=== PATIENT | male | born 1945 | race Caucasian/White ===

== ENCOUNTER → 2020-04-12 16:37 | Outpatient (CLI) | payer MEDICARE, SELFPAY ==
[2020-04-12 17:29] LABS: Basophils % 0.2 % (0.1-2.0); Eosinophils # 0.2 K/mm3 (0.0-0.4); Eosinophils % 1.6 % (0.1-12.0); Hematocrit 38.9 % (42.0-52.0); Hemoglobin 12.1 g/dL (14.1-18.0); Lymphocytes # 1.7 K/mm3 (0.7-4.5); Lymphocytes % 14.3 % (10-50); Mean Corpuscular Hemoglobin 27.6 pg (27.0-31.2); Mean Platelet Volume 9.4 fl (7.4-10.4); Monocytes # 0.9 K/mm3 (0.1-1.0); Monocytes % 7.5 % (1.7-9.3); Neutrophils % 76.4 % (37.0-80.0); Platelet Count 203 K/mm3 (142-424); Red Blood Count 4.37 M/mm3 (4.60-6.20); White Blood Count 11.8 K/mm3 (4.8-10.8)
[2020-04-12 17:40] LABS: Microalbumin/Creatinine Ratio 8.2
[2020-04-12 17:48] LABS: Creatinine,Urine Random 129 mg/dL (Not Estab.)
[2020-04-12 18:05] LABS: Alanine Aminotransferase 12 U/L (12-78); Albumin Level 4.6 g/dl (3.5-5.0); Albumin/Globulin Ratio 1.5 (1.1-1.8); Alkaline Phosphatase 61 U/L (38-126); Anion Gap 16.3 mEq/L (5-15); Aspartate Amino Transferase 31 U/L (17-59); Bilirubin,Total 0.4 mg/dl (0.2-1.3); Blood Urea Nitrogen 18 mg/dl (9-20); Calcium 10.3 mg/dl (8.4-10.2); Carbon Dioxide 33 mmol/L (22.0-30.0); Chloride 96 mmol/L (98-107); Chol/HDL Ratio 2.2 (1-3.5); Cholesterol 111 mg/dl (140-200); Estimated Glomerular Filt Rate 82 ml/min (>60); GFR (African American) 99 ML/MIN (>60); Glucose 88 mg/dl (74-100); HDL Cholesterol 51 mg/dl (40-60); Potassium 5.3 mmoL/L (3.5-5.1); Sodium 140 mmol/L (136-145); Total Protein,Serum 7.6 g/dl (6.3-8.2); Triglycerides 105 mg/dl (30-150); VLDL Cholesterol 21 mg/dL (0-40)
[2020-04-12 18:08] LABS: Hemoglobin A1C 6.7 % (4.0-6.0)
[2020-04-12 18:16] LABS: Direct LDL Cholesterol 47.44 mg/dL (100-129)
[2020-04-12 18:35] LABS: Prostate Specific Ag Screen 0.2 ng/ml (0.0-4.0)
== END ==
PROVIDERS: Visit Provider Family Medicine
DX: E11.9 Type 2 diabetes mellitus without complications (principal); Z12.5 Encounter for screening for malignant neoplasm of prostate; R52 Pain, unspecified; Z95.2 Presence of prosthetic heart valve; Z79.84 Long term (current) use of oral hypoglycemic drugs
CPT/HCPCS: 80053; 80061; 82043; 82570; 83036; 85025; 87086; 87088; 87186; G0103

== ENCOUNTER 2020-05-03 12:51 | Inpatient (IN) | payer MEDICARE, SELFPAY ==
[2020-05-03] VITALS (10 sets, daily range): BP systolic 97–148; BP diastolic 64–77; PULSE 69–106; RESP 15–20; TEMP 36.7–37.1; O2SAT 89–99; BMI 25.8; BMI 26.0
--- NOTE | 2020-05-03 13:16 | HMH.EDSOB ---
ED Disposition Clinical Impression: Community acquired pneumonia Qualifiers: Laterality: unspecified laterality Qualified Code(s): J18.9 - Pneumonia, unspecified organism Disposition: Admitted As Inpatient Condition on Discharge: Fair Referrals: Devin Thibodeaux MD [Primary Care Provider] - - Critical Care Critical Care Time: No Attestation: On , the high probability of a clinically significant, sudden or life threatening deterioration of the following system(s) required my full and direct attention, intervention and personal management. The time I documented below is in addition to time spent performing reported procedures but includes the following listed in this critical care notation. Medical Decision Making - Medical Records Medical records reviewed: Yes: I reviewed the patient's medical records. - Igor Inquiry Pt receiving controlled substance: No Vital Signs: 05/03/20 13:10 05/03/20 13:25 05/03/20 14:35 Temperature 98.7 F Temperature Source Oral Pulse Rate 82 Pulse Rate [Right Radial] 106 H 92 H Respiratory Rate 17 20 Blood Pressure [Right Arm] 131/77 111/76 Blood Pressure Mean [Right Arm] 95 87 Blood Pressure Source [Right Arm] Automatic Cuff Blood Pressure Position [Right Arm] Supine 02 Sat by Pulse Oximetry 89 L 92 L Oxygen Delivery Method Room Air Room Air Oxygen Flow Rate (LPM) 05/03/20 15:03 Temperature Temperature Source Pulse Rate Pulse Rate [Right Radial] 89 Respiratory Rate 19 Blood Pressure [Right Arm] 148/74 H Blood Pressure Mean [Right Arm] 98 Blood Pressure Source [Right Arm] Blood Pressure Position [Right Arm] 02 Sat by Pulse Oximetry 94 L Oxygen Delivery Method Nasal Cannula Oxygen Flow Rate (LPM) 2 - Lab Data Lab results reviewed: Yes: I reviewed the patient's lab results. Lab Results 05/03/20 13:25: WBC 9.5, RBC 4.27 L, Hgb 11.5 L, Hct 37.1 L, MCV 87.0, MCH 27.0, MCHC 31.1 L, RDW 16.2, Plt Count 205, MPV 9.6, Neut % (Auto) 69.8, Lymph % (Auto) 17.0, Gilliam % (Auto) 10.4 H, Eos % (Auto) 2.4, Baso % (Auto) 0.4, Neut # (Auto) 6.6, Lymph # (Auto) 1.6, Gilliam # (Auto) 1.0, Eos # (Auto) 0.2, Baso # (Auto) 0.0 05/03/20 13:25: Lactate 0.9 05/03/20 13:25: Sodium 140, Potassium 4.3, Chloride 96 L, Carbon Dioxide 35 H, Anion Gap 13.3, BUN 26 H, Creatinine 1.00, Estimated Creat Clear 65, Estimated GFR 73, Est GFR ( Amer) 88, Glucose 126 H, Calcium 9.9, Total Bilirubin 0.4, AST 30, ALT 13, Alkaline Phosphatase 62, Total Protein 7.7, Albumin 4.0, Globulin 3.7 H, Albumin/Globulin Ratio 1.1 05/03/20 13:25: SARS-CoV-2 IgG Ab (Rapid) Negative, SARS-CoV-2 IgM Ab (Rapid) Negative Result diagrams: 05/03/20 13:25 05/03/20 13:25 Orders (Tests/Meds): ED MEDICATIONS Generic Name Dose Route Start Last Admin Trade Name Freq PRN Reason Stop Dose Admin Acetaminophen 650 mg 05/03/20 15:05 Acetaminophen 325mg Tab PO 06/02/20 15:04 Q4HP PRN As Needed for Fever or Pain Sodium Chloride 2,180 mls @ 1,090 mls/hr 05/03/20 13:23 05/03/20 13:32 Sod Chlor 0.9% 1000ml Bag 30 ml/kg infuse over 2 hr (2180 ml) 05/03/20 15:22 1,090 mls/hr IV Administration .Q2H ONE Protocol Cefepime HCl 2 gm/ Sodium 100 mls @ 200 mls/hr 05/03/20 13:30 05/03/20 13:34 Chloride IV 05/17/20 13:29 200 mls/hr Q8H ARDEN Administration Protocol Ondansetron HCl 4 mg 05/03/20 15:05 Zofran 4mg/2ml Vial IV 06/02/20 15:04 Q8HP PRN Nausea Sodium Chloride 3 ml 05/03/20 13:23 Sodium Chloride 3% 15ml Neb IH 06/02/20 13:22 ONCE PRN INDUCE SPUTUM COLLECTION Discontinued Medications Generic Name Dose Route Start Last Admin Trade Name Freq PRN Reason Stop Dose Admin Albuterol/Ipratropium 3 ml 05/03/20 14:14 05/03/20 14:35 Duoneb 3ml Neb 05/03/20 14:15 3 ml ONCE ONE Administration Albuterol/Ipratropium 3 ml 05/03/20 14:15 05/03/20 14:16 Duoneb 3ml Neb 05/03/20 14:16 Not Given ONCE ONE ORDE
--- NOTE | 2020-05-03 13:23 | XR_ITS ---
PROCEDURE: XR CHEST 2V CLINICAL HISTORY: cough, soa Cough and shortness of air COMPARISON: No exams were available for comparison FINDINGS: Prior median sternotomy with aortic valve replacement. Normal heart size. There is coarsening of the bronchovascular markings which may be seen with COPD. There is slight increased density in the left lower lobe laterally nonspecific and may be due to an area scarring. There is minimal blunting of the left CP angle. No acute bony abnormalities. IMPRESSION: COPD with chronic changes suspected and may be confirmed with follow-up. Trace left effusion. Dictated by: Narayan Egan MD 05/03/2020 14:36 Narayan Egan MD in OV 05/03/2020 14:36
[2020-05-03 13:37] LABS: Basophils % 0.4 % (0.1-2.0); Eosinophils # 0.2 K/mm3 (0.0-0.4); Eosinophils % 2.4 % (0.1-12.0); Hematocrit 37.1 % (42.0-52.0); Hemoglobin 11.5 g/dL (14.1-18.0); Lymphocytes # 1.6 K/mm3 (0.7-4.5); Mean Corpuscular HGB Conc 31.1 g/dL (31.8-35.4); Mean Platelet Volume 9.6 fl (7.4-10.4); Monocytes % 10.4 % (1.7-9.3); Neutrophils # 6.6 K/mm3 (1.8-7.8); Neutrophils % 69.8 % (37.0-80.0); Platelet Count 205 K/mm3 (142-424); Red Blood Count 4.27 M/mm3 (4.60-6.20); Red Cell Distribution Width 16.2 % (11.5-17.5); White Blood Count 9.5 K/mm3 (4.8-10.8)
[2020-05-03 13:43] LABS: Alanine Aminotransferase 13 U/L (12-78); Albumin/Globulin Ratio 1.1 (1.1-1.8); Alkaline Phosphatase 62 U/L (38-126); Anion Gap 13.3 mEq/L (5-15); Aspartate Amino Transferase 30 U/L (17-59); Bilirubin,Total 0.4 mg/dl (0.2-1.3); Blood Urea Nitrogen 26 mg/dl (9-20); Calcium 9.9 mg/dl (8.4-10.2); Carbon Dioxide 35 mmol/L (22.0-30.0); Chloride 96 mmol/L (98-107); Creatinine Clearance Estimated 65 mL/min (50-200); Estimated Glomerular Filt Rate 73 ml/min (>60); GFR (African American) 88 ML/MIN (>60); Globulin 3.7 g/dL (1.3-3.2); Glucose 126 mg/dl (74-100); Potassium 4.3 mmoL/L (3.5-5.1); Sodium 140 mmol/L (136-145); Total Protein,Serum 7.7 g/dl (6.3-8.2)
[2020-05-03 13:44] LABS: Lactic Acid 0.9 mmol/L (0.7-2.1)
[2020-05-03 13:58] LABS: Coronavirus 19 IgG Antibody Negative (Negative); Coronavirus 19 IgM Antibody Negative (Negative)
--- NOTE | 2020-05-03 14:52 | PC.NURSE ---
pt ambulated in room on room air for approx 3 minutes. sao2 check =74%. pt back to stretcher placed on o2 at 2lbnc. sao2 increased to 94%. dr hendricks notified.
--- NOTE | 2020-05-03 14:56 | PC.NURSE ---
DR BELTRAN SPEAKING TO DR MARRERO
--- NOTE | 2020-05-03 19:10 | HMH.HP ---
*Admission Date: 05/03/20 *Chief complaint: fever and dyspnea *History of present illness: This is a 74-year-old male with a past medical history significant for hypertension, hyperlipidemia, COPD, bioprosthetic mitral valve replacement currently on baby aspirin daily who presents to the emergency department for approximately 3 days of shortness of breath, cough, fever up to 104 degrees at home. Last antipyretic was at 10 AM this morning and was ibuprofen 400 mg. He states that he feels like his left lung is heavy . He denies any vomiting, diarrhea. No abdominal pain or urinary symptoms. He has been using Tylenol and ibuprofen to control his fevers at home but they have persisted and so he presents here for evaluation. He has been out and about in the community, no known exposure to COVID. Patient with initial oxygen saturations of 89 to 91% on room air. However, when ambulating even after a breathing treatment he is 76% on room air. No distinct wheezing and he does have good air movement, but is clearly not maintaining oxygen saturations well. Though his chest x-ray does not show any large pneumonia, I am concerned for possibly radiographically delayed pneumonia given his history of fever and shortness of breath over the last several days. No chest pain that would suggest pulmonary embolus. He has negative COVID IgG and IgM here. Covered empirically with cefepime. I discussed this case with Dr. Thibodeaux, patient will be admitted for further manageme Patient has been running temperatures over the weekend, getting up into the 102 range. He attributes this to a left pneumonia, has a subjective heaviness along the left side. He is not had much in the way of purulent secretions. Patient was recently seen in the office, UTI, culture grew an ESBL E. coli. He received 2 shots of Rocephin, 1 g each and was placed on appropriate p.o. coverage following the culture. In my experience with this patient fevers have previously risen from gu source. Of further concern is a bioprosthetic aortic valve. [facility] History Medical History: Reports:: Asthma, Chronic Obstructive Pulmonary Disease (COPD), Coronary Artery Disease, Diabetes Mellitus Type 2, Hyperlipidemia, Hypertension Denies:: Cancer, Diabetes Mellitus Type 1, MRSA *Have you ever received a pneumonia vaccine?: Yes *Have you received a flu vaccine this season?: Yes Other Medical History: Reports: Cataracts Laterality Cases: Bilateral: Tonsillectomy Other Surgeries: Yes: Cancer Surgery, Mitral Valve Replacement Amputation: No - *Social History Smoking Status: Former smoker Alcohol Intake: never Substance Use Type: denies use *Occupational Status:: retired, disabled Housing: house Household Members: none *Travel in the last 8 weeks: None Family Hx:: Cancer, Coronary Artery Disease, Diabetes, Heart Attack, Hypertension Review of Systems - Constitutional Reports fatigue, Reports fever(s), Reports lack of energy, Reports malaise, Reports weakness - Eyes Denies change in vision - ENT Denies abnormal hearing, Denies neck pain - *Cardiovascular Reports shortness of breath with activity, Denies chest pain, Denies chest pain at rest - *Respiratory Reports chest congestion, Reports cough, Reports shortness of breath, Denies excessive phlegm production, Denies coughing up blood, Denies pain on inspiration, Denies pain with cough - *Gastrointestinal Denies abdominal pain - *Genitourinary Denies difficulty urinating, Denies decreased urination - *Musculoskeletal Reports muscle weakness - Integumentary/Breasts Denies yellowing of the skin - *Neurologic Reports unsteadiness - Psychiatric Denies hopelessness, Denies irritability, Denies mood swings - Endocrine Reports cold intolerance - Hematologic/Lymphatic Denies easy bleeding Meds Home Medications Medication Instructions Recorded Confirmed Type aspirin 81 mg tablet,delayed 81 mg PO DAILY 04/12/20 05/03/20 History release
--- NOTE | 2020-05-03 19:17 | PC.NURSE ---
report given to parul
[2020-05-03 20:30] LABS: Microscopic, Urine URINE MICROSCOPIC (MICROSCOPIC)
[2020-05-03 20:34] LABS: Appearance,Urine CLEAR (Clear); Bilirubin,Urine Negative (Negative); Blood, Urine Negative (Negative); Color,Urine YELLOW (Yellow); Glucose,Urine (UA) Negative (Negative); Ketones,Urine Negative (Negative); Leukocyte Esterase,Urine Negative (Negative); Nitrate,Urine Negative (Negative); Protein,Urine Negative (Negative); Urobilinogen,Urine 0.2 EU/dl (0.2)
[2020-05-03 20:52] LABS: Bacteria,Urine Trace /lpf; Squamous Epithelial Cell,Urine Occasional #/hpf (0-5)
--- NOTE | 2020-05-03 21:03 | PC.NURSE ---
RT gave pt neb tx with sodium chloride to induce SPT. SPT collected and sent to lab at 2100
[2020-05-04 04:00] VITALS: BP 97/61; PULSE 85; RESP 20; TEMP 37.3; O2SAT 92
[2020-05-04 05:00] VITALS: BMI 26.1
--- NOTE | 2020-05-04 05:31 | PC.NURSE ---
A&OX4. PT HAS TOLERATED 2L NC WELL THROUGHOUT SHIFT. RESPIRATIONS REGULAR AND UNLABORED. FINE CRACKLES NOTED THROUGHOUT LUNGS. OCCASIONAL NONPRODUCTIVE COUGH NOTED. +2 PULSES NOTED THROUGHOUT. HAND QUALITY ANALYST EQUAL. ACTIVE BOWEL SOUNDS HEARD IN ALL 4 QUADRANTS. SOFT AND NONTENDER. NO BM THUS FAR. PT AMBULATES TO THE RESTROOM INDEPENDENTLY. PT MOVES INDEPENDENTLY IN THE BED. NO REPORTS OF PAIN THUS FAR. PT RECEIVED INVANZ, CEFEPIME, AND AZITHROMYCIN THIS SHIFT AND TOLERATED ALL WELL. PT HAS SLEPT ON AND OFF THIS SHIFT. HE RECEIVED A SHOWER AND WAS CLIPPED IN PREPARATION FOR CARDIOLOGY CONSULT. PT IS CURRENTLY LYING IN BED W CALL LIGHT WITHIN REACH. BED IN LOWEST POSITION. VSS. WILL CONTINUE TO MONITOR.
[2020-05-04 08:00] VITALS: BP 122/72; PULSE 97; RESP 18; TEMP 36.8; O2SAT 97
[2020-05-04 08:49] LABS: Basophils % 0.2 % (0.1-2.0); Eosinophils # 0.4 K/mm3 (0.0-0.4); Eosinophils % 4.4 % (0.1-12.0); Hematocrit 37.6 % (42.0-52.0); Hemoglobin 11.5 g/dL (14.1-18.0); Lymphocytes # 1.4 K/mm3 (0.7-4.5); Lymphocytes % 16.6 % (10-50); Mean Corpuscular HGB Conc 30.7 g/dL (31.8-35.4); Mean Platelet Volume 10.2 fl (7.4-10.4); Monocytes # 0.7 K/mm3 (0.1-1.0); Monocytes % 8.8 % (1.7-9.3); Neutrophils # 5.9 K/mm3 (1.8-7.8); Platelet Count 220 K/mm3 (142-424); Red Blood Count 4.27 M/mm3 (4.60-6.20); Red Cell Distribution Width 16.1 % (11.5-17.5); White Blood Count 8.4 K/mm3 (4.8-10.8)
[2020-05-04 08:52] LABS: Chloride 103 mmol/L (98-107)
[2020-05-04 08:53] LABS: Potassium 4.6 mmoL/L (3.5-5.1); Sodium 142 mmol/L (136-145)
[2020-05-04 08:55] LABS: Blood Urea Nitrogen 19 mg/dl (9-20); Creatinine Clearance Estimated 65 mL/min (50-200); Estimated Glomerular Filt Rate 94 ml/min (>60); GFR (African American) 114 ML/MIN (>60)
[2020-05-04 08:56] LABS: Anion Gap 10.6 mEq/L (5-15); Calcium 9.4 mg/dl (8.4-10.2); Carbon Dioxide 33 mmol/L (22.0-30.0); Glucose 122 mg/dl (74-100)
--- NOTE | 2020-05-04 09:04 | HMH.CNCARD ---
History of Present Illness Consult date: 05/04/20 Requesting physician: Devin Thibodeaux Chief complaint: Fever Additional Medical History:: 1. Coronary artery disease, status post single-vessel bypass, 2010 2. Aortic valve disease, status post bioprosthetic aortic valve replacement, 2010 3. Tobacco use, smoked for 40 years approximately 2 to 3 packs/day, discontinued 2001. COPD 4. Hypertension 5. Hyperlipidemia 6. Diabetes mellitus type 2 History of present illness: This is a 74-year-old male with a past medical history significant for hypertension, hyperlipidemia, COPD, bioprosthetic mitral valve replacement currently on baby aspirin daily who presents to the emergency department for approximately 3 days of shortness of breath, cough, fever up to 104 degrees at home. Last antipyretic was at 10 AM this morning and was ibuprofen 400 mg. He states that he feels like his left lung is heavy . He denies any vomiting, diarrhea. No abdominal pain or urinary symptoms. He has been using Tylenol and ibuprofen to control his fevers at home but they have persisted and so he presents here for evaluation. He has been out and about in the community, no known exposure to COVID. Patient with initial oxygen saturations of 89 to 91% on room air. However, when ambulating even after a breathing treatment he is 76% on room air. No distinct wheezing and he does have good air movement, but is clearly not maintaining oxygen saturations well. Though his chest x-ray does not show any large pneumonia, I am concerned for possibly radiographically delayed pneumonia given his history of fever and shortness of breath over the last several days. No chest pain that would suggest pulmonary embolus. He has negative COVID IgG and IgM here. Covered empirically with cefepime. I discussed this case with Dr. Thibodeaux, patient will be admitted for further manageme Patient has been running temperatures over the weekend, getting up into the 102 range. He attributes this to a left pneumonia, has a subjective heaviness along the left side. He is not had much in the way of purulent secretions. Patient was recently seen in the office, UTI, culture grew an ESBL E. coli. He received 2 shots of Rocephin, 1 g each and was placed on appropriate p.o. coverage following the culture. In my experience with this patient fevers have previously risen from gu source. Of further concern is a bioprosthetic aortic valve. The above per Dr. Bernard and Dr. Thibodeaux Patient denies any chest pain, pressure or tightness. Echocardiogram has been performed with results pending at this time. [facility] History Medical History: Reports:: Asthma, Chronic Obstructive Pulmonary Disease (COPD), Coronary Artery Disease, Diabetes Mellitus Type 2, Hyperlipidemia, Hypertension Denies:: Cancer, Diabetes Mellitus Type 1, MRSA *Have you ever received a pneumonia vaccine?: Yes *Have you received a flu vaccine this season?: Yes Other Medical History: Reports: Cataracts Laterality Cases: Bilateral: Tonsillectomy Other Surgeries: Yes: Cancer Surgery, Mitral Valve Replacement Amputation: No - *Social History Smoking Status: Former smoker Alcohol Intake: never Substance Use Type: denies use *Occupational Status:: retired, disabled Housing: house Household Members: none *Travel in the last 8 weeks: None Family Hx:: Cancer, Coronary Artery Disease, Diabetes, Heart Attack, Hypertension Meds Home Medications Medication Instructions Recorded Confirmed Type aspirin 81 mg tablet,delayed 81 mg PO DAILY 04/12/20 05/03/20 History release carvedilol 6.25 mg tablet 6.25 mg PO BID 04/12/20 05/03/20 History cholecalciferol (vitamin D3) 10 10 mcg PO DAILY 04/12/20 05/03/20 History mcg (400 unit) capsule losartan 100 mg tablet 50 mg PO DAILY 04/12/20 05/04/20 History metformin 1,000 mg tablet 1,000 mg PO BID 04/12/20 05/03/20 History sojxoqjc-jsj-uaezu acid 0.4 1 tab PO DAILY 04/12/20 05/03/20 History mg-lycopene 300 mcg-lute
--- NOTE | 2020-05-04 10:33 | HMH.PHAINT ---
MED REC-COMPARED MED LIST WITH MD OFFICE LIST AND PHARMACY FILL HX.
--- NOTE | 2020-05-04 10:35 | HMH.PHAVTE ---
[facility] Pharmacy VTE Monitoring - Patient Demographics Admission date: 05/04/20 Report Date: 05/04/20 Time: 10:35 Allergies/Adverse Reactions: Patient Allergies Penicillins Allergy (Severe, Verified 05/03/20 13:15) Rash Height: 1.68 m Weight: 73.652 kg Patient Problems: Current Active Problems Community acquired pneumonia (Acute) Hypoxia (Acute) - VTE Risk Labs: VTE Related Lab Results Hgb 11.5 g/dL (14.1-18.0) L 05/04/20 08:38 Hct 37.6 % (42.0-52.0) L 05/04/20 08:38 Plt Count 220 K/mm3 (142-424) 05/04/20 08:38 BUN 19 mg/dl (9-20) D 05/04/20 08:38 Creatinine 0.80 mg/dl (0.66-1.25) 05/04/20 08:38 Estimated Creat Clear 65 mL/min (50-200) 05/04/20 08:38 VTE Score: 5 VTE Risk Level: Low Risk - Prophylaxis Types of VTE Prophylaxis: TEDS Knee High (RAMON HOSE ORDERED)
--- NOTE | 2020-05-04 11:28 | PC.NURSE ---
Notified Rasheeda about consult on pt at this time.
--- NOTE | 2020-05-04 14:52 | HMH.CONS ---
*Admission Date: 05/04/20 *Reason for consult:: Fever, history of UTIs/prostatitis *History of present illness: Patient is a 74-year-old white male admitted to the hospital last evening through the emergency room. He presented to the emergency room with complaints shortness of breath, cough and fever 204 degrees at home. COVID test were negative. His white count was 9.5 and his creatinine was normal at 1.0. Chest x-ray did not show a pneumonia pattern and afternoons is concerned that his temperatures may be coming from his urine and not his lungs. His urinalysis is within normal limits however. Last month he had a urine culture that grew out an ESBL E. coli. Patient denies any significant lower urinary tract symptoms at home. He is not on any medications for his prostate. Patient states he is uncircumcised and will give urine samples while voiding through the foreskin. He states that last month when he had positive urine culture that he had no urinary symptoms. [facility] History Medical History: Reports:: Asthma, Chronic Obstructive Pulmonary Disease (COPD), Coronary Artery Disease, Diabetes Mellitus Type 2, Hyperlipidemia, Hypertension Denies:: Cancer, Diabetes Mellitus Type 1, MRSA *Have you ever received a pneumonia vaccine?: Yes *Have you received a flu vaccine this season?: Yes Other Medical History: Reports: Cataracts Laterality Cases: Bilateral: Tonsillectomy Other Surgeries: Yes: Cancer Surgery, Mitral Valve Replacement Amputation: No - *Social History Smoking Status: Former smoker Alcohol Intake: never Substance Use Type: denies use *Occupational Status:: retired, disabled Housing: house Household Members: none *Travel in the last 8 weeks: None Family Hx:: Cancer, Coronary Artery Disease, Diabetes, Heart Attack, Hypertension Review of Systems - Review of Systems Review of systems:: pertinent systems reviewed and negative unless documented below - *Neurologic Reports unsteadiness, Reports weakness, Denies abnormal hearing Meds Home Medications Medication Instructions Recorded Confirmed Type aspirin 81 mg tablet,delayed 81 mg PO DAILY 04/12/20 05/03/20 History release carvedilol 6.25 mg tablet 6.25 mg PO BID 04/12/20 05/03/20 History cholecalciferol (vitamin D3) 10 10 mcg PO DAILY 04/12/20 05/03/20 History mcg (400 unit) capsule losartan 100 mg tablet 50 mg PO DAILY 04/12/20 05/04/20 History metformin 1,000 mg tablet 1,000 mg PO BID 04/12/20 05/03/20 History hdjrnpfv-rhd-rzgbn acid 0.4 1 tab PO DAILY 04/12/20 05/03/20 History mg-lycopene 300 mcg-lutein 250 mcg tablet nitroglycerin 0.4 mg sublingual 0.4 mg SUBLINGUAL Q5-15M PRN 04/12/20 05/03/20 History tablet omega-3 fatty acids 1,000 mg 1,000 mg PO DAILY 04/12/20 05/03/20 History capsule omeprazole 20 mg capsule,delayed 20 mg PO DAILY 04/12/20 05/03/20 History release rosuvastatin 10 mg tablet 10 mg PO HS 04/12/20 05/04/20 History Garlic 1 each PO HS 05/04/20 05/04/20 History Allergies Allergy/AdvReac Type Severity Reaction Status Date / Time Penicillins Allergy Severe Rash Verified 05/03/20 13:15 Exam Vital signs and Labs for Last 24 Hours: Temp Pulse Resp BP Pulse Ox 98.2 F 97 H 18 122/72 97 05/04/20 08:00 05/04/20 08:00 05/04/20 08:00 05/04/20 08:00 05/04/20 08:00 Laboratory Results - last 24 hr 05/03/20 20:24: Urine Color Yellow, Urine Appearance Clear, Urine pH 6.0, Ur Specific [place] 1.020, Urine Protein Negative, Urine Glucose (UA) Negative, Urine Ketones Negative, Urine Blood Negative, Urine Nitrate Negative, Urine Bilirubin Negative, Urine Urobilinogen 0.2, Ur Leukocyte Esterase Negative, Urine WBC 3-5, Ur Squamous Epith Cells Occasional, Urine Bacteria Trace 05/04/20 08:38: WBC 8.4, RBC 4.27 L, Hgb 11.5 L, Hct 37.6 L, MCV 88.0, MCH 27.0, MCHC 30.7 L, RDW 16.1, Plt Count 220, MPV 10.2, Neut % (Auto) 70.0, Lymph % (Auto) 16.6, [place] % (Auto) 8.8, Eos % (Auto) 4.4, Baso % (Auto) 0.2, Neut # (Auto) 5.9, L
[2020-05-04 15:54] VITALS: BP 110/65; PULSE 86; RESP 18; TEMP 36.8; O2SAT 95
[2020-05-04 18:10] VITALS: O2SAT 92
--- NOTE | 2020-05-04 18:41 | PC.NURSE ---
PATIENT A&O X4, LUNGS: RHONCHI HEARD, PULSES EQUAL. PATIENT HAS BEEN FATIGUED DURING THIS RN SHIFT. NO COMPLAINTS OF PAIN OR SOB. PATIENT ATE 3 MEALS AND TOLERATED WELL. NO NEW ISSUES OR CONCERNS AT THIS TIME.
--- NOTE | 2020-05-04 19:30 | CA_ITS ---
APPROVED REPORT EXAM: Comprehensive 2D, Doppler, and color-flow Echocardiogram Animal Behaviourist: Kamla Ndiaye RDCS Ht: 5 ft 6 in Wt: 161lbs BSA: 1.82 BP: 110/68 mmHg Indications: AVR PORCINE,FEVER,HTN,DM,HLP 2D Dimensions LVOT 1.56 cm (M/F) 1.5-2.5 M-Mode Dimensions RVDd 3.13 cm (0.9-2.6) LVDd 4.52 cm (3.5-5.7) LVDs 3.27 cm (3.5-5.7) IVSd 0.72 cm (0.6-1.1) PWd 1.16 cm (0.6-1.1) EF (Teich) 53.70% FS 27.70% EDV (Teich) 93.40 mL ESV (Teich) 43.20 mL LV Diastology E/A Ratio 0.56 Aortic Valve LVOT Max 121.00 (70-110 cm/s) LVOT VTI 19.95 cm Mitral Valve MV A Velocity 92.00 (40-130 cm/s) Left Ventricle Left atrium is mildly enlarged, left ventricle is normal size, mild concentric left ventricular hypertrophy, visually estimated ejection fraction 55% with no regional wall motion abnormality, grade 1 diastolic dysfunction seen without tissue Doppler evidence of raise left atrial pressure. Right Ventricle Right atrium and right ventricle mildly enlarged with normal contractility. Aortic Valve There is bioprosthetic valve noted in the aortic position, the valve is well-seated, leaflets are not well visualized, the mean gradient across valve is 21 mmHg, there is no aortic insufficiency. Mitral Valve Mitral valve is grossly normal, there is mild mitral regurgitation. Tricuspid Valve Tricuspid valve is grossly normal, there is mild tricuspid regurgitation, tricuspid regurgitation jet velocity is inadequate for calculation of the right ventricular systolic pressure. Pulmonic Valve Pulmonic valve is poorly visualized. Great Vessels Aortic root is normal size. Pericardium No significant pericardial effusion noted. Conclusion 1. Mildly enlarged left atrium, normal left ventricular size, mild concentric left ventricular hypertrophy, visually estimated ejection fraction 55% with no regional wall motion abnormality, grade 1 diastolic dysfunction seen without tissue Doppler evidence of raise left atrial pressure. 2. Mildly enlarged right ventricle with normal contractility. 3. Bioprosthetic valve in the aortic position, the mean gradient across valve is 21 mmHg. There is no aortic insufficiency. 4. If clinically indicated transesophageal echocardiogram is recommended for further evaluation. Electronically signed by : Petar Alas, 05/04/2020 21:00:38
[2020-05-04 20:00] VITALS: BP 110/57; PULSE 108; RESP 19; TEMP 36.8; O2SAT 95
--- NOTE | 2020-05-04 20:41 | HMH.ACPN2 ---
Internal Medicine - PN: Subj *Date: 05/04/20 *Time: 20:41 Interval history: 74-year-old male patient resting quietly sitting on the side of the bed, reports he is feeling better. Denies any shortness of breath or chest pain at present. Currently on 2 L per nasal cannula satting 94 to 96%. Exam Vital signs and Labs for Last 24 Hours: Temp Pulse Resp BP Pulse Ox 98.2 F 86 18 110/65 95 05/04/20 15:54 05/04/20 15:54 05/04/20 15:54 05/04/20 15:54 05/04/20 15:54 Laboratory Results - last 24 hr 05/03/20 20:24: Urine Color Yellow, Urine Appearance Clear, Urine pH 6.0, Ur Specific [place] 1.020, Urine Protein Negative, Urine Glucose (UA) Negative, Urine Ketones Negative, Urine Blood Negative, Urine Nitrate Negative, Urine Bilirubin Negative, Urine Urobilinogen 0.2, Ur Leukocyte Esterase Negative, Urine WBC 3-5, Ur Squamous Epith Cells Occasional, Urine Bacteria Trace 05/04/20 08:38: WBC 8.4, RBC 4.27 L, Hgb 11.5 L, Hct 37.6 L, MCV 88.0, MCH 27.0, MCHC 30.7 L, RDW 16.1, Plt Count 220, MPV 10.2, Neut % (Auto) 70.0, Lymph % (Auto) 16.6, [place] % (Auto) 8.8, Eos % (Auto) 4.4, Baso % (Auto) 0.2, Neut # (Auto) 5.9, Lymph # (Auto) 1.4, [place] # (Auto) 0.7, Eos # (Auto) 0.4, Baso # (Auto) 0.0 05/04/20 08:38: Sodium 142, Potassium 4.6, Chloride 103, Carbon Dioxide 33 H, Anion Gap 10.6, BUN 19 D, Creatinine 0.80, Estimated Creat Clear 65, Estimated GFR 94, Est GFR ( Amer) 114 D, Glucose 122 H, Calcium 9.4 I & O for Last 24 hours: Intake & Output 05/01/20 05/02/20 05/03/20 05/04/20 23:59 23:59 23:59 23:59 Intake Total 120 / 120 820 / 820 Balance 120 / 120 820 / 820 Weight 161 lb 6 oz 162 lb 6 oz Microbiology Reports for the Last 24 Hours: Microbiology 05/03/20 20:24 Urine,Clean Catch Urine Culture - Preliminary NO GROWTH AFTER 24 HOURS 05/03/20 20:59 Sputum - Expectorated Sputum Gram Stain - Final - Constitutional no acute distress - *Routine HEENT Exam Head: Present: normocephalic. Absent: tenderness of temporal artery ENT: Present: mucous membranes moist. Absent: sinus tenderness - *Routine Neck Exam Present: full ROM, trachea midline. Absent: JVD, tracheal deviation - *Routine Respiratory Exam Present: rales - *Routine Cardiovascular Exam Present: RRR, murmur - *Routine Abdominal Exam Present: soft, normoactive bowel sounds. Absent: tenderness, firm - *Routine Extremities Exam Present: pulses intact. Absent: cyanosis, calf tenderness - *Routine Skin Exam Present: intact, warm. Absent: cyanosis, jaundice - *Routine Neurological Exam Present: alert, oriented X3. Absent: altered mental status - Routine Psychiatric Exam Present: normal affect, normal thought process Assessment and Plan (1) Hypoxia Current visit: Yes Status: Acute Category: Medical Code(s): R09.02 - Hypoxemia (2) Community acquired pneumonia Current visit: Yes Status: Acute Qualifiers: Laterality: unspecified laterality Qualified Code(s): J18.9 - Pneumonia, unspecified organism Category: Medical Code(s): J18.9 - Pneumonia, unspecified organism (3) Abnormal lung examination Current visit: No Status: Acute Category: Medical (4) COPD (chronic obstructive pulmonary disease) Current visit: No Status: Acute Qualifiers: COPD type: unspecified COPD Qualified Code(s): J44.9 - Chronic obstructive pulmonary disease, unspecified Category: Medical Code(s): J44.9 - Chronic obstructive pulmonary disease, unspecified (5) Diabetes Current visit: No Status: Acute Qualifiers: Diabetes mellitus type: type 2 Diabetes mellitus lobsterman insulin use: without lobsterman use Diabetes mellitus complication status: without complication Qualified Code(s): E11.9 - Type 2 diabetes mellitus without complications Category: Medical Code(s): E11.9 - Type 2 diabetes mellitus without complications (6) History of heart valve re
[2020-05-05] VITALS (8 sets, daily range): BP systolic 110–148; BP diastolic 54–78; PULSE 62–93; RESP 18–20; TEMP 36.5–37.3; O2SAT 66–96; BMI 25.8
--- NOTE | 2020-05-05 03:40 | PC.NURSE ---
A&OX4. PT TOLERATING 2LNC THIS SHIFT. PT UP INDEPENDENTLY IN ROOM. PT HAS HAD NO C/O SOA, PAIN, NA/VO THIS SHIFT. PT HAS REMAINED AFEBRILE THIS SHIFT. PT RESTING IN BED WITH EYES CLOSED MAJORITY OF SHIFT. NO C/O THUS FAR, VSS WILL CONTINUE TO MONITOR.
[2020-05-05 06:37] LABS: Basophils % 0.2 % (0.1-2.0); Eosinophils # 0.5 K/mm3 (0.0-0.4); Eosinophils % 5.7 % (0.1-12.0); Hematocrit 34.8 % (42.0-52.0); Hemoglobin 10.7 g/dL (14.1-18.0); Lymphocytes # 1.4 K/mm3 (0.7-4.5); Mean Corpuscular HGB Conc 30.8 g/dL (31.8-35.4); Mean Corpuscular Hemoglobin 26.8 pg (27.0-31.2); Mean Corpuscular Volume 86.9 fl (80-94); Monocytes # 0.8 K/mm3 (0.1-1.0); Monocytes % 9.9 % (1.7-9.3); Neutrophils # 5.6 K/mm3 (1.8-7.8); Neutrophils % 67.2 % (37.0-80.0); Platelet Count 187 K/mm3 (142-424); Red Cell Distribution Width 16.3 % (11.5-17.5); White Blood Count 8.4 K/mm3 (4.8-10.8)
[2020-05-05 06:40] LABS: Chloride 102 mmol/L (98-107); Potassium 4.6 mmoL/L (3.5-5.1); Sodium 138 mmol/L (136-145)
[2020-05-05 06:43] LABS: Anion Gap 9.6 mEq/L (5-15); Blood Urea Nitrogen 15 mg/dl (9-20); Carbon Dioxide 31 mmol/L (22.0-30.0); Creatinine Clearance Estimated 65 mL/min (50-200); Estimated Glomerular Filt Rate 110 ml/min (>60); GFR (African American) 133 ML/MIN (>60)
[2020-05-05 06:44] LABS: Calcium 8.9 mg/dl (8.4-10.2); Glucose 116 mg/dl (74-100)
--- NOTE | 2020-05-05 08:53 | CT_ITS ---
PROCEDURE: CT ANGIO CHEST CLINCIAL INDICATION: hypoxia and shortness of breath SOA, HYPOXIA, COPD, PNEUMONIA. COMPARISON: CR XR CHEST PORTABLE from 05/05/2020 TECHNIQUE: IV Contrast: 70ML OPTIRAY 350 Axial images obtained with sagittal and coronal reformats. All CT scans at the facility use one or more dose reduction, viz: automated exposure control, ma/kV adjustment per patient size (including targeted exams where dose is matched to indication, i.e. head), or iterative reconstruction technique. FINDINGS: HEART AND MEDIASTINAL STRUCTURES: Prior CABG. No evidence of aortic aneurysm or dissection. No evidence of pulmonary embolus. There are enlarged mediastinal lymph nodes. The largest node is in the precarinal region and measures 2.6 by 1.6 cm. Mildly prominent subcarinal nodes in mildly prominent hilar nodes are also present. Calcified nodes are present in the right hilum LUNGS AND PLEURAL SPACES: [place] as well. Centrilobular emphysema with scattered areas of scarring. There is a 6 mm noncalcified nodule in the right upper lobe centrally image 32 series 3 there is a 7 mm noncalcified nodule along the right minor fissure image 64 series 3. There are trace bilateral effusions with atelectatic changes in the lower lobes. A 5 mm noncalcified nodule is present in the right lower lobe laterally series 3, image 69. Atelectatic or fibrotic changes are present in the lingula and left lower lobe with a 7 mm nodule in the lingula. A 6 mm noncalcified nodule is present within the left lower lobe. BONY STRUCTURES: Degenerative changes thoracic spine UPPER ABDOMEN: Cholelithiasis ADDITIONAL FINDINGS: No other significant abnormalities. IMPRESSION: 1. No evidence of pulmonary embolus. 2. Multiple bilateral noncalcified pulmonary nodules measuring up to 7 mm. These may be inflammatory/infectious or neoplastic. Suggest [address] follow-up. 3. Mediastinal adenopathy. This is nonspecific and could be neoplastic or reactive. Follow-up recommended. 4. Trace bilateral effusions with bibasilar atelectatic changes with centrilobular emphysema and scattered areas of scarring Dictated by: Narayan Egan MD 05/06/2020 10:40 Narayan Egan MD in [place] 05/06/2020 10:40
--- NOTE | 2020-05-05 09:14 | HMH.ACPN2 ---
Internal Medicine - PN: Subj *Date: 05/05/20 *Time: 13:21 Interval history: 74-year-old male patient resting in bed quietly, he reports pain is better controlled today. Elastoplast Dressing clean dry and intact to left hip he reports he was up out of bed yesterday and is for today's visit participating in physical therapy. Reminded him on the importance of participating in and completing full physical therapy schedule. Lengthy discussion regarding smoking cessation. Patient reports he is using incentive spirometer 2-3 times per hour instructed it needs to be 10 times per hour patient verbalizes understanding and agrees Exam Vital signs and Labs for Last 24 Hours: Temp Pulse Resp BP Pulse Ox 99.2 F 93 H 18 118/72 91 L 05/05/20 07:58 05/05/20 07:58 05/05/20 07:58 05/05/20 07:58 05/05/20 07:58 Laboratory Results - last 24 hr 05/05/20 05:34: WBC 8.4, RBC 4.00 L, Hgb 10.7 L, Hct 34.8 L, MCV 86.9, MCH 26.8 L, MCHC 30.8 L, RDW 16.3, Plt Count 187, MPV 9.0, Neut % (Auto) 67.2, Lymph % (Auto) 17.0, [place] % (Auto) 9.9 H, Eos % (Auto) 5.7, Baso % (Auto) 0.2, Neut # (Auto) 5.6, Lymph # (Auto) 1.4, [place] # (Auto) 0.8, Eos # (Auto) 0.5 H, Baso # (Auto) 0.0 05/05/20 05:34: Sodium 138, Potassium 4.6, Chloride 102, Carbon Dioxide 31 H, Anion Gap 9.6, BUN 15, Creatinine 0.70, Estimated Creat Clear 65, Estimated GFR 110, Est GFR ( Amer) 133, Glucose 116 H, Calcium 8.9 I & O for Last 24 hours: Intake & Output 05/02/20 05/03/20 05/04/20 05/05/20 23:59 23:59 23:59 23:59 Intake Total 120 / 120 820 / 820 1010 / 1010 Output Total Balance 120 / 120 820 / 820 1009 / 1009 Weight 161 lb 6 oz 162 lb 6 oz 160 lb 12.8 oz Microbiology Reports for the Last 24 Hours: Microbiology 05/03/20 20:24 Urine,Clean Catch Urine Culture - Preliminary NO GROWTH AFTER 24 HOURS - Constitutional no acute distress - *Routine HEENT Exam Head: Present: normocephalic. Absent: tenderness of temporal artery ENT: Present: mucous membranes moist - *Routine Neck Exam Present: full ROM, trachea midline. Absent: tracheal deviation - *Routine Respiratory Exam Present: decreased breath sounds, rales. Absent: accessory muscle use Comments: Rales LLL - *Routine Cardiovascular Exam Present: RRR, murmur - *Routine Abdominal Exam Present: soft, normoactive bowel sounds. Absent: tenderness, firm - *Routine Extremities Exam Present: full ROM, pulses intact. Absent: calf tenderness - *Routine Skin Exam Present: intact, warm. Absent: jaundice - *Routine Neurological Exam Present: alert, oriented X3. Absent: altered mental status - Routine Psychiatric Exam Present: normal affect, normal thought process Assessment and Plan (1) Hypoxia Current visit: Yes Status: Acute Category: Medical Code(s): R09.02 - Hypoxemia (2) Community acquired pneumonia Current visit: Yes Status: Acute Qualifiers: Laterality: unspecified laterality Qualified Code(s): J18.9 - Pneumonia, unspecified organism Category: Medical Code(s): J18.9 - Pneumonia, unspecified organism (3) Abnormal lung examination Current visit: No Status: Acute Category: Medical (4) COPD (chronic obstructive pulmonary disease) Current visit: No Status: Acute Qualifiers: COPD type: unspecified COPD Qualified Code(s): J44.9 - Chronic obstructive pulmonary disease, unspecified Category: Medical Code(s): J44.9 - Chronic obstructive pulmonary disease, unspecified (5) Diabetes Current visit: No Status: Acute Qualifiers: Diabetes mellitus type: type 2 Diabetes mellitus intermediate insulin use: without intermediate use Diabetes mellitus complication status: without complication Qualified Code(s): E11.9 - Type 2 diabetes mellitus without complications Category: Medical Code(s): E11.9 - Type 2 diabetes mellitus without complications (6) History of heart valve replacement
--- NOTE | 2020-05-05 09:55 | HMH.PNCARD ---
Subjective Date: 05/05/20 Time: 09:30 Principal diagnosis: fever, hypoxia, hx of bioprostethic aoatic valve Interval history: 74-year-old white gentleman who was admitted to the hospital with fever and hypoxia. He was found to have E. coli in his urine. He is being treated with this with antibiotics. Patient does have a history of bioprosthetic aortic valve so an echocardiogram was obtained to rule out endocarditis. His echocardiogram showed no evidence of endocarditis however a BILL was recommended for further evaluation. The patient denies any chest pain or pressure. He denies any shortness of breath or edema this morning. He denies fever, chills, nausea, vomiting, diarrhea, PND or orthopnea. Dates pulmonology did come in and see him this morning and he is scheduled to have a CAT scan of his chest as well as ABGs today. Exam Vital signs and Labs for Last 24 Hours: Temp Pulse Resp BP Pulse Ox 99.2 F 93 H 18 118/72 91 L 05/05/20 07:58 05/05/20 07:58 05/05/20 07:58 05/05/20 07:58 05/05/20 07:58 Laboratory Results - last 24 hr 05/05/20 05:34: WBC 8.4, RBC 4.00 L, Hgb 10.7 L, Hct 34.8 L, MCV 86.9, MCH 26.8 L, MCHC 30.8 L, RDW 16.3, Plt Count 187, MPV 9.0, Neut % (Auto) 67.2, Lymph % (Auto) 17.0, [place] % (Auto) 9.9 H, Eos % (Auto) 5.7, Baso % (Auto) 0.2, Neut # (Auto) 5.6, Lymph # (Auto) 1.4, [place] # (Auto) 0.8, Eos # (Auto) 0.5 H, Baso # (Auto) 0.0 05/05/20 05:34: Sodium 138, Potassium 4.6, Chloride 102, Carbon Dioxide 31 H, Anion Gap 9.6, BUN 15, Creatinine 0.70, Estimated Creat Clear 65, Estimated GFR 110, Est GFR ( Amer) 133, Glucose 116 H, Calcium 8.9 I & O for Last 24 hours: Intake & Output 08/30/20 05/03/20 05/04/20 05/05/20 23:59 23:59 23:59 23:59 Intake Total 120 / 120 820 / 820 1010 / 1010 Output Total Balance 120 / 120 820 / 820 1009 / 1009 Weight 161 lb 6 oz 162 lb 6 oz 160 lb 12.8 oz Microbiology Reports for the Last 24 Hours: Microbiology 05/03/20 20:24 Urine,Clean Catch Urine Culture - Preliminary NO GROWTH AFTER 24 HOURS Narrative: Echocardiogram from yesterday shows: His ejection fraction is 55% with grade 1 diastolic dysfunction. There is a bioprosthetic valve in the aortic position which is well-seated. The mean gradient across the valve is 21 mmHg. No aortic insufficiency noted. BILL is recommended for further evaluation. - Constitutional no acute distress, average body habitus - *Routine HEENT Exam Head: Present: normocephalic, atraumatic Eye: Present: EOMI, PERRL ENT: Present: mucous membranes moist - *Routine Neck Exam Present: supple, full ROM, carotid bruit (Bilateral carotid bruits), normal carotid upstroke. Absent: JVD, lymphadenopathy - *Routine Respiratory Exam Present: CTA bilaterally - *Routine Cardiovascular Exam Present: RRR, Normal S1, Normal S2, murmur (2/6). Absent: gallop - *Routine Abdominal Exam Present: soft, normoactive bowel sounds. Absent: tenderness, distended, rebound - *Routine Extremities Exam Present: full ROM, pulses intact, normal capillary refill. Absent: cyanosis, clubbing, edema - *Routine Skin Exam Present: intact, warm. Absent: erythema, rash - *Routine Neurological Exam Present: alert, oriented X3, CN II-XII intact. Absent: sensory deficit, motor deficit Progress Note: A&P (1) Hypoxia Status: Acute Current Visit: Yes (2) Community acquired pneumonia Status: Acute Current Visit: Yes (3) Abnormal lung examination Status: Acute Current Visit: No (4) COPD (chronic obstructive pulmonary disease) Status: Acute Current Visit: No (5) Diabetes Status: Acute Current Visit: No (6) History of heart valve replacement Status: Acute Current Visit: No (7) History of UTI Status: Acute Current Visit: Yes (8) History of aortic valve replacement with bioprosthetic valve Status: Acute Current Visit: Yes (9) Diastolic dysfunction Sta
--- NOTE | 2020-05-05 10:10 | CA_ITS ---
APPROVED REPORT Registered Travel Nurse: CT Laterality: Bilateral Study Quality: Good Indications: bilateral carotid bruits Risk Factors Hypertension: Hyperlipidemia Diabetes Doppler Spectral Velocity Analysis ECA (R) 71.90/13.50 cm/s ECA (L) 96.50/25.00 cm/s dICA (R) 81.40/32.80 cm/s dICA (L) 109.70/43.70 cm/s Ly (R) 64.50/25.50 cm/s Ly (L) 99.50/36.70 cm/s pICA (R) 82.80/33.40 cm/s pICA (L) 94.30/32.20 cm/s dCCA (R) 87.40/23.10 cm/s dCCA (L) 123.40/36.00 cm/s pCCA (R) 95.10/18.00 cm/s pCCA (L) 114.80/24.80 cm/s Vert (R) 61.70/18.00 cm/s Vert (L) 57.80/20.50 cm/s ICA/CCA 1.00 ICA/CCA 0.90 Findings Duplex evaluation demonstrates stenosis of the right proximal internal carotid artery <20% with PSV <140 cm/sec, EDV <100 cm/sec, and IC/CC Ratio <4.0. Duplex evaluation demonstrates stenosis of the left proximal internal carotid artery <20% with PSV <140 cm/sec, EDV <100 cm/sec, and IC/CC Ratio <4.0. Duplex evaluation demonstrates antegrade flow of the bilateral Vertebral Arteries. Electronically signed by : Narayan Egan MD 05/06/2020 17:30:33
[2020-05-05 10:33] LABS: ABG Base Excess 2.5 mmol/L (-2.4-2.3); ABG HCO3 27.6 mmhg (22.0-26.0); ABG Oxygen Saturation 85 % (90-100); ABG PCO2 47.8 mmhg (35.0-45.0); ABG PH 7.38 mmol/L (7.35-7.45); ABG PO2 51.5 mmhg (80-100); ABG TCO2 29.1 mmhg (23-27)
[2020-05-05 10:39] LABS: Oxygen ROOM AIR %; Source R BRACHIAL
--- NOTE | 2020-05-05 11:03 | HMH.PULMCON ---
*Admission Date: 05/04/20 *Reason for consult:: Hypoxic respiratory failure *History of present illness: Patient is a 74-year-old white male prior smoking history more than 30 packs a day, last smoked in 2001, aortic valve replacement, current UTI/prostatitis and pulmonary was consulted to manage his patient's hypoxic respiratory failure on further questioning patient denies any subjective fevers or productive phlegm. Patient states that his breathing has been stable for the last couple of days without any significant noticeable worsening of his symptoms. Patient denies any baseline shortness of breath or exertional dyspnea. However patient oxygen level desaturated to 64% overnight and that prompted the pulmonary consult. At bedside patient is saturating 89 to 91% on room air. Patient afebrile in the last 48 hours. Chest x-ray on admission did not show any obvious airspace disease except for some little right lower lobe infiltrate. Patient denies any frequent respiratory infections. 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 He did not have any significant asbestosis exposure. [facility] History Medical History: Reports:: Asthma, Chronic Obstructive Pulmonary Disease (COPD), Coronary Artery Disease, Diabetes Mellitus Type 2, Hyperlipidemia, Hypertension Denies:: Cancer, Diabetes Mellitus Type 1, MRSA *Have you ever received a pneumonia vaccine?: Yes *Have you received a flu vaccine this season?: Yes Other Medical History: Reports: Cataracts Laterality Cases: Bilateral: Tonsillectomy Other Surgeries: Yes: Cancer Surgery, Mitral Valve Replacement Amputation: No - *Social History Smoking Status: Former smoker Alcohol Intake: never Substance Use Type: denies use *Occupational Status:: retired, disabled Housing: house Household Members: none *Travel in the last 8 weeks: None Family Hx:: Cancer, Coronary Artery Disease, Diabetes, Heart Attack, Hypertension [facility] Pulmonology ROS - Review of Systems Review of systems:: pertinent systems reviewed and negative unless documented below - Constitutional Denies anorexia, Denies body ache(s) - *Cardiovascular Denies generalized swelling, Denies leg swelling - *Respiratory Respiratory: Yes system reviewed and no additional complaints, except as docu, No shortness of breath, No cough, No dyspnea on exertion, No excessive phlegm production - *Gastrointestinal Gastrointestingal: Reports: system reviewed and no additional complaints, except as docu - *Musculoskeletal Musculoskeletal: Reports system reviewed and no additional complaints, except as docu - *Neurologic Reports unsteadiness, Reports weakness, Denies abnormal hearing Meds Home Medications Medication Instructions Recorded Confirmed Type aspirin 81 mg tablet,delayed 81 mg PO DAILY 04/12/20 05/03/20 History release carvedilol 6.25 mg tablet 6.25 mg PO BID 04/12/20 05/03/20 History cholecalciferol (vitamin D3) 10 10 mcg PO DAILY 04/12/20 05/03/20 History mcg (400 unit) capsule losartan 100 mg tablet 50 mg PO DAILY 04/12/20 05/04/20 History metformin 1,000 mg tablet 1,000 mg PO BID 04/12/20 05/03/20 History lquftcij-sov-sbqtg acid 0.4 1 tab PO DAILY 04/12/20 05/03/20 History mg-lycopene 300 mcg-lutein 250 mcg tablet nitroglycerin 0.4 mg sublingual 0.4 mg SUBLINGUAL Q5-15M PRN 04/12/20 05/03/20 History tablet omega-3 fatty acids 1,000 mg 1,000 mg PO DAILY 04/12/20 05/03/20 History capsule omeprazole 20 mg capsule,delayed 20 mg PO DAILY 04/12/20 05/03/20 History release rosuvastatin 10 mg tablet 10 mg PO HS 04/12/20 05/04/20 History Garlic 1 each PO HS 05/04/20 05/04/20 History Allergies Allergy/AdvReac Type Severity Reaction Status Date / Time Penicillins Allergy Severe Rash Verified 05/03/20 13:15 Exam Vital signs and Labs for Last 24 Hours: Temp Pulse Resp BP Pulse Ox 99.2 F 93 H 18 118/72 9
--- NOTE | 2020-05-05 15:45 | XR_ITS ---
PROCEDURE: XR CHEST PORTABLE PICC PLAC CLINICAL HISTORY: Confirm PICC line placement COMPARISON: CR XR CHEST 2V from 05/03/2020 FINDINGS: 05/05/2020 at 1704 hours. The left upper extremity PICC line tip is projected toward the neck and is 5 cm deep into the neck. Dena on the floor was notified of these findings by telephone 05/05/2020 at 5:11 p.m. There has been a prior median sternotomy with aortic valve replacement. No lobar consolidation or collapse. There are atelectatic changes in the left lower lobe. No acute bony abnormalities. IMPRESSION: The PICC line tip is not in satisfactory position as described above Dictated by: Narayan Egan MD 05/05/2020 17:11 Narayan Egan MD in [place] 05/05/2020 17:11
--- NOTE | 2020-05-05 16:25 | SW/DCPLANNER ---
Addendum entered by Livia Cordoba 05/06/20 14:24: I have spoke with this patient regarding discharge plans: placement vs home health services. Patient stated that he lives at home alone, mows his own yard, does his grocery shopping, and takes care of his garden. After a lengthy conversation patient has refused placement and home health services at this time. I have spoke with patient regarding the possible need for home O2 at time of discharge: he has already been made aware of this and is agreeable. Patient stated that he would like to use [facility] for O2. Patient currently has a cane and wheel-chair at home. Patient has no other needs at home at this time. I will inform patients son. Original Note: I spoke with patients son (Tyler) today regarding discharge plans. Son expressed that he had concerns for patient at home alone: but son did not want to express this to patient in fear of hurting his feelings. I informed son that I will speak with patient regarding discharge plans: home health vs placement. Son stated that patient has had home health services in the past: through [place]. Son stated that he just wanted to express his concerns for his father and have someone speak with patient at [facility]. I explain that I will speak with patient this evening/tomorrow regarding discharge plans. Patient is have PICC line placed today, scans and BILL tomorrow. Discharge date is unknown at this time.
--- NOTE | 2020-05-05 17:23 | XR_ITS ---
PROCEDURE: XR CHEST PORTABLE PICC PLAC CLINICAL HISTORY: PICC line placement COMPARISON: CR XR CHEST 2V from 05/03/2020 CR XR CHEST PORTABLE PICC PLAC from 05/05/2020 FINDINGS: 1736 hours. Left upper extremity PICC line tip is now in good position in the region of the SVC. However, there is kinking of the tip with the catheter folded upon itself by approximately 13 mm.. Suggest either pulling catheter back 1-1/2 cm or a vigorous flush with repeating the exam to assure that the kink is resolved. Prior aortic valve replacement with chronic pulmonary changes with atelectasis or infiltrate in the left lower lobe. IMPRESSION: Left upper extremity PICC line tip is now in good position in the region of the SVC. However, there is kinking of the tip with the catheter folded upon itself by approximately 13 mm.. Suggest either pulling catheter back 1-1/2 cm or a vigorous flush with repeating the exam to assure that the kink is resolved Dictated by: Narayan Egan MD 05/05/2020 17:40 Narayan Egan MD in [place] 05/05/2020 17:40
--- NOTE | 2020-05-05 17:48 | XR_ITS ---
PROCEDURE: XR CHEST PORTABLE CLINICAL HISTORY: PICC COMPARISON: CR XR CHEST 2V from 05/03/2020 CR XR CHEST PORTABLE PICC PLAC from 05/05/2020 CR XR CHEST PORTABLE PICC PLAC from 05/05/2020 FINDINGS: 1835 hours Left subclavian PICC line is present. The tip is in good position in the region of the SVC. Prior aortic valve replacement. Persistent patchy infiltrate or atelectasis in the left lung base. IMPRESSION: PICC line in good position. Dictated by: Narayan Egan MD 05/05/2020 18:34 Narayan Egan MD in [place] 05/05/2020 18:34
--- NOTE | 2020-05-05 19:24 | PC.NURSE ---
report given to ana maria
--- NOTE | 2020-05-05 20:29 | PC.NURSE ---
Pt's room air sat at rest = 88%.
--- NOTE | 2020-05-05 20:30 | PC.NURSE ---
PATIENT A&OX4, LUNGS: EXPIRATORY RHONCHI HEARD IN BILATERAL MIDDLE AND LOWER LOBES. PATIENT AMBULATES IN ROOM, GAIT STEADY. PATIENT CONTINUES TO TAKE OFF OXYGEN AND FORGETS TO PUT IT BACK ON. WITH EACH ROOM AIR STATS CHECK, PATIENT WAS IN THE HIGH 60S. THIS RN APPLIED NC BACK ON AND PATIENT WOULD RISE TO LOW 90S. NO OTHER CONCERNS AT THIS TIME.
--- NOTE | 2020-05-05 20:35 | PC.NURSE ---
THIS RN SPOKE WITH ROSALBA AT DR. FREITAS'S OFFICE TO INFORM VERONIAC ECHAVARRIA NP THAT PATIENT'S IV CONTINUED TO INFILTRATE. THIS RN SPOKE WITH ROSALBA IN REGARDS TO CT NOT ABLE TO COMPLETE DUE TO IV SITUATION. ROSALBA PHONED THIS RN BACK AND STATED, OKAY TO ORDER PICC LINE. NO OTHER CONCERNS AT THIS TIME.
[2020-05-06] VITALS (16 sets, daily range): BP systolic 86–157; BP diastolic 51–98; PULSE 67–102; RESP 16–20; TEMP 36.5–36.9; O2SAT 86–100; BMI 25.7
--- NOTE | 2020-05-06 04:21 | PC.NURSE ---
A&OX3. 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 LUNGS NOTED CLEAR T/O AUSCULTATION. TOLERATED 2LNC WELL THIS SHIFT, ATTEMPTING TO GET A RA O2SAT AT THIS TIME. WILL DOCUMENT RA SAT ONCE OBTAINED IN VITAL SIGN INTERVENTION. ABDOMEN NONDISTENDED, ACTIVE BOWEL SOUNDS, SOFT AND NONTENDER PER PALPATION. PULSES +2. INDEPENDENT WITH ADL'S. NO COMPLAINTS STATED. VSS. WILL CONTINUE TO MONITOR.
[2020-05-06 06:37] LABS: Basophils % 0.2 % (0.1-2.0); Eosinophils # 0.6 K/mm3 (0.0-0.4); Hematocrit 33.4 % (42.0-52.0); Hemoglobin 10.7 g/dL (14.1-18.0); Lymphocytes # 1.8 K/mm3 (0.7-4.5); Mean Corpuscular Hemoglobin 27.2 pg (27.0-31.2); Mean Corpuscular Volume 85.2 fl (80-94); Mean Platelet Volume 9.1 fl (7.4-10.4); Monocytes # 0.7 K/mm3 (0.1-1.0); Monocytes % 8.1 % (1.7-9.3); Neutrophils # 5.4 K/mm3 (1.8-7.8); Neutrophils % 63.7 % (37.0-80.0); Platelet Count 210 K/mm3 (142-424); Red Blood Count 3.92 M/mm3 (4.60-6.20); Red Cell Distribution Width 16.1 % (11.5-17.5); White Blood Count 8.4 K/mm3 (4.8-10.8)
[2020-05-06 06:43] LABS: Chloride 101 mmol/L (98-107); Sodium 139 mmol/L (136-145)
[2020-05-06 06:46] LABS: Blood Urea Nitrogen 12 mg/dl (9-20); Calcium 9.2 mg/dl (8.4-10.2); Carbon Dioxide 32 mmol/L (22.0-30.0); Creatinine Clearance Estimated 65 mL/min (50-200); Estimated Glomerular Filt Rate 131 ml/min (>60); GFR (African American) 159 ML/MIN (>60); Glucose 111 mg/dl (74-100)
--- NOTE | 2020-05-06 07:14 | PC.NURSE ---
PICC LINE PATENT WITH BLOOD RETURN TO LUE. PICC DRESSING CDI THIS SHIFT. LEFT LIMB ALERT IN PLACE T/O SHIFT.
--- NOTE | 2020-05-06 08:22 | HMH.PNCARD ---
Subjective Date: 05/06/20 Time: 08:22 Principal diagnosis: fever, hypoxia, hx of bioprostethic aoatic valve Interval history: 74 yo WM at bedside in NAD. No complaints of chest pain or SOA. Exam Vital signs and Labs for Last 24 Hours: Temp Pulse Resp BP Pulse Ox 97.7 F 89 18 114/71 95 05/06/20 08:00 05/06/20 08:00 05/06/20 08:00 05/06/20 08:00 05/06/20 08:00 Laboratory Results - last 24 hr 05/05/20 10:00: Specimen Source R brachial, O2 % Room air, ABG pH 7.38, ABG pCO2 47.8 H, ABG pO2 51.5 L, ABG HCO3 27.6 H, ABG Total CO2 29.1 H, ABG O2 Saturation 85 L*, ABG Base Excess 2.5 H 05/06/20 06:10: WBC 8.4, RBC 3.92 L, Hgb 10.7 L, Hct 33.4 L, MCV 85.2, MCH 27.2, MCHC 32.0, RDW 16.1, Plt Count 210, MPV 9.1, Neut % (Auto) 63.7, Lymph % (Auto) 21.0, [place] % (Auto) 8.1, Eos % (Auto) 7.0, Baso % (Auto) 0.2, Neut # (Auto) 5.4, Lymph # (Auto) 1.8, [place] # (Auto) 0.7, Eos # (Auto) 0.6 H, Baso # (Auto) 0.0 05/06/20 06:10: Sodium 139, Potassium 4.0, Chloride 101, Carbon Dioxide 32 H, Anion Gap 10.0, BUN 12, Creatinine 0.60 L, Estimated Creat Clear 65, Estimated GFR 131, Est GFR ( Amer) 159, Glucose 111 H, Calcium 9.2 I & O for Last 24 hours: Intake & Output 05/03/20 05/04/20 05/05/20 05/06/20 11:59 11:59 11:59 11:59 Intake Total 580 / 580 1370 / 1370 1180 / 1180 Output Total Balance 580 / 580 1369 / 1369 1180 / 1180 Weight 162 lb 6 oz 160 lb 12.8 oz 160 lb Microbiology Reports for the Last 24 Hours: Microbiology 05/03/20 20:59 Sputum - Expectorated Sputum Gram Stain - Final 05/03/20 20:59 Sputum - Expectorated Sputum Sputum Culture - Final Normal Respiratory Ami 05/03/20 20:24 Urine,Clean Catch Urine Culture - Final NO GROWTH AFTER 48 HOURS 05/03/20 13:25 Blood Blood Culture - Preliminary NO GROWTH AFTER 48 HOURS 05/03/20 13:25 Blood Blood Culture - Preliminary NO GROWTH AFTER 48 HOURS - *Routine HEENT Exam Head: Present: normocephalic Eye: Present: EOMI, PERRL ENT: Present: mucous membranes moist - *Routine Respiratory Exam Present: decreased breath sounds, CTA bilaterally - *Routine Cardiovascular Exam Present: RRR, murmur - *Routine Extremities Exam Absent: cyanosis, clubbing, edema - *Routine Neurological Exam Present: alert, oriented X3 Progress Note: A&P (1) Hypoxia Status: Acute Current Visit: Yes (2) Community acquired pneumonia Status: Acute Current Visit: Yes (3) Abnormal lung examination Status: Acute Current Visit: No (4) COPD (chronic obstructive pulmonary disease) Status: Acute Current Visit: No (5) Diabetes Status: Acute Current Visit: No (6) History of heart valve replacement Status: Acute Current Visit: No (7) History of UTI Status: Acute Current Visit: Yes Assessment and Plan for All Diagnoses:: 1. BILL today to assess bioprosthetic AVR in light of murmur and fever. 2. Fever and pneumonia, on ABX. 3. Hypoxia and COPD, per Pulmonary. History of tobacco use and cement use exposure. CTA of chest results pending.
[2020-05-06 11:54] LABS: Basophils % 0.3 % (0.1-2.0); Eosinophils # 0.7 K/mm3 (0.0-0.4); Eosinophils % 6.9 % (0.1-12.0); Hematocrit 34.5 % (42.0-52.0); Hemoglobin 10.6 g/dL (14.1-18.0); Lymphocytes # 1.6 K/mm3 (0.7-4.5); Lymphocytes % 16.3 % (10-50); Mean Corpuscular HGB Conc 30.6 g/dL (31.8-35.4); Mean Corpuscular Hemoglobin 26.3 pg (27.0-31.2); Mean Corpuscular Volume 85.8 fl (80-94); Mean Platelet Volume 8.7 fl (7.4-10.4); Monocytes # 0.7 K/mm3 (0.1-1.0); Monocytes % 7.1 % (1.7-9.3); Neutrophils % 69.4 % (37.0-80.0); Platelet Count 205 K/mm3 (142-424); Red Blood Count 4.02 M/mm3 (4.60-6.20); Red Cell Distribution Width 16.2 % (11.5-17.5)
--- NOTE | 2020-05-06 12:00 | CA_ITS ---
APPROVED REPORT EXAM: Comprehensive 2D, Doppler, and color-flow Echocardiogram Recreational Therapy Aide: Kamla Ndiaye RDCS Ht: 5 ft 6 in Wt: 160lbs BSA: 1.82 BP: 110/68 mmHg Indications: BILL EVAL OF AVR Procedure After obtaining informed consent, patient underwent transesophageal echo in the ICU. Type of Sedation : Conscious Sedation Sedation was administered by Silverio RamirezR.N.AMartine Transesophageal probe was inserted and advanced into esophagus without difficulty by Dr. Raciel Miranda. The BILL was performed without complications. Throughout the procedure, the blood pressure, pulse oximetry, cardiac rhythm, and rate were monitored. The patient tolerated the procedure without adverse effects. Recovery from conscious sedation was uneventful and vital signs were stable. Left Ventricle Left ventricle is normal size, mild concentric left ventricular hypertrophy, visually estimated ejection fraction 55% in the obtained views. With no regional wall motion abnormality. Right Ventricle Right ventricle is mildly enlarged with normal contractility. Atria Left atrium is mildly enlarged, left atrial appendage is free of thrombus, there is good appendage flow by spectral Doppler. Right atrium is mildly enlarged. Interatrial septum is intact, there is no flow across the interatrial septum, agitated saline contrast study fails to identify intracardiac shunt. Aortic Valve There is bioprosthetic valve noted in the aortic position, valve is well-seated, leaflet continue to display good mobility, morphologically there is no prosthetic valve stenosis, there is no aortic insufficiency. There is no vegetation seen on the prosthetic valve. Mitral Valve Mitral valve leaflets are minimally thickened, there is mild mitral regurgitation. Tricuspid Valve Tricuspid valve grossly normal, there is mild tricuspid regurgitation. Pulmonic Valve Pulmonic valve is grossly normal. Great Vessels Aortic root is normal size. Non-mobile atheromatous plaque seen in descending thoracic aorta Pericardium No significant pericardial effusion noted. Conclusion 1. Biatrial enlargement, normal left ventricular size, visually estimated ejection fraction 55% with no regional wall motion abnormality. 2. Bioprosthetic valve in the aortic position, morphologically there is no prosthetic valve stenosis. There is no vegetation seen on the prosthetic valve, there is no aortic insufficiency. 3. Other ancillary findings as described above. Electronically signed by : Petar Alas, 05/06/2020 13:20:07
--- NOTE | 2020-05-06 12:48 | HMH.ACPN2 ---
Internal Medicine - PN: Subj *Date: 05/06/20 *Time: 19:44 Interval history: uneventful night afebrile 02 denny 86 percent slated for aditya today s/p cta to eval for p/e on iv abx for cap Exam Vital signs and Labs for Last 24 Hours: Temp Pulse Resp BP Pulse Ox 98.4 F 86 18 112/63 98 05/06/20 11:23 05/06/20 12:34 05/06/20 12:34 05/06/20 12:34 05/06/20 12:34 Laboratory Results - last 24 hr 05/06/20 06:10: WBC 8.4, RBC 3.92 L, Hgb 10.7 L, Hct 33.4 L, MCV 85.2, MCH 27.2, MCHC 32.0, RDW 16.1, Plt Count 210, MPV 9.1, Neut % (Auto) 63.7, Lymph % (Auto) 21.0, [place] % (Auto) 8.1, Eos % (Auto) 7.0, Baso % (Auto) 0.2, Neut # (Auto) 5.4, Lymph # (Auto) 1.8, [place] # (Auto) 0.7, Eos # (Auto) 0.6 H, Baso # (Auto) 0.0 05/06/20 06:10: Sodium 139, Potassium 4.0, Chloride 101, Carbon Dioxide 32 H, Anion Gap 10.0, BUN 12, Creatinine 0.60 L, Estimated Creat Clear 65, Estimated GFR 131, Est GFR ( Amer) 159, Glucose 111 H, Calcium 9.2 05/06/20 11:45: WBC 10.0, RBC 4.02 L, Hgb 10.6 L, Hct 34.5 L, MCV 85.8, MCH 26.3 L, MCHC 30.6 L, RDW 16.2, Plt Count 205, MPV 8.7, Neut % (Auto) 69.4, Lymph % (Auto) 16.3, [place] % (Auto) 7.1, Eos % (Auto) 6.9, Baso % (Auto) 0.3, Neut # (Auto) 7.0, Lymph # (Auto) 1.6, [place] # (Auto) 0.7, Eos # (Auto) 0.7 H, Baso # (Auto) 0.0 I & O for Last 24 hours: Intake & Output 05/03/20 05/04/20 05/05/20 05/06/20 23:59 23:59 23:59 23:59 Intake Total 120 / 120 820 / 820 1730 / 1730 460 / 460 Output Total Balance 120 / 120 820 / 820 1729 / 1729 460 / 460 Weight 161 lb 6 oz 162 lb 6 oz 160 lb 14.999 oz 160 lb Microbiology Reports for the Last 24 Hours: Microbiology 05/03/20 20:59 Sputum - Expectorated Sputum Gram Stain - Final 05/03/20 20:59 Sputum - Expectorated Sputum Sputum Culture - Final Normal Respiratory Ami 05/03/20 20:24 Urine,Clean Catch Urine Culture - Final NO GROWTH AFTER 48 HOURS 05/03/20 13:25 Blood Blood Culture - Preliminary NO GROWTH AFTER 48 HOURS 05/03/20 13:25 Blood Blood Culture - Preliminary NO GROWTH AFTER 48 HOURS - Constitutional no acute distress - *Routine HEENT Exam Head: Present: normocephalic Eye: Present: EOMI, PERRL ENT: Present: mucous membranes moist - *Routine Neck Exam Present: supple. Absent: lymphadenopathy - *Routine Respiratory Exam Present: crackles. Absent: accessory muscle use, respiratory distress, wheezes Comments: left base - *Routine Cardiovascular Exam Present: RRR, murmur - *Routine Abdominal Exam Present: soft, normoactive bowel sounds. Absent: tenderness - *Routine Extremities Exam Absent: cyanosis, clubbing, edema - *Routine Skin Exam Present: warm. Absent: rash - *Routine Neurological Exam Present: alert, oriented X3 Assessment and Plan (1) Hypoxia Current visit: Yes Status: Acute Category: Medical Code(s): R09.02 - Hypoxemia (2) Community acquired pneumonia Current visit: Yes Status: Acute Qualifiers: Laterality: unspecified laterality Qualified Code(s): J18.9 - Pneumonia, unspecified organism Category: Medical Code(s): J18.9 - Pneumonia, unspecified organism (3) Abnormal lung examination Current visit: No Status: Acute Category: Medical (4) COPD (chronic obstructive pulmonary disease) Current visit: No Status: Acute Qualifiers: COPD type: unspecified COPD Qualified Code(s): J44.9 - Chronic obstructive pulmonary disease, unspecified Category: Medical Code(s): J44.9 - Chronic obstructive pulmonary disease, unspecified (5) Diabetes Current visit: No Status: Acute Qualifiers: Diabetes mellitus type: type 2 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
--- NOTE | 2020-05-06 13:40 | HMH.ACPN ---
Internal Medicine - PN: Subj *Date: 05/06/20 *Time: 13:40 Exam Vital signs and Labs for Last 24 Hours: Temp Pulse Resp BP Pulse Ox 98.1 F 74 16 113/63 92 L 05/06/20 13:04 05/06/20 13:04 05/06/20 13:04 05/06/20 13:04 05/06/20 13:04 Laboratory Results - last 24 hr 05/06/20 06:10: WBC 8.4, RBC 3.92 L, Hgb 10.7 L, Hct 33.4 L, MCV 85.2, MCH 27.2, MCHC 32.0, RDW 16.1, Plt Count 210, MPV 9.1, Neut % (Auto) 63.7, Lymph % (Auto) 21.0, [place] % (Auto) 8.1, Eos % (Auto) 7.0, Baso % (Auto) 0.2, Neut # (Auto) 5.4, Lymph # (Auto) 1.8, [place] # (Auto) 0.7, Eos # (Auto) 0.6 H, Baso # (Auto) 0.0 05/06/20 06:10: Sodium 139, Potassium 4.0, Chloride 101, Carbon Dioxide 32 H, Anion Gap 10.0, BUN 12, Creatinine 0.60 L, Estimated Creat Clear 65, Estimated GFR 131, Est GFR ( Amer) 159, Glucose 111 H, Calcium 9.2 05/06/20 11:45: WBC 10.0, RBC 4.02 L, Hgb 10.6 L, Hct 34.5 L, MCV 85.8, MCH 26.3 L, MCHC 30.6 L, RDW 16.2, Plt Count 205, MPV 8.7, Neut % (Auto) 69.4, Lymph % (Auto) 16.3, [place] % (Auto) 7.1, Eos % (Auto) 6.9, Baso % (Auto) 0.3, Neut # (Auto) 7.0, Lymph # (Auto) 1.6, [place] # (Auto) 0.7, Eos # (Auto) 0.7 H, Baso # (Auto) 0.0 I & O for Last 24 hours: Intake & Output 05/03/20 05/04/20 05/05/20 05/06/20 23:59 23:59 23:59 23:59 Intake Total 120 / 120 820 / 820 1730 / 1730 460 / 460 Output Total Balance 120 / 120 820 / 820 1729 / 1729 460 / 460 Weight 73.198 kg 73.652 kg 73 kg 72.575 kg Microbiology Reports for the Last 24 Hours: Microbiology 05/03/20 20:59 Sputum - Expectorated Sputum Gram Stain - Final 05/03/20 20:59 Sputum - Expectorated Sputum Sputum Culture - Final Normal Respiratory Ami 05/03/20 20:24 Urine,Clean Catch Urine Culture - Final NO GROWTH AFTER 48 HOURS 05/03/20 13:25 Blood Blood Culture - Preliminary NO GROWTH AFTER 48 HOURS 05/03/20 13:25 Blood Blood Culture - Preliminary NO GROWTH AFTER 48 HOURS Assessment and Plan (1) Hypoxia Current visit: Yes Status: Acute Category: Medical Code(s): R09.02 - Hypoxemia (2) Community acquired pneumonia Current visit: Yes Status: Acute Qualifiers: Laterality: unspecified laterality Qualified Code(s): J18.9 - Pneumonia, unspecified organism Category: Medical Code(s): J18.9 - Pneumonia, unspecified organism (3) Abnormal lung examination Current visit: No Status: Acute Category: Medical (4) COPD (chronic obstructive pulmonary disease) Current visit: No Status: Acute Qualifiers: COPD type: unspecified COPD Qualified Code(s): J44.9 - Chronic obstructive pulmonary disease, unspecified Category: Medical Code(s): J44.9 - Chronic obstructive pulmonary disease, unspecified (5) Diabetes Current visit: No Status: Acute Qualifiers: Diabetes mellitus type: type 2 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: without watermelon harvesting supervisor use Diabetes mellitus complication status: without complication Qualified Code(s): E11.9 - Type 2 diabetes mellitus without complications Category: Medical Code(s): E11.9 - Type 2 diabetes mellitus without complications (6) History of heart valve replacement Current visit: No Status: Acute Category: Surgical Code(s): Z95.2 - Presence of prosthetic heart valve (7) History of UTI Current visit: Yes Status: Acute Category: Medical Code(s): Z87.440 - Personal history of urinary (tract) infections The patient's infection will respond to the chosen ABx?: Yes Is the patient receiving the right drug, dose, and route?: Yes Could a more targeted ABx be ordered?: Yes (DC ERTAPENEM TODAY..TOMORROW IS LAST DAY OF AZITH AND CEFEPIME) 5 (DAY 4 OF 5 TODAY)
--- NOTE | 2020-05-06 13:41 | HMH.ANESCL ---
[facility] Anesthesia Checklist - Patient Identification Patient Identification: Arm Band - Structural Data Admitted From: Inpatient Planned Operative Procedure/s: BILL Consent for Planned Operative Procedure(s) Verified: Yes Verified Documents: Surgical Consent, History and Physical - NPO Status Verified Time NPO: 00:00 - Additional verifications Anesthesia Reactions: No - Airway Assessment C-Spine Mobility Assessed: Yes (mp2) TMJ Mobility Assessed: Yes Dentition: Edentulous - Neurological Assessment Level of Consciousness: Awake, Alert - Anesthesia Plan Anesthesia Risk discussed: Yes Anesthesia Plan: Verified ASA Class: III Anesthesia Type: MAC [facility] History I have reviewed the patient's past medical history: Yes Medical History: Reports:: Asthma, Chronic Obstructive Pulmonary Disease (COPD), Coronary Artery Disease, Diabetes Mellitus Type 2, Hyperlipidemia, Hypertension Denies:: Cancer, Diabetes Mellitus Type 1, MRSA *Have you ever received a pneumonia vaccine?: Yes *Have you received a flu vaccine this season?: Yes Other Medical History: Reports: Cataracts Anesthesia experience/problems:: nac Laterality Cases: Bilateral: Tonsillectomy Other Surgeries: Yes: Cancer Surgery, Mitral Valve Replacement Amputation: No - *Social History Smoking Status: Former smoker Alcohol Intake: never Substance Use Type: denies use *Occupational Status:: retired, disabled Housing: house Household Members: none *Travel in the last 8 weeks: None Family Hx:: Cancer, Coronary Artery Disease, Diabetes, Heart Attack, Hypertension
--- NOTE | 2020-05-06 14:05 | HMH.PULMPN ---
Internal Medicine - PN: Subj *Date: 05/06/20 *Time: 14:58 Interval history: Cute events noted overnight. Patient states his breathing has been stable through his baseline Exam Vital signs and Labs for Last 24 Hours: Temp Pulse Resp BP Pulse Ox 98.1 F 74 18 141/60 H 92 L 05/06/20 13:34 05/06/20 13:34 05/06/20 13:34 05/06/20 13:34 05/06/20 13:34 Laboratory Results - last 24 hr 05/06/20 06:10: WBC 8.4, RBC 3.92 L, Hgb 10.7 L, Hct 33.4 L, MCV 85.2, MCH 27.2, MCHC 32.0, RDW 16.1, Plt Count 210, MPV 9.1, Neut % (Auto) 63.7, Lymph % (Auto) 21.0, [place] % (Auto) 8.1, Eos % (Auto) 7.0, Baso % (Auto) 0.2, Neut # (Auto) 5.4, Lymph # (Auto) 1.8, [place] # (Auto) 0.7, Eos # (Auto) 0.6 H, Baso # (Auto) 0.0 05/06/20 06:10: Sodium 139, Potassium 4.0, Chloride 101, Carbon Dioxide 32 H, Anion Gap 10.0, BUN 12, Creatinine 0.60 L, Estimated Creat Clear 65, Estimated GFR 131, Est GFR ( Amer) 159, Glucose 111 H, Calcium 9.2 05/06/20 11:45: WBC 10.0, RBC 4.02 L, Hgb 10.6 L, Hct 34.5 L, MCV 85.8, MCH 26.3 L, MCHC 30.6 L, RDW 16.2, Plt Count 205, MPV 8.7, Neut % (Auto) 69.4, Lymph % (Auto) 16.3, [place] % (Auto) 7.1, Eos % (Auto) 6.9, Baso % (Auto) 0.3, Neut # (Auto) 7.0, Lymph # (Auto) 1.6, [place] # (Auto) 0.7, Eos # (Auto) 0.7 H, Baso # (Auto) 0.0 I & O for Last 24 hours: Intake & Output 05/03/20 05/04/20 05/05/20 05/06/20 23:59 23:59 23:59 23:59 Intake Total 120 / 120 820 / 820 1730 / 1730 460 / 460 Output Total Balance 120 / 120 820 / 820 1729 / 1729 460 / 460 Weight 161 lb 6 oz 162 lb 6 oz 160 lb 14.999 oz 160 lb Microbiology Reports for the Last 24 Hours: Microbiology 05/03/20 20:59 Sputum - Expectorated Sputum Gram Stain - Final 05/03/20 20:59 Sputum - Expectorated Sputum Sputum Culture - Final Normal Respiratory Ami 05/03/20 20:24 Urine,Clean Catch Urine Culture - Final NO GROWTH AFTER 48 HOURS 05/03/20 13:25 Blood Blood Culture - Preliminary NO GROWTH AFTER 48 HOURS 05/03/20 13:25 Blood Blood Culture - Preliminary NO GROWTH AFTER 48 HOURS - *Routine Neck Exam Present: supple. Absent: lymphadenopathy, thyromegaly - *Routine Respiratory Exam Present: CTA bilaterally, crackles - *Routine Cardiovascular Exam Present: RRR, Normal S1, Normal S2 - *Routine Abdominal Exam Present: soft, normoactive bowel sounds. Absent: tenderness, distended - *Routine Extremities Exam Absent: cyanosis, clubbing, edema Assessment and Plan (1) Hypoxia Current visit: Yes Status: Acute Category: Medical Code(s): R09.02 - Hypoxemia (2) Community acquired pneumonia Current visit: Yes Status: Acute Qualifiers: Laterality: unspecified laterality Qualified Code(s): J18.9 - Pneumonia, unspecified organism Category: Medical Code(s): J18.9 - Pneumonia, unspecified organism (3) Abnormal lung examination Current visit: No Status: Acute Category: Medical (4) COPD (chronic obstructive pulmonary disease) Current visit: No Status: Acute Qualifiers: COPD type: unspecified COPD Qualified Code(s): J44.9 - Chronic obstructive pulmonary disease, unspecified Category: Medical Code(s): J44.9 - Chronic obstructive pulmonary disease, unspecified (5) Diabetes Current visit: No Status: Acute Qualifiers: Diabetes mellitus type: type 2 Diabetes mellitus usp insulin use: 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
--- NOTE | 2020-05-06 17:39 | PC.NURSE ---
Pt is alert and oriented x4. He ambulates with standby assist. He has to be reminded on multiple occasions to press call light for help. PICC to LUE has good blood return and flushes easily. He uses 2L PRN as O2 drops with sleep or activity. He reported several loose stools today. No complaints verbalized. Will continue to monitor.
[2020-05-07] VITALS: BP 105/65; PULSE 97; RESP 16; TEMP 37; O2SAT 90
[2020-05-07 04:00] VITALS: BP 113/63; PULSE 83; RESP 16; TEMP 37.3; O2SAT 90
[2020-05-07 05:00] VITALS: BMI 26.1
--- NOTE | 2020-05-07 05:36 | PC.NURSE ---
Pt rested well. No complaints reported to staff. Pt educated on use of IS and demonstrated understanding. Pt ambulating w/ standby assist to BR, voiding w/o reported issues. Tolerating RA majority of the night.
[2020-05-07 08:00] VITALS: BP 108/65; PULSE 94; RESP 18; TEMP 37.2; O2SAT 90
[2020-05-07 08:16] LABS: Basophils % 0.3 % (0.1-2.0); Eosinophils # 0.8 K/mm3 (0.0-0.4); Hematocrit 33.8 % (42.0-52.0); Hemoglobin 10.6 g/dL (14.1-18.0); Lymphocytes % 19.6 % (10-50); Mean Corpuscular HGB Conc 31.5 g/dL (31.8-35.4); Mean Corpuscular Hemoglobin 26.8 pg (27.0-31.2); Mean Corpuscular Volume 85.1 fl (80-94); Mean Platelet Volume 9.1 fl (7.4-10.4); Monocytes # 0.9 K/mm3 (0.1-1.0); Monocytes % 8.7 % (1.7-9.3); Neutrophils # 6.5 K/mm3 (1.8-7.8); Neutrophils % 63.4 % (37.0-80.0); Platelet Count 216 K/mm3 (142-424); Red Blood Count 3.97 M/mm3 (4.60-6.20); Red Cell Distribution Width 16.2 % (11.5-17.5); White Blood Count 10.2 K/mm3 (4.8-10.8)
[2020-05-07 08:19] LABS: Chloride 102 mmol/L (98-107); Potassium 4.4 mmoL/L (3.5-5.1); Sodium 138 mmol/L (136-145)
[2020-05-07 08:22] LABS: Anion Gap 9.4 mEq/L (5-15); Blood Urea Nitrogen 14 mg/dl (9-20); Calcium 9.3 mg/dl (8.4-10.2); Carbon Dioxide 31 mmol/L (22.0-30.0); Creatinine Clearance Estimated 65 mL/min (50-200); Estimated Glomerular Filt Rate 110 ml/min (>60); GFR (African American) 133 ML/MIN (>60); Glucose 108 mg/dl (74-100)
[2020-05-07 12:00] VITALS: BP 114/68; PULSE 89; RESP 18; TEMP 37.1; O2SAT 91
--- NOTE | 2020-05-07 13:02 | HMH.DCSUM ---
General - General Admission date:: 05/05/20 Discharge date: 05/07/20 HPI HPI: This is a 74-year-old male with a past medical history significant for hypertension, hyperlipidemia, COPD, bioprosthetic mitral valve replacement currently on baby aspirin daily who presents to the emergency department for approximately 3 days of shortness of breath, cough, fever up to 104 degrees at home. Last antipyretic was at 10 AM this morning and was ibuprofen 400 mg. He states that he feels like his left lung is heavy . He denies any vomiting, diarrhea. No abdominal pain or urinary symptoms. He has been using Tylenol and ibuprofen to control his fevers at home but they have persisted and so he presents here for evaluation. He has been out and about in the community, no known exposure to COVID. Patient with initial oxygen saturations of 89 to 91% on room air. However, when ambulating even after a breathing treatment he is 76% on room air. No distinct wheezing and he does have good air movement, but is clearly not maintaining oxygen saturations well. Though his chest x-ray does not show any large pneumonia, I am concerned for possibly radiographically delayed pneumonia given his history of fever and shortness of breath over the last several days. No chest pain that would suggest pulmonary embolus. He has negative COVID IgG and IgM here. Covered empirically with cefepime. I discussed this case with Dr. Thibodeaux, patient will be admitted for further manageme Patient has been running temperatures over the weekend, getting up into the 102 range. He attributes this to a left pneumonia, has a subjective heaviness along the left side. He is not had much in the way of purulent secretions. Patient was recently seen in the office, UTI, culture grew an ESBL E. coli. He received 2 shots of Rocephin, 1 g each and was placed on appropriate p.o. coverage following the culture. In my experience with this patient fevers have previously risen from gu source. Of further concern is a bioprosthetic aortic valve. Hospital Course Hospital Course: started on iv antibiotics for cap invanz also added because of esbl consultation by urology/pulm/cardiol underwent echo/aditya because of bioprosthetic valve/fever underwent cta because of desatn no p/e noted infiltrate left lung Objective Vital signs: Temp Pulse Resp BP Pulse Ox 98.7 F 89 18 114/68 91 L 05/07/20 12:00 05/07/20 12:00 05/07/20 12:00 05/07/20 12:00 05/07/20 12:00 no acute distress - *Routine HEENT Exam Head: Present: normocephalic Eye: Present: EOMI, PERRL ENT: Present: mucous membranes moist - *Routine Neck Exam Present: supple - *Routine Respiratory Exam Present: crackles. Absent: accessory muscle use, prolonged expiratory phase, rhonchi, stridor, wheezes, diminished air movement - *Routine Cardiovascular Exam Present: RRR, murmur - *Routine Abdominal Exam Present: soft, normoactive bowel sounds. Absent: tenderness - *Routine Extremities Exam Absent: cyanosis, clubbing, edema - *Routine Skin Exam Present: warm. Absent: rash - *Routine Neurological Exam Present: alert, oriented X3, moving all extremities, vision grossly intact, hearing grossly intact. Absent: facial asymmetry - Routine Psychiatric Exam Present: normal affect, cooperative, good insight, good judgment Results Labs on day of discharge: Labs from last 24 hours 05/07/20 05/07/20 07:56 07:56 WBC 10.2 RBC 3.97 L Hgb 10.6 L Hct 33.8 L MCV 85.1 MCH 26.8 L MCHC 31.5 L RDW 16.2 Plt Count 216 MPV 9.1 Neut % (Auto) 63.4 Lymph % (Auto) 19.6 [place] % (Auto) 8.7 Eos % (Auto) 8.0 Baso % (Auto) 0.3 Neut # (Auto) 6.5 Lymph # (Auto) 2.0 [place] # (Auto) 0.9 Eos # (Auto) 0.8 H Baso # (Auto) 0.0 Sodium 138 Potassium 4.4 Chloride 102 Carbon Dioxide 31 H Anion Gap 9.4 BUN 14 Creatinine 0.70 Estimated Creat Clear 65 Estimated GFR 110
--- NOTE | 2020-05-07 13:45 | HMH.PHAINT ---
DISCHARGE MEDICATION EDUCATION COMPLETED
--- NOTE | 2020-05-07 14:25 | PC.NURSE ---
picc removed per protocall
== END 2020-05-07 14:30 | disposition home or self-care (01) | DRG 193 ==
LOC: ER 15:12 → 2ND 05-04 01:52
PROVIDERS: Internal Medicine Cardiovascular Disease; Internal Medicine Pulmonary Disease; Nurse Practitioner Family; Admitting Provider Family Medicine; Emergency Provider Emergency Medicine; PCP Family Medicine; Visit Provider Family Medicine
DX: J18.9 Pneumonia, unspecified organism (principal); J96.01 Acute respiratory failure with hypoxia; I10 Essential (primary) hypertension; E78.5 Hyperlipidemia, unspecified; J44.9 Chronic obstructive pulmonary disease, unspecified; I25.10 Atherosclerotic heart disease of native coronary artery without angina pectoris; E11.9 Type 2 diabetes mellitus without complications; Z79.84 Long term (current) use of oral hypoglycemic drugs; Z95.2 Presence of prosthetic heart valve; Z95.1 Presence of aortocoronary bypass graft; Z87.440 Personal history of urinary (tract) infections; Z87.891 Personal history of nicotine dependence; Z79.899 Other long term (current) drug therapy
CPT/HCPCS: 36415; 36569; 71045; 71046; 71275; 80048; 80053; 81001; 82803; 83605; 85025; 86328; 87040; 87070; 87086; 87205; 93306; 93312; 93880; 94640; 94761; 96365; 96366; 96367; 99284; C1751; G0378; J0456; J1335; Q9967

== ENCOUNTER → 2020-12-21 14:43 | Outpatient (CLI) | payer MEDICARE, SELFPAY ==
[2020-12-21 14:55] LABS: Alanine Aminotransferase 13 U/L (12-78); Albumin Level 4.5 g/dl (3.5-5.0); Albumin/Globulin Ratio 1.6 (1.1-1.8); Alkaline Phosphatase 62 U/L (38-126); Anion Gap 9.9 mEq/L (5-15); Aspartate Amino Transferase 30 U/L (17-59); Bilirubin,Total 0.3 mg/dl (0.2-1.3); Blood Urea Nitrogen 15 mg/dl (9-20); Calcium 9.7 mg/dl (8.4-10.2); Carbon Dioxide 34 mmol/L (22.0-30.0); Chloride 100 mmol/L (98-107); Chol/HDL Ratio 2.6 (1-3.5); Cholesterol 110 mg/dl (140-200); Estimated Glomerular Filt Rate 82 ml/min (>60); GFR (African American) 99 ML/MIN (>60); Globulin 2.8 g/dL (1.3-3.2); Glucose 97 mg/dl (74-100); HDL Cholesterol 42 mg/dl (40-60); Potassium 4.9 mmoL/L (3.5-5.1); Sodium 139 mmol/L (136-145); Total Protein,Serum 7.3 g/dl (6.3-8.2); Triglycerides 100 mg/dl (30-150); VLDL Cholesterol 20 mg/dL (0-40)
[2020-12-21 14:57] LABS: Basophils % 0.5 % (0.1-2.0); Eosinophils # 0.3 K/mm3 (0.0-0.4); Eosinophils % 4.1 % (0.1-12.0); Hematocrit 35.6 % (42.0-52.0); Hemoglobin 10.4 g/dL (14.1-18.0); Lymphocytes # 1.8 K/mm3 (0.7-4.5); Lymphocytes % 23.9 % (10-50); Mean Corpuscular HGB Conc 29.2 g/dL (31.8-35.4); Mean Corpuscular Hemoglobin 23.4 pg (27.0-31.2); Mean Corpuscular Volume 80.1 fl (80-94); Mean Platelet Volume 10.6 fl (7.4-10.4); Monocytes # 0.6 K/mm3 (0.1-1.0); Monocytes % 7.6 % (1.7-9.3); Neutrophils # 4.9 K/mm3 (1.8-7.8); Neutrophils % 63.8 % (37.0-80.0); Platelet Count 212 K/mm3 (142-424); Red Blood Count 4.44 M/mm3 (4.60-6.20); Red Cell Distribution Width 18.4 % (11.5-17.5); White Blood Count 7.7 K/mm3 (4.8-10.8)
[2020-12-21 15:03] LABS: Creatinine,Urine Random 155 mg/dL (Not Estab.); Microalbumin/Creatinine Ratio 16.5
[2020-12-21 15:06] LABS: Direct LDL Cholesterol 45.39 mg/dL (100-129)
[2020-12-21 15:12] LABS: 25-OH Vitamin D, Total 79.1 ng/mL (30-100)
[2020-12-21 15:13] LABS: T4 (Thyroxine) 7.1 ug/dl (5.53-11.0)
[2020-12-21 15:26] LABS: Thyroid Stimulating Hormone 3.41 uIU/mL (0.465-4.68)
[2020-12-21 16:01] LABS: Hemoglobin A1C 6.8 % (4.0-6.0)
== END ==
PROVIDERS: Visit Provider Family Medicine
DX: E11.9 Type 2 diabetes mellitus without complications (principal); I25.10 Atherosclerotic heart disease of native coronary artery without angina pectoris; J44.9 Chronic obstructive pulmonary disease, unspecified; Z00.00 Encounter for general adult medical examination without abnormal findings; R50.9 Fever, unspecified; J18.9 Pneumonia, unspecified organism; E55.9 Vitamin D deficiency, unspecified; Z79.84 Long term (current) use of oral hypoglycemic drugs; Z87.891 Personal history of nicotine dependence
CPT/HCPCS: 80053; 80061; 82043; 82306; 82570; 83036; 84436; 84443; 85025

== ENCOUNTER → 2021-03-22 13:36 | Outpatient (CLI) | payer MEDICARE, SELFPAY ==
[2021-03-22 13:55] LABS: Basophils % 0.6 % (0.1-2.0); Chloride 98 mmol/L (98-107); Eosinophils # 0.2 K/mm3 (0.0-0.4); Eosinophils % 3.7 % (0.1-12.0); Hemoglobin 11.1 g/dL (14.1-18.0); Lymphocytes # 1.6 K/mm3 (0.7-4.5); Lymphocytes % 24.7 % (10-50); Mean Corpuscular HGB Conc 29.1 g/dL (31.8-35.4); Mean Corpuscular Hemoglobin 22.7 pg (27.0-31.2); Mean Platelet Volume 9.7 fl (7.4-10.4); Monocytes # 0.7 K/mm3 (0.1-1.0); Monocytes % 10.9 % (1.7-9.3); Neutrophils # 3.8 K/mm3 (1.8-7.8); Neutrophils % 60.1 % (37.0-80.0); Platelet Count 201 K/mm3 (142-424); Potassium 5.3 mmoL/L (3.5-5.1); Red Blood Count 4.87 M/mm3 (4.60-6.20); Red Cell Distribution Width 19.6 % (11.5-17.5); Sodium 141 mmol/L (136-145); White Blood Count 6.3 K/mm3 (4.8-10.8)
[2021-03-22 13:57] LABS: Alanine Aminotransferase 10 U/L (12-78); Alkaline Phosphatase 65 U/L (38-126); Anion Gap 13.3 mEq/L (5-15); Aspartate Amino Transferase 35 U/L (17-59); Bilirubin,Total 0.4 mg/dl (0.2-1.3); Blood Urea Nitrogen 14 mg/dl (9-20); Carbon Dioxide 35 mmol/L (22.0-30.0); Estimated Glomerular Filt Rate 82 ml/min (>60); GFR (African American) 99 ML/MIN (>60); Iron 39 ug/dL (49-181)
[2021-03-22 13:58] LABS: Albumin Level 4.6 g/dl (3.5-5.0); Albumin/Globulin Ratio 1.5 (1.1-1.8); Calcium 9.8 mg/dl (8.4-10.2); Globulin 3.1 g/dL (1.3-3.2); Glucose 98 mg/dl (74-100); Total Protein,Serum 7.7 g/dl (6.3-8.2)
[2021-03-22 14:21] LABS: Total Iron Binding Capacity 526 ug/dL (261-462)
[2021-03-22 14:22] LABS: Hemoglobin A1C 6.4 % (4.0-6.0)
[2021-03-22 14:34] LABS: Ferritin 8.85 ng/ml (17.9-464)
== END ==
PROVIDERS: Visit Provider Family Medicine
DX: I65.29 Occlusion and stenosis of unspecified carotid artery (principal); E11.9 Type 2 diabetes mellitus without complications; D64.9 Anemia, unspecified
CPT/HCPCS: 80053; 82728; 83036; 83540; 83550; 85025

== ENCOUNTER → 2021-05-06 17:36 | Outpatient (CLI) | payer MEDICARE, SELFPAY ==
[2021-05-06 18:33] LABS: Basophils % 0.5 % (0.1-2.0); Eosinophils # 0.3 K/mm3 (0.0-0.4); Eosinophils % 4.5 % (0.1-12.0); Hematocrit 43.5 % (42.0-52.0); Hemoglobin 12.3 g/dL (14.1-18.0); Lymphocytes # 1.5 K/mm3 (0.7-4.5); Lymphocytes % 25.9 % (10-50); Mean Corpuscular HGB Conc 28.3 g/dL (31.8-35.4); Mean Corpuscular Hemoglobin 24.4 pg (27.0-31.2); Mean Corpuscular Volume 86.3 fl (80-94); Mean Platelet Volume 10.9 fl (7.4-10.4); Monocytes # 0.5 K/mm3 (0.1-1.0); Monocytes % 8.7 % (1.7-9.3); Neutrophils # 3.4 K/mm3 (1.8-7.8); Neutrophils % 60.3 % (37.0-80.0); Platelet Count 200 K/mm3 (142-424); Red Blood Count 5.04 M/mm3 (4.60-6.20); Red Cell Distribution Width 21.7 % (11.5-17.5); White Blood Count 5.7 K/mm3 (4.8-10.8)
[2021-05-06 19:05] LABS: Iron 84 ug/dL (49-181)
[2021-05-06 19:23] LABS: Total Iron Binding Capacity 450 ug/dL (261-462)
[2021-05-06 19:41] LABS: Ferritin 12.5 ng/ml (17.9-464)
== END ==
PROVIDERS: Visit Provider Family Medicine
DX: D64.9 Anemia, unspecified (principal)
CPT/HCPCS: 82728; 83540; 83550; 85025

== ENCOUNTER → 2021-05-26 20:03 | Outpatient (CLI) | payer MEDICARE, SELFPAY ==
[2021-05-26 20:22] LABS: Chloride 98 mmol/L (98-107); Potassium 5.1 mmoL/L (3.5-5.1); Sodium 141 mmol/L (136-145)
[2021-05-26 20:24] LABS: Alanine Aminotransferase 9 U/L (12-78); Alkaline Phosphatase 60 U/L (38-126); Anion Gap 15.1 mEq/L (5-15); Aspartate Amino Transferase 28 U/L (17-59); Blood Urea Nitrogen 9 mg/dl (9-20); Carbon Dioxide 33 mmol/L (22.0-30.0); Estimated Glomerular Filt Rate 109 ml/min (>60); GFR (African American) 132 ML/MIN (>60)
[2021-05-26 20:25] LABS: Albumin Level 4.3 g/dl (3.5-5.0); Albumin/Globulin Ratio 1.6 (1.1-1.8); Globulin 2.7 g/dL (1.3-3.2); Glucose 93 mg/dl (74-100)
[2021-05-26 20:26] LABS: Bilirubin,Total 0.1 mg/dl (0.2-1.3)
== END ==
PROVIDERS: Visit Provider Family Medicine
DX: R60.9 Edema, unspecified (principal)
CPT/HCPCS: 80053

== ENCOUNTER → 2021-10-17 09:52 | Outpatient (CLI) | payer MEDICARE, SELFPAY ==
--- NOTE | 2021-10-17 10:01 | XR_ITS ---
FINAL REPORT CLINICAL HISTORY: crackles left base Hx of valve replacement 10 yrs ago, covid 1 month ago former smoker COMPARISON: May 05, 2020 FINDINGS: Two views of the chest were obtained. The heart size and pulmonary vascularity are within normal limits. There has been median sternotomy. The mediastinum is normal. There is mild left lung base atelectasis or scarring. There is no pneumothorax. The bony thorax is intact. IMPRESSION: Mild left base atelectasis or scarring. Reviewed, Interpreted and Dictated by Artem Bhardwaj III, MD Transcribed by Luis East Authenticated by Artem Bhardwaj III, MD on 10/17/2021 11:18:[address] [facility]
== END ==
PROVIDERS: PCP Family Medicine; Visit Provider Family Medicine
DX: J44.9 Chronic obstructive pulmonary disease, unspecified (principal)
CPT/HCPCS: 71046

== ENCOUNTER 2021-11-23 14:20 | Observation (INO) | payer MEDICARE, SELFPAY ==
[2021-11-23] VITALS (11 sets, daily range): BP systolic 119–166; BP diastolic 44–74; PULSE 58–94; RESP 12–18; TEMP 36.8–37.1; O2SAT 90–97; BMI 26.4
--- NOTE | 2021-11-23 15:03 | PC.NURSE ---
pt waiting in lobby until a room is available in ER
[2021-11-23 16:47] LABS: Occult Blood,Stool Positive (Negative)
[2021-11-23 16:54] LABS: Basophils % 0.5 % (0.1-2.0); Eosinophils # 0.2 K/mm3 (0.0-0.4); Eosinophils % 2.6 % (0.1-12.0); Hematocrit 41.9 % (42.0-52.0); Hemoglobin 13.1 g/dL (14.1-18.0); Lymphocytes # 1.9 K/mm3 (0.7-4.5); Lymphocytes % 24.2 % (10-50); Mean Corpuscular HGB Conc 31.3 g/dL (31.8-35.4); Mean Corpuscular Hemoglobin 31.2 pg (27.0-31.2); Mean Corpuscular Volume 99.6 fl (80-94); Mean Platelet Volume 9.7 fl (7.4-10.4); Monocytes # 0.6 K/mm3 (0.1-1.0); Monocytes % 8.4 % (1.7-9.3); Neutrophils # 4.9 K/mm3 (1.8-7.8); Neutrophils % 64.2 % (37.0-80.0); Platelet Count 188 K/mm3 (142-424); Red Blood Count 4.21 M/mm3 (4.60-6.20); Red Cell Distribution Width 15.2 % (11.5-17.5); White Blood Count 7.6 K/mm3 (4.8-10.8)
[2021-11-23 17:06] LABS: Alanine Aminotransferase 16 U/L (12-78); Albumin Level 4.4 g/dl (3.5-5.0); Albumin/Globulin Ratio 1.5 (1.1-1.8); Alkaline Phosphatase 44 U/L (38-126); Anion Gap 11.3 mEq/L (5-15); Aspartate Amino Transferase 36 U/L (17-59); Bilirubin,Total 0.4 mg/dl (0.2-1.3); Blood Urea Nitrogen 14 mg/dl (9-20); Calcium 9.2 mg/dl (8.4-10.2); Carbon Dioxide 34 mmol/L (22.0-30.0); Chloride 98 mmol/L (98-107); Creatinine Clearance Estimated 64 mL/min (50-200); Estimated Glomerular Filt Rate 109 ml/min (>60); GFR (African American) 132 ML/MIN (>60); Globulin 2.9 g/dL (1.3-3.2); Glucose 103 mg/dl (74-100); Potassium 4.3 mmoL/L (3.5-5.1); Sodium 139 mmol/L (136-145); Total Protein,Serum 7.3 g/dl (6.3-8.2)
--- NOTE | 2021-11-23 17:53 | CT_ITS ---
PROCEDURE INFORMATION: Exam: CT Abdomen And Pelvis With Contrast Exam date and time: 11/23/2021 6:03 PM Age: 76 years old Clinical indication: Other: Bloody stool TECHNIQUE: Imaging protocol: Computed tomography of the abdomen and pelvis with contrast. Radiation optimization: All CT scans at this facility use at least one of these dose optimization techniques: automated exposure control; mA and/or kV adjustment per patient size (includes targeted exams where dose is matched to clinical indication); or iterative reconstruction. Contrast material: ISOVUE; Contrast volume: 75 ml; Contrast route: IV; COMPARISON: CT ANGIO CHEST 05/05/2020 6:45 PM FINDINGS: Lungs: Right middle lobe pulmonary nodule, axial image 3 measures 7.2 mm at the stable from prior exam. Right lower lobe 6 mm pulmonary nodule axial image 2 stable from prior exam. Heart: Moderate three-vessel calcific atherosclerotic disease of the coronary arteries. Liver: There is diffuse hypoattenuation of the liver compatible with mild hepatic steatosis. Multiple calcific densities of the liver are likely related to prior granulomatous process. Gallbladder and bile ducts: Multiple dependently layering hyperattenuating structures are noted within the gallbladder fossa without wall thickening, or pericholecystic fluid. Pancreas: Normal. No ductal dilation. Spleen: Multiple calcific densities of the spleen are likely related to prior granulomatous process. Adrenal glands: Normal. No mass. Kidneys and ureters: Bilateral subcentimeter renal cysts too small to characterize, likely benign. No follow-up recommended. Stomach and bowel: Significant sigmoid diverticulosis with hyperattenuating intraluminal material within the sigmoid colon, may represent blood products and source of blood in stool. Subtle mesenteric stranding of the sigmoid colon and edema may represent early diverticulitis. Appendix: No evidence of appendicitis. Intraperitoneal space: See Stomach and bowel finding. Vasculature: Moderate calcific atherosclerotic disease of the abdominal aorta without aneurysmal dilatation is present. Lymph nodes: Unremarkable. No enlarged lymph nodes. Urinary bladder: Unremarkable as visualized. Reproductive: Unremarkable as visualized. Bones/joints: Moderate loss of intervertebral disc space with degenerative changes at L4 through S1. Soft tissues: Normal. IMPRESSION: 1. Right middle lobe pulmonary nodule, axial image 3 measures 7.2 mm at the stable from prior exam. Right lower lobe 6 mm pulmonary nodule axial image 2 stable from prior exam. Recommend six-month follow-up to complete 2 year documentation of stability. 2. Cholelithiasis without CT evidence of cholecystitis. 3. Significant sigmoid diverticulosis with hyperattenuating intraluminal material within the sigmoid colon, may represent blood products and source of blood in stool. 4. Subtle mesenteric stranding of the sigmoid colon and edema may represent early diverticulitis. COMMENTS: Consistent with the [place] [employer]'s Incidental Findings Committee white paper (J Am Luly Radiol 2018): Any incidental renal lesion less than 1 cm or classified as too small to characterize, or any incidental cystic renal lesion characterized as simple-appearing, is likely benign. No follow-up imaging is recommended for these lesions per consensus recommendations based on imaging criteria.
--- NOTE | 2021-11-23 17:55 | PC.NURSE ---
notified ER MD of pt presenting s/s, ER MD gave verbal order for CT scan abd/pelvis with iv contrast
--- NOTE | 2021-11-23 17:56 | PC.NURSE ---
notified rad of CT order, spoke with Kristi
--- NOTE | 2021-11-23 18:08 | HMH.EDGENADL ---
ED Disposition Clinical Impression: Diverticular hemorrhage, Diverticulitis Disposition: Admitted as Observation Condition on Discharge: Fair Referrals: Devin Thibodeaux MD [Primary Care Provider] - - Critical Care Critical Care Time: No Attestation: On 11/23/21, the high probability of a clinically significant, sudden or life threatening deterioration of the following system(s) required my full and direct attention, intervention and personal management. The time I documented below is in addition to time spent performing reported procedures but includes the following listed in this critical care notation. Medical Decision Making - Igor Inquiry Pt receiving controlled substance: No Vital Signs: 11/23/21 15:00 11/23/21 16:30 11/23/21 17:56 Temperature 98.2 F 98.7 F Temperature Source Oral Oral Pulse Rate 63 Pulse Rate [Left Radial] 71 94 H Respiratory Rate 18 16 16 Blood Pressure 151/44 H Blood Pressure [Left Arm] 127/72 166/70 H Blood Pressure Mean 77 Blood Pressure Mean [Left Arm] 90 102 Blood Pressure Source [Left Arm] Automatic Cuff Automatic Cuff Blood Pressure Position [Left Arm] Sitting Sitting 02 Sat by Pulse Oximetry 92 L 93 L 94 L Oxygen Delivery Method Room Air Room Air 11/23/21 18:00 11/23/21 18:30 11/23/21 19:29 Temperature Temperature Source Pulse Rate 61 62 67 Pulse Rate [Left Radial] Respiratory Rate 13 12 18 Blood Pressure 141/57 H 158/74 H 161/59 H Blood Pressure [Left Arm] Blood Pressure Mean 85 93 93 Blood Pressure Mean [Left Arm] Blood Pressure Source [Left Arm] Blood Pressure Position [Left Arm] 02 Sat by Pulse Oximetry 91 L 90 L 91 L Oxygen Delivery Method - Lab Data Lab Results 11/23/21 16:31: WBC 7.6, RBC 4.21 L, Hgb 13.1 L, Hct 41.9 L, MCV 99.6 H, MCH 31.2, MCHC 31.3 L, RDW 15.2, Plt Count 188, MPV 9.7, Neut % (Auto) 64.2, Lymph % (Auto) 24.2, Jackson % (Auto) 8.4, Eos % (Auto) 2.6, Baso % (Auto) 0.5, Neut # (Auto) 4.9, Lymph # (Auto) 1.9, Jackson # (Auto) 0.6, Eos # (Auto) 0.2, Baso # (Auto) 0.0 11/23/21 16:31: Sodium 139, Potassium 4.3, Chloride 98, Carbon Dioxide 34 H, Anion Gap 11.3, BUN 14, Creatinine 0.70, Estimated Creat Clear 64, Estimated GFR 109, Est GFR ( Amer) 132, Glucose 103 H, Calcium 9.2, Total Bilirubin 0.4, AST 36, ALT 16, Alkaline Phosphatase 44, Total Protein 7.3, Albumin 4.4, Globulin 2.9, Albumin/Globulin Ratio 1.5 11/23/21 16:35: Stool Occult Blood Positive A Result diagrams: 11/23/21 16:31 11/23/21 16:31 Orders (Tests/Meds): ED MEDICATIONS Generic Name Dose Route Start Last Admin Trade Name Freq PRN Reason Stop Dose Admin Sodium Chloride 10 ml 11/23/21 16:29 Sodium Chloride 0.9% 10ml Flush Syringe IV 12/23/21 16:28 NEEDED PRN Maintain IV Site Discontinued Medications Generic Name Dose Route Start Last Admin Trade Name Freq PRN Reason Stop Dose Admin Iopamidol 75 ml 11/23/21 18:11 11/23/21 18:12 Iopamidol-370 (76%);100ml Bottle IV 11/23/21 18:12 75 ml ONCE ONE Administration Sodium Chloride 10 ml 11/23/21 18:11 11/23/21 18:13 Sodium Chloride 0.9% 10ml Syr (Rad Only) IV 11/23/21 18:12 10 ml ONCE ONE Administration ORDERS Category Date Time Status Diarrhea 6-11 Panel, Cdiff PCR Stat Lab 11/23/21 19:02 Received - CT Data CT Scan: Abdomen, Pelvis Time Received: 19:[address] Reviewed: Yes: I have viewed the radiologist's interpretation Findings Narrative: PROCEDURE INFORMATION: Exam: CT Abdomen And Pelvis With Contrast Exam date and time: 11/23/2021 6:03 PM Age: 76 years old Clinical indication: Other: Bloody stool TECHNIQUE: Imaging protocol: Computed tomography of the abdomen and pelvis with contrast. Radiation optimization: All CT scans at this facility use at least one of these dose optimization techniques: automated exposure control; mA and/or kV adjustment per patient size (includes targeted exams where dose is ma
--- NOTE | 2021-11-23 18:08 | PC.NURSE ---
Updated pt on POC. No new needs at this time
--- NOTE | 2021-11-23 19:07 | PC.NURSE ---
190 stool sample sent to lab
[2021-11-23 19:14] LABS: Adenovirus F 40/41, stool Not Detected (NotDetected); Astrovirus Not Detected (NotDetected); Campylobacter Not Detected (NotDetected); Clostridium Difficile A/B, PCR Not Detected (NotDetected); Cryptosporidium Not Detected (NotDetected); Cyclospora Cayetanesis Not Detected (NotDetected); Entamoeba histolytica Not Detected (NotDetected); Enteroaggregative E coli Not Detected (NotDetected); Enteropathogenic E coli Not Detected (NotDetected); Enterotoxigenic E coli Not Detected (NotDetected); Giardia lamblia Not Detected (NotDetected); Norovirus Not Detected (NotDetected); Plesimonas Shigalloides, PCR Not Detected (NotDetected); Rotavirus A Not Detected (NotDetected); Salmonella, PCR Not Detected (NotDetected); Sapovirus Not Detected (NotDetected); Shiga-like toxin E coli Not Detected (NotDetected); Shigella Enterovasive E coli Not Detected (NotDetected); Vibrio Cholerae Not Detected (NotDetected); Vibrio, PCR Not Detected (NotDetected); Yersinia Entercolitica, PCR Not Detected (NotDetected)
--- NOTE | 2021-11-23 19:25 | PC.NURSE ---
report given to delfina zamora and delfina owens at shift change
--- NOTE | 2021-11-23 19:51 | PC.NURSE ---
PT DENIES PAIN OR DISCOMFORT. NO COMPLAINTS REPORTED. NO ACUTE DISTRESS NOTED. PT AWARE OF EXPECTED WAIT TIMES.
[2021-11-23 20:44] LABS: Coronavirus 19, PCR Not Detected (NotDetected); Influenza A, PCR Not Detected (NotDetected); Influenza B, PCR Not Detected (NotDetected)
--- NOTE | 2021-11-23 22:45 | P.CONPHA_ITS ---
[facility] Pharmacy VTE Monitoring - Patient Demographics Admission date: 11/23/21 Report Date: 11/23/21 Time: 22:45 Allergies/Adverse Reactions: Patient Allergies Penicillins Allergy (Severe, Verified 10/17/21 08:49) Rash Height: 1.68 m Weight: 74.389 kg Patient Problems: Current Active Problems Diverticular hemorrhage (Acute) Diverticulitis (Acute) - VTE Risk Labs: VTE Related Lab Results Hgb 13.1 g/dL (14.1-18.0) L 11/23/21 16:31 Hct 41.9 % (42.0-52.0) L 11/23/21 16:31 Plt Count 188 K/mm3 (142-424) 11/23/21 16:31 BUN 14 mg/dl (9-20) 11/23/21 16:31 Creatinine 0.70 mg/dl (0.66-1.25) 11/23/21 16:31 Estimated Creat Clear 64 mL/min (50-200) 11/23/21 16:31 Clinical Trial Participant: No - Prophylaxis VTE Prophylaxis Ordered?: Yes Types of VTE Prophylaxis: TEDS Knee High
--- NOTE | 2021-11-23 23:00 | PC.NURSE ---
Pt has been sleeping comfortably, however pt has had occasional episodes of apnea. Placed pt on 2lpm nc and sats have maintained >94% now.
[2021-11-24] VITALS (8 sets, daily range): BP systolic 98–144; BP diastolic 47–83; PULSE 58–91; RESP 18–20; TEMP 36.4–36.7; O2SAT 90–98; BMI 26.2
--- NOTE | 2021-11-24 01:49 | PC.NURSE ---
Pt resting. Saline locked. VSS.
--- NOTE | 2021-11-24 01:57 | PC.NURSE ---
PT PLACED IN HOSPITAL BED AND MOVED TO ROOM 5 TO IMPROVE COMFORT. NADN. REYNOSO.
--- NOTE | 2021-11-24 02:30 | PC.NURSE ---
pt up to BR, bright red stool noted per rectum. Output documented.
--- NOTE | 2021-11-24 04:09 | PC.NURSE ---
Pt 0400 vitals obtained. Pt resting well. Only complaint was dry mouth. Mouth swab given.
[2021-11-24 04:59] LABS: Basophils % 0.1 % (0.1-2.0); Eosinophils % 0.2 % (0.1-12.0); Hematocrit 38.7 % (42.0-52.0); Hemoglobin 12.2 g/dL (14.1-18.0); Lymphocytes # 0.6 K/mm3 (0.7-4.5); Lymphocytes % 8.7 % (10-50); Mean Corpuscular HGB Conc 31.4 g/dL (31.8-35.4); Mean Corpuscular Hemoglobin 30.9 pg (27.0-31.2); Mean Corpuscular Volume 98.3 fl (80-94); Mean Platelet Volume 9.3 fl (7.4-10.4); Monocytes # 0.1 K/mm3 (0.1-1.0); Monocytes % 1.9 % (1.7-9.3); Neutrophils # 6.5 K/mm3 (1.8-7.8); Neutrophils % 89.1 % (37.0-80.0); Platelet Count 168 K/mm3 (142-424); Red Blood Count 3.94 M/mm3 (4.60-6.20); Red Cell Distribution Width 15.4 % (11.5-17.5); White Blood Count 7.3 K/mm3 (4.8-10.8)
[2021-11-24 05:06] LABS: MANUAL DIFFERENTIAL MANUAL DIFFERENTIAL (MANUAL DIFF)
[2021-11-24 05:13] LABS: Chloride 100 mmol/L (98-107); Sodium 135 mmol/L (136-145)
[2021-11-24 05:14] LABS: Potassium 4.4 mmoL/L (3.5-5.1)
[2021-11-24 05:16] LABS: Blood Urea Nitrogen 15 mg/dl (9-20); Creatinine Clearance Estimated 64 mL/min (50-200); Estimated Glomerular Filt Rate 109 ml/min (>60); GFR (African American) 132 ML/MIN (>60)
[2021-11-24 05:17] LABS: Anion Gap 9.4 mEq/L (5-15); Calcium 8.2 mg/dl (8.4-10.2); Carbon Dioxide 30 mmol/L (22.0-30.0); Glucose 133 mg/dl (74-100)
[2021-11-24 05:57] LABS: Lymphocytes % 5 % (10-50); Monocytes % 1 % (2-9); Neutrophils % 94 % (42-76); Total Cells Counted 100
[2021-11-24 05:58] LABS: Macrocytosis 1+; Platelet Estimate Normal; Stomatocytes 1+
--- NOTE | 2021-11-24 07:27 | HMH.PHAINT ---
home medication list verified using list from outpatient pharmacy
[2021-11-24 07:28] LABS: POC Glucose,Bedside 122 (70-110)
--- NOTE | 2021-11-24 07:38 | PC.NURSE ---
pt is eating at this time. will obtain vs when he is finished.
--- NOTE | 2021-11-24 08:19 | PC.NURSE ---
report called to floor
--- NOTE | 2021-11-24 09:40 | HMH.HP ---
*Admission Date: 11/23/21 *Chief complaint: Rectal Blood *History of present illness: 76-year-old male patient reports having several bowel movements 1 day prior with blood, he reports blood is dark and tarry looking. The next day he had several more bouts of dark red blood in his stool and proceeded to the [facility] emergency department. While in the emergency department he had 2 episodes of large amounts of bright red blood per rectum without any stool or diarrhea associated with it. He denies any abdominal pain, known hemorrhoids, nausea/vomiting, and he denies any blood thinners. He also denies any recent travel, antibiotics, or exposure to any illness 11/23/21 Abd/Pelvic CT: FINDINGS: Lungs: Right middle lobe pulmonary nodule, axial image 3 measures 7.2 mm at the stable from prior exam. Right lower lobe 6 mm pulmonary nodule axial image 2 stable from prior exam. Heart: Moderate three-vessel calcific atherosclerotic disease of the coronary arteries. Liver: There is diffuse hypoattenuation of the liver compatible with mild hepatic steatosis. Multiple calcific densities of the liver are likely related to prior granulomatous process. Gallbladder and bile ducts: Multiple dependently layering hyperattenuating structures are noted within the gallbladder fossa without wall thickening, or pericholecystic fluid. Pancreas: Normal. No ductal dilation. Spleen: Multiple calcific densities of the spleen are likely related to prior granulomatous process. Adrenal glands: Normal. No mass. Kidneys and ureters: Bilateral subcentimeter renal cysts too small to characterize, likely benign. No follow-up recommended. Stomach and bowel: Significant sigmoid diverticulosis with hyperattenuating intraluminal material within the sigmoid colon, may represent blood products and source of blood in stool. Subtle mesenteric stranding of the sigmoid colon and edema may represent early diverticulitis. Appendix: No evidence of appendicitis. Intraperitoneal space: See Stomach and bowel finding. Vasculature: Moderate calcific atherosclerotic disease of the abdominal aorta without aneurysmal dilatation is present. Lymph nodes: Unremarkable. No enlarged lymph nodes. Urinary bladder: Unremarkable as visualized. Reproductive: Unremarkable as visualized. Bones/joints: Moderate loss of intervertebral disc space with degenerative changes at L4 through S1. Soft tissues: Normal. IMPRESSION: 1. Right middle lobe pulmonary nodule, axial image 3 measures 7.2 mm at the stable from prior exam. Right lower lobe 6 mm pulmonary nodule axial image 2 stable from prior exam. Recommend six-month follow-up to complete 2 year documentation of stability. 2. Cholelithiasis without CT evidence of cholecystitis. 3. Significant sigmoid diverticulosis with hyperattenuating intraluminal material within the sigmoid colon, may represent blood products and source of blood in stool. 4. Subtle mesenteric stranding of the sigmoid colon and edema may represent early diverticulitis. Electronically signed by Anthony Pulido MD [facility] History I have reviewed the patient's past medical history: Yes Medical History: Reports:: Asthma, Chronic Obstructive Pulmonary Disease (COPD), Coronary Artery Disease, Diabetes Mellitus Type 2, Heart Murmur, Hyperlipidemia, Hypertension, Kidney Stones Denies:: Cancer, Diabetes Mellitus Type 1, MRSA *Have you ever received a pneumonia vaccine?: Yes *Have you received a flu vaccine this season?: Yes Other Medical History: Reports: Cataracts, Glaucoma Laterality Cases: Bilateral: Cataract, Tonsillectomy Other Surgeries: Yes: Cancer Surgery, Mitral Valve Replacement Amputation: No Fractures: No - *Social History Smoking Status: Former smoker Alcohol Intake: never Substance Use Type: denies use *Occupational Status:: retired Housing: house Household Members: none *Travel in the last 8 weeks: None Family Hx
--- NOTE | 2021-11-24 10:30 | CA_ITS ---
APPROVED REPORT EXAM: Comprehensive 2D, Doppler, and color-flow Echocardiogram Network Systems Integrator: Kamla Ndiaye RDCS Ht: 5 ft 6 in Wt: 164lbs BSA: 1.84 BP: 131/59 mmHg Indications: MURMUR,RECTAL BLEED,CAD,AVR-BIOPROSTHETIC 2010,HX COVID 2D Dimensions LVOT 2.18 cm (M/F) 1.5-2.5 LA Volume 29.00 mL LA Volume Index 15.366125 mL/m2 (M/F) 16-34 M-Mode Dimensions RVDd 3.53 cm (0.9-2.6) LA Diam 3.90 cm (1.9-4.0) LVDd 3.80 cm (3.5-5.7) Ao Diam 3.05 cm (2.0-3.7) LVDs 1.74 cm (3.5-5.7) IVSd 0.49 cm (0.6-1.1) PWd 1.83 cm (0.6-1.1) EF (Teich) 85.60% FS 54.20% EDV (Teich) 62.00 mL TAPSE 0.89 (<1.7) ESV (Teich) 8.90 mL LV Diastology E Decel Time 150.00 (160-240 msec) E/A Ratio 0.6 MED E' 7.60 (< 7 cm/sec) E'/MED E' Ratio 9.83 (>14) LAT E' 10.20 (<10 cm/sec) E/LAT E' Ratio 7.32 (>14) Aortic Valve LVOT Max 139.00 (70-110 cm/s) LVOT VTI 29.07 cm AoV Peak Beltran. 305.00 (50-130 cm/s) AO Peak GR. 37.30 mmHg AO Mean GR. 21.70 (<5 mmHg) AO VTI 54.96 (18-25 cm) MARIAJOSE (VTI) 1.97 (2.5-4.5 cm2) Mitral Valve MV E Max Beltran. 75.00 (40-130 cm/s) MV A Velocity 128.00 (40-130 cm/s) E/A Ratio 0.58 MV Decel. Time 150.00 (160-240 ms) MV PHT 44.00 ms Pulmonary Valve PV Peak Velocity 103.00 (50-150 cm/s) Tricuspid Valve TR P. Velocity 286.00 cm/s RAP Estimate 10.00 mmHg RVSP 42.70 mmHg Left Ventricle Left atrium is mildly enlarged, left ventricle is normal size, mild concentric left ventricular hypertrophy, visually estimated ejection fraction 55% with no regional wall motion abnormality, grade 1 diastolic dysfunction seen without tissue Doppler evidence of raise left atrial pressure. Right Ventricle Right atrium and right ventricle are mildly enlarged with normal contractility. Aortic Valve There is bioprosthetic valve noted in the aortic position, the maximum aortic outflow velocity is 3 m/s, resulting in a mean gradient across aortic valve of 21 mmHg, valve area is calculated 1.8 cm??? represents normal bioprosthetic function, there is no aortic insufficiency. Mitral Valve Mitral valve is grossly normal, there is mild mitral regurgitation. Tricuspid Valve Tricuspid grossly normal, there is mild tricuspid regurgitation, tricuspid regurgitation jet velocity is inadequate for calculation of the right ventricular systolic pressure. Pulmonic Valve Pulmonic valve is poorly visualized. Great Vessels Aortic root is normal size. Inferior vena cava is normal size with normal inspiratory collapse. Pericardium No significant pericardial effusion noted. Conclusion 1. Mild biatrial enlargement, normal left ventricular size, mild concentric left ventricular hypertrophy, visually estimated ejection fraction 55% with no regional wall motion abnormality, grade 1 diastolic dysfunction seen without tissue Doppler evidence of raise left atrial pressure. 2. Normal functioning bioprosthetic aortic valve without significant aortic outflow obstruction, or aortic insufficiency. 3. Mild mitral and tricuspid regurgitation. 4. No significant pericardial effusion. 5. Inferior vena cava normal size with normal inspiratory collapse. Electronically signed by : Petar Alas MD 11/25/2021 13:10:36
--- NOTE | 2021-11-24 10:38 | PC.NURSE ---
NOTIFIED RT FOR ECHO- REPORTED IT WILL BE A WHILE
--- NOTE | 2021-11-24 11:17 | PC.NURSE ---
echo at bedside.
[2021-11-24 11:43] LABS: POC Glucose,Bedside 191 (70-110)
[2021-11-24 16:27] LABS: POC Glucose,Bedside 126 (70-110)
--- NOTE | 2021-11-24 16:29 | PC.NURSE ---
NO CHANGES NOTED ON REASSESSMENT. LUNGS CTA WITH CRACKLES NOTED TO LEFT LOWER LOBE. BOWEL SOUNDS ACTIVE X3. NO BM TODAY, BUT DID HAVE BLOOD WHEN HE WIPED ONCE. HEART MURMUR NOTED. APPETITE GOOD. AMBULATED WELL. IV INFUSING. NO PAIN REPORTED. 1+ EDEMA TO BLE. NO CURRENT NEEDS
[2021-11-24 20:17] LABS: POC Glucose,Bedside 172 (70-110)
[2021-11-25 04:00] VITALS: BP 134/82; PULSE 67; RESP 18; TEMP 37.1; O2SAT 91
[2021-11-25 04:59] LABS: POC Glucose,Bedside 105 (70-110)
--- NOTE | 2021-11-25 04:59 | PC.NURSE ---
Pt has slept in intervals this shift. Pt with crackles to Lt lower lobe and clear on the Rt side. Bowel sounds present in all 4 quadrants. Pt placed on 2L NC for o2 saturation 85-89% while sleeping. Pt iv patent and infusing well. Pt has been up to the bathroom frequently this shift with the urge to have a bowel movement but unable to. Pt has had 2 bowel movements this shift. +1 edema noted to BLE. Pt denies any SOA, headache, N/V, or pain. VSS
[2021-11-25 07:58] LABS: Basophils % 0.4 % (0.1-2.0); Eosinophils % 0.1 % (0.1-12.0); Hematocrit 38.7 % (42.0-52.0); Hemoglobin 11.9 g/dL (14.1-18.0); Lymphocytes # 1.8 K/mm3 (0.7-4.5); Lymphocytes % 17.8 % (10-50); Mean Corpuscular HGB Conc 30.9 g/dL (31.8-35.4); Mean Corpuscular Hemoglobin 31.4 pg (27.0-31.2); Mean Corpuscular Volume 101.6 fl (80-94); Mean Platelet Volume 10.3 fl (7.4-10.4); Monocytes # 0.9 K/mm3 (0.1-1.0); Monocytes % 8.5 % (1.7-9.3); Neutrophils # 7.4 K/mm3 (1.8-7.8); Neutrophils % 73.4 % (37.0-80.0); Platelet Count 197 K/mm3 (142-424); Red Blood Count 3.81 M/mm3 (4.60-6.20); Red Cell Distribution Width 15.8 % (11.5-17.5)
[2021-11-25 08:00] VITALS: BP 134/69; PULSE 63; RESP 18; TEMP 36.4; O2SAT 93
[2021-11-25 08:30] LABS: Chloride 103 mmol/L (98-107); Sodium 140 mmol/L (136-145)
[2021-11-25 08:31] LABS: Potassium 4.3 mmoL/L (3.5-5.1)
[2021-11-25 08:33] LABS: Blood Urea Nitrogen 19 mg/dl (9-20); Creatinine Clearance Estimated 64 mL/min (50-200); Estimated Glomerular Filt Rate 109 ml/min (>60); GFR (African American) 132 ML/MIN (>60)
[2021-11-25 08:34] LABS: Anion Gap 8.3 mEq/L (5-15); Calcium 8.1 mg/dl (8.4-10.2); Carbon Dioxide 33 mmol/L (22.0-30.0); Glucose 106 mg/dl (74-100)
--- NOTE | 2021-11-25 08:54 | XR_ITS ---
FINAL REPORT CLINICAL HISTORY: Abd pain GI bleed FINDINGS: A single view of the abdomen was obtained. There is a nonobstructive bowel gas pattern. There are no abnormally dilated loops of small bowel. There is a large amount of retained stool. IMPRESSION: Large amount of retained stool. Reviewed, Interpreted and Dictated by Kermit Reeves MD Transcribed by Luis East Authenticated by Kermit Reeves MD on 11/25/2021 09:59:44 AM [facility]
--- NOTE | 2021-11-25 09:45 | HMH.CNCARD ---
History of Present Illness Consult date: 11/25/21 Requesting physician: Devin Thibodeaux Chief complaint: Heart murmur, GI bleed Additional Medical History:: 1. Coronary artery disease, status post single-vessel bypass, 2010 2. Aortic valve disease, status post bioprosthetic aortic valve replacement, 2010 A. Echo, 05/2020, 1. Mildly enlarged left atrium, normal left ventricular size, mild concentric left ventricular hypertrophy, visually estimated ejection fraction 55% with no regional wall motion abnormality, grade 1 diastolic dysfunction seen without tissue Doppler evidence of raise left atrial pressure. 2. Mildly enlarged right ventricle with normal contractility. 3. Bioprosthetic valve in the aortic position, the mean gradient across valve is 21 mmHg. There is no aortic insufficiency. 4. If clinically indicated transesophageal echocardiogram is recommended for further evaluation. Electronically signed by : Petar Alas, 05/04/2020 21:00:38 B. BILL, 05/2020, 1. Biatrial enlargement, normal left ventricular size, visually estimated ejection fraction 55% with no regional wall motion abnormality. 2. Bioprosthetic valve in the aortic position, morphologically there is no prosthetic valve stenosis. There is no vegetation seen on the prosthetic valve, there is no aortic insufficiency. 3. Other ancillary findings as described above. Electronically signed by : Petar Alas, 05/06/2020 13:20:07 3. Tobacco use, smoked for 40 years approximately 2 to 3 packs/day, discontinued 2001 A. COPD B. Chest CTA, 05/2020, 1. No evidence of pulmonary embolus. 2. Multiple bilateral noncalcified pulmonary nodules measuring up to 7 mm. These may be inflammatory/infectious or neoplastic. Suggest [address] follow-up. 3. Mediastinal adenopathy. This is nonspecific and could be neoplastic or reactive. Follow-up recommended. 4. Trace bilateral effusions with bibasilar atelectatic changes with centrilobular emphysema and scattered areas of scarring 4. Hypertension 5. Hyperlipidemia 6. Diabetes mellitus type 2 A. Hemoglobin A1c around 6-6.5 7. ARIE A. Carotid ultrasound, 05/2020, <20% bilaterally 8. GI bleed with minimal drop in hemoglobin, 11/2021, felt secondary to diverticulitis History of present illness: 76-year-old white male with history of coronary artery disease and previous aortic valve bioprosthetic replacement presented to [facility] for evaluation of GI bleed that started earlier this week. Patient noted several bowel movements with blood in the bowl and on the toilet paper which prompted concern and him seeking evaluation. He denies any abdominal pain, nausea, or vomiting. No recent fever or chills. CT scan of the abdomen revealed evidence of diverticulitis with evidence of bleeding intraluminally. Patient's hemoglobin has remained stable and he is being treated with antibiotics for the diverticulitis. No plans for colonoscopy in the immediate future. Cardiology was consulted due to heart murmur on exam. Patient has a history of bypass in 2010 along with prosthetic aortic valve replacement. He remains very active without any chest pain, pressure or tightness. Echocardiogram was performed this morning but results are pending at this time. EKG is sinus rhythm with no acute ST segment changes. [facility] History Medical History: Reports:: Asthma, Chronic Obstructive Pulmonary Disease (COPD), Coronary Artery Disease, Diabetes Mellitus Type 2, Heart Murmur, Hyperlipidemia, Hypertension, Kidney Stones Denies:: Cancer, Diabetes Mellitus Type 1, MRSA *Have you ever received a pneumonia vaccine?: Yes *Have you received a flu vaccine this season?: Yes Other Medical History: Reports: Cataracts, Glaucoma Laterality Cases: Bilateral: Cataract, Tonsillectomy Other Surgeries: Yes: Cancer Surgery, Mitral Valve Replacement Amputation: No Fractures: No - *Social History Smoking Status: Former smoker Alcohol Inta
--- NOTE | 2021-11-25 10:09 | ECG_ITS ---
APPROVED REPORT Exam: Resting ECG HR:68 bpm ECG Measurements Heart Rate 68 AXES MO 168 P 56 QRSd 77 QRS 29 QT 352 T 60 QTc 370 Conclusion SINUS RHYTHM NORMAL ECG UNCONFIRMED REPORT Electronically signed by : Stewart Velez MD 11/25/2021 19:35:47
[2021-11-25 11:01] LABS: POC Glucose,Bedside 104 (70-110)
--- NOTE | 2021-11-25 11:19 | DIET.NUTRFU ---
Reviewed handout for diverticulitis diet, low fiber to start and add in fiber in week 2 recovery to reach goal of 30-35gm/day.
--- NOTE | 2021-11-25 11:41 | HMH.DCSUM ---
General - General Admission date:: 11/23/21 Discharge date: 11/25/21 HPI HPI: 76-year-old male patient reports having several bowel movements 1 day prior with blood, he reports blood is dark and tarry looking. The next day he had several more bouts of dark red blood in his stool and proceeded to the [facility] emergency department. While in the emergency department he had 2 episodes of large amounts of bright red blood per rectum without any stool or diarrhea associated with it. He denies any abdominal pain, known hemorrhoids, nausea/vomiting, and he denies any blood thinners. He also denies any recent travel, antibiotics, or exposure to any illness Hospital Course Hospital Course: 76-year-old male patient reports having several bowel movements 1 day prior with blood, he reports blood is dark and tarry looking. The next day he had several more bouts of dark red blood in his stool and proceeded to the [facility] emergency department. While in the emergency department he had 2 episodes of large amounts of bright red blood per rectum without any stool or diarrhea associated with it. He denies any abdominal pain, known hemorrhoids, nausea/vomiting, and he denies any blood thinners. He also denies any recent travel, antibiotics, or exposure to any illness 11/23/21 Abd/Pelvic CT: FINDINGS: Lungs: Right middle lobe pulmonary nodule, axial image 3 measures 7.2 mm at the stable from prior exam. Right lower lobe 6 mm pulmonary nodule axial image 2 stable from prior exam. Heart: Moderate three-vessel calcific atherosclerotic disease of the coronary arteries. Liver: There is diffuse hypoattenuation of the liver compatible with mild hepatic steatosis. Multiple calcific densities of the liver are likely related to prior granulomatous process. Gallbladder and bile ducts: Multiple dependently layering hyperattenuating structures are noted within the gallbladder fossa without wall thickening, or pericholecystic fluid. Pancreas: Normal. No ductal dilation. Spleen: Multiple calcific densities of the spleen are likely related to prior granulomatous process. Adrenal glands: Normal. No mass. Kidneys and ureters: Bilateral subcentimeter renal cysts too small to characterize, likely benign. No follow-up recommended. Stomach and bowel: Significant sigmoid diverticulosis with hyperattenuating intraluminal material within the sigmoid colon, may represent blood products and source of blood in stool. Subtle mesenteric stranding of the sigmoid colon and edema may represent early diverticulitis. Appendix: No evidence of appendicitis. Intraperitoneal space: See Stomach and bowel finding. Vasculature: Moderate calcific atherosclerotic disease of the abdominal aorta without aneurysmal dilatation is present. Lymph nodes: Unremarkable. No enlarged lymph nodes. Urinary bladder: Unremarkable as visualized. Reproductive: Unremarkable as visualized. Bones/joints: Moderate loss of intervertebral disc space with degenerative changes at L4 through S1. Soft tissues: Normal. IMPRESSION: 1. Right middle lobe pulmonary nodule, axial image 3 measures 7.2 mm at the stable from prior exam. Right lower lobe 6 mm pulmonary nodule axial image 2 stable from prior exam. Recommend six-month follow-up to complete 2 year documentation of stability. 2. Cholelithiasis without CT evidence of cholecystitis. 3. Significant sigmoid diverticulosis with hyperattenuating intraluminal material within the sigmoid colon, may represent blood products and source of blood in stool. 4. Subtle mesenteric stranding of the sigmoid colon and edema may represent early diverticulitis. Electronically signed by Anthony Pulido MD 11/25/21 KUB: FINDINGS: A single view of the abdomen was obtained. There is a nonobstructive bowel gas pattern. There are no abnormally dilated loops of small bowel. There is a larg
== END 2021-11-25 12:50 | disposition home or self-care (01) ==
LOC: ER 20:39 → 2ND 21:00 → OB 11-24 09:25
PROVIDERS: Nurse Practitioner Family; Admitting Provider Internal Medicine Adolescent Medicine; Emergency Provider Emergency Medicine; PCP Family Medicine; Visit Provider Family Medicine
DX: K57.33 Diverticulitis of large intestine without perforation or abscess with bleeding (principal); I25.10 Atherosclerotic heart disease of native coronary artery without angina pectoris; J44.9 Chronic obstructive pulmonary disease, unspecified; E11.9 Type 2 diabetes mellitus without complications; Z79.84 Long term (current) use of oral hypoglycemic drugs; I10 Essential (primary) hypertension; Z95.1 Presence of aortocoronary bypass graft; Z95.3 Presence of xenogenic heart valve; R01.1 Cardiac murmur, unspecified; Z79.899 Other long term (current) drug therapy; Z87.891 Personal history of nicotine dependence; Z20.822 Contact with and (suspected) exposure to COVID-19
CPT/HCPCS: G0378; 36415; 74018; 74177; 80048; 80053; 82272; 82962; 85007; 85025; 87506; 93005; 93306; 96365; 96375; 99285; C9803; G0328; J1956; Q9967; U0003; U0005

== ENCOUNTER → 2021-12-09 10:04 | Outpatient (CLI) | payer MEDICARE, SELFPAY ==
--- NOTE | 2021-12-09 10:33 | XR_ITS ---
FINAL REPORT CLINICAL HISTORY: hypoxia, hx smoker COMPARISON: October 17, 2021 FINDINGS: Two views of the chest were obtained. There are postoperative changes from median sternotomy. The heart size and pulmonary vascularity are within normal limits. The mediastinum is normal. No acute pulmonary abnormality is identified. There is no pneumothorax. The bony thorax is intact. IMPRESSION: No active cardiopulmonary disease. Reviewed, Interpreted and Dictated by Artem Bhardwaj III, MD Transcribed by Annel Dumont Authenticated by Artem Bhardwaj III, MD on 12/09/2021 02:34:[address] [facility]
[2021-12-09 10:38] LABS: Basophils # 0.1 K/mm3 (0-0.2); Basophils % 0.9 % (0.1-2.0); Eosinophils # 0.1 K/mm3 (0.0-0.4); Eosinophils % 1.4 % (0.1-12.0); Hematocrit 43.9 % (42.0-52.0); Hemoglobin 13.9 g/dL (14.1-18.0); Lymphocytes # 2.1 K/mm3 (0.7-4.5); Lymphocytes % 21.8 % (10-50); Mean Corpuscular HGB Conc 31.6 g/dL (31.8-35.4); Mean Corpuscular Hemoglobin 31.3 pg (27.0-31.2); Mean Platelet Volume 9.2 fl (7.4-10.4); Monocytes # 0.8 K/mm3 (0.1-1.0); Monocytes % 8.3 % (1.7-9.3); Neutrophils # 6.5 K/mm3 (1.8-7.8); Neutrophils % 67.5 % (37.0-80.0); Platelet Count 246 K/mm3 (142-424); Red Blood Count 4.43 M/mm3 (4.60-6.20); White Blood Count 9.7 K/mm3 (4.8-10.8)
[2021-12-09 11:11] LABS: Anion Gap 10.1 mEq/L (5-15); Blood Urea Nitrogen 18 mg/dl (9-20); Calcium 9.9 mg/dl (8.4-10.2); Carbon Dioxide 36 mmol/L (22.0-30.0); Chloride 96 mmol/L (98-107); Estimated Glomerular Filt Rate 82 ml/min (>60); GFR (African American) 99 ML/MIN (>60); Glucose 114 mg/dl (74-100); Potassium 5.1 mmoL/L (3.5-5.1); Sodium 137 mmol/L (136-145)
== END ==
PROVIDERS: PCP Family Medicine; Visit Provider Internal Medicine Cardiovascular Disease
DX: K57.31 Diverticulosis of large intestine without perforation or abscess with bleeding (principal); E11.9 Type 2 diabetes mellitus without complications; I25.10 Atherosclerotic heart disease of native coronary artery without angina pectoris; J44.9 Chronic obstructive pulmonary disease, unspecified; R01.1 Cardiac murmur, unspecified; R06.09 Other forms of dyspnea; R09.02 Hypoxemia; R60.9 Edema, unspecified; U09.9 Post COVID-19 condition, unspecified; Z87.440 Personal history of urinary (tract) infections; Z95.3 Presence of xenogenic heart valve; Z79.84 Long term (current) use of oral hypoglycemic drugs
CPT/HCPCS: 36415; 71046; 80048; 85025

== ENCOUNTER → 2021-12-27 09:09 | Outpatient (CLI) | payer MEDICARE, SELFPAY | PROVIDERS: PCP Family Medicine; Visit Provider Internal Medicine Gastroenterology | DX: Z01.812 Encounter for preprocedural laboratory examination (principal); Z11.52 Encounter for screening for COVID-19; K62.5 Hemorrhage of anus and rectum | CPT/HCPCS: C9803; U0003; U0005 ==

== ENCOUNTER 2021-12-29 10:55 | Day surgery (SDC) | payer MEDICARE, SELFPAY ==
[2021-12-22 11:43] VITALS: BMI 25.8
[2021-12-29 11:14] VITALS: BP 127/75; PULSE 99; RESP 18; TEMP 36.4; O2SAT 95
[2021-12-29 11:40] VITALS: O2SAT 95
--- NOTE | 2021-12-29 11:55 | HMH.ANESCL ---
[facility] Anesthesia Checklist - Patient Identification Patient Identification: Arm Band - Structural Data Admitted From: Home Planned Operative Procedure/s: Colonoscopy Consent for Planned Operative Procedure(s) Verified: Yes Verified Documents: Surgical Consent - NPO Status Verified Time NPO: 06:00 - Additional verifications Anesthesia Reactions: No - Airway Assessment C-Spine Mobility Assessed: Yes TMJ Mobility Assessed: Yes Dentition: Dentures-good fit - Neurological Assessment Level of Consciousness: Awake, Alert, Appropriate - Anesthesia Plan Anesthesia Risk discussed: Yes ASA Class: III Anesthesia Type: MAC [facility] History I have reviewed the patient's past medical history: Yes Medical History: Reports:: Asthma, Chronic Obstructive Pulmonary Disease (COPD), Coronary Artery Disease, Diabetes Mellitus Type 2, Heart Murmur, Hyperlipidemia, Hypertension, Kidney Stones Denies:: Cancer, Diabetes Mellitus Type 1, Internal Pacemaker, MRSA, Seizures *Have you ever received a pneumonia vaccine?: Yes *Have you received a flu vaccine this season?: No Other Medical History: Reports: Cataracts, Glaucoma Anesthesia experience/problems:: none Laterality Cases: Bilateral: Cataract, Tonsillectomy Other Surgeries: Yes: Cancer Surgery, Mitral Valve Replacement. No: Pacemaker Amputation: No Fractures: No - *Social History Last grade of school completed: High school graduate Smoking Status: Former smoker Smoking End Date: 2001 Alcohol Intake: never Substance Use Type: denies use *Occupational Status:: retired Housing: house Household Members: none *Travel in the last 8 weeks: None Family Hx:: Unable to obtain
--- NOTE | 2021-12-29 12:11 | HMH.SCOPE ---
- Procedure: Date: 12/23/21 Patient Date of :: 1945 Procedure Performed:: Diagnostic colonoscopy Indications:: Recent GI bleed, abnormal CT scan Performing Provider:: Yung Phelps MD Referring Provider:: Devin Thibodeaux MD Sedation:: Propofol Procedure:: After placing the patient in the left lateral decubitus position, the colonoscopy was gently inserted into the rectum and under direct visualization advanced to the cecum which was identified by transillumination in the right lower quadrant, identification of the ileocecal valve, appendiceal orifice, and cecal strap. Color, texture, mucosa, and anatomy of the colon were carefully examined with the scope. Findings:: Anal canal: normal Rectum: normal Sigmoid colon: normal without polyps or inflammatory changes, scattered diverticuli noted. Descending colon: normal without polyps or inflammatory changes Splenic flexure: normal Transverse colon: normal without polyps or inflammatory changes Hepatic flexure: normal Ascending colon: normal without polyps or inflammatory changes Cecum: normal Terminal ileum: not visualized Impression: Scattered sigmoid diverticulosis Recommendations:: Repeat exam on an as needed basis due to age. Complications:: None Estimated blood obtained (mL): 0
[2021-12-29 12:14] VITALS: BP 96/55; PULSE 84; RESP 16; TEMP 36.2; O2SAT 94
[2021-12-29 12:24] VITALS: BP 110/71; PULSE 76; RESP 16; O2SAT 96
[2021-12-29 12:34] VITALS: BP 105/72; PULSE 62; RESP 16; O2SAT 94
[2021-12-29 12:50] VITALS: BP 107/62; PULSE 62; RESP 16; TEMP 36.2; O2SAT 94
[2021-12-30 09:12] LABS: POC Glucose,Bedside 89 (70-110)
== END 2021-12-29 13:00 | disposition home or self-care (01) ==
LOC: OUTP 10:56
PROVIDERS: PCP Family Medicine; Visit Provider Internal Medicine Gastroenterology
PROC: 0DJD8ZZ Inspection of Lower Intestinal Tract, Via Natural or Artificial Opening Endoscopic (ICD-10-PCS; CPT 45378; principal; 2021-12-29 12:00)
DX: Z87.19 Personal history of other diseases of the digestive system; K57.30 Diverticulosis of large intestine without perforation or abscess without bleeding; J44.9 Chronic obstructive pulmonary disease, unspecified; Z95.2 Presence of prosthetic heart valve; D64.9 Anemia, unspecified; Z87.440 Personal history of urinary (tract) infections; I25.10 Atherosclerotic heart disease of native coronary artery without angina pectoris; E11.9 Type 2 diabetes mellitus without complications
CPT/HCPCS: 45378; 82962

== ENCOUNTER 2022-01-02 19:58 | Inpatient (IN) | payer MEDICARE, SELFPAY ==
[2022-01-02 19:59] VITALS: BP 93/66; PULSE 119; RESP 26; TEMP 38.3; O2SAT 80; BMI 22.6
--- NOTE | 2022-01-02 20:09 | XR_ITS ---
PROCEDURE INFORMATION: Exam: XR Chest Exam date and time: 01/02/2022 8:14 PM Age: 76 years old Clinical indication: Cough; Prior surgery; Surgery date: 6+ months; Surgery type: Open heart in 2011, heart valve replaced with artifical valve per patient. TECHNIQUE: Imaging protocol: XR of the chest. Views: 1 view. COMPARISON: CR XR CHEST 2V 12/09/2021 10:36 AM FINDINGS: Lungs: There are chronic interstitial changes noted within both lung sanez. Similar findings noted on prior examination of 12/09/2021. No consolidation. There is no evidence of pulmonary vascular congestion. Pleural spaces: Blunting of the left lateral costophrenic angle, compatible with focal pleural thickening. No evidence of pleural effusion or pneumothorax. Heart/Mediastinum: Median sternotomy and aortic valvular surgery has been performed. The heart is normal size. There is atheromatous calcification of the thoracic aorta. The superior mediastinum is not widened. Bones/joints: Degenerative changes of the thoracic spine and shoulders. IMPRESSION: No acute intrathoracic disease. No interval change since 12/09/2021.
--- NOTE | 2022-01-02 20:10 | HMH.EDGENADL ---
ED Disposition Clinical Impression: Acute respiratory failure with hypoxia, COPD exacerbation, Aortic valve replaced Pneumonia Qualifiers: Pneumonia type: due to unspecified organism Laterality: unspecified laterality Lung location: unspecified part of lung Qualified Code(s): J18.9 - Pneumonia, unspecified organism Disposition: Admitted As Inpatient Condition on Discharge: Fair Referrals: Devin Thibodeaux MD [Primary Care Provider] - Time of Disposition: 23:09 - Critical Care Critical Care Time: No Attestation: On , the high probability of a clinically significant, sudden or life threatening deterioration of the following system(s) required my full and direct attention, intervention and personal management. The time I documented below is in addition to time spent performing reported procedures but includes the following listed in this critical care notation. Medical Decision Making - Medical Records Medical records reviewed: Yes: I reviewed the patient's medical records. - Igor Inquiry Pt receiving controlled substance: No Vital Signs: 01/02/22 19:59 01/02/22 20:17 01/02/22 20:45 Temperature 101 F H Temperature Source Oral Pulse Rate 114 H 104 H Pulse Rate [Left Radial] 119 H Respiratory Rate 26 H Blood Pressure 96/54 L 91/61 L Blood Pressure [Right Arm] 93/66 L Blood Pressure Mean [Right Arm] 75 02 Sat by Pulse Oximetry 80 L 95 95 Oxygen Delivery Method Room Air Nasal Cannula Nasal Cannula Oxygen Flow Rate (LPM) 2 2 01/02/22 21:30 01/02/22 22:00 01/02/22 22:30 Temperature Temperature Source Pulse Rate 102 H 97 H 100 H Pulse Rate [Left Radial] Respiratory Rate Blood Pressure 102/61 L 99/59 L 114/66 Blood Pressure [Right Arm] Blood Pressure Mean [Right Arm] 02 Sat by Pulse Oximetry 95 94 L 92 L Oxygen Delivery Method Nasal Cannula Nasal Cannula Nasal Cannula Oxygen Flow Rate (LPM) 2 2 2 - Lab Data Lab Results 01/02/22 20:09: VBG pH 7.37, VBG pCO2 45.3, VBG pO2 45.6 H, VBG HCO3 25.8, VBG Total CO2 27.2 H, VBG O2 Saturation 80.6 H, VBG Base Excess 0.5 01/02/22 20:10: WBC 8.3, RBC 4.19 L, Hgb 13.0 L, Hct 41.4 L, MCV 98.9 H, MCH 31.0, MCHC 31.4 L, RDW 14.6, Plt Count 241, MPV 9.6, Neut % (Auto) 62.2, Lymph % (Auto) 20.9, [place] % (Auto) 13.9 H, Eos % (Auto) 1.0, Baso % (Auto) 2.0, Neut # (Auto) 5.1, Lymph # (Auto) 1.7, [place] # (Auto) 1.2 H, Eos # (Auto) 0.1, Baso # (Auto) 0.2 01/02/22 20:10: Sodium 139, Potassium 4.8, Chloride 99, Carbon Dioxide 32 H, Anion Gap 12.8, BUN 23 H, Creatinine 1.10, Estimated Creat Clear 50, Estimated GFR 65, Est GFR ( Amer) 78, Glucose 120 H, Calcium 9.4, Total Bilirubin 0.5, AST 29, ALT 16, Alkaline Phosphatase 56, Troponin I < 0.01, Total Protein 7.0, Albumin 4.0, Globulin 3.0, Albumin/Globulin Ratio 1.3, Procalcitonin 0.083 01/02/22 20:10: Lactate 0.8 01/02/22 20:10: NT-Pro-B Natriuret Pep 1160 H 01/02/22 20:14: SARS-CoV-2 (PCR) Not detected, Influenza A Untype (PCR) Not detected, Influenza Type B (PCR) Not detected Result diagrams: 01/02/22 20:10 01/02/22 20:10 Orders (Tests/Meds): ED MEDICATIONS Generic Name Dose Route Start Last Admin Trade Name Freq PRN Reason Stop Dose Admin Levofloxacin/Dextrose 750 mg in 150 mls @ 100 mls/hr 01/02/22 22:00 01/02/22 22:22 Levofloxacin 750mg/150ml Premix IV 01/16/22 21:59 100 mls/hr Q24H ARDEN Administration Discontinued Medications Generic Name Dose Route Start Last Admin Trade Name Freq PRN Reason Stop Dose Admin Azithromycin 500 mg/ Sodium 250 mls @ 250 mls/hr 01/02/22 22:00 01/02/22 23:05 Chloride IV 01/16/22 21:59 Not Given Q24H ARDEN Iopamidol 70 ml 01/02/22 22:11 01/02/22 22:13 Iopamidol-370 (76%);100ml Bottle IV 01/02/22 22:12 70 ml ONCE ONE Administration Methylprednisolone Sodium Succinate 125 mg 01/02/22 21:57 01/02/22 22:21 Methylprednisolone Sod Succ 125mg Vial IV 01/02/22 21:58 125 mg ONCE ONE Administration Sodium Chlor
--- NOTE | 2022-01-02 20:11 | ECG_ITS ---
APPROVED REPORT Exam: Resting ECG HR:112 bpm ECG Measurements Heart Rate 112 AXES NM 143 P 85 QRSd 88 QRS 59 QT 285 T 64 QTc 351 Conclusion SINUS TACHYCARDIA ABNORMAL RHYTHM ECG UNCONFIRMED REPORT Electronically signed by : Stewart Velez MD 01/04/2022 17:57:39
[2022-01-02 20:17] VITALS: BP 96/54; PULSE 114; O2SAT 95
[2022-01-02 20:24] LABS: Coronavirus 19, PCR Not Detected (NotDetected); Influenza A, PCR Not Detected (NotDetected); Influenza B, PCR Not Detected (NotDetected)
[2022-01-02 20:29] LABS: Basophils # 0.2 K/mm3 (0-0.2); Eosinophils # 0.1 K/mm3 (0.0-0.4); Hematocrit 41.4 % (42.0-52.0); Lymphocytes # 1.7 K/mm3 (0.7-4.5); Lymphocytes % 20.9 % (10-50); Mean Corpuscular HGB Conc 31.4 g/dL (31.8-35.4); Mean Corpuscular Volume 98.9 fl (80-94); Mean Platelet Volume 9.6 fl (7.4-10.4); Monocytes # 1.2 K/mm3 (0.1-1.0); Monocytes % 13.9 % (1.7-9.3); Neutrophils # 5.1 K/mm3 (1.8-7.8); Neutrophils % 62.2 % (37.0-80.0); Platelet Count 241 K/mm3 (142-424); Red Blood Count 4.19 M/mm3 (4.60-6.20); Red Cell Distribution Width 14.6 % (11.5-17.5); White Blood Count 8.3 K/mm3 (4.8-10.8)
[2022-01-02 20:34] LABS: Alanine Aminotransferase 16 U/L (12-78); Albumin/Globulin Ratio 1.3 (1.1-1.8); Alkaline Phosphatase 56 U/L (38-126); Anion Gap 12.8 mEq/L (5-15); Aspartate Amino Transferase 29 U/L (17-59); Bilirubin,Total 0.5 mg/dl (0.2-1.3); Blood Urea Nitrogen 23 mg/dl (9-20); Calcium 9.4 mg/dl (8.4-10.2); Carbon Dioxide 32 mmol/L (22.0-30.0); Chloride 99 mmol/L (98-107); Creatinine Clearance Estimated 50 mL/min (50-200); Estimated Glomerular Filt Rate 65 ml/min (>60); GFR (African American) 78 ML/MIN (>60); Glucose 120 mg/dl (74-100); Lactic Acid 0.8 mmol/L (0.7-2.1); Potassium 4.8 mmoL/L (3.5-5.1); Sodium 139 mmol/L (136-145)
[2022-01-02 20:43] LABS: NT Pro Brain Natriuretic Pep. 1160 pg/mL (0-450)
[2022-01-02 20:45] VITALS: BP 91/61; PULSE 104; O2SAT 95
[2022-01-02 20:49] LABS: Troponin I < 0.01 ng/ml (0.00-0.034)
[2022-01-02 20:50] LABS: Procalcitonin 0.083 ng/mL (0.0-2.0)
[2022-01-02 21:00] LABS: VBG Base Excess 0.5 mmol/L (-2.4-2.3); VBG HCO3 25.8 mmol/L (23-30); VBG Oxygen Saturation 80.6 % (50-70); VBG PCO2 45.3 mmol/L (35-51); VBG PH 7.37 mmol/L (7.31-7.41); VBG PO2 45.6 mmol/L (28-40); VBG Total CO2 27.2 mmol/L (23-27)
[2022-01-02 21:30] VITALS: BP 102/61; PULSE 102; O2SAT 95
--- NOTE | 2022-01-02 21:58 | CT_ITS ---
PROCEDURE INFORMATION: Exam: CTA Chest With Contrast Exam date and time: 01/02/2022 10:07 PM Age: 76 years old Clinical indication: Condition or disease; Lung condition and disease; Hypoxia TECHNIQUE: Imaging protocol: Computed tomographic angiography of the chest with contrast. 3D rendering (Not supervised by radiologist): MIP and/or 3D reconstructed images were created by the technologist. Radiation optimization: All CT scans at this facility use at least one of these dose optimization techniques: automated exposure control; mA and/or kV adjustment per patient size (includes targeted exams where dose is matched to clinical indication); or iterative reconstruction. Contrast material: ISOVUE; Contrast volume: 70 ml; Contrast route: INTRAVENOUS (IV); COMPARISON: CT ANGIO CHEST 05/05/2020 6:45 PM FINDINGS: Pulmonary arteries: The pulmonary trunk, main, and branch pulmonary arteries contain no filling defects. Aorta: Arterial atheromatous calcifications are noted. No aortic aneurysm. No aortic dissection. Lungs: Pulmonary emphysema. No consolidation. There is a 5 mm noncalcified subpleural nodule identified within the left lower lobe. Series 5, image 73. Series 1001, image 52. There is a calcified granuloma within the right middle lobe. Pleural spaces: Unremarkable. No pneumothorax. No pleural effusion. Heart: Median sternotomy and aortic valvular surgery has been performed. Heart RV/LV ratio: Within normal limits. Coronary arteries: There are calcifications identified within the coronary arteries. Mediastinal space: No evidence of mediastinal or hilar mass. Lymph nodes: There are prominent middle mediastinal lymph nodes identified. Largest lymph node is within the precarinal region, measuring 2.2 cm in long axis. These may reflect reactive lymph nodes. There is granulomatous calcification within lymph nodes of the hilar regions. Bones/joints: Unremarkable. No acute fracture. Soft tissues: Granulomatous calcifications within the liver. IMPRESSION: 1. No evidence of main or branch pulmonary embolism. 2. Pulmonary emphysema is noted. 3. 5 mm noncalcified subpleural nodule within the left lower lobe. 4. Median sternotomy and aortic valvular surgery has been performed. Prominent coronary artery calcifications noted. 5. Prominent middle mediastinal lymph nodes which may be reactive. There are calcified granulomas/lymph nodes within both perihilar regions. For patients at low risk (minimal or absent history of smoking and of other known risk factors), no routine follow-up is indicated. For patients at high risk (history of smoking or of other known risk factors), consider optional CT Chest at 12 months. (Reference: Tk) References: Tk Armstrong, et al. Guidelines for Management of Incidental Pulmonary Nodules Detected on CT Images: From the Fleischner Society 2017. Radiology. 2017;284(1):228-243.
[2022-01-02 22:00] VITALS: BP 99/59; PULSE 97; O2SAT 94
[2022-01-02 22:30] VITALS: BP 114/66; PULSE 100; O2SAT 92
--- NOTE | 2022-01-02 22:32 | PC.NURSE ---
PT AND FAMILY UPDATED. NO FURTHER COMPLAINTS VOICED. NO ACUTE DISTRESS NOTED.
--- NOTE | 2022-01-02 23:05 | PC.NURSE ---
Dr. Bernard s/w Dr. Thibodeaux for poss admission
--- NOTE | 2022-01-02 23:10 | PC.NURSE ---
packing room supervisor notified for bed assignment
[2022-01-03] VITALS (8 sets, daily range): BP systolic 91–119; BP diastolic 50–68; PULSE 68–81; RESP 16–19; TEMP 36.4–37.1; O2SAT 95–98; BMI 23.6; BMI 23.5
[2022-01-03 00:07] LABS: Troponin I < 0.01 ng/ml (0.00-0.034)
--- NOTE | 2022-01-03 00:28 | PC.NURSE ---
pt arrived to the floor via wheelchair at this time
--- NOTE | 2022-01-03 05:21 | PC.NURSE ---
pt has rested well since admission. He has had no c/o chest pain or SOA. He is on 3.5L NC and has been 96-97%. HR has been 72-80. SBP has been 94-108.
[2022-01-03 07:00] LABS: Basophils % 0.2 % (0.1-2.0); Eosinophils % 0.1 % (0.1-12.0); Hemoglobin 12.8 g/dL (14.1-18.0); Mean Corpuscular HGB Conc 32.7 g/dL (31.8-35.4); Mean Corpuscular Volume 97.9 fl (80-94); Mean Platelet Volume 9.3 fl (7.4-10.4); Monocytes # 0.3 K/mm3 (0.1-1.0); Neutrophils % 82.8 % (37.0-80.0); Platelet Count 202 K/mm3 (142-424); Red Blood Count 3.99 M/mm3 (4.60-6.20); Red Cell Distribution Width 14.5 % (11.5-17.5); White Blood Count 7.3 K/mm3 (4.8-10.8)
[2022-01-03 07:05] LABS: Chloride 100 mmol/L (98-107); Sodium 136 mmol/L (136-145)
[2022-01-03 07:06] LABS: Potassium 4.6 mmoL/L (3.5-5.1)
[2022-01-03 07:08] LABS: Anion Gap 10.6 mEq/L (5-15); Blood Urea Nitrogen 22 mg/dl (9-20); Carbon Dioxide 30 mmol/L (22.0-30.0); Creatinine Clearance Estimated 57 mL/min (50-200); Estimated Glomerular Filt Rate 93 ml/min (>60); GFR (African American) 113 ML/MIN (>60)
[2022-01-03 07:09] LABS: Calcium 9.3 mg/dl (8.4-10.2); Glucose 185 mg/dl (74-100)
--- NOTE | 2022-01-03 07:29 | HMH.PHAVTE ---
[facility] Pharm[facility] VTE Monitoring - Patient Demographics Admission date: 01/03/22 Report Date: 01/03/22 Time: 07:29 Allergies/Adverse Reactions: Patient Allergies Penicillins Allergy (Severe, Verified 01/03/22 00:33) Rash Height: 1.68 m Weight: 66.423 kg Patient Problems: Current Active Problems Acute respiratory failure with hypoxia (Acute) COPD exacerbation (Acute) Pneumonia (Acute) Aortic valve replaced (Acute) - VTE Risk Labs: VTE Related Lab Results Hgb 12.8 g/dL (14.1-18.0) L 01/03/22 06:28 Hct 39.0 % (42.0-52.0) L 01/03/22 06:28 Plt Count 202 K/mm3 (142-424) 01/03/22 06:28 BUN 22 mg/dl (9-20) H 01/03/22 06:28 Creatinine 0.80 mg/dl (0.66-1.25) D 01/03/22 06:28 Estimated Creat Clear 57 mL/min (50-200) 01/03/22 06:28 Was VTE Risk Assessment Performed: Yes VTE Score: 8 VTE Risk Level: Moderate Risk Clinical Trial Participant: No - Prophylaxis VTE Prophylaxis Ordered?: Yes Types of VTE Prophylaxis: TEDS Knee High
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
--- NOTE | 2022-01-03 10:32 | HMH.PHAINT ---
MEDICATION RECONCILIATION COMPLETED ON PATIENT USING EXTERNAL FILL HISTORY FROM PHARMACY. -PABLITO PRESLEY, GHANSHYAMD
[2022-01-04] VITALS (10 sets, daily range): BP systolic 80–118; BP diastolic 30–59; PULSE 58–75; RESP 18–22; TEMP 36.3–36.6; O2SAT 87–98; BMI 23.6
--- NOTE | 2022-01-04 06:00 | XR_ITS ---
PROCEDURE INFORMATION: Exam: XR Chest Exam date and time: 01/04/2022 5:13 AM Age: 76 years old Clinical indication: Condition or disease; Lung condition and disease; Pneumonia; Additional info: Pna TECHNIQUE: Imaging protocol: XR of the chest. Views: 1 view. COMPARISON: CR XR CHEST PORTABLE 01/02/2022 8:14 PM FINDINGS: Lungs: Slight increase in mild linear atelectasis or consolidation in the left lung base. No focal consolidation on the right. Pleural spaces: No pneumothorax. Heart/Mediastinum: Stable appearance of mediastinal postsurgical changes. Vasculature: Vascular calcifications. Bones/joints: No evidence of an acute fracture. IMPRESSION: Slight increase in mild linear atelectasis or consolidation in the left lung base.
[2022-01-04 07:16] LABS: Alanine Aminotransferase 18 U/L (12-78); Albumin Level 3.6 g/dl (3.5-5.0); Albumin/Globulin Ratio 1.3 (1.1-1.8); Alkaline Phosphatase 49 U/L (38-126); Anion Gap 10.5 mEq/L (5-15); Aspartate Amino Transferase 28 U/L (17-59); Bilirubin,Total 0.3 mg/dl (0.2-1.3); Blood Urea Nitrogen 36 mg/dl (9-20); Carbon Dioxide 30 mmol/L (22.0-30.0); Chloride 100 mmol/L (98-107); Creatinine Clearance Estimated 57 mL/min (50-200); Estimated Glomerular Filt Rate 93 ml/min (>60); GFR (African American) 113 ML/MIN (>60); Globulin 2.8 g/dL (1.3-3.2); Glucose 146 mg/dl (74-100); Potassium 4.5 mmoL/L (3.5-5.1); Sodium 136 mmol/L (136-145); Total Protein,Serum 6.4 g/dl (6.3-8.2)
[2022-01-04 07:18] LABS: Basophils % 0.2 % (0.1-2.0); Hematocrit 38.3 % (42.0-52.0); Hemoglobin 12.5 g/dL (14.1-18.0); Lymphocytes # 1.4 K/mm3 (0.7-4.5); Lymphocytes % 10.6 % (10-50); Mean Corpuscular HGB Conc 32.6 g/dL (31.8-35.4); Mean Corpuscular Hemoglobin 31.8 pg (27.0-31.2); Mean Corpuscular Volume 97.6 fl (80-94); Mean Platelet Volume 9.6 fl (7.4-10.4); Monocytes # 0.7 K/mm3 (0.1-1.0); Monocytes % 5.5 % (1.7-9.3); Neutrophils # 11.2 K/mm3 (1.8-7.8); Neutrophils % 83.7 % (37.0-80.0); Platelet Count 209 K/mm3 (142-424); Red Blood Count 3.93 M/mm3 (4.60-6.20); Red Cell Distribution Width 14.4 % (11.5-17.5); White Blood Count 13.4 K/mm3 (4.8-10.8)
--- NOTE | 2022-01-04 10:09 | HMH.ACPN2 ---
Internal Medicine - PN: Subj *Date: 01/04/22 *Time: 08:25 Interval history: pt states he feels better today, o2 at 2.5 liters Exam Vital signs and Labs for Last 24 Hours: Temp Pulse Resp BP Pulse Ox 97.5 F L 58 L 22 106/51 L 95 01/04/22 04:00 01/04/22 05:57 01/04/22 04:00 01/04/22 04:00 01/04/22 05:57 Laboratory Results - last 24 hr 01/04/22 06:24: WBC 13.4 H D, RBC 3.93 L, Hgb 12.5 L, Hct 38.3 L, MCV 97.6 H, MCH 31.8 H, MCHC 32.6, RDW 14.4, Plt Count 209, MPV 9.6, Neut % (Auto) 83.7 H, Lymph % (Auto) 10.6, Cache % (Auto) 5.5, Eos % (Auto) 0.0 L, Baso % (Auto) 0.2, Neut # (Auto) 11.2 H, Lymph # (Auto) 1.4, Cache # (Auto) 0.7, Eos # (Auto) 0.0, Baso # (Auto) 0.0 01/04/22 06:24: Sodium 136, Potassium 4.5, Chloride 100, Carbon Dioxide 30, Anion Gap 10.5, BUN 36 H D, Creatinine 0.80, Estimated Creat Clear 57, Estimated GFR 93, Est GFR ( Amer) 113, Glucose 146 H D, Calcium 9.0, Total Bilirubin 0.3, AST 28, ALT 18, Alkaline Phosphatase 49, Total Protein 6.4, Albumin 3.6, Globulin 2.8, Albumin/Globulin Ratio 1.3 I & O for Last 24 hours: Intake & Output 01/01/22 01/02/22 01/03/22 01/04/22 11:59 11:59 11:59 11:59 Intake Total 240 / 240 480 / 480 Output Total 0 / 0 Balance 240 / 240 480 / 480 Weight 146 lb 6.896 oz 146 lb 14.4 oz Microbiology Reports for the Last 24 Hours: Microbiology 01/04/22 07:10 Sputum - Expectorated Sputum Gram Stain - Final - Constitutional no acute distress - *Routine HEENT Exam Head: Present: normocephalic Eye: Present: PERRL ENT: Present: mucous membranes moist - *Routine Neck Exam Present: supple. Absent: lymphadenopathy - *Routine Respiratory Exam Present: wheezes - *Routine Cardiovascular Exam Present: RRR, murmur - *Routine Abdominal Exam Present: soft, normoactive bowel sounds. Absent: tenderness - *Routine Extremities Exam Absent: cyanosis, clubbing, edema - *Routine Skin Exam Present: warm. Absent: rash - *Routine Neurological Exam Present: alert, oriented X3 Assessment and Plan (1) Acute respiratory failure with hypoxia Status: Acute Category: Medical Code(s): J96.01 - Acute respiratory failure with hypoxia (2) Aortic valve replaced Status: Acute Category: Surgical Code(s): Z95.2 - Presence of prosthetic heart valve (3) Pneumonia Status: Acute Qualifiers: Pneumonia type: due to unspecified organism Laterality: unspecified laterality Lung location: unspecified part of lung Qualified Code(s): J18.9 - Pneumonia, unspecified organism Category: Medical Code(s): J18.9 - Pneumonia, unspecified organism (4) Abnormal lung examination Status: Acute Category: Medical (5) Community acquired pneumonia Status: Acute Qualifiers: Laterality: left Lung location: lower lobe of lung Qualified Code(s): J18.9 - Pneumonia, unspecified organism Category: Medical Code(s): J18.9 - Pneumonia, unspecified organism (6) Fever Status: Acute Qualifiers: Fever type: unspecified Qualified Code(s): R50.9 - Fever, unspecified Category: Medical Code(s): R50.9 - Fever, unspecified (7) Heart murmur Status: Acute Category: Medical Code(s): R01.1 - Cardiac murmur, unspecified (8) Hypoxia Status: Acute Category: Medical Code(s): R09.02 - Hypoxemia (9) Coronary artery disease Status: Chronic Qualifiers: Coronary Disease-Associated Artery/Lesion type: [place] artery [place] vs. transplanted heart: creek heart Associated angina: without angina Qualified Code(s): I25.10 - Atherosclerotic heart disease of creek coronary artery without angina pectoris Category: Medical Code(s): I25.10 - Atherosclerotic heart disease of [place] coronary artery without angina pectoris (10) Diabetes Status: Chronic Qualifiers: Diabetes mellitus type: type 2 Diabetes mellitus senior living insulin use: without senior living use Diabetes mellitus complication sta
--- NOTE | 2022-01-04 12:06 | PC.NURSE ---
left message with dr ivy office that patient was okay from annangis standpoint for discharge home o2 would be needed. case management currently working on setting up home o2
--- NOTE | 2022-01-04 12:07 | HMH.PULMCON ---
*Admission Date: 01/03/22 *Reason for consult:: Acute on chronic hypoxic respiratory failure *History of present illness: Mr. Araya is a 76-year-old pleasant male greater than [id number] smoking history, last smoked around 1999, carries a diagnosis of COPD, not using any inhalers on a daily basis admits baseline respiratory symptoms and hypoxia desaturations less than 88% intermittently on a day-to-day basis presented to the hospital worsening respiratory distress and pulmonary was called for further evaluation. Patient last seen in the hospital in May 2021 with similar complaints [facility] History Medical History: Reports:: Asthma, Congestive Heart Failure, Chronic Obstructive Pulmonary Disease (COPD), Coronary Artery Disease, Diabetes Mellitus Type 2, Heart Murmur, Hyperlipidemia, Hypertension, Kidney Stones Denies:: Cancer, Diabetes Mellitus Type 1, Internal Pacemaker, MRSA, Seizures *Have you ever received a pneumonia vaccine?: Yes *Have you received a flu vaccine this season?: Yes Other Medical History: Reports: Cataracts, Glaucoma Laterality Cases: Bilateral: Tonsillectomy Other Surgeries: Yes: Cancer Surgery, Mitral Valve Replacement. No: Pacemaker Amputation: No Fractures: No - *Social History Smoking Status: Former smoker Alcohol Intake: never Substance Use Type: denies use *Occupational Status:: retired Housing: house Household Members: none *Travel in the last 8 weeks: None Family Hx:: No significant family history ROS - Cons Denies anorexia, Denies body ache(s) - Eyes Reports blurry vision - ENT Denies nosebleed - Card Reports shortness of breath, Reports shortness of breath with activity - Resp Respiratory: Reports chest congestion, Reports cough, Reports dyspnea, Reports dyspnea on exertion, Denies excessive phlegm production, Reports cough with sputum production, Reports wheezing - GI Gastrointestingal: Denies: abdominal pain - [place] Musculoskeletal: Reports muscle aches - Psych Denies thoughts of hurting/killing others, Denies thoughts of hurting/killing yourself Meds Home Medications Medication Instructions Recorded Confirmed Type aspirin 81 mg tablet,delayed 81 mg PO DAILY 04/12/20 01/03/22 History release cholecalciferol (vitamin D3) 10 10 mcg PO DAILY 04/12/20 01/03/22 History mcg (400 unit) capsule qhgxftia-vel-csbos acid 0.4 1 tab PO DAILY 04/12/20 01/03/22 History mg-lycopene 300 mcg-lutein 250 mcg tablet Garlic 1 each PO HS 05/04/20 01/03/22 History rosuvastatin 10 mg tablet 10 mg PO HS #90 tab 03/22/21 01/03/22 Rx Omeprazole 20 mg PO DAILY 11/24/21 01/03/22 History Ferrous Sulfate [Iron 325mg Tab] 325 mg PO BID 11/25/21 01/03/22 History Losartan Potassium [Cozaar 50mg 50 mg PO BID 12/22/21 01/03/22 History Tablets] Spironolactone [Spironolactone 25 mg PO DAILY 12/22/21 01/03/22 History 25mg Tablet] carvediloL [Carvedilol 6.25mg Tab] 6.25 mg PO BID 12/22/21 01/03/22 History Metformin HCl [Metformin 1000mg 1,000 mg PO BIDWMEAL 01/03/22 01/03/22 History Tablets] Allergies Allergy/AdvReac Type Severity Reaction Status Date / Time Penicillins Allergy Severe Rash Verified 01/03/22 00:33 Exam - Constitutional Constitutional:: Present: no acute distress, comfortable - HENMT Exam HENMT: Present: normocephalic - Eye Exam Eyes:: Present: normal appearance both eyes and related structures - Neck Exam Neck:: Present: normal visual inspection - Respiratory Exam Respiratory:: Present: able to speak in complete sentences, no respiratory distress. Absent: wheezing - Cardiovascular Exam Cardiac:: Present: S1, S2 - GI Exam GI:: Present: soft, no hepatosplenomegaly - Skin Exam Skin: Present: warm, no rash - Neurological Exam Neurological: Present: alert, awake - Extremities Exam Extremities: Present: no cyanosis, no clubbing, no edema Internal Medicine - CN: Reslt - Labs CBC & Chem 7: 01/04/22 06:24 01/04/22 06:24 Lab
--- NOTE | 2022-01-04 14:37 | CARE MANAGER ---
Patient sats were 87% on room air. Patient will need home O2, patient chose [facility], information and order was faxed. [facility] will deliver portable tank to [facility].
--- NOTE | 2022-01-04 16:27 | PC.NURSE ---
Pt has been up to chair most of the shift. Pt is on 2L NC. Pt has had no new complaints. VSS. Will continue to monitor.
[2022-01-05 05:00] VITALS: BMI 24.2
[2022-01-05 05:48] VITALS: BP 104/54; PULSE 56; RESP 16; TEMP 36.5; O2SAT 95
[2022-01-05 06:35] VITALS: O2SAT 94
[2022-01-05 06:37] LABS: Basophils # 0.1 K/mm3 (0-0.2); Basophils % 0.6 % (0.1-2.0); Eosinophils # 0.1 K/mm3 (0.0-0.4); Eosinophils % 0.5 % (0.1-12.0); Hematocrit 38.2 % (42.0-52.0); Lymphocytes # 1.9 K/mm3 (0.7-4.5); Lymphocytes % 14.5 % (10-50); Mean Corpuscular HGB Conc 31.5 g/dL (31.8-35.4); Mean Corpuscular Hemoglobin 30.9 pg (27.0-31.2); Mean Corpuscular Volume 98.2 fl (80-94); Mean Platelet Volume 9.3 fl (7.4-10.4); Monocytes % 7.4 % (1.7-9.3); Neutrophils # 10.1 K/mm3 (1.8-7.8); Platelet Count 191 K/mm3 (142-424); Red Blood Count 3.89 M/mm3 (4.60-6.20); Red Cell Distribution Width 14.6 % (11.5-17.5); White Blood Count 13.1 K/mm3 (4.8-10.8)
[2022-01-05 06:55] LABS: Anion Gap 7.6 mEq/L (5-15); Blood Urea Nitrogen 32 mg/dl (9-20); Calcium 8.7 mg/dl (8.4-10.2); Carbon Dioxide 31 mmol/L (22.0-30.0); Chloride 100 mmol/L (98-107); Creatinine Clearance Estimated 59 mL/min (50-200); Estimated Glomerular Filt Rate 109 ml/min (>60); GFR (African American) 132 ML/MIN (>60); Glucose 107 mg/dl (74-100); Potassium 4.6 mmoL/L (3.5-5.1); Sodium 134 mmol/L (136-145)
[2022-01-05 08:00] VITALS: BP 100/54; PULSE 59; RESP 16; TEMP 36.4; O2SAT 99
--- NOTE | 2022-01-05 09:01 | HMH.PULMPN ---
Internal Medicine - PN: Subj *Date: 01/05/22 *Time: 09:01 Assessment and Plan (1) Acute respiratory failure with hypoxia Status: Acute Category: Medical Code(s): J96.01 - Acute respiratory failure with hypoxia (2) Aortic valve replaced Status: Acute Category: Surgical Code(s): Z95.2 - Presence of prosthetic heart valve (3) Pneumonia Status: Acute Qualifiers: Pneumonia type: due to unspecified organism Laterality: unspecified laterality Lung location: unspecified part of lung Qualified Code(s): J18.9 - Pneumonia, unspecified organism Category: Medical Code(s): J18.9 - Pneumonia, unspecified organism (4) Abnormal lung examination Status: Acute Category: Medical (5) Community acquired pneumonia Status: Acute Qualifiers: Laterality: left Lung location: lower lobe of lung Qualified Code(s): J18.9 - Pneumonia, unspecified organism Category: Medical Code(s): J18.9 - Pneumonia, unspecified organism (6) Fever Status: Acute Qualifiers: Fever type: unspecified Qualified Code(s): R50.9 - Fever, unspecified Category: Medical Code(s): R50.9 - Fever, unspecified (7) Heart murmur Status: Acute Category: Medical Code(s): R01.1 - Cardiac murmur, unspecified (8) Hypoxia Status: Acute Category: Medical Code(s): R09.02 - Hypoxemia (9) Coronary artery disease Status: Chronic Qualifiers: Coronary Disease-Associated Artery/Lesion type: [place] artery [place] vs. transplanted heart: [place] heart Associated angina: without angina Qualified Code(s): I25.10 - Atherosclerotic heart disease of [place] coronary artery without angina pectoris Category: Medical Code(s): I25.10 - Atherosclerotic heart disease of [place] coronary artery without angina pectoris (10) Diabetes Status: Chronic Qualifiers: Diabetes mellitus type: type 2 Diabetes mellitus assisted insulin use: without longwall shearer operator use Diabetes mellitus complication status: without complication Qualified Code(s): E11.9 - Type 2 diabetes mellitus without complications Category: Medical Code(s): E11.9 - Type 2 diabetes mellitus without complications (11) History of aortic valve replacement with bioprosthetic valve Status: Chronic Category: Surgical Code(s): Z95.3 - Presence of xenogenic heart valve (12) History of heart valve replacement Status: Chronic Category: Surgical Code(s): Z95.2 - Presence of prosthetic heart valve - Assessment and plan all Dx Assessment and Plan for all problems:: #COPD exacerbation: #Acute on chronic hypoxic respiratory failure: 76-year-old male greater than [id number] smoking history prior smoker. Carries a diagnosis COPD. Not using any inhalers at baseline. Admits baseline respiratory symptoms and intermittent hypoxic episodes. Presented with worsening respiratory distress. Mild leukocytosis at 13.4. On room air saturating 87%, improved with 2 L oxygen therapy clear to auscultation bilaterally clear breath sounds with no wheezing. Denies any subjective fevers or chills. Denies any worsening productive phlegm. BNP at 1160 on admission. CTA performed, negative for pulmonary embolism, did not show any evidence of dense consolidation/groundglass opacities. Evidence of emphysema noted. Patient was initially levofloxacin along with methylprednisolone on admission. Interval update: Respiratory status relatively remained stable. On 2 to 3 L nasal cannula. Stable leukocytosis. Stable renal function. Afebrile. Continue to receive antibiotics and steroids. Plan: -Continue oxygen therapy to maintain O2 saturation goal of 89% and above. Please arrange home oxygen therapy prior to discharge. -Continue levofloxacin 750 daily for total of 5 days. -Wean methylprednisolone to prednisone 40 mg daily for 5 days. -Initiate Combivent q6 hrs scheduled along with DuoNebs on as-needed basis. Will discharge patient on Anoro #Multiple pulmonary nod
[2022-01-05 10:05] VITALS: O2SAT 98
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
--- NOTE | 2022-01-05 11:49 | PC.NURSE ---
Discharge instructions discussed with pt, answered all questions. IV taken out. Pt calling his sister for picker tender, will let us know when she has arrived.
--- NOTE | 2022-01-06 14:54 | CARE MANAGER ---
Contacted patient related to discharge from hospital. He states that he needed new tubing for his nebulizer but he stopped at [facility] and got it. We reviewed his new medications. Discussed his appointments as well. Denies questions or concerns.
== END 2022-01-05 12:42 | disposition home or self-care (01) | DRG 193 ==
LOC: ER 23:12 → 2ND 01-03 11:43
PROVIDERS: Emergency Medicine; Nurse Practitioner Family; Admitting Provider Family Medicine; Emergency Provider Emergency Medicine; PCP Family Medicine; Visit Provider Family Medicine
DX: J18.9 Pneumonia, unspecified organism (principal); J96.21 Acute and chronic respiratory failure with hypoxia; Z20.822 Contact with and (suspected) exposure to COVID-19; I25.10 Atherosclerotic heart disease of native coronary artery without angina pectoris; E11.9 Type 2 diabetes mellitus without complications; Z95.2 Presence of prosthetic heart valve; J43.9 Emphysema, unspecified; E78.5 Hyperlipidemia, unspecified; I10 Essential (primary) hypertension; Z79.84 Long term (current) use of oral hypoglycemic drugs
CPT/HCPCS: 36415; 71045; 71275; 80048; 80053; 82803; 83605; 83880; 84145; 84484; 85025; 87040; 87070; 87205; 93005; 94640; 96375; 99285; C9803; J1956; Q9967; U0003; U0005

== ENCOUNTER → 2022-01-13 12:39 | Outpatient (CLI) | payer MEDICARE, SELFPAY ==
[2022-01-13 14:00] VITALS: BP 97/50; PULSE 73; RESP 16; O2SAT 95
== END ==
PROVIDERS: PCP Family Medicine; Visit Provider Internal Medicine Pulmonary Disease
DX: J44.9 Chronic obstructive pulmonary disease, unspecified (principal)
CPT/HCPCS: 94060; 94618; 94726; 94729

== ENCOUNTER → 2022-03-31 13:19 | Outpatient (CLI) | payer MEDICARE, SELFPAY | PROVIDERS: PCP Family Medicine; Visit Provider Internal Medicine Pulmonary Disease | DX: R06.02 Shortness of breath (principal) | CPT/HCPCS: 94762 ==

== ENCOUNTER → 2022-04-24 07:01 | Outpatient (CLI) | payer MEDICARE, SELFPAY ==
[2022-04-24 19:41] LABS: Basophils % 0.3 % (0.1-2.0); Eosinophils # 0.2 K/mm3 (0.0-0.4); Eosinophils % 2.4 % (0.1-12.0); Hematocrit 41.5 % (42.0-52.0); Hemoglobin 12.4 g/dL (14.1-18.0); Lymphocytes # 1.5 K/mm3 (0.7-4.5); Lymphocytes % 22.7 % (10-50); Mean Corpuscular HGB Conc 29.9 g/dL (31.8-35.4); Mean Corpuscular Hemoglobin 31.3 pg (27.0-31.2); Mean Corpuscular Volume 104.6 fl (80-94); Mean Platelet Volume 10.8 fl (7.4-10.4); Monocytes # 0.7 K/mm3 (0.1-1.0); Neutrophils # 4.3 K/mm3 (1.8-7.8); Neutrophils % 63.5 % (37.0-80.0); Platelet Count 208 K/mm3 (142-424); Red Blood Count 3.97 M/mm3 (4.60-6.20); Red Cell Distribution Width 15.5 % (11.5-17.5); White Blood Count 6.7 K/mm3 (4.8-10.8)
[2022-04-24 19:46] LABS: Alanine Aminotransferase 15 U/L (12-78); Albumin Level 4.1 g/dl (3.5-5.0); Albumin/Globulin Ratio 1.6 (1.1-1.8); Alkaline Phosphatase 57 U/L (38-126); Anion Gap 8.2 mEq/L (5-15); Aspartate Amino Transferase 31 U/L (17-59); Bilirubin,Total 0.2 mg/dl (0.2-1.3); Blood Urea Nitrogen 15 mg/dl (9-20); Calcium 9.3 mg/dl (8.4-10.2); Carbon Dioxide 33 mmol/L (22.0-30.0); Chloride 101 mmol/L (98-107); Chol/HDL Ratio 3.1 (1-3.5); Cholesterol 123 mg/dl (140-200); Estimated Glomerular Filt Rate 72 ml/min (>60); GFR (African American) 87 ML/MIN (>60); Globulin 2.6 g/dL (1.3-3.2); Glucose 82 mg/dl (74-100); HDL Cholesterol 40 mg/dl (40-60); Potassium 5.2 mmoL/L (3.5-5.1); Sodium 137 mmol/L (136-145); Total Protein,Serum 6.7 g/dl (6.3-8.2); Triglycerides 140 mg/dl (30-150); VLDL Cholesterol 28 mg/dL (0-40)
[2022-04-24 20:17] LABS: Prostate Specific Ag Screen 0.3 ng/ml (0.0-4.0)
[2022-04-24 20:27] LABS: Hemoglobin A1C 6.1 % (4.0-6.0)
[2022-04-26 13:48] LABS: Direct LDL Cholesterol 52 mg/dL (100-129)
== END ==
PROVIDERS: PCP Family Medicine; Visit Provider Family Medicine
DX: E11.9 Type 2 diabetes mellitus without complications (principal); K57.31 Diverticulosis of large intestine without perforation or abscess with bleeding; Z12.5 Encounter for screening for malignant neoplasm of prostate; I65.23 Occlusion and stenosis of bilateral carotid arteries; Z79.84 Long term (current) use of oral hypoglycemic drugs
CPT/HCPCS: 80053; 80061; 83036; 85025; G0103

== ENCOUNTER → 2022-10-17 10:53 | Outpatient (CLI) | payer MEDICARE, SELFPAY ==
[2022-10-17 11:32] LABS: Chloride 101 mmol/L (98-107)
[2022-10-17 11:33] LABS: Potassium 4.6 mmoL/L (3.5-5.1); Sodium 143 mmol/L (136-145)
[2022-10-17 11:36] LABS: Anion Gap 11.6 mEq/L (5-15); Blood Urea Nitrogen 25 mg/dl (9-20); Calcium 9.3 mg/dl (8.4-10.2); Carbon Dioxide 35 mmol/L (22.0-30.0); Estimated Glomerular Filt Rate 65 ml/min (>60); GFR (African American) 78 ML/MIN (>60); Glucose 98 mg/dl (74-100)
== END ==
PROVIDERS: PCP Family Medicine; Visit Provider Internal Medicine Cardiovascular Disease
DX: Z95.1 Presence of aortocoronary bypass graft (principal); Z95.2 Presence of prosthetic heart valve; Z95.3 Presence of xenogenic heart valve; R06.09 Other forms of dyspnea
CPT/HCPCS: 36415; 80048

== ENCOUNTER 2022-11-28 16:04 | Observation (INO) | payer MEDICARE, SELFPAY ==
[2022-11-28 16:15] VITALS: BP 118/63; PULSE 101; RESP 18; TEMP 37.7; O2SAT 95; BMI 27.1
--- NOTE | 2022-11-28 16:35 | XR_ITS ---
PROCEDURE INFORMATION: Exam: XR Chest Exam date and time: 11/28/2022 4:54 PM Age: 77 years old Clinical indication: Shortness of breath; Additional info: SOA TECHNIQUE: Imaging protocol: Radiologic exam of the chest. Views: 1 view. COMPARISON: CR XR CHEST PORTABLE 01/04/2022 5:13 AM FINDINGS: Lungs: Left lower lobe atelectasis. Pleural spaces: Unremarkable. No pleural effusion. No pneumothorax. Heart/Mediastinum: Aortic valve replacement. Median sternotomy. Diaphragm: Elevated left hemidiaphragm. Bones/joints: Unremarkable. IMPRESSION: Left lower lobe atelectasis.
--- NOTE | 2022-11-28 16:36 | ECG_ITS ---
APPROVED REPORT Exam: Resting ECG HR:101 bpm ECG Measurements Heart Rate 101 AXES MT 145 P 42 QRSd 93 QRS 11 QT 313 T 32 QTc [address] DEVIATION AND MODERATE T-WAVE ABNORMALITY, CONSIDER ANTERIOR ISCHEMIA [-0.1+ mV T-WAVE IN V3/V4] ABNORMAL ECG UNCONFIRMED REPORT Electronically signed by : Stewart Velez MD 11/29/2022 01:38:13
--- NOTE | 2022-11-28 16:38 | PC.NURSE ---
2 sets of blood cultures and lactic sent to lab.
[2022-11-28 16:56] LABS: Basophils # 0.1 K/mm3 (0-0.2); Basophils % 1.8 % (0.1-2.0); Chloride 100 mmol/L (98-107); Hematocrit 40.8 % (42.0-52.0); Hemoglobin 12.5 g/dL (14.1-18.0); Lymphocytes # 1.1 K/mm3 (0.7-4.5); Mean Corpuscular HGB Conc 30.6 g/dL (31.8-35.4); Mean Corpuscular Hemoglobin 29.4 pg (27.0-31.2); Mean Corpuscular Volume 96.1 fl (80-94); Mean Platelet Volume 9.6 fl (7.4-10.4); Monocytes # 0.8 K/mm3 (0.1-1.0); Neutrophils # 5.4 K/mm3 (1.8-7.8); Neutrophils % 72.3 % (37.0-80.0); Platelet Count 172 K/mm3 (142-424); Potassium 4.6 mmoL/L (3.5-5.1); Red Blood Count 4.25 M/mm3 (4.60-6.20); Red Cell Distribution Width 14.2 % (11.5-17.5); Sodium 141 mmol/L (136-145); White Blood Count 7.4 K/mm3 (4.8-10.8)
[2022-11-28 16:57] LABS: Coronavirus 19, PCR Not Detected (NotDetected); Influenza A, PCR Not Detected (NotDetected); Influenza B, PCR Not Detected (NotDetected)
[2022-11-28 16:58] LABS: Alanine Aminotransferase 19 U/L (12-78); Aspartate Amino Transferase 38 U/L (17-59); Blood Urea Nitrogen 27 mg/dl (9-20); Creatinine Clearance Estimated 45 mL/min (50-200); Estimated Glomerular Filt Rate 49 ml/min (>60); GFR (African American) 59 ML/MIN (>60)
[2022-11-28 16:59] LABS: Albumin Level 4.6 g/dl (3.5-5.0); Albumin/Globulin Ratio 1.4 (1.1-1.8); Alkaline Phosphatase 52 U/L (38-126); Bilirubin,Total 0.3 mg/dl (0.2-1.3); Calcium 9.3 mg/dl (8.4-10.2); Globulin 3.2 g/dL (1.3-3.2); Glucose 108 mg/dl (74-100); Total Protein,Serum 7.8 g/dl (6.3-8.2)
[2022-11-28 17:01] LABS: Anion Gap 12.6 mEq/L (5-15); Carbon Dioxide 33 mmol/L (22.0-30.0)
[2022-11-28 17:02] LABS: Lactic Acid 1.4 mmol/L (0.7-2.1)
[2022-11-28 17:10] VITALS: BP 108/54; PULSE 97; RESP 18; O2SAT 96
[2022-11-28 17:13] LABS: Troponin I 0.25 ng/ml (0.00-0.034)
--- NOTE | 2022-11-28 17:13 | PC.NURSE ---
MD notified of troponin results.
[2022-11-28 17:33] VITALS: BP 110/59; PULSE 98; RESP 18; O2SAT 95
--- NOTE | 2022-11-28 17:54 | HMH.EDGENADL ---
Discharge Plan Disposition Patient Disposition: Admitted as Observation Condition: Fair Clinical Impressions Clinical Impression: Fever, Elevated troponin Discharge ED Provider: Nando Arnold General Adult HPI General Chief complaint: Fever Stated complaint: AO 11/28 fever BP [id number]/85 Time Seen by Provider: 11/28/22 17:53 Mode of Arrival: Wheelchair Source of Information: Relative Limitations: No Limitations Description of Symptoms (Recalled from ER Triage Doc. by RN): pt presents to ED c/o fever, falling out of bed, and niece states pt has been lethargic. pt denies any SOA. pt wears 1.5L NC at night. History of Present Illness HPI narrative: History obtained from the patient and his niece. Niece states that she brought him in because he was running a fever 103 degrees at home. She says that he was not answering his phone today, so she went to check on him. She says that she could tell by the way he was acting that he had a fever. She checked his temperature with 2 different thermometers and got 103 degrees. He complained of feeling generally weak and tired. He told her that he had fallen earlier but did not injure himself. He currently has no complaints. He does admit to a mild cough. He denies chest pain or shortness of breath. He denies rhinorrhea or sore throat. He denies vomiting, diarrhea, abdominal pain, urinary symptoms. He denies headache. Related Data Home Medications Medication Instructions Recorded Confirmed aspirin 81 mg tablet,delayed 81 mg PO DAILY [facility] 04/12/20 10/06/22 release (Aspir-) cholecalciferol (vitamin D3) 10 10 mcg PO DAILY Supplement 04/12/20 10/06/22 mcg (400 unit) capsule tuuxoiej-tnf-bnarr acid 0.4 1 tab PO DAILY Supplement 04/12/20 10/06/22 mg-lycopene 300 mcg-lutein 250 mcg tablet (Centrum Silver) garlic 1 each PO HS Cholesterol 05/04/20 10/06/22 losartan 50 mg tablet 50 mg PO BID Hypertension 12/22/21 10/06/22 coenzyme Q10 200 mg capsule 200 mg PO DAILY Supplement 07/17/22 10/06/22 omega 5-uhg-kfb-fish oil 300 1 cap PO DAILY vitamin 10/06/22 10/06/22 mg-1,000 mg capsule (Fish Oil) carvedilol 6.25 mg tablet See Rx Instructions .Route 11/28/22 .COMPLEX bp furosemide 40 mg tablet (Lasix) 40 mg PO DAILY Fluid 11/28/22 metformin 1,000 mg tablet See Rx Instructions .Route 11/28/22 .COMPLEX Diabetes omeprazole 20 mg capsule,delayed See Rx Instructions .Route 11/28/22 release .COMPLEX gerd rosuvastatin 10 mg tablet See Rx Instructions .Route 11/28/22 .COMPLEX Cholesterol umeclidinium 62.5 mcg-vilanterol 1 inh inhalation DAILY Breathing 11/28/22 25 mcg/actuation powdr for problems inhalation Previous Rx's Medication Instructions Recorded albuterol sulfate 90 mcg/actuation 2 inh inhalation QID PRN shortness 01/26/22 aerosol inhaler of breath or wheezing 90 days #8.5 grams ipratropium 0.5 mg-albuterol 3 mg 3 ml inhalation Q6HP PRN Shortness 01/26/22 (2.5 mg base)/3 mL nebulization Of Breath Or Wheezin #120 ea soln Allergies Allergy/AdvReac Type Severity Reaction Status Date / Time Penicillins Allergy Severe Rash Verified 10/06/22 11:34 [facility] Disclaimer: The information contained in this section may have been updated after the patient was seen, as this information can be updated by other users. Medical History Abnormal EKG COPD (chronic obstructive pulmonary disease) Dyspnea on exertion Mediastinal lymphadenopathy Multiple pulmonary nodules Pulmonary emphysema Smoking greater than 30 pack years Surgical History History of cataract surgery History of heart surgery History of tonsillectomy Hx of CABG Family History Other No significant family history Social History Smoking Status: Former smoker alcohol intake: never substance use type: denies use
--- NOTE | 2022-11-28 18:13 | PC.NURSE ---
PT ADMITTED TO DR ALLEN
--- NOTE | 2022-11-28 18:14 | PC.NURSE ---
called house for bed assignment
--- NOTE | 2022-11-28 18:15 | PC.NURSE ---
pt aware that we need a UA sample as soon as possile; visitor at BS
[2022-11-28 18:42] VITALS: BP 107/61; PULSE 94; RESP 18; O2SAT 93
[2022-11-28 18:45] LABS: Microscopic, Urine URINE MICROSCOPIC (MICROSCOPIC)
[2022-11-28 18:51] LABS: Appearance,Urine CLEAR (Clear); Bilirubin,Urine Negative (Negative); Blood, Urine Negative (Negative); Color,Urine YELLOW (Yellow); Glucose,Urine (UA) Negative (Negative); Ketones,Urine TRACE (Negative); Leukocyte Esterase,Urine Negative (Negative); Nitrate,Urine Negative (Negative); Protein,Urine TRACE (Negative); Urobilinogen,Urine 0.2 EU/dl (0.2)
[2022-11-28 19:27] LABS: Squamous Epithelial Cell,Urine Occasional #/hpf (0-5); WBC,Urine Occasional #/hpf (0-3)
[2022-11-28 19:50] VITALS: BP 107/61; PULSE 94; RESP 18; TEMP 37.7; O2SAT 93
[2022-11-28 20:00] VITALS: BP 119/60; PULSE 89; RESP 20; TEMP 38.2; O2SAT 95; BMI 18.9
--- NOTE | 2022-11-28 20:11 | PC.NURSE ---
PT ARRIVED TO FLOOR AT THIS TIME
[2022-11-28 20:27] LABS: Adenovirus,PCR Not Detected (NotDetected); Bordetella Pertussis Not Detected (NotDetected); Chlamydophila Pneumoniae, PCR Not Detected (NotDetected); Coronavirus 19, PCR Not Detected (NotDetected); Coronavirus 229E Not Detected (NotDetected); Coronavirus NL63 Not Detected (NotDetected); Coronavirus OC43 Not Detected (NotDetected); Coronovirus HKU1,PCR Not Detected (NotDetected); Human Metapneumovirus Not Detected (NotDetected); Influenza A, PCR Not Detected (NotDetected); Influenza AH1, 2009 Not Detected (NotDetected); Influenza AH1, PCR Not Detected (NotDetected); Influenza AH3,PCR Not Detected (NotDetected); Influenza B, PCR Not Detected (NotDetected); Mycoplasma Pneumoniae, PCR Not Detected (NotDetected); Parainfluenza 2, PCR Not Detected (NotDetected); Parainfluenza 3, PCR Not Detected (NotDetected); Parainfluenza 4, PCR Not Detected (NotDetected); Respiratory Syncytial Virus Not Detected (NotDetected); Rhinovirus/Enterovirus Not Detected (NotDetected)
[2022-11-28 20:43] LABS: Lactate Dehydrogenase 256 U/L (313-618)
[2022-11-28 21:01] LABS: Troponin I 0.43 ng/ml (0.00-0.034)
[2022-11-28 21:03] LABS: Procalcitonin 0.106 ng/mL (0.0-2.0)
--- NOTE | 2022-11-28 21:48 | EXP.HP ---
History of Present Illness *Admission Date: 11/28/22 *Reason for visit:: Fevers *History of present illness: Mr. Araya is a 77-year-old male with a past medical history of CAD and COPD. He presents to [facility] due to fevers in the home associated with some confusion. The patient was seen following his admission to the floor, he reports that he has had generalized weakness and body aches for several days, he reports today that his niece called to check on him and he had fallen without injury and informed her he was not feeling well, so he was brought into the ER for evaluation. In the ER the patient underwent a CBC with differential that was unremarkable, CMP was unremarkable, Stool studies were negative, covid and flu testing was negative. Cxray showed some Left lower lobe atelectasis. Urinalysis was unremarkable. Troponin was elevated at 0.25. EKG showed a Sinus Tachycardia with rate of [address] segment elvation or depression. The patient was admitted with initial impression: Febrile Illness and Elevated Troponin. [facility] Disclaimer: The information contained in this section may have been updated after the patient was seen, as this information can be updated by other users. Medical History Abnormal EKG COPD (chronic obstructive pulmonary disease) Dyspnea on exertion Mediastinal lymphadenopathy Multiple pulmonary nodules Pulmonary emphysema Smoking greater than 30 pack years Surgical History History of cataract surgery History of heart surgery History of tonsillectomy Hx of CABG Family History Sister Family history of myocardial infarction Mother Family history of myocardial infarction Other No significant family history Social History Smoking Status: Former smoker alcohol intake: never substance use type: denies use current occupational status: retired Travel in the last 8 weeks: None household members: none housing: house current occupational exposures/hazards: No caffeine: No Review of Systems Review of Systems Review of systems:: pertinent systems reviewed and negative unless documented below Constitutional Constitutional: Reports fever(s) and Reports weakness Eyes Eyes: Reports system reviewed and no additional complaints, except as documented ENT Ears, Nose, Mouth, and Throat: Reports system reviewed and no additional complaints, except as documented *Cardiovascular Cardiovascular: Reports system reviewed and no additional complaints, except as documented *Respiratory Respiratory: Reports system reviewed and no additional complaints, except as documented *Gastrointestinal Gastrointestinal: Reports system reviewed and no additional complaints, except as documented *Genitourinary Genitourinary: Reports system reviewed and no additional complaints, except as documented *Musculoskeletal Musculoskeletal: Reports muscle cramps, Reports muscle weakness and Reports myalgias Integumentary/Breasts Skin/Breast: Reports system reviewed and no additional complaints, except as documented *Neurologic Neurologic: Reports system reviewed and no additional complaints, except as documented and Reports weakness Psychiatric Psychiatric: Reports system reviewed and no additional complaints, except as documented Endocrine Endocrine: Reports system reviewed and no additional complaints, except as documented Hematologic/Lymphatic Hematologic/Lymphatic: Reports system reviewed and no additional complaints, except as documented Allergic/Immunologic Allergic/Immunologic: Reports system reviewed and no additional complaints, except as documented Meds Home Medications and Allergies Home Medications Medication Instructions Recorded Confirmed Type aspirin 81 mg tablet,delayed 81 mg PO DAILY [facility] 04/12/20 11/29/22
[2022-11-28 22:33] LABS: Parainfluenza 1, PCR Detected (NotDetected)
[2022-11-28 23:12] LABS: NT Pro Brain Natriuretic Pep. 1390 pg/mL (0-450)
[2022-11-28 23:20] LABS: Troponin I 0.55 ng/ml (0.00-0.034)
[2022-11-29] VITALS (7 sets, daily range): BP systolic 90–114; BP diastolic 47–71; PULSE 57–80; RESP 16–22; TEMP 36.7–37.4; O2SAT 92–97; BMI 18.9
--- NOTE | 2022-11-29 05:35 | EXP.EVENT.NO ---
Patient positive for Parainfluenza virus. Antibiotics stopped. Supportive care.
[2022-11-29 07:13] LABS: POC Glucose,Bedside 104 (70-110)
[2022-11-29 07:17] LABS: POC Glucose,Bedside 79 (70-110)
--- NOTE | 2022-11-29 07:48 | HMH.PHAINT1 ---
Pharmacy Intervention Comments: Reconciled patient's home medications using pharmacy fill records and patient interview.
[2022-11-29 09:31] LABS: Basophils % 0.2 % (0.1-2.0); Eosinophils % 0.1 % (0.1-12.0); Hematocrit 38.4 % (42.0-52.0); Hemoglobin 11.3 g/dL (14.1-18.0); Lymphocytes # 1.6 K/mm3 (0.7-4.5); Lymphocytes % 21.1 % (10-50); Mean Corpuscular HGB Conc 29.3 g/dL (31.8-35.4); Mean Corpuscular Hemoglobin 29.2 pg (27.0-31.2); Mean Corpuscular Volume 99.4 fl (80-94); Mean Platelet Volume 9.4 fl (7.4-10.4); Monocytes % 12.4 % (1.7-9.3); Neutrophils # 5.1 K/mm3 (1.8-7.8); Neutrophils % 66.2 % (37.0-80.0); Platelet Count 137 K/mm3 (142-424); Red Blood Count 3.86 M/mm3 (4.60-6.20); Red Cell Distribution Width 14.1 % (11.5-17.5); White Blood Count 7.8 K/mm3 (4.8-10.8)
[2022-11-29 09:52] LABS: Alanine Aminotransferase 16 U/L (12-78); Albumin Level 3.7 g/dl (3.5-5.0); Albumin/Globulin Ratio 1.4 (1.1-1.8); Alkaline Phosphatase 43 U/L (38-126); Anion Gap 9.5 mEq/L (5-15); Aspartate Amino Transferase 38 U/L (17-59); Bilirubin,Total 0.3 mg/dl (0.2-1.3); Blood Urea Nitrogen 31 mg/dl (9-20); Calcium 8.2 mg/dl (8.4-10.2); Carbon Dioxide 32 mmol/L (22.0-30.0); Chloride 102 mmol/L (98-107); Creatinine Clearance Estimated 51 mL/min (50-200); Estimated Glomerular Filt Rate 58 ml/min (>60); GFR (African American) 71 ML/MIN (>60); Globulin 2.6 g/dL (1.3-3.2); Glucose 92 mg/dl (74-100); Magnesium 1.5 mg/dl (1.6-2.3); Potassium 4.5 mmoL/L (3.5-5.1); Sodium 139 mmol/L (136-145); Total Protein,Serum 6.3 g/dl (6.3-8.2)
--- NOTE | 2022-11-29 11:13 | ECG_ITS ---
APPROVED REPORT Exam: Resting ECG HR:65 bpm ECG Measurements Heart Rate 65 AXES NH 168 P 39 QRSd 92 QRS 26 QT 365 T 52 QTc 377 Conclusion SINUS RHYTHM MODERATE ST DEPRESSION [0.05+ mV ST DEPRESSION] ABNORMAL ECG UNCONFIRMED REPORT Electronically signed by : Stewart Velez MD 11/29/2022 23:39:20
[2022-11-29 11:22] LABS: POC Glucose,Bedside 76 (70-110)
[2022-11-29 17:01] LABS: POC Glucose,Bedside 146 (70-110)
--- NOTE | 2022-11-29 18:15 | CA_ITS ---
APPROVED REPORT EXAM: Comprehensive 2D, Doppler, and color-flow Echocardiogram Pond Worker: Rachel Agee, RCS, RVS Ht: 5 ft 4 in Wt: 159lbs BSA: 1.77 BP: 107/61 mmHg Indications: AVR porcine 2011, Fever, Elevated troponin, CABG, Hx-covid, COPD,[place] 2D Dimensions Aortic Root 3.08 cm LA Volume 39.40 mL Left Atrium 3.11 cm LA Volume Index 22.415348 mL/m2 (M/F) 16-34 LVOT 1.96 cm (M/F) 1.5-2.5 M-Mode Dimensions RVDd 2.61 cm (0.9-2.6) LA Diam 4.60 cm (1.9-4.0) LVDd 5.06 cm (3.5-5.7) Ao Diam 3.21 cm (2.0-3.7) LVDs 3.74 cm (3.5-5.7) IVSd 0.80 cm (0.6-1.1) PWd 1.00 cm (0.6-1.1) EF (Teich) 51.00% FS 26.10% EDV (Teich) 121.60 mL TAPSE 0.89 (<1.7) ESV (Teich) 59.60 mL LV Diastology E Decel Time 197.00 (160-240 msec) E/A Ratio 1.46 MED E' 8.40 (< 7 cm/sec) MED A' 6.60 cm/s E'/MED E' Ratio 15.14 (>14) LAT E' 10.50 (<10 cm/sec) LAT A' 7.80 cm/s E/LAT E' Ratio 12.11 (>14) Aortic Valve LVOT Max 105.00 (70-110 cm/s) LVOT VTI 21.73 cm AoV Peak Beltran. 301.00 (50-130 cm/s) AO Peak GR. 36.20 mmHg AO Mean GR. 18.50 (<5 mmHg) AO VTI 62.90 (18-25 cm) MARIAJOSE (VTI) 1.04 (2.5-4.5 cm2) Mitral Valve MV A Velocity 87.00 (40-130 cm/s) E/A Ratio 1.46 MV Decel. Time 197.00 (160-240 ms) MV PHT 60.00 ms Pulmonary Valve PV Peak Velocity 85.00 (50-150 cm/s) Tricuspid Valve TR P. Velocity 269.00 cm/s RAP Estimate 10.00 mmHg RVSP 38.90 mmHg Left Ventricle Technically difficult study because of the patient factors and poor acoustic windows. Left atrium is mildly enlarged, left ventricle is normal size mild concentric left ventricular hypertrophy, estimated ejection fraction 55% with no regional wall motion abnormality, grade 2 diastolic dysfunction seen without tissue Doppler evidence of late left atrial pressure. Right Ventricle Right atrium and right ventricle are mildly enlarged with normal contractility. Aortic Valve There is bioprosthetic valve noted in the aortic position, valve leaflets are not well visualized, the maximum aortic outflow velocity recorded study 3.2 m/s, resulting in a mean gradient across valve of 19 mmHg, valve area calculated 1.04 cm???, there is no significant aortic insufficiency. Mitral Valve Mitral valve mitral annular calcification, there is no mitral stenosis, there is mild mitral regurgitation. Tricuspid Valve Tricuspid grossly normal, there is mild tricuspid regurgitation, calculated right ventricular systolic pressure 35 mmHg. Pulmonic Valve Pulmonic valve is poorly visualized. Great Vessels Aortic root normal size. Inferior vena cava is poorly visualized. Pericardium No significant pericardial effusion noted. Conclusion 1. Technically difficult study because of the patient factors and poor acoustic windows. Mild biatrial enlargement, normal left ventricular size, mild concentric left ventricular hypertrophy, estimated ejection fraction 55% with no regional wall motion abnormality, grade 2 diastolic dysfunction seen without tissue Doppler evidence of late left atrial pressure. 2. Mildly enlarged right ventricle with normal contractility. 3. Bioprosthetic valve in the aortic position, valve leaflets are not well visualized, mean gradient across valve is 19 mmHg, valve area is calculated 1.04 cm???. There is no significant aortic insufficiency. 4. Mild mitral and tricuspid regurgitation, calculated right ventricular systolic pressure 35 mmHg. 5. No significant perica
--- NOTE | 2022-11-29 19:57 | EXP.ACUTE.PN ---
Subjective *Date: 11/29/22 *Time: 12:57 Interval history: Patient doing better today. States he feels much better. Tolerating breathing treatments with improvement. Able to wean to 3 L by early afternoon. Denies chest pain, confusion, headache, palpitations. Tolerating good p.o. intake. Afebrile. Medical Exam Vital signs and Labs for Last 24 Hours: Vital Signs Temp Pulse Pulse Resp BP Pulse Ox 11/29/22 16:00 98.4 F 64 16 114/71 94 L 11/29/22 16:00 80 11/29/22 12:00 80 11/29/22 12:00 98.3 F 77 18 101/61 L 97 11/29/22 08:00 60 11/29/22 08:00 20 11/29/22 09:36 92 L 11/29/22 08:00 98.4 F 64 22 90/56 L 96 11/29/22 00:00 70 11/29/22 04:00 70 11/29/22 04:00 98.2 F 57 L 20 106/52 L 96 11/29/22 00:00 99.4 F 74 20 110/47 L 95 11/28/22 20:00 95 11/28/22 20:00 100.7 F H 89 20 119/60 95 Intake and Output 11/29/22 11/29/22 11/29/22 07:59 15:59 23:59 Intake Total 315 / 915 240 / 915 360 / 915 Output Total 1 0 / 1 0 / 1 Balance 314 / 914 240 / 914 360 / 914 Intake: Intake, Oral Amount 240 / 600 360 / 600 Intake, Total IV Amount 315 / 315 Cefepime HCl 2 gm In 0.9 % 85 / 85 Sodium Chloride 100 ml @ 200 mls/hr IV Q8H [facility] Rx#:[id number] Vancomycin/Water For Inj (Peg) 230 / 230 1.25 gm In 250 ml @ 125 mls/hr IV Q24H [facility] Rx#:[id number] Output: Output, Urine Amount 1 / 1 0 / 1 0 / 1 Other: Number of Unmeasured Voids 1 1 1 Number of Bowel Movements 1 1 Weight 72.121 kg Patient Weight 11/29/22 23:59 Weight 72.121 kg Laboratory Results - last 24 hr 11/28/22 16:26: Chlamy pneumoniae PCR Not detected, Adenovirus (PCR) Not detected, B. pertussis DNA (PCR) Not detected, Coronavirus OC43 (PCR) Not detected, Coronavirus HKU1 (PCR) Not detected, Coronavirus 229E (PCR) Not detected, SARS-CoV-2 (PCR) Not detected, Coronavirus NL63 (PCR) Not detected, Human Metapneumovir PCR Not detected, Influenza A (H1) PCR Not detected, Influ A (H1N1/09) PCR Not detected, Influenza A (H3) PCR Not detected, Influenza Type A (PCR) Not detected, Influenza Type B (PCR) Not detected, M. pneumoniae (PCR) Not detected, Parainfluenza 1 (PCR) Detected A, Parainfluenza 2 (PCR) Not detected, Parainfluenza 3 (PCR) Not detected, Parainfluenza 4 (PCR) Not detected, RSV (PCR) Not detected, Entero/Rhino (PCR) Not detected 11/28/22 16:26: Procalcitonin 0.106 11/28/22 16:26: Lactate Dehydrogenase 256 L 11/28/22 20:00: Troponin I 0.43 H 11/28/22 20:34: POC Glucose 104 11/28/22 22:25: Troponin I 0.55 H 11/28/22 22:25: NT-Pro-B Natriuret Pep 1390 H 11/29/22 07:10: POC Glucose 79 11/29/22 09:15: WBC 7.8, RBC 3.86 L, Hgb 11.3 L, Hct 38.4 L, MCV 99.4 H, MCH 29.2, MCHC 29.3 L, RDW 14.1, Plt Count 137 L, MPV 9.4, Neut % (Auto) 66.2, Lymph % (Auto) 21.1, [place] % (Auto) 12.4 H, Eos % (Auto) 0.1, Baso % (Auto) 0.2, Neut # (Auto) 5.1, Lymph # (Auto) 1.6, [place] # (Auto) 1.0, Eos # (Auto) 0.0, Baso # (Auto) 0.0 11/29/22 09:15: Sodium 139, Potassium 4.5, Chloride 102, Carbon Dioxide 32 H, Anion Gap 9.5, BUN 31 H, Creatinine 1.20, Estimated Creat Clear 51, Estimated GFR 58 L, Est GFR ( Amer) 71 D, Glucose 92, Calcium 8.2 L, Magnesium 1.5 L, Total Bilirubin 0.3, AST 38, ALT 16, Alkaline Phosphatase 43, Total Protein 6.3, Albumin 3.7 D, Globulin 2.6, Albumin/Globulin Ratio 1.4 11/29/22 11:15: POC Glucose 76 11/29/22 16:50: POC Glucose 146 H I & O for Labs for Last 24 Hours: Intake & Output 11/26/22 11/27/22 11/28/22 11/29/22 23:59 23:59 23:59 23:59 Intake Total 915 / 915 Output Total Balance 914 / 914 Weight 72.121 kg 72.121 kg Microbiology Reports for the Last 24 Hours: Microbiology 11/28/22 18:39 Urine,Clean Catch Urine Culture - Preliminary NO GROWTH AFTER 24 HOURS Constitutional: Present no acute distress, average body habitus and chronically ill appearing H
[2022-11-29 21:58] LABS: POC Glucose,Bedside 193 (70-110)
[2022-11-30] VITALS (25 sets, daily range): BP systolic 70–142; BP diastolic 47–76; PULSE 50–81; RESP 16–18; TEMP 36.5–36.9; O2SAT 90–98; BMI 19.0; BMI 18.9
--- NOTE | 2022-11-30 01:28 | PC.NURSE ---
Pts O2 sats decreased to 88% while sleeping. Pt O2 increased from 3L NC to 4L NC. Maintaining O2 sats >90%
[2022-11-30 07:05] LABS: POC Glucose,Bedside 120 (70-110)
[2022-11-30 07:08] LABS: Basophils % 0.2 % (0.1-2.0); Eosinophils % 0.1 % (0.1-12.0); Hematocrit 36.1 % (42.0-52.0); Hemoglobin 11.2 g/dL (14.1-18.0); Lymphocytes # 1.4 K/mm3 (0.7-4.5); Lymphocytes % 21.6 % (10-50); Mean Corpuscular HGB Conc 30.9 g/dL (31.8-35.4); Mean Corpuscular Hemoglobin 30.5 pg (27.0-31.2); Mean Corpuscular Volume 98.7 fl (80-94); Mean Platelet Volume 10.1 fl (7.4-10.4); Monocytes # 0.6 K/mm3 (0.1-1.0); Neutrophils # 4.4 K/mm3 (1.8-7.8); Neutrophils % 68.3 % (37.0-80.0); Platelet Count 145 K/mm3 (142-424); Red Blood Count 3.65 M/mm3 (4.60-6.20); Red Cell Distribution Width 14.3 % (11.5-17.5); White Blood Count 6.4 K/mm3 (4.8-10.8)
[2022-11-30 07:19] LABS: Chloride 104 mmol/L (98-107); Potassium 4.2 mmoL/L (3.5-5.1); Sodium 141 mmol/L (136-145)
[2022-11-30 07:21] LABS: Blood Urea Nitrogen 35 mg/dl (9-20); Creatinine Clearance Estimated 56 mL/min (50-200); Estimated Glomerular Filt Rate 65 ml/min (>60); GFR (African American) 78 ML/MIN (>60)
[2022-11-30 07:22] LABS: Alanine Aminotransferase 16 U/L (12-78); Albumin Level 3.6 g/dl (3.5-5.0); Albumin/Globulin Ratio 1.4 (1.1-1.8); Alkaline Phosphatase 40 U/L (38-126); Anion Gap 9.2 mEq/L (5-15); Aspartate Amino Transferase 38 U/L (17-59); Bilirubin,Total 0.2 mg/dl (0.2-1.3); Calcium 8.1 mg/dl (8.4-10.2); Carbon Dioxide 32 mmol/L (22.0-30.0); Globulin 2.5 g/dL (1.3-3.2); Glucose 115 mg/dl (74-100); Magnesium 1.9 mg/dl (1.6-2.3); Total Protein,Serum 6.1 g/dl (6.3-8.2)
--- NOTE | 2022-11-30 08:55 | EXP.ACUTE.PN ---
Subjective *Date: 11/30/22 *Time: 08:57 Interval history: Doing well, breathing improved. Feeling better. Medical Exam Vital signs and Labs for Last 24 Hours: Vital Signs Temp Pulse Pulse Resp BP Pulse Ox 11/30/22 08:15 64 16 11/30/22 08:00 97.7 F 60 18 107/57 L 95 11/30/22 06:00 92 L 11/30/22 04:00 98.4 F 56 L 18 88/50 L 97 11/30/22 00:00 50 L 11/29/22 20:00 70 11/30/22 00:00 98.3 F 60 18 103/62 L 90 L 11/29/22 20:00 98.0 F 74 18 93/59 L 95 11/29/22 16:00 98.4 F 64 16 114/71 94 L 11/29/22 16:00 80 11/29/22 12:00 80 11/29/22 12:00 98.3 F 77 18 101/61 L 97 11/29/22 09:36 92 L Intake and Output 11/29/22 11/30/22 11/30/22 23:59 07:59 15:59 Intake Total 360 / 915 240 / 240 Output Total 0 / 1 0 / 0 0 / 0 Balance 360 / 914 0 / 240 240 / 240 Intake: Intake, Oral Amount 360 / 600 240 / 240 Output: Output, Urine Amount 0 / 1 0 / 0 0 / 0 Other: Number of Unmeasured Voids 1 1 1 Weight 72.206 kg Patient Weight 11/30/22 23:59 Weight 72.206 kg Laboratory Results - last 24 hr 11/29/22 09:15: WBC 7.8, RBC 3.86 L, Hgb 11.3 L, Hct 38.4 L, MCV 99.4 H, MCH 29.2, MCHC 29.3 L, RDW 14.1, Plt Count 137 L, MPV 9.4, Neut % (Auto) 66.2, Lymph % (Auto) 21.1, [place] % (Auto) 12.4 H, Eos % (Auto) 0.1, Baso % (Auto) 0.2, Neut # (Auto) 5.1, Lymph # (Auto) 1.6, [place] # (Auto) 1.0, Eos # (Auto) 0.0, Baso # (Auto) 0.0 11/29/22 09:15: Sodium 139, Potassium 4.5, Chloride 102, Carbon Dioxide 32 H, Anion Gap 9.5, BUN 31 H, Creatinine 1.20, Estimated Creat Clear 51, Estimated GFR 58 L, Est GFR ( Amer) 71 D, Glucose 92, Calcium 8.2 L, Magnesium 1.5 L, Total Bilirubin 0.3, AST 38, ALT 16, Alkaline Phosphatase 43, Total Protein 6.3, Albumin 3.7 D, Globulin 2.6, Albumin/Globulin Ratio 1.4 11/29/22 11:15: POC Glucose 76 11/29/22 16:50: POC Glucose 146 H 11/29/22 20:15: POC Glucose 193 H 11/30/22 06:19: POC Glucose 120 H 11/30/22 06:43: WBC 6.4, RBC 3.65 L, Hgb 11.2 L, Hct 36.1 L, MCV 98.7 H, MCH 30.5, MCHC 30.9 L, RDW 14.3, Plt Count 145, MPV 10.1, Neut % (Auto) 68.3, Lymph % (Auto) 21.6, [place] % (Auto) 10.0 H, Eos % (Auto) 0.1, Baso % (Auto) 0.2, Neut # (Auto) 4.4, Lymph # (Auto) 1.4, [place] # (Auto) 0.6, Eos # (Auto) 0.0, Baso # (Auto) 0.0 11/30/22 06:43: Sodium 141, Potassium 4.2, Chloride 104, Carbon Dioxide 32 H, Anion Gap 9.2, BUN 35 H, Creatinine 1.10, Estimated Creat Clear 56, Estimated GFR 65, Est GFR ( Amer) 78, Glucose 115 H D, Calcium 8.1 L, Magnesium 1.9 D, Total Bilirubin 0.2, AST 38, ALT 16, Alkaline Phosphatase 40, Total Protein 6.1 L, Albumin 3.6, Globulin 2.5, Albumin/Globulin Ratio 1.4 I & O for Labs for Last 24 Hours: Intake & Output 11/27/22 11/28/22 11/29/22 11/30/22 23:59 23:59 23:59 23:59 Intake Total 915 / 915 240 / 240 Output Total 0 / 0 Balance 914 / 914 240 / 240 Weight 72.121 kg 72.121 kg 72.206 kg Microbiology Reports for the Last 24 Hours: Microbiology 11/28/22 18:39 Urine,Clean Catch Urine Culture - Preliminary NO GROWTH AFTER 24 HOURS Constitutional: Present no acute distress, average body habitus and chronically ill appearing Head: Present atraumatic and normocephalic ENT: Present normal exam Neck: Present normal inspection Respiratory: Present accessory muscle use, rhonchi, wheezes and diminished air movement; Absent crackles Cardiac: Present Reg Rate and Rhythm GI: Present normal bowel sounds; Absent tenderness Extremities: Present normal inspection and full ROM Skin: Present intact; Absent erythema Neuro: Present Cranial Nerve 2-12 Intact, Grossly Intact, alert, awake, oriented x 3 and moves all extremities Assessment and Plan *Assessment and plan (1) COPD exacerbation: Status: Acute Category: Medical Code(s): J44.1 - Chronic obstructive pulmonary disease with (acute) exacerbation (2) Febrile illness: Status: Acu
--- NOTE | 2022-11-30 09:44 | EXP.PULM.CON ---
History of Present Illness History of present illness: Mr. Araya is a 77-year-old male history of COPD presented hospital with worsening respiratory symptoms mentation found to be having parainfluenza virus admission for COPD exacerbation and pulmonary was called for further evaluation [facility] Disclaimer: The information contained in this section may have been updated after the patient was seen, as this information can be updated by other users. Medical History Abnormal EKG Acute and chronic respiratory failure with hypoxia Acute kidney injury COPD (chronic obstructive pulmonary disease) Dyspnea on exertion Mediastinal lymphadenopathy Multiple pulmonary nodules Parainfluenza infection Pulmonary emphysema Smoking greater than 30 pack years Surgical History History of cataract surgery History of heart surgery History of tonsillectomy Hx of CABG Family History Sister Family history of myocardial infarction Mother Family history of myocardial infarction Other No significant family history Social History Smoking Status: Former smoker alcohol intake: never substance use type: denies use current occupational status: retired Travel in the last 8 weeks: None household members: none housing: house current occupational exposures/hazards: No caffeine: No Review of Systems Constitutional Constitutional: Reports fatigue, Denies headache(s) and Reports weakness Eyes Eyes: Denies eye discharge, Denies dry eyes, Denies irritation and Denies itchy eyes ENT Ears, Nose, Mouth, and Throat: Denies headache(s), Denies lip swelling and Denies throat swelling *Cardiovascular Cardiovascular: Reports dyspnea and Reports dyspnea on exertion *Respiratory Respiratory: Reports chest congestion, Reports cough, Reports dyspnea, Reports dyspnea on exertion, Denies excessive phlegm production, Denies hemoptysis, Denies pain with cough and Reports wheezing *Gastrointestinal Gastrointestinal: Denies abdominal pain, Denies belching and Denies cramping *Musculoskeletal Musculoskeletal: Denies numbness *Neurologic Neurologic: Reports system reviewed and no additional complaints, except as documented, Denies headache(s), Denies numbness and Reports weakness Psychiatric Psychiatric: Denies homicidal ideation and Denies suicidal ideation Endocrine Endocrine: Reports fatigue and Denies heat intolerance Hematologic/Lymphatic Hematologic/Lymphatic: Denies easy bleeding and Denies lymphadenopathy Allergic/Immunologic Allergic/Immunologic: Denies itchy eyes, Denies lip swelling, Denies throat swelling and Reports wheezing Pulmonology Exam Inpatient Vital signs and Labs for Last 24 Hours: Temp Pulse Resp BP Pulse Ox 97.7 F 64 16 107/57 L 95 11/30/22 08:00 11/30/22 08:15 11/30/22 08:15 11/30/22 08:00 11/30/22 08:00 Laboratory Results - last 24 hr 11/29/22 09:15: Sodium 139, Potassium 4.5, Chloride 102, Carbon Dioxide 32 H, Anion Gap 9.5, BUN 31 H, Creatinine 1.20, Estimated Creat Clear 51, Estimated GFR 58 L, Est GFR ( Amer) 71 D, Glucose 92, Calcium 8.2 L, Magnesium 1.5 L, Total Bilirubin 0.3, AST 38, ALT 16, Alkaline Phosphatase 43, Total Protein 6.3, Albumin 3.7 D, Globulin 2.6, Albumin/Globulin Ratio 1.4 11/29/22 11:15: POC Glucose 76 11/29/22 16:50: POC Glucose 146 H 11/29/22 20:15: POC Glucose 193 H 11/30/22 06:19: POC Glucose 120 H 11/30/22 06:43: WBC 6.4, RBC 3.65 L, Hgb 11.2 L, Hct 36.1 L, MCV 98.7 H, MCH 30.5, MCHC 30.9 L, RDW 14.3, Plt Count 145, MPV 10.1, Neut % (Auto) 68.3, Lymph % (Auto) 21.6, [place] % (Auto) 10.0 H, Eos % (Auto) 0.1, Baso % (Auto) 0.2, Neut # (Auto) 4.4, Lymph # (Auto) 1.4, [place] # (Auto) 0.6, Eos # (Auto) 0.0, Baso # (Auto) 0.0 11/30/22 06:43: Sodium 141, Potassium 4.2, Chloride 104, Carbon Dioxide 32 H, Anion Gap 9.2, BUN 35 H, Cre
--- NOTE | 2022-11-30 10:04 | EXP.CARD.CON ---
History of Present Illness History of Present Illness Consult date: 11/30/22 Requesting physician: Terry Chi Chief complaint: Febrile illness, parainfluenza, History of present illness: 77-year-old white male with past medical history of coronary artery disease with CABG x1 in 2010, aortic valve replacement with bioprosthetic valve in 2010, hypertension, hyperlipidemia, carotid artery stenosis, diabetes mellitus and COPD presented to emergency department on 11/28/2022 with complaint of fever, falling out of bed, generalized weakness. Patient reports he started feeling bad on Sunday with generalized fatigue. On Sunday he woke up on the floor with people banging on his front door. Was taken to ER for further evaluation by niece who found him. Niece also reported patient had a temperature of 103 at home. On presentation to ER EKG showed sinus tachycardia with a rate of 101 with t wave inversion noted in Leads V2-[address] depression in V4-v6. Patient denies hx of recent chest pain or soa. Labs were as follow: WBC 7.4, hemoglobin 12.5,BUN 27, creatinine 1.4,Sodium 141, potassium 4.6,Troponin 0.25 and positive for Parainfluenza. Patient was admitted for further evaluation. Cardiology was asked to consult on patient for elevated troponin from 0.25-0.55. Patient continues to deny history of chest pain or shortness of air recently. [facility] Disclaimer: The information contained in this section may have been updated after the patient was seen, as this information can be updated by other users. Medical History Abnormal EKG Acute kidney injury COPD (chronic obstructive pulmonary disease) Dyspnea on exertion Mediastinal lymphadenopathy Multiple pulmonary nodules Pulmonary emphysema Smoking greater than 30 pack years Surgical History History of cataract surgery History of heart surgery History of tonsillectomy Hx of CABG Family History Sister Family history of myocardial infarction Mother Family history of myocardial infarction Other No significant family history Social History Smoking Status: Former smoker alcohol intake: never substance use type: denies use current occupational status: retired Travel in the last 8 weeks: None household members: none housing: house current occupational exposures/hazards: No caffeine: No Review of Systems Constitutional Constitutional: Reports fever(s), Denies headache(s) and Reports weakness ENT Ears, Nose, Mouth, and Throat: Denies headache(s) *Cardiovascular Cardiovascular: Denies chest pain at rest and Denies dyspnea *Respiratory Respiratory: Denies dyspnea *Musculoskeletal Musculoskeletal: Denies numbness *Neurologic Neurologic: Reports system reviewed and no additional complaints, except as documented, Denies headache(s), Denies numbness and Reports weakness Exam Data for Last 24 hours Vital signs and Labs for Last 24 Hours: Temp Pulse Resp BP Pulse Ox 97.7 F 64 16 107/57 L 95 11/30/22 08:00 11/30/22 08:15 11/30/22 08:15 11/30/22 08:00 11/30/22 08:00 Laboratory Results - last 24 hr 11/29/22 11:15: POC Glucose 76 11/29/22 16:50: POC Glucose 146 H 11/29/22 20:15: POC Glucose 193 H 11/30/22 06:19: POC Glucose 120 H 11/30/22 06:43: WBC 6.4, RBC 3.65 L, Hgb 11.2 L, Hct 36.1 L, MCV 98.7 H, MCH 30.5, MCHC 30.9 L, RDW 14.3, Plt Count 145, MPV 10.1, Neut % (Auto) 68.3, Lymph % (Auto) 21.6, [place] % (Auto) 10.0 H, Eos % (Auto) 0.1, Baso % (Auto) 0.2, Neut # (Auto) 4.4, Lymph # (Auto) 1.4, [place] # (Auto) 0.6, Eos # (Auto) 0.0, Baso # (Auto) 0.0 11/30/22 06:43: Sodium 141, Potassium 4.2, Chloride 104, Carbon Dioxide 32 H, Anion Gap 9.2, BUN 35 H, Creatinine 1.10, Estimated Creat Clear 56, Estimated GFR 65, Est GFR ( Amer) 78, Glucose 115 H D, Calcium 8.1 L, Magnesium 1.9 D, Total [place]
[2022-11-30 12:44] LABS: POC Glucose,Bedside 126 (70-110)
--- NOTE | 2022-11-30 13:32 | IR_ITS ---
APPROVED REPORT Patient Location: Inpatient Private Banker: EZEQUIEL Guillen RT (R) PROCEDURES Left heart catheterization Left ventriculogram Selective coronary angiogram Selective engage in the saphenous vein graft to the LAD Drug-eluting stent deployment to the left main artery Drug-eluting stent deployment to the ostial proximal circumflex artery INDICATION Coronary artery disease, Acute non-ST elevation myocardial infarction, History of coronary bypass surgery, Dynamic EKG changes Informed consent was obtained prior to the procedure. COMPLICATIONS None Estimated Blood Loss: Less than 10 ML TECHNIQUE One percent lidocaine used to anesthetize the right groin. The right femoral artery was accessed via the Seldinger technique and a 5 Persian sheath was placed in the right femoral artery. A JL 4, JR4 catheter were used to perform left heart catheterization, left ventriculogram selective coronary angiography as well as selective engagement of the solitary vein graft supplying the LAD. At the end the diagnostic angiogram the 5 Persian sheath was exchanged for 6 Persian sheath and therapeutic heparin was administered giving a therapeutic ACT. An EBU 3.7 guide catheter was used to intubate the left main artery followed by Choice PT extra-support wire being placed into the ramus intermedius. A Choice PT floppy wire was then placed into the circumflex artery where a 2.5 x 12 mm noncompliant balloon was deployed at 20 richy predilating the circumflex artery stenosis. Following this a 3.5 x 18 mm resolute Emiliano stent was placed in the distal left main artery extending into the proximal circumflex artery and deployed at 20 richy. An additional 3 mm x 15 mm resolute Paris stent was then deployed distal to the first stent yet still overlapping it at 20 richy. The balloon was brought back and deployed at 24 richy. An additional 4 mm x 12 mm noncompliant balloon was then deployed at 20 richy in the proximal circumflex artery as well as the left main artery. At the end of the procedure the apparatus was removed the groin is reprepped closure change sheath was removed and hemostasis was achieved using TR banding patient was transferred to the postop holding in stable condition. MICHOACANO-3 flow was present before and after the procedure ANGIOGRAPHIC RESULTS The left main artery Has a distal 50% stenosis The left anterior descending artery Has proximal 80% stenoses with competitive flow from the saphenous vein graft The circumflex artery Is dominant and has an ostial 90% calcified stenosis immediately proximal to a large ramus intermedius and a large circumflex artery. Both ramus and circumflex arteries are free of disease distal to the stenosis The right coronary artery Nondominant with proximal and mid vessel 50% stenoses with distal 50 to 60% calcified stenosis The PRECIADO ventriculogram reveals Normal 65% The left ventricular end-diastolic pressure 10 mmHg Saphenous vein graft to LAD widely patent 25 mm transaortic valve gradient IMPRESSION Critical disease involving a ostial circumflex artery which supplied a large ramus intermedius and dominant circumflex artery with successful stenting reducing the critical disease to 0% with 2 contiguous drug-eluting stents as described above Normal ejection fraction 25 mm trans aortic valve gradient PLAN 1. Dual antiplatelet therapy 2. LDL less than 55 to be achieved with high intensity statin 3. Avoidance of tobacco products 4. Risk factor modification 5. Cardiac rehabilitation 6. Ongoing surveillance of the aortic valve disease Electronically signed by : Anthony Chi MD 11/30/2022 16:05:56
--- NOTE | 2022-11-30 14:34 | PC.NURSE ---
off floor for heart cath at this time
--- NOTE | 2022-11-30 15:33 | PC.NURSE ---
victor hugo has done well this shift. oxygen weaned down to 1 l. 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 has had no complaints this shift. patient noted to have murmur which is baseline. has been independent in room. encouraged to ring out as needed.
[2022-11-30 15:56] LABS: CATHL Activated Clotting Time 312 SEC (74-125)
[2022-11-30 17:34] LABS: POC Glucose,Bedside 130 (70-110)
[2022-11-30 20:36] LABS: POC Glucose,Bedside 184 (70-110)
--- NOTE | 2022-11-30 23:19 | PC.NURSE ---
Spoke with Arti regarding patients blood pressure 70/47. O2 sat 93 on 1LNC. Made Arti aware of patients femoral site had new bleeding noted on gauze pad and new hematoma noted. Patient denies any chest/back pain or shortness of breath. Orders received for a 500 normal saline bolus, apply pressure for 15min, and keep monitoring the site for any new changes.
--- NOTE | 2022-11-30 23:20 | PC.NURSE ---
Arti stated to hold AM dose of losartan. Will pass on to day nurse.
[2022-12-01] VITALS (8 sets, daily range): BP systolic 100–126; BP diastolic 53–69; PULSE 56–91; RESP 16–22; TEMP 36.3–37; O2SAT 92–96
--- NOTE | 2022-12-01 01:49 | PC.NURSE ---
No new bleeding noted to gauze on femoral site. No changes with hematoma.
[2022-12-01 06:00] LABS: POC Glucose,Bedside 136 (70-110)
[2022-12-01 06:31] LABS: Alanine Aminotransferase 18 U/L (12-78); Albumin Level 3.6 g/dl (3.5-5.0); Albumin/Globulin Ratio 1.4 (1.1-1.8); Alkaline Phosphatase 42 U/L (38-126); Aspartate Amino Transferase 36 U/L (17-59); Bilirubin,Total 0.4 mg/dl (0.2-1.3); Blood Urea Nitrogen 35 mg/dl (9-20); Calcium 7.8 mg/dl (8.4-10.2); Carbon Dioxide 31 mmol/L (22.0-30.0); Chloride 103 mmol/L (98-107); Creatinine Clearance Estimated 61 mL/min (50-200); Estimated Glomerular Filt Rate 72 ml/min (>60); GFR (African American) 87 ML/MIN (>60); Globulin 2.5 g/dL (1.3-3.2); Glucose 117 mg/dl (74-100); Sodium 140 mmol/L (136-145); Total Protein,Serum 6.1 g/dl (6.3-8.2)
[2022-12-01 06:32] LABS: Basophils % 0.1 % (0.1-2.0); Hematocrit 36.2 % (42.0-52.0); Hemoglobin 10.8 g/dL (14.1-18.0); Lymphocytes # 1.2 K/mm3 (0.7-4.5); Lymphocytes % 14.2 % (10-50); Mean Corpuscular Hemoglobin 29.4 pg (27.0-31.2); Mean Corpuscular Volume 98.2 fl (80-94); Mean Platelet Volume 10.2 fl (7.4-10.4); Monocytes # 0.7 K/mm3 (0.1-1.0); Monocytes % 7.5 % (1.7-9.3); Neutrophils # 6.8 K/mm3 (1.8-7.8); Neutrophils % 78.2 % (37.0-80.0); Platelet Count 158 K/mm3 (142-424); Red Blood Count 3.68 M/mm3 (4.60-6.20); Red Cell Distribution Width 14.4 % (11.5-17.5); White Blood Count 8.7 K/mm3 (4.8-10.8)
--- NOTE | 2022-12-01 06:33 | PC.NURSE ---
A&Ox4. Stable on 3L NC. Patient denies any chest pain/sob. Post LHC through right femoral. Patient was noted to have some bleeding and hematoma with some bruising noted through the night. Arti was notified. Patient received a bolus of NS d/t hypotensive episode. Patients vitals have been stable since receiving the bolus.
--- NOTE | 2022-12-01 09:56 | EXP.PULM.PN ---
Subjective *Date: 12/01/22 *Time: 13:15 Interval history: Patient admits slight worsening respiratory symptoms. Pulmonology Exam Inpatient Vital signs and Labs for Last 24 Hours: Temp Pulse Resp BP Pulse Ox 98.0 F 63 18 124/64 93 L 12/01/22 08:00 12/01/22 08:00 12/01/22 08:00 12/01/22 08:00 12/01/22 08:00 Laboratory Results - last 24 hr 11/30/22 12:05: POC Glucose 126 H 11/30/22 15:26: Activated Clotting Time 312 H* 11/30/22 17:27: POC Glucose 130 H 11/30/22 20:27: POC Glucose 184 H 12/01/22 05:45: Sodium 140, Potassium 4.0, Chloride 103, Carbon Dioxide 31 H, Anion Gap 10.0, BUN 35 H, Creatinine 1.00, Estimated Creat Clear 61, Estimated GFR 72, Est GFR ( Amer) 87, Glucose 117 H, Calcium 7.8 L, Total Bilirubin 0.4, AST 36, ALT 18, Alkaline Phosphatase 42, Total Protein 6.1 L, Albumin 3.6, Globulin 2.5, Albumin/Globulin Ratio 1.4 12/01/22 05:45: WBC 8.7 D, RBC 3.68 L, Hgb 10.8 L, Hct 36.2 L, MCV 98.2 H, MCH 29.4, MCHC 30.0 L, RDW 14.4, Plt Count 158, MPV 10.2, Neut % (Auto) 78.2, Lymph % (Auto) 14.2, [place] % (Auto) 7.5, Eos % (Auto) 0.0 L, Baso % (Auto) 0.1, Neut # (Auto) 6.8, Lymph # (Auto) 1.2, [place] # (Auto) 0.7, Eos # (Auto) 0.0, Baso # (Auto) 0.0 12/01/22 05:50: POC Glucose 136 H I & O for Labs for Last 24 Hours: Intake & Output 11/28/22 11/29/22 11/30/22 12/01/22 23:59 23:59 23:59 23:59 Intake Total 915 / 915 360 / 1010 650 / 650 Output Total 1050 / 1050 300 / 300 Balance 914 / 914 -690 / -40 350 / 350 Weight 159 lb 159 lb 158 lb 11.725 oz Microbiology Reports for the Last 24 Hours: Microbiology 11/28/22 18:39 Urine,Clean Catch Urine Culture - Final NO GROWTH AFTER 48 HOURS 11/28/22 16:26 Blood Blood Culture - Preliminary NO GROWTH AFTER 48 HOURS 11/28/22 16:26 Blood Blood Culture - Preliminary NO GROWTH AFTER 48 HOURS 11/30/22 08:53 Sputum - Expectorated Sputum Gram Stain - Final Constitutional: Present moderate distress Head: Present normocephalic and atraumatic ENT: Present normal exam, normal oropharynx and mucous membranes moist Neck: Present normal inspection and full ROM Respiratory: Present respiratory distress, diminished air movement and able to speak in complete sentences; Absent wheezes or crackles Cardiac: Present S1/S2, Tachycardia and radial pulses present GI: Present soft and distention; Absent tenderness or guarding Skin: Present intact; Absent cyanosis or jaundice Neuro: Present alert, awake and oriented x 3 Extremities: Present normal inspection; Absent clubbing or cyanosis Psychiatric: Present normal affect and cooperative Assessment and Plan *Assessment and plan (1) COPD exacerbation: Status: Acute Category: Medical Code(s): J44.1 - Chronic obstructive pulmonary disease with (acute) exacerbation (2) Parainfluenza infection: Status: Acute Category: Medical Code(s): B34.8 - Other viral infections of unspecified site (3) Acute and chronic respiratory failure with hypoxia: Status: Acute Category: Medical Code(s): J96.21 - Acute and chronic respiratory failure with hypoxia Plan Ms. saenz is a 77-year-old male with history of CAD COPD presented to the hospital on 11/28/2022 complaining of fevers and confusion. He also complained of fall. He is following in pulmonary clinic for COPD on Anoro inhaler along with multiple pulmonary nodules and lymphadenopathy that remained stable so far. Labs upon admission personally reviewed no evidence of leukocytosis upon admission. Afebrile. Hemodynamically stable. No ABG available upon admission for review Chest x-ray upon admission personally reviewed no airspace disease noted. Respiratory viral panel positive for parainfluenza Patient was initiated on doxycycline and prednisone for presumed COPD exacerbation upon admission. He continued to receive DuoNebs as needed along wit
--- NOTE | 2022-12-01 10:21 | EXP.CARD.PN ---
Subjective Subjective Date: 12/01/22 Time: 08:00 Principal diagnosis: febrile illness, parainfluenza, nstemi Interval history: s/p LHC yesterday, see below report. Small hematoma noted to right groin. No active bleeding noted. ANGIOGRAPHIC RESULTS The left main artery Has a distal 50% stenosis The left anterior descending artery Has proximal 80% stenoses with competitive flow from the saphenous vein graft The circumflex artery Is dominant and has an ostial 90% calcified stenosis immediately proximal to a large ramus intermedius and a large circumflex artery.? Both ramus and circumflex arteries are free of disease distal to the stenosis The right coronary artery Nondominant with proximal and mid vessel 50% stenoses with distal 50 to 60% calcified stenosis The PRECIADO ventriculogram reveals Normal 65% The left ventricular end-diastolic pressure 10 mmHg Saphenous vein graft to LAD widely patent 25 mm transaortic valve gradient IMPRESSION Critical disease involving a ostial circumflex artery which supplied a large ramus intermedius and dominant circumflex artery with successful stenting reducing the critical disease to 0% with 2 contiguous drug-eluting stents as described above Normal ejection fraction 25 mm trans aortic valve gradient PLAN 1. Dual antiplatelet therapy 2. LDL less than 55 to be achieved with high intensity statin 3. Avoidance of tobacco products 4. Risk factor modification 5. Cardiac rehabilitation 6. Ongoing surveillance of the aortic valve disease Exam Data for Last 24 hours Vital signs and Labs for Last 24 Hours: Temp Pulse Resp BP Pulse Ox 98.0 F 63 18 124/64 93 L 12/01/22 08:00 12/01/22 08:00 12/01/22 08:00 12/01/22 08:00 12/01/22 08:00 Laboratory Results - last 24 hr 11/30/22 12:05: POC Glucose 126 H 11/30/22 15:26: Activated Clotting Time 312 H* 11/30/22 17:27: POC Glucose 130 H 11/30/22 20:27: POC Glucose 184 H 12/01/22 05:45: Sodium 140, Potassium 4.0, Chloride 103, Carbon Dioxide 31 H, Anion Gap 10.0, BUN 35 H, Creatinine 1.00, Estimated Creat Clear 61, Estimated GFR 72, Est GFR ( Amer) 87, Glucose 117 H, Calcium 7.8 L, Total Bilirubin 0.4, AST 36, ALT 18, Alkaline Phosphatase 42, Total Protein 6.1 L, Albumin 3.6, Globulin 2.5, Albumin/Globulin Ratio 1.4 12/01/22 05:45: WBC 8.7 D, RBC 3.68 L, Hgb 10.8 L, Hct 36.2 L, MCV 98.2 H, MCH 29.4, MCHC 30.0 L, RDW 14.4, Plt Count 158, MPV 10.2, Neut % (Auto) 78.2, Lymph % (Auto) 14.2, [place] % (Auto) 7.5, Eos % (Auto) 0.0 L, Baso % (Auto) 0.1, Neut # (Auto) 6.8, Lymph # (Auto) 1.2, [place] # (Auto) 0.7, Eos # (Auto) 0.0, Baso # (Auto) 0.0 12/01/22 05:50: POC Glucose 136 H I & O for Last 24 hours: Intake & Output 11/28/22 11/29/22 11/30/22 12/01/22 23:59 23:59 23:59 23:59 Intake Total 915 / 915 360 / 1010 650 / 650 Output Total 1050 / 1050 300 / 300 Balance 914 / 914 -690 / -40 350 / 350 Weight 159 lb 159 lb 158 lb 11.725 oz Microbiology Reports for the Last 24 Hours: Microbiology 11/28/22 18:39 Urine,Clean Catch Urine Culture - Final NO GROWTH AFTER 48 HOURS 11/28/22 16:26 Blood Blood Culture - Preliminary NO GROWTH AFTER 48 HOURS 11/28/22 16:26 Blood Blood Culture - Preliminary NO GROWTH AFTER 48 HOURS 11/30/22 08:53 Sputum - Expectorated Sputum Gram Stain - Final Constitutional Constitutional: no acute distress *Routine Respiratory Exam Respiratory: Present CTA bilaterally and symmetric chest movement *Routine Cardiovascular Exam Cardiovascular: Present RRR, Normal S1 and Normal S2 *Routine Abdominal Exam Abdominal: Present soft and normoactive bowel sounds; Absent tenderness *Routine Extremities Exam Extremities: Present full ROM and normal capillary refill; Absent edema Comments: right groin site-small hematoma noted, no active bleeding. *Routine Skin Exam Skin: Present intact, dry and warm Detailed Neck Exam: Thy
--- NOTE | 2022-12-01 10:59 | CA_ITS ---
FINAL REPORT CLINICAL HISTORY: .POST CATH HEMATOMA FINDINGS: Spectral and Doppler waveform evaluations of the right wrist was performed. Spectral analysis was performed. There is no evidence of pseudoaneurysm in the right groin. IMPRESSION: No evidence of pseudoaneurysm in the right groin. Reviewed, Interpreted and Dictated by Dorinda Santo MD Transcribed by Leigh Khanna Authenticated and [facility]
[2022-12-01 11:20] LABS: POC Glucose,Bedside 131 (70-110)
--- NOTE | 2022-12-01 14:30 | EXP.ACUTE.PN ---
Subjective *Date: 12/01/22 *Time: 14:30 Interval history: Feeling well, small hematoma. Medical Exam Vital signs and Labs for Last 24 Hours: Vital Signs Temp Pulse Pulse Resp BP Pulse Ox 12/01/22 12:00 87 12/01/22 12:00 98.4 F 79 18 100/53 L 92 L 12/01/22 11:02 87 12/01/22 11:02 89 12/01/22 11:02 96 12/01/22 08:00 98.0 F 63 18 124/64 93 L 12/01/22 04:00 70 12/01/22 00:00 60 11/30/22 20:00 80 12/01/22 04:00 98.4 F 68 18 112/64 92 L 12/01/22 00:00 98.6 F 73 16 110/53 L 11/30/22 23:15 67 16 70/47 L 11/30/22 22:15 80 16 127/64 95 11/30/22 21:15 79 16 110/60 97 11/30/22 20:15 81 16 106/58 L 96 11/30/22 19:15 75 16 112/57 L 96 11/30/22 18:45 61 136/64 95 11/30/22 18:15 59 L 16 131/66 94 L 11/30/22 17:45 56 L 116/57 L 96 11/30/22 17:15 59 L 110/54 L 96 11/30/22 17:00 50 L 108/57 L 96 11/30/22 16:45 58 L 108/50 L 94 L 11/30/22 16:30 57 L 108/52 L 96 11/30/22 16:15 62 115/52 L 95 11/30/22 16:10 60 142/69 H 97 11/30/22 16:05 58 L 134/69 97 11/30/22 16:00 98.0 F 57 L 16 130/76 96 11/30/22 16:06 54 L Intake and Output 11/30/22 12/01/22 12/01/22 23:59 07:59 15:59 Intake Total 120 / 1010 650 / 650 Output Total 1050 / 1050 300 / 675 375 / 675 Balance -930 / -40 350 / -25 -375 / -25 Intake: Intake, Oral Amount 120 / 510 150 / 150 Intake, Total IV Amount 500 / 500 0.9 % Sodium Chloride 500 ml @ 500 / 500 500 mls/hr IV .Q1H ONE Rx#: [id number] Output: Output, Urine Amount 1050 / 1050 300 / 675 375 / 675 Other: Number of Voids 800 Laboratory Results - last 24 hr 11/30/22 15:26: Activated Clotting Time 312 H* 11/30/22 17:27: POC Glucose 130 H 11/30/22 20:27: POC Glucose 184 H 12/01/22 05:45: Sodium 140, Potassium 4.0, Chloride 103, Carbon Dioxide 31 H, Anion Gap 10.0, BUN 35 H, Creatinine 1.00, Estimated Creat Clear 61, Estimated GFR 72, Est GFR ( Amer) 87, Glucose 117 H, Calcium 7.8 L, Total Bilirubin 0.4, AST 36, ALT 18, Alkaline Phosphatase 42, Total Protein 6.1 L, Albumin 3.6, Globulin 2.5, Albumin/Globulin Ratio 1.4 12/01/22 05:45: WBC 8.7 D, RBC 3.68 L, Hgb 10.8 L, Hct 36.2 L, MCV 98.2 H, MCH 29.4, MCHC 30.0 L, RDW 14.4, Plt Count 158, MPV 10.2, Neut % (Auto) 78.2, Lymph % (Auto) 14.2, [place] % (Auto) 7.5, Eos % (Auto) 0.0 L, Baso % (Auto) 0.1, Neut # (Auto) 6.8, Lymph # (Auto) 1.2, [place] # (Auto) 0.7, Eos # (Auto) 0.0, Baso # (Auto) 0.0 12/01/22 05:50: POC Glucose 136 H 12/01/22 11:13: POC Glucose 131 H I & O for Labs for Last 24 Hours: Intake & Output 11/28/22 11/29/22 11/30/22 12/01/22 23:59 23:59 23:59 23:59 Intake Total 915 / 915 360 / 1010 650 / 650 Output Total 1050 / 1050 675 / 675 Balance 914 / 914 -690 / -40 -25 / -25 Weight 72.121 kg 72.121 kg 72 kg Microbiology Reports for the Last 24 Hours: Microbiology 11/28/22 18:39 Urine,Clean Catch Urine Culture - Final NO GROWTH AFTER 48 HOURS 11/28/22 16:26 Blood Blood Culture - Preliminary NO GROWTH AFTER 48 HOURS 11/28/22 16:26 Blood Blood Culture - Preliminary NO GROWTH AFTER 48 HOURS 11/30/22 08:53 Sputum - Expectorated Sputum Gram Stain - Final Constitutional: Present no acute distress Respiratory: Present normal respiratory effort Cardiac: Present Reg Rate and Rhythm GI: Present normal bowel sounds; Absent tenderness Extremities: Present normal inspection and full ROM Skin: Present intact; Absent erythema Neuro: Present Grossly Intact and moves all extremities Assessment and Plan *Assessment and plan (1) COPD exacerbation: Status: Acute Category: Medical Code(s): J44.1 - Chronic obstructive pulmonary disease with (acute) exacerbation (2) Parainfluenza infection: Status: Acute
--- NOTE | 2022-12-01 16:40 | PC.NURSE ---
PT IS SITTING UP IN THE CHAIR. ALERT AND ORIENTED X4. EATING AND DRINKING WELL. NEW DRESSING APPLIED TO RIGHT CATH SITE. HEMATOMA/BRUISING NOTED. LUNG SOUNDS CLEAR. ABDOMEN SOFT/NON TENDER WITH ACTIVE BOWEL SOUNDS. AMBULATES TO THE BATHROOM. O2 SATURATION 90-93% ON 3.5 L NC. PT STATES AT HOME HE ONLY WEARS O2 AT NIGHTS. WILL CONTINUE TO MONITOR.
[2022-12-01 17:19] LABS: POC Glucose,Bedside 141 (70-110)
[2022-12-01 20:27] LABS: POC Glucose,Bedside 235 (70-110)
[2022-12-02] VITALS (8 sets, daily range): BP systolic 104–123; BP diastolic 55–67; PULSE 59–94; RESP 17–19; TEMP 36.5–36.8; O2SAT 90–96; BMI 18.2
[2022-12-02 06:15] LABS: POC Glucose,Bedside 109 (70-110)
--- NOTE | 2022-12-02 06:27 | PC.NURSE ---
pt is a&ox4. 3LNC. pt had no complaints through the night. no new bleeding noted on hematoma.
[2022-12-02 08:31] LABS: Basophils % 0.3 % (0.1-2.0); Hematocrit 35.3 % (42.0-52.0); Lymphocytes # 1.6 K/mm3 (0.7-4.5); Lymphocytes % 18.8 % (10-50); Mean Corpuscular HGB Conc 31.1 g/dL (31.8-35.4); Mean Corpuscular Hemoglobin 30.3 pg (27.0-31.2); Mean Corpuscular Volume 97.4 fl (80-94); Mean Platelet Volume 10.5 fl (7.4-10.4); Monocytes # 0.6 K/mm3 (0.1-1.0); Monocytes % 6.7 % (1.7-9.3); Neutrophils # 6.3 K/mm3 (1.8-7.8); Neutrophils % 74.2 % (37.0-80.0); Platelet Count 158 K/mm3 (142-424); Red Blood Count 3.62 M/mm3 (4.60-6.20); Red Cell Distribution Width 14.5 % (11.5-17.5); White Blood Count 8.5 K/mm3 (4.8-10.8)
[2022-12-02 08:43] LABS: Chloride 106 mmol/L (98-107); Sodium 142 mmol/L (136-145)
[2022-12-02 08:46] LABS: Alanine Aminotransferase 20 U/L (12-78); Albumin Level 3.8 g/dl (3.5-5.0); Albumin/Globulin Ratio 1.3 (1.1-1.8); Alkaline Phosphatase 39 U/L (38-126); Aspartate Amino Transferase 41 U/L (17-59); Bilirubin,Total 0.5 mg/dl (0.2-1.3); Blood Urea Nitrogen 35 mg/dl (9-20); Calcium 8.7 mg/dl (8.4-10.2); Carbon Dioxide 32 mmol/L (22.0-30.0); Creatinine Clearance Estimated 59 mL/min (50-200); Estimated Glomerular Filt Rate 81 ml/min (>60); GFR (African American) 98 ML/MIN (>60); Glucose 110 mg/dl (74-100); Total Protein,Serum 6.8 g/dl (6.3-8.2)
[2022-12-02 09:03] LABS: Magnesium 1.9 mg/dl (1.6-2.3); Phosphorous 2.8 mg/dl (2.5-4.5)
--- NOTE | 2022-12-02 09:58 | PC.NURSE ---
O2 SATURATION IS 86% ON ROOM AIR AT REST.
--- NOTE | 2022-12-02 10:01 | PC.NURSE ---
courtesy tech note; Rounded on pt, standby assistance to the bathroom, tolerated ambulation well. Denied the need for a drink, no further requests at this time. call light within reach. CASSIA Kramer
--- NOTE | 2022-12-02 10:27 | P.PN_ITS ---
Subjective *Date: 12/02/22 *Time: 10:27 Medical Exam Vital signs and Labs for Last 24 Hours: Vital Signs Temp Pulse Pulse Resp BP Pulse Ox 12/02/22 07:59 98.0 F 94 H 17 123/67 94 L 12/02/22 06:25 63 12/02/22 06:25 63 12/02/22 06:25 90 L 12/02/22 04:00 60 12/01/22 20:00 85 12/02/22 00:00 59 L 12/02/22 04:00 97.7 F 88 18 111/56 L 96 12/02/22 00:00 98.2 F 75 18 104/55 L 93 L 12/02/22 00:22 60 12/02/22 00:22 60 12/01/22 20:00 97.9 F 82 18 126/69 12/01/22 19:12 86 12/01/22 19:12 91 H 12/01/22 19:12 96 12/01/22 16:00 90 12/01/22 16:00 97.4 F L 56 L 22 112/65 94 L 12/01/22 12:00 87 12/01/22 12:00 98.4 F 79 18 100/53 L 92 L 12/01/22 11:02 87 12/01/22 11:02 89 12/01/22 11:02 96 Intake and Output 12/01/22 12/02/22 12/02/22 23:59 07:59 15:59 Intake Total 480 / 1370 240 / 240 Output Total 200 / 1075 400 / 400 0 / 400 Balance 280 / 295 -400 / -160 240 / -160 Intake: Intake, Oral Amount 480 / 870 240 / 240 Output: Output, Urine Amount 200 / 1075 400 / 400 0 / 400 Other: Number of Unmeasured Voids 1 1 1 Weight 69.354 kg Patient Weight 12/02/22 23:59 Weight 69.354 kg Laboratory Results - last 24 hr 12/01/22 11:13: POC Glucose 131 H 12/01/22 17:12: POC Glucose 141 H 12/01/22 20:20: POC Glucose 235 H 12/02/22 06:08: POC Glucose 109 12/02/22 08:07: Sodium 142, Potassium 4.0, Chloride 106, Carbon Dioxide 32 H, A nion Gap 8.0, BUN 35 H, Creatinine 0.90, Estimated Creat Clear 59, Estimated GFR 81, Est GFR ( Amer) 98, Glucose 110 H, Calcium 8.7, Total Bilirubin 0.5, AST 41, ALT 20, Alkaline Phosphatase 39, Total Protein 6.8, Albumin 3.8, Globulin 3.0, Albumin/Globulin Ratio 1.3 12/02/22 08:07: WBC 8.5, RBC 3.62 L, Hgb 11.0 L, Hct 35.3 L, MCV 97.4 H, MCH 30.3, MCHC 31.1 L, RDW 14.5, Plt Count 158, MPV 10.5 H, Neut % (Auto) 74.2, Lymph % (Auto) 18.8, [place] % (Auto) 6.7, Eos % (Auto) 0.0 L, Baso % (Auto) 0.3, Neut # (Auto) 6.3, Lymph # (Auto) 1.6, [place] # (Auto) 0.6, Eos # (Auto) 0.0, Baso # (Auto) 0.0 12/02/22 08:07: Phosphorus 2.8, Magnesium 1.9 I & O for Labs for Last 24 Hours: Intake & Output 11/29/22 11/30/22 12/01/22 12/02/22 23:59 23:59 23:59 23:59 Intake Total 915 / 915 360 / 1010 1370 / 1370 240 / 240 Output Total 1050 / 1050 875 / 1075 400 / 400 Balance 914 / 914 -690 / -40 495 / 295 -160 / -160 Weight 72.121 kg 72 kg 69.354 kg Microbiology Reports for the Last 24 Hours: Microbiology 11/30/22 08:53 Sputum - Expectorated Sputum Gram Stain - Final 11/30/22 08:53 Sputum - Expectorated Sputum Sputum Culture - Final Normal Respiratory Ami The patient's infection will respond to the chosen ABx?: Yes Is the patient receiving the right drug, dose, and route?: Yes Could a more targeted ABx be ordered?: No
--- NOTE | 2022-12-02 11:24 | EXP.DC.SUM ---
General Admission date:: 11/28/22 Discharge date: 12/02/22 HPI HPI HPI: Mr. Araya is a 77-year-old male with a past medical history of CAD and COPD. He presents to [facility] due to fevers in the home associated with some confusion.? The patient was seen following his admission to the floor, he reports that he has had generalized weakness and body aches for several days, he reports today that his niece called to check on him and he had fallen without injury and informed her he was not feeling well, so he was brought into the ER for evaluation. In the ER the patient underwent a CBC with differential that was unremarkable, CMP was unremarkable,? Stool studies were negative, covid and flu testing was negative.? Cxray showed some Left lower lobe atelectasis.? Urinalysis was unremarkable.? Troponin was elevated at 0.25. ? EKG showed a Sinus Tachycardia with rate of [address] segment elvation or depression.? The patient was admitted with initial impression:? Febrile Illness and Elevated Troponin.? Hospital Course Hospital Course Hospital Course: 77-year-old male presents due to several days of generalized body aches, chills and feeling confused.? Found to be parainfluenza positive. Cardiology and pulmonology consulted during admission. Appreciate their assistance in care. Problems addressed as follows: COPD exacerbation Febrile illness -Cultures obtained in the ER along with comprehensive respiratory panel. Patient found to be positive for parainfluenza. Initially started on doxycycline 100 mg twice daily and prednisone for 5 days. Pulmonology consulted to assist in care. Patient transitioned to cefdinir to complete 5-day course of antibiotics. Transitioned from Anoro to Trelegy. Continue Trelegy at discharge. Complete 5 days total of prednisone 40 mg. Plan to follow-up with pulmonology in 4 to 6 weeks. Continue supplemental oxygen for goal saturations greater 90%. Qualified for continuous oxygen on day of discharge with room air saturation of 86%. NSTEMI Moderate to severe aortic stenosis -Patient found to have slight elevation and troponin due to supply/demand mismatch from stress of COPD exacerbation. Given significant cardiac history including CABG and valve replacement, cardiology was consulted. Patient taken to the Data Management Consultant for further evaluation. Impression as follows: Critical disease involving a ostial circumflex artery which supplied a large ramus intermedius and dominant circumflex artery with successful stenting reducing the critical disease to 0% with 2 contiguous drug-eluting stents. Normal ejection fraction 25 mm trans aortic valve gradient Cardiology recommends continuing dual antiplatelet therapy. Continuing statin therapy for goal LDL less than 55%. Avoiding tobacco products. Would benefit from cardiac rehab. Needs continued ongoing surveillance of aortic valve disease. Cardiac meds on discharge: Aspirin 81 mg p.o. daily Plavix 75 mg p.o. daily Crestor 40 mg p.o. daily Carvedilol 6.25 mg p.o. twice daily Losartan 50 mg p.o. twice daily Lasix 40 mg p.o. daily Eplerenone 25 mg p.o. daily Coenzyme Q10 200 mg p.o. daily Diabetes: Continued sliding scale insulin during admission. Resume home regimen at discharge Medically stable for discharge home. Continue treatment for coronary artery disease and COPD as above. Follow-up with cardiology and pulmonology in the coming weeks. Exam Data for Last 24 hours Vital signs and Labs for Last 24 Hours: Temp Pulse Resp BP Pulse Ox 97.9 F 67 19 113/58 L 95 12/02/22 11:05 12/02/22 11:05 12/02/22 11:05 12/02/22 11:05 12/02/22 11:05 Laboratory Results - last 24 hr 12/01/22 17:12: POC Glucose 141 H 12/01/22 20:20: POC Glucose 235 H 12/02/22 06:08: POC Glucose 109 12/02/22 08:07: Sodium 142, Potassium 4.0, Chloride 106, Carbon Dioxide 32 H, Anion Gap 8.0, BUN 35 H, Creatinine 0.90, Estimated Creat Clear 59, Estimated GFR 81, Est G
--- NOTE | 2022-12-02 12:15 | HMH.PHACL ---
PHA Documentum Consultant Discharge Med Communication Electronic Technician: Dennys Araya has received discharge medication counseling on the following medications: ASPIRIN PLAVIX (NEW) LOSARTAN CARVEDIOLOL LIPITOR NEW PRESCRIPTION WAS SENT TO CLINIC PHARMACY. PATIENT HAD NO QUESTIONS OR CONCERNS AT THIS TIME. -PABLITO PRESLEY, GHANSHYAMD
[2022-12-02 12:21] LABS: POC Glucose,Bedside 170 (70-110)
--- NOTE | 2022-12-04 07:47 | CARE MANAGER ---
Patient discharged home over the weekend. I called and confirmed with Nkechi on the floor, that patient discharged with O2.
--- NOTE | 2022-12-04 14:44 | CARE MANAGER ---
Spoke with patient for post-discharge, phone interview. No issues noted.
== END 2022-12-02 13:25 | disposition home or self-care (01) ==
LOC: ER 18:27 → 2ND 19:25
PROVIDERS: Internal Medicine; Nurse Practitioner Family; Student in an Organized Health Care Education/Training Program; Admitting Provider Internal Medicine Adolescent Medicine; Emergency Provider Emergency Medicine; PCP Family Medicine; Visit Provider Internal Medicine Adolescent Medicine
DX: I25.10 Atherosclerotic heart disease of native coronary artery without angina pectoris (principal); I21.A1 Myocardial infarction type 2; Z95.1 Presence of aortocoronary bypass graft; J96.21 Acute and chronic respiratory failure with hypoxia; E11.9 Type 2 diabetes mellitus without complications; J44.1 Chronic obstructive pulmonary disease with (acute) exacerbation; Z95.2 Presence of prosthetic heart valve; I21.4 Non-ST elevation (NSTEMI) myocardial infarction; I10 Essential (primary) hypertension; Z79.899 Other long term (current) drug therapy; Z79.84 Long term (current) use of oral hypoglycemic drugs; J12.2 Parainfluenza virus pneumonia; I77.1 Stricture of artery; Z20.822 Contact with and (suspected) exposure to COVID-19
CPT/HCPCS: G0378; 36415; 71045; 80053; 81001; 82962; 83605; 83615; 83735; 83880; 84100; 84145; 84484; 85025; 85347; 87040; 87070; 87086; 87205; 87581; 87632; 87798; 92928; 93005; 93306; 93459; 93926; 94640; 94761; 99152; 99153; 99285; C1725; C1760; C1769; C1876; C1894; C9600; C9803; J1644; J3475; Q9967; U0003; U0005

== ENCOUNTER → 2022-12-07 11:24 | Outpatient (CLI) | payer MEDICARE, SELFPAY ==
[2022-12-07 12:00] LABS: Hematocrit 33.8 % (42.0-52.0); Hemoglobin 10.5 g/dL (14.1-18.0)
[2022-12-07 12:06] LABS: Blood Urea Nitrogen 37 mg/dl (9-20); Estimated Glomerular Filt Rate 58 ml/min (>60); GFR (African American) 71 ML/MIN (>60)
== END ==
PROVIDERS: PCP Family Medicine; Visit Provider Internal Medicine
DX: D64.9 Anemia, unspecified (principal)
CPT/HCPCS: 36415; 82565; 84520; 85014; 85018

== ENCOUNTER → 2022-12-18 23:24 | Outpatient (CLI) | payer MEDICARE, SELFPAY | PROVIDERS: PCP Family Medicine; Visit Provider Family Medicine | DX: R35.0 Frequency of micturition (principal); B96.29 Other Escherichia coli [E. coli] as the cause of diseases classified elsewhere | CPT/HCPCS: 87086; 87088; 87186 ==

== ENCOUNTER 2022-12-21 14:09 | Outpatient (RCR) | payer MEDICARE, SELFPAY | END 2023-01-23 01:00 | disposition home or self-care (01) | LOC: PT 14:09 | PROVIDERS: Visit Provider Internal Medicine | DX: I25.10 Atherosclerotic heart disease of native coronary artery without angina pectoris (principal); Z95.5 Presence of coronary angioplasty implant and graft | CPT/HCPCS: 93798 ==

== ENCOUNTER → 2023-02-01 20:38 | Outpatient (CLI) | payer MEDICARE, SELFPAY ==
[2023-02-01 19:06] LABS: Basophils % 0.3 % (0.1-2.0); Eosinophils # 0.2 K/mm3 (0.0-0.4); Eosinophils % 2.3 % (0.1-12.0); Hemoglobin 11.3 g/dL (14.1-18.0); Lymphocytes # 1.5 K/mm3 (0.7-4.5); Lymphocytes % 22.8 % (10-50); Mean Corpuscular HGB Conc 29.9 g/dL (31.8-35.4); Mean Corpuscular Hemoglobin 28.5 pg (27.0-31.2); Mean Corpuscular Volume 95.6 fl (80-94); Mean Platelet Volume 9.9 fl (7.4-10.4); Monocytes # 0.9 K/mm3 (0.1-1.0); Monocytes % 13.6 % (1.7-9.3); Neutrophils % 61.1 % (37.0-80.0); Platelet Count 216 K/mm3 (142-424); Red Blood Count 3.97 M/mm3 (4.60-6.20); Red Cell Distribution Width 15.7 % (11.5-17.5); White Blood Count 6.6 K/mm3 (4.8-10.8)
[2023-02-01 20:16] LABS: Hemoglobin A1C 5.7 % (4.0-6.0)
[2023-02-01 20:38] LABS: Alanine Aminotransferase 15 U/L (12-78); Albumin/Globulin Ratio 1.3 (1.1-1.8); Alkaline Phosphatase 55 U/L (38-126); Anion Gap 17.9 mEq/L (5-15); Aspartate Amino Transferase 31 U/L (17-59); Bilirubin,Total 0.3 mg/dl (0.2-1.3); Blood Urea Nitrogen 21 mg/dl (9-20); Calcium 9.1 mg/dl (8.4-10.2); Carbon Dioxide 32 mmol/L (22.0-30.0); Chloride 97 mmol/L (98-107); Chol/HDL Ratio 2.7 (1-3.5); Cholesterol 97 mg/dl (140-200); Estimated Glomerular Filt Rate 72 ml/min (>60); GFR (African American) 87 ML/MIN (>60); Glucose 90 mg/dl (74-100); HDL Cholesterol 36 mg/dl (40-60); Potassium 4.9 mmoL/L (3.5-5.1); Sodium 142 mmol/L (136-145); Triglycerides 104 mg/dl (30-150); VLDL Cholesterol 21 mg/dL (0-40)
== END ==
PROVIDERS: PCP Family Medicine; Visit Provider Family Medicine
DX: D64.9 Anemia, unspecified (principal); E11.9 Type 2 diabetes mellitus without complications; Z79.84 Long term (current) use of oral hypoglycemic drugs; Z79.899 Other long term (current) drug therapy
CPT/HCPCS: 80053; 80061; 83036; 85025

== ENCOUNTER → 2023-04-17 08:26 | Outpatient (CLI) | payer MEDICARE, SELFPAY ==
[2023-04-17 18:48] LABS: Basophils % 0.2 % (0.1-2.0); Eosinophils # 0.3 K/mm3 (0.0-0.4); Eosinophils % 3.3 % (0.1-12.0); Hematocrit 40.8 % (42.0-52.0); Hemoglobin 12.5 g/dL (14.1-18.0); Lymphocytes # 1.7 K/mm3 (0.7-4.5); Lymphocytes % 21.8 % (10-50); Mean Corpuscular HGB Conc 30.5 g/dL (31.8-35.4); Mean Corpuscular Hemoglobin 29.5 pg (27.0-31.2); Mean Corpuscular Volume 96.7 fl (80-94); Mean Platelet Volume 10.5 fl (7.4-10.4); Monocytes # 0.8 K/mm3 (0.1-1.0); Monocytes % 10.5 % (1.7-9.3); Neutrophils # 4.9 K/mm3 (1.8-7.8); Neutrophils % 64.1 % (37.0-80.0); Platelet Count 188 K/mm3 (142-424); Red Blood Count 4.22 M/mm3 (4.60-6.20); Red Cell Distribution Width 16.1 % (11.5-17.5); White Blood Count 7.6 K/mm3 (4.8-10.8)
[2023-04-17 19:26] LABS: Alanine Aminotransferase 13 U/L (12-78); Albumin Level 4.2 g/dl (3.5-5.0); Albumin/Globulin Ratio 1.4 (1.1-1.8); Alkaline Phosphatase 64 U/L (38-126); Anion Gap 15.2 mEq/L (5-15); Aspartate Amino Transferase 28 U/L (17-59); Blood Urea Nitrogen 30 mg/dl (9-20); Calcium 9.4 mg/dl (8.4-10.2); Carbon Dioxide 34 mmol/L (22.0-30.0); Chloride 99 mmol/L (98-107); Chol/HDL Ratio 3.2 (1-3.5); Cholesterol 99 mg/dl (140-200); Estimated Glomerular Filt Rate 53 ml/min (>60); GFR (African American) 64 ML/MIN (>60); Globulin 3.1 g/dL (1.3-3.2); Glucose 90 mg/dl (74-100); HDL Cholesterol 31 mg/dl (40-60); Potassium 5.2 mmoL/L (3.5-5.1); Sodium 143 mmol/L (136-145); Total Protein,Serum 7.3 g/dl (6.3-8.2); Triglycerides 125 mg/dl (30-150); VLDL Cholesterol 25 mg/dL (0-40)
[2023-04-17 19:27] LABS: Bilirubin,Total 0.1 mg/dl (0.2-1.3)
[2023-04-17 19:37] LABS: Direct LDL Cholesterol 40.25 mg/dL (100-129)
[2023-04-17 21:00] LABS: Hemoglobin A1C 6.2 % (4.0-6.0)
== END ==
PROVIDERS: PCP Family Medicine; Visit Provider Family Medicine
DX: E11.9 Type 2 diabetes mellitus without complications (principal)

== ENCOUNTER → 2023-07-12 09:52 | Outpatient (CLI) | payer MEDICARE, SELFPAY ==
[2023-07-12 10:45] VITALS: PULSE 55; PULSE 56
== END ==
PROVIDERS: PCP Family Medicine; Visit Provider Internal Medicine Pulmonary Disease
DX: R06.09 Other forms of dyspnea (principal)
CPT/HCPCS: 94060; 94618; 94640

== ENCOUNTER 2023-09-12 12:40 | Outpatient (CLI) | payer MEDICARE, SELFPAY ==
--- NOTE | 2023-09-12 12:41 | CA_ITS ---
APPROVED REPORT EXAM: Comprehensive 2D, Doppler, and color-flow Echocardiogram Plastic Surgery Nurse: Padmini Herman CRT Ht: 5 ft 6 in Wt: 156lbs BSA: 1.80 BP: 104/51 mmHg Indications: AVR PORCINE, ABN EKG, CABG, CHF, COPD, SMOKER 2D Dimensions LA Volume 33.90 mL LA Volume Index 18.40 mL/m2 (M/F) 16-34 M-Mode Dimensions RVDd 3.87 cm (0.9-2.6) LA Diam 3.70 cm (1.9-4.0) LVDd 3.80 cm (3.5-5.7) LVDs 2.79 cm (3.5-5.7) IVSd 1.72 cm (0.6-1.1) PWd 1.04 cm (0.6-1.1) EF (Teich) 52.70% FS 26.60% EDV (Teich) 62.00 mL TAPSE 1.54 (<1.7) ESV (Teich) 29.30 mL LV Diastology E Decel Time 290 (160-240 msec) E/A Ratio 0.69 MED A' 11.30 cm/s LAT A' 13.60 cm/s Aortic Valve MARIAJOSE Index 0.76 cm2/m2 AoV Peak Beltran. 266.0 (50-130 cm/s) AO Peak GR. 28.40 mmHg AO Mean GR. 15.90 (<5 mmHg) AO VTI 56.2 (18-25 cm) MARIAJOSE (VTI) 1.39 (2.5-4.5 cm2) Mitral Valve MV E Max Beltran. 73.0 (40-130 cm/s) MV A Velocity 107.0 (40-130 cm/s) E/A Ratio 0.69 MV PHT 85.0 ms Pulmonary Valve PV Peak Velocity 127.0 (50-150 cm/s) Tricuspid Valve TR P. Velocity 253.00 cm/s RAP Estimate 10.00 mmHg RVSP 35.60 mmHg Left Ventricle The left ventricle is normal size. The left ventricular systolic function is normal. The left ventricular ejection fraction is within the normal range. There is normal left ventricular wall thickness. There is normal LV segmental wall motion. Diastolic function is indeterminate. LVEF is 55%. Right Ventricle The right ventricle is normal size. The right ventricular systolic function is normal. Atria The left atrium size is normal. The right atrium size is normal. There is no Doppler evidence of interatrial shunt. Aortic Valve s/p bioprosthetic AVR. The prosthetic valve is well-seated. Peak velocity 2.6 m/s. Mean AV gradient 15 mmHg. Peak AV gradient 27 mmHg. Acceleration time 94 ms. DI=0.79. Trace aortic regurgitation. Mitral Valve The mitral valve is mildly thickened. No evidence of mitral valve stenosis. Trace mitral regurgitation. Tricuspid Valve The tricuspid valve leaflets are thin and pliable. Mild tricuspid regurgitation. RVSP is 20-25 mmHg. Pulmonic Valve The pulmonary valve is normal in structure. Trace pulmonic regurgitation. Great Vessels The aortic root is normal in size. The ascending aorta is borderline dilated, measuring 3.7 cm in diameter. IVC is normal in size and collapses >50% with inspiration. Pericardium There is no pericardial effusion. Other Information Study Quality: Fair Conclusion Normal biventricular systolic function. s/p bioprosthetic AVR. Mild TR. Ascending aorta is borderline dilated, measuring 3.7 cm in diameter. Compared to prior study from 11/2022, the AVR gradients appear unchanged. Electronically signed by : Rhina Swanson MD 09/15/2023 16:15:13
== END 2023-09-12 23:59 ==
LOC: RT 12:41
PROVIDERS: PCP Family Medicine; Visit Provider Physician Assistant
DX: I25.10 Atherosclerotic heart disease of native coronary artery without angina pectoris (principal); I50.30 Unspecified diastolic (congestive) heart failure; Z95.1 Presence of aortocoronary bypass graft; Z95.3 Presence of xenogenic heart valve; R94.31 Abnormal electrocardiogram [ECG] [EKG]
CPT/HCPCS: 93306

== ENCOUNTER 2023-09-13 19:38 | Outpatient (CLI) | payer MEDICARE, SELFPAY ==
[2023-09-13 19:58] LABS: Basophils % 0.3 % (0.1-2.0); Eosinophils # 0.3 K/mm3 (0.0-0.4); Hematocrit 39.6 % (42.0-52.0); Hemoglobin 12.7 g/dL (14.1-18.0); Lymphocytes % 26.4 % (10-50); Mean Corpuscular HGB Conc 32.1 g/dL (31.8-35.4); Mean Corpuscular Hemoglobin 31.4 pg (27.0-31.2); Mean Corpuscular Volume 97.9 fl (80-94); Mean Platelet Volume 10.1 fl (7.4-10.4); Monocytes # 0.7 K/mm3 (0.1-1.0); Monocytes % 9.4 % (1.7-9.3); Neutrophils # 4.6 K/mm3 (1.8-7.8); Platelet Count 211 K/mm3 (142-424); Red Blood Count 4.04 M/mm3 (4.60-6.20); White Blood Count 7.7 K/mm3 (4.8-10.8)
[2023-09-13 20:43] LABS: Alanine Aminotransferase 17 U/L (12-78); Albumin Level 4.2 g/dl (3.5-5.0); Albumin/Globulin Ratio 1.4 (1.1-1.8); Alkaline Phosphatase 50 U/L (38-126); Aspartate Amino Transferase 30 U/L (17-59); Bilirubin,Total 0.4 mg/dl (0.2-1.3); Blood Urea Nitrogen 24 mg/dl (9-20); Carbon Dioxide 33 mmol/L (22.0-30.0); Chloride 97 mmol/L (98-107); Chol/HDL Ratio 3.4 (1-3.5); Cholesterol 102 mg/dl (140-200); Estimated Glomerular Filt Rate 53 ml/min (>60); GFR (African American) 64 ML/MIN (>60); Globulin 2.9 g/dL (1.3-3.2); HDL Cholesterol 30 mg/dl (40-60); Sodium 137 mmol/L (136-145); Total Protein,Serum 7.1 g/dl (6.3-8.2); Triglycerides 202 mg/dl (30-150); VLDL Cholesterol 40 mg/dL (0-40)
[2023-09-13 20:58] LABS: Direct LDL Cholesterol 48.22 mg/dL (100-129)
[2023-09-13 21:14] LABS: Prostate Specific Ag Screen 0.3 ng/ml (0.0-4.0)
[2023-09-13 21:38] LABS: Calcium 9.8 mg/dl (8.4-10.2); Glucose 108 mg/dl (74-100)
== END 2023-09-13 23:59 ==
PROVIDERS: PCP Family Medicine; Visit Provider Family Medicine
DX: E11.9 Type 2 diabetes mellitus without complications (principal); D64.9 Anemia, unspecified; Z12.5 Encounter for screening for malignant neoplasm of prostate; Z79.84 Long term (current) use of oral hypoglycemic drugs; Z79.899 Other long term (current) drug therapy
CPT/HCPCS: 80053; 80061; 83036; 85025; G0103

== ENCOUNTER 2023-10-18 09:39 | Outpatient (CLI) | payer MEDICARE, SELFPAY | END 2023-10-18 23:59 | LOC: RT 09:39 | PROVIDERS: PCP Family Medicine; Visit Provider Internal Medicine Pulmonary Disease | DX: J44.9 Chronic obstructive pulmonary disease, unspecified (principal); R06.02 Shortness of breath | CPT/HCPCS: 94618 ==

== ENCOUNTER 2023-12-17 10:49 | Outpatient (CLI) | payer MEDICARE, SELFPAY ==
[2023-12-17 19:05] LABS: Uric Acid 6.9 mg/dl (3.5-8.5)
== END 2023-12-17 23:59 ==
LOC: LAB.DROPOF 12-18 10:49
PROVIDERS: PCP Family Medicine; Visit Provider Family Medicine
DX: M79.671 Pain in right foot (principal); R06.09 Other forms of dyspnea
CPT/HCPCS: 84550

== ENCOUNTER 2023-12-20 18:03 | Emergency (ER) | payer MEDICARE, SELFPAY ==
[2023-12-20 18:05] VITALS: BP 115/57; PULSE 116; RESP 18; TEMP 36.8; O2SAT 92; BMI 25.9
[2023-12-20 18:28] LABS: Basophils # 0.1 K/mm3 (0-0.2); Basophils % 0.8 % (0.1-2.0); Eosinophils # 0.2 K/mm3 (0.0-0.4); Eosinophils % 1.4 % (0.1-12.0); Hematocrit 38.4 % (42.0-52.0); Hemoglobin 12.2 g/dL (14.1-18.0); Lymphocytes # 1.4 K/mm3 (0.7-4.5); Mean Corpuscular HGB Conc 31.6 g/dL (31.8-35.4); Mean Corpuscular Hemoglobin 31.2 pg (27.0-31.2); Mean Corpuscular Volume 98.5 fl (80-94); Mean Platelet Volume 9.5 fl (7.4-10.4); Monocytes # 0.8 K/mm3 (0.1-1.0); Monocytes % 6.1 % (1.7-9.3); Neutrophils # 10.3 K/mm3 (1.8-7.8); Neutrophils % 80.6 % (37.0-80.0); Platelet Count 205 K/mm3 (142-424); Red Cell Distribution Width 14.2 % (11.5-17.5); White Blood Count 12.7 K/mm3 (4.8-10.8)
[2023-12-20 18:30] VITALS: BP 95/66; PULSE 118; O2SAT 90
[2023-12-20 18:30] LABS: Chloride 100 mmol/L (98-107); Sodium 139 mmol/L (136-145)
[2023-12-20 18:33] LABS: Alanine Aminotransferase 16 U/L (12-78); Albumin Level 4.2 g/dl (3.5-5.0); Albumin/Globulin Ratio 1.4 (1.1-1.8); Alkaline Phosphatase 47 U/L (38-126); Aspartate Amino Transferase 31 U/L (17-59); Bilirubin,Total 0.6 mg/dl (0.2-1.3); Blood Urea Nitrogen 33 mg/dl (9-20); Carbon Dioxide 33 mmol/L (22.0-30.0); Creatinine Clearance Estimated 33 mL/min (50-200); Estimated Glomerular Filt Rate 36 ml/min (>60); GFR (African American) 44 ML/MIN (>60); Total Protein,Serum 7.2 g/dl (6.3-8.2)
[2023-12-20 18:34] LABS: Glucose 128 mg/dl (74-100)
--- NOTE | 2023-12-20 18:43 | XR_ITS ---
PROCEDURE INFORMATION: Exam: XR Chest Exam date and time: 12/20/2023 7:07 PM Age: 78 years old Clinical indication: Dyspnea TECHNIQUE: Imaging protocol: Radiologic exam of the chest. Views: 1 view. COMPARISON: 1. CR XR CHEST PORTABLE 11/28/2022 4:[address] ANGIO CHEST PE PROTOCOL images (no report) 01/02/2022 10:15 PM FINDINGS: Tubes, catheters and devices: EKG leads. Lungs: Unremarkable. No consolidation. Pleural spaces: Unremarkable. No pleural effusion. No pneumothorax. Heart/Mediastinum: Prosthetic aortic valve. Vasculature: Atherosclerosis. Bones/joints: Sternal sutures. IMPRESSION: No acute findings.
--- NOTE | 2023-12-20 18:50 | ED_ITS ---
Discharge Plan Disposition Patient Disposition: Home, Self-Care Prescriptions Prescriptions: No Action albuterol sulfate 90 mcg/actuation HFA aerosol inhaler 2 inh IH QID PRN (Reason: shortness of breath or wheezing) 90 Days Qty: 8.5 2RF omega 3-qfp-olh-fish oil [Fish Oil] 300-1,000 mg capsule 1 cap PO DAILY furosemide [Lasix] 40 mg tablet 40 mg PO DAILY Qty: 30 5RF Centrum Silver 0.4-300-250 mg-mcg-mcg tablet 1 tab PO DAILY cholecalciferol (vitamin D3) 10 mcg (400 unit) capsule 10 mcg PO DAILY aspirin [Aspir-81] 81 mg tablet,delayed release (DR/EC) 81 mg PO DAILY coenzyme Q10 200 mg capsule 200 mg PO DAILY clopidogrel 75 mg tablet 75 mg PO DAILY Qty: 90 3RF omeprazole 20 mg capsule,delayed release(DR/EC) 20 mg PO DAILY Qty: 90 3RF Rx Instructions: TAKE 1 CAPSULE BY MOUTH DAILY FOR GERD ascorbic acid (vitamin C) 1,000 mg tablet 1 g PO DAILY Anoro Ellipta 62.5-25 mcg/actuation blister with device 1 inh inhalation DAILY 90 Days Qty: 180 2RF levofloxacin 500 mg tablet 500 mg PO DAILY 10 Days Qty: 10 0RF losartan 50 mg tablet See Rx Instructions .ROUTE .COMPLEX Qty: 180 3RF Dose Instruction: TAKE 1 TABLET BY MOUTH TWICE A DAY Rx Instructions: TAKE 1 TABLET BY MOUTH TWICE A DAY metformin 1,000 mg tablet See Rx Instructions .ROUTE .COMPLEX Qty: 180 3RF Dose Instruction: TAKE 1 TABLET BY MOUTH TWICE A DAY FOR DIABETES Rx Instructions: TAKE 1 TABLET BY MOUTH TWICE A DAY FOR DIABETES rosuvastatin 10 mg tablet See Rx Instructions .ROUTE .COMPLEX Qty: 90 3RF Dose Instruction: TAKE 1 TABLET BY MOUTH ONCE DAILY AT BEDTIME FOR CHOLESTEROL Rx Instructions: TAKE 1 TABLET BY MOUTH ONCE DAILY AT BEDTIME FOR CHOLESTEROL carvedilol 6.25 mg tablet See Rx Instructions .ROUTE .COMPLEX Qty: 270 2RF Dose Instruction: TAKE 1 TABLET BY MOUTH TWICE A DAY FOR HYPERTENSION TAKE ONE EXTRA PILL DAILY IF SYSTOLIC BLOOD PRESSURE OVER 150 Rx Instructions: TAKE 1 TABLET BY MOUTH TWICE A DAY FOR HYPERTENSION TAKE ONE EXTRA PILL DAILY IF SYSTOLIC BLOOD PRESSURE OVER 150 garlic 1 EACH tablet 1 each PO HS ipratropium-albuterol 0.5 mg-3 mg(2.5 mg base)/3 mL Solution For Nebulization 3 ml inhalation Q6RT 30 Days Qty: 120 0RF Referrals Follow up/Referrals: Devin Thibodeaux MD [Primary Care Provider] - See instructions Activity Restrictions/Add. Instructions Additional Instructions/Restrictions: Please hold your Plavix until your lower gastrointestinal bleed has improved. I would recommend you follow-up with your primary care doctor. A comprehensive GI PCR panel (diarrhea test) has been sent I recommend you follow-up with your primary care doctor regarding that as well. Your chest x-ray did not show pneumonia it is possible that your antibiotics caused a superimposed bacterial overgrowth such as C. difficile colitis but this is not definitive at this point. I would recommend that you stop your Levaquin given the fact you do not have any radiographic evidence of pneumonia. Please return to the emergency department with any significant worsening of your bleeding lightheadedness etc. Clinical Impressions Clinical Impression: Hematochezia, Acute lower GI bleeding Instructions Patient Instructions: DI for Gastrointestinal Bleeding Discharge ED Provider: Aren Farah General Adult HPI General Chief complaint: GI Bleed Stated complaint: gastro bleeding,SOA Time Seen by Provider: 12/20/23 18:26 Mode of Arrival: Ambulatory Source of Information: Patient Limitations: No Limitations Description of Symptoms (Recalled from ER Triage Doc. by RN): pt presents to ED c/o blood in his stool yesterday. pt reports taking Plavix. Pt states he was also diagnosed with Pneumonia on Sunday and is currently on antibiotics. History of Present Illness HPI narrative: Patient is an 78-year-old male with a history of COPD who wears oxygen at night has been told that he needs to be wearing oxygen all day but he does not because he has been stubborn patient states that he has not had any increasing cough shortness of breath etc. but recently was at his primary care doctor they heard some crackles in his left base told him clinically that he had pneumonia and was started on levofloxacin. Since that time has had some bright red blood per rectum. Has a known history of diverticulosis had a colonoscopy 1 year ago which only demonstrated diverticulosis from historical standpoint. No history of any bowel malignancies. He has no history of AVMs or hemorrhoids that he is aware of. He has had no abdominal pain. Has had no melena he had upper GI bleeds in the past. Is on Plavix but is not on any other anticoagulants. Related Data Home Medications Medication Instructions Recorded Confirmed aspirin 81 mg tablet,delayed 81 mg PO DAILY heart health 04/12/20 12/17/23 release (Aspir-) cholecalciferol (vitamin D3) 10 10 mcg PO DAILY Supplement 04/12/20 12/17/23 mcg (400 unit) capsule rblzovka-ayk-xsqzc acid 0.4 1 tab PO DAILY Supplement 04/12/20 12/17/23 mg-lycopene 300 mcg-lutein 250 mcg tablet (Centrum Silver) garlic 1 each PO HS Cholesterol 05/04/20 12/17/23 coenzyme Q10 200 mg capsule 200 mg PO DAILY Supplement 07/17/22 12/17/23 omega 7-iau-ogy-fish oil 300 1 cap PO DAILY vitamin 10/06/22 12/17/23 mg-1,000 mg capsule (Fish Oil) ascorbic acid (vitamin C) 1,000 mg 1 g PO DAILY 10/18/23 12/17/23 tablet Previous Rx's Medication Instructions Recorded albuterol sulfate 90 mcg/actuation 2 inh inhalation QID PRN shortness 01/26/22 aerosol inhaler of breath or wheezing 90 days #8.5 grams ipratropium 0.5 mg-albuterol 3 mg 3 ml inhalation Q6RT 30 days #120 12/02/22 (2.5 mg base)/3 mL nebulization ea soln clopidogrel 75 mg tablet 75 mg PO DAILY #90 tabs 12/18/22 losartan 50 mg tablet See Rx Instructions .Route 01/08/23 .COMPLEX #180 tabs metformin 1,000 mg tablet See Rx Instructions .Route 03/09/23 .COMPLEX #180 tabs rosuvastatin 10 mg tablet See Rx Instructions .Route 04/05/23 .COMPLEX #90 tabs omeprazole 20 mg capsule,delayed 20 mg PO DAILY Acid reflux #90 caps 04/19/23 release furosemide 40 mg tablet (Lasix) 40 mg PO DAILY Fluid #30 tabs 09/13/23 carvedilol 6.25 mg tablet See Rx Instructions .Route 10/08/23 .COMPLEX #270 tabs umeclidinium 62.5 mcg-vilanterol 1 inh inhalation DAILY 90 days 10/18/23 25 mcg/actuation powdr for #180 ea inhalation (Anoro Ellipta) levofloxacin 500 mg tablet 500 mg PO DAILY 10 days #10 tabs 12/17/23 Allergies Allergy/AdvReac Type Severity Reaction Status Date / Time Penicillins Allergy Severe Rash Verified 12/17/23 09:44 [facility] Disclaimer: The information contained in this section may have been updated after the patient was seen, as this information can be updated by other users. Medical History Acute and chronic respiratory failure with hypoxia Parainfluenza infection Acute kidney injury Mediastinal lymphadenopathy Multiple pulmonary nodules Pulmonary emphysema Smoking greater than 30 pack years Dyspnea on exertion Diverticulitis Diverticular hemorrhage Abnormal EKG History of UTI COPD (chronic obstructive pulmonary disease) Surgical History History of cataract surgery History of heart surgery History of tonsillectomy Hx of CABG Family History Sister Family history of myocardial infarction Mother Family history of myocardial infarction Other No significant family history Social History Smoking Status: Former smoker smoking status stop date: jul 2002 alcohol intake: never substance use type: denies use current occupational status: retired Travel in the last 8 weeks: None household members: none housing: house current occupational exposures/hazards: No caffeine: No ROS Obtained: Yes All systems reviewed & no additional complaints except as documented Physical Exam General General appearance: alert and in no apparent distress Respiratory Respiratory exam: Present normal lung sounds bilaterally and other (Oxygen saturations 90% on room air there are left base crackles); Absent respiratory distress Cardiovascular Cardiovascular exam: Present regular rate and normal rhythm Abdominal Exam Abdominal exam: Present soft; Absent distention or tenderness Neurological Exam Neurological exam: Present alert and oriented X3 Medical Decision Making Igor Inquiry Pt receiving controlled substance: No Vital Signs: 12/20/23 18:05 12/20/23 18:30 12/20/23 19:01 Temperature 98.2 F Temperature Source Oral Pulse Rate 118 H 107 H Pulse Rate [Right Radial] 116 H Respiratory Rate 18 Blood Pressure 95/66 L 102/55 L Blood Pressure [Left Arm] 115/57 L Blood Pressure Mean [Left Arm] 76 Blood Pressure Source [Left Arm] Automatic Cuff Blood Pressure Position [Left Arm] Sitting 02 Sat by Pulse Oximetry 92 L 90 L 91 L Oxygen Delivery Method Room Air Room Air 12/20/23 19:30 Temperature Temperature Source Pulse Rate 95 H Pulse Rate [Right Radial] Respiratory Rate Blood Pressure 90/53 L Blood Pressure [Left Arm] Blood Pressure Mean [Left Arm] Blood Pressure Source [Left Arm] Blood Pressure Position [Left Arm] 02 Sat by Pulse Oximetry 90 L Oxygen Delivery Method Lab Data Lab results reviewed: Yes I reviewed the patient's lab results. Lab Results 12/20/23 18:10: WBC 12.7 H, RBC 3.90 L, Hgb 12.2 L, Hct 38.4 L, MCV 98.5 H, MCH 31.2, MCHC 31.6 L, RDW 14.2, Plt Count 205, MPV 9.5, Neut % (Auto) 80.6 H, Lymph % (Auto) 11.0, [place] % (Auto) 6.1, Eos % (Auto) 1.4, Baso % (Auto) 0.8, Neut # (Auto) 10.3 H, Lymph # (Auto) 1.4, [place] # (Auto) 0.8, Eos # (Auto) 0.2, Baso # (Auto) 0.1, PT 11.7, INR 1.09, APTT 27.4, Sodium 139, Potassium 5.0, Chloride 100, Carbon Dioxide 33 H, Anion Gap 11.0, BUN 33 H, Creatinine 1.80 H, Estimated Creat Clear 33, Estimated GFR 36 L, Est GFR ( Amer) 44 L, Glucose 128 H, Calcium 10.0, Total Bilirubin 0.6, AST 31, ALT 16, Alkaline Phosphatase 47, Total Protein 7.2, Albumin 4.2, Globulin 3.0, Albumin/Globulin Ratio 1.4 12/20/23 18:10 12/20/23 18:10 Orders (Tests/Meds): ED MEDICATIONS Generic Name Dose Route Start Last Admin Trade Name Freq PRN Reason Stop Dose Admin Sodium Chloride 10 ml 12/20/23 18:19 Sodium Chloride 0.9% 10ml Flush Syringe IV 01/19/24 18:18 NEEDED PRN Maintain IV Site Discontinued Medications Generic Name Dose Route Start Last Admin Trade Name Freq PRN Reason Stop Dose Admin Lactated Ringer's 1,000 mls @ 999 mls/hr 12/20/23 18:45 12/20/23 18:51 Lactated Ringer's 1000 Ml Bag IV 12/20/23 19:45 999 mls/hr .Q1H1M ARDEN Administration ORDERS Category Date Time Status CXR --portable [XR chest portable] Stat Exams 12/20/23 18:43 Completed Complete Blood Count Auto Diff Stat Lab 12/20/23 18:10 Completed Comprehensive Metabolic Panel Stat Lab 12/20/23 18:10 Completed Diarrhea 23 Panel, PCR Stat Lab 12/20/23 19:15 Received PT/PTT Stat Lab 12/20/23 18:10 Completed Medical Decision Narrative: Very well-appearing 78-year-old male presenting today with bright red blood per rectum. Does state that it has been somewhat loose but no significant abdominal pain this is unlikely to be colitis but with loose stool and recent antibiotic use if he is able to provide a stool sample we will test him for GI PCR panel specifically for C. difficile. Will not empirically give antibiotics in this particular situation but he has known history of diverticulosis which is most likely the cause of his hematochezia. He had a colonoscopy within the last year. Will also get a chest x-ray to see whether or not he has radiographic pneumonia. He is mildly tachycardic we will give IV fluids and reassess Reassessment 821 patient feeling well serial exams are benign with no significant abdominal pain specifically no tenderness. He was able to give us a stool sample states it was loose again he will follow-up with primary care doctor regarding the GI PCR panel. There is no radiographic evidence on his chest x-ray based on my personal interpretation and radiology interpretation for pneumonia I recommended that he stop his Levaquin as it could be certainly the cause of superimposed infectious diarrhea. He is aware and understandable with this. No evidence of any upper GI bleed he is hemodynamically stable heart rate in the 90s on my recent reassessment with blood pressure that has normalized I am not concerned about any evidence of shock. He is very well-appearing on discharge. He will hold his Plavix follow-up with primary care doctor and return with any worsening bleeding. Critical Care Critical Care Time Critical Care Time: No
[2023-12-20] MEDS: LACTATED RINGERS 1000ML 1,000 ML 999 ML IV (18:51)
[2023-12-20 18:56] LABS: Activated Partial Thrombo Time 27.4 seconds (22.8-30.6); INR 1.09 (0.9-1.1); Prothrombin Time 11.7 seconds (10.1-12.5)
[2023-12-20 19:01] VITALS: BP 102/55; PULSE 107; O2SAT 91
--- NOTE | 2023-12-20 19:05 | PC.NURSE ---
patient assisted to bathroom
[2023-12-20 19:17] LABS: Adenovirus F 40/41, stool Not Detected (NotDetected); Astrovirus Not Detected (NotDetected); Campylobacter Not Detected (NotDetected); Clostridium Difficile A/B, PCR Not Detected (NotDetected); Cryptosporidium Not Detected (NotDetected); Cyclospora Cayetanesis Not Detected (NotDetected); Entamoeba histolytica Not Detected (NotDetected); Enteroaggregative E coli Not Detected (NotDetected); Enteropathogenic E coli Not Detected (NotDetected); Enterotoxigenic E coli Not Detected (NotDetected); Giardia lamblia Not Detected (NotDetected); Norovirus Not Detected (NotDetected); Plesimonas Shigalloides, PCR Not Detected (NotDetected); Rotavirus A Not Detected (NotDetected); Salmonella, PCR Not Detected (NotDetected); Shiga-like toxin E coli Not Detected (NotDetected); Shigella Enterovasive E coli Not Detected (NotDetected); Vibrio Cholerae Not Detected (NotDetected); Vibrio, PCR Not Detected (NotDetected); Yersinia Entercolitica, PCR Not Detected (NotDetected)
--- NOTE | 2023-12-20 19:17 | PC.NURSE ---
stool sample collected and sent to lab
[2023-12-20 19:30] VITALS: BP 90/53; PULSE 95; O2SAT 90
[2023-12-20 20:51] VITALS: BP 102/55; PULSE 95; RESP 18; TEMP 36.6; O2SAT 95
[2023-12-25 09:04] LABS: Sapovirus Not Detected (NotDetected)
== END 2023-12-20 20:51 | disposition home or self-care (01) ==
PROVIDERS: Emergency Provider Student in an Organized Health Care Education/Training Program; PCP Family Medicine
DX: K92.2 Gastrointestinal hemorrhage, unspecified (principal); K92.1 Melena; J44.9 Chronic obstructive pulmonary disease, unspecified; Z87.891 Personal history of nicotine dependence; Z79.01 Long term (current) use of anticoagulants
CPT/HCPCS: 71045; 80053; 85025; 85610; 85730; 87507; 96360; 99284

== ENCOUNTER 2023-12-27 14:39 | Outpatient (CLI) | payer MEDICARE, SELFPAY ==
[2023-12-27 18:43] LABS: Basophils % 0.5 % (0.1-2.0); Eosinophils # 0.3 K/mm3 (0.0-0.4); Eosinophils % 3.8 % (0.1-12.0); Hemoglobin 10.9 g/dL (14.1-18.0); Lymphocytes # 1.8 K/mm3 (0.7-4.5); Lymphocytes % 24.4 % (10-50); Mean Corpuscular HGB Conc 32.1 g/dL (31.8-35.4); Mean Corpuscular Hemoglobin 31.9 pg (27.0-31.2); Mean Corpuscular Volume 99.4 fl (80-94); Monocytes # 0.6 K/mm3 (0.1-1.0); Monocytes % 8.1 % (1.7-9.3); Neutrophils # 4.6 K/mm3 (1.8-7.8); Neutrophils % 63.1 % (37.0-80.0); Platelet Count 232 K/mm3 (142-424); Red Blood Count 3.42 M/mm3 (4.60-6.20); Red Cell Distribution Width 14.3 % (11.5-17.5); White Blood Count 7.2 K/mm3 (4.8-10.8)
== END 2023-12-27 23:59 | disposition home or self-care (01) ==
LOC: LAB.DROPOF 12-28 14:40
PROVIDERS: PCP Family Medicine; Visit Provider Family Medicine
DX: I25.10 Atherosclerotic heart disease of native coronary artery without angina pectoris (principal)
CPT/HCPCS: 85025

== ENCOUNTER 2024-01-18 15:10 | Outpatient (CLI) | payer MEDICARE, SELFPAY ==
[2024-01-18 18:32] LABS: Basophils % 0.3 % (0.1-2.0); Eosinophils # 0.5 K/mm3 (0.0-0.4); Eosinophils % 6.3 % (0.1-12.0); Hematocrit 36.5 % (42.0-52.0); Hemoglobin 11.2 g/dL (14.1-18.0); Lymphocytes # 1.8 K/mm3 (0.7-4.5); Lymphocytes % 22.7 % (10-50); Mean Corpuscular HGB Conc 30.6 g/dL (31.8-35.4); Mean Corpuscular Hemoglobin 30.8 pg (27.0-31.2); Mean Corpuscular Volume 100.6 fl (80-94); Mean Platelet Volume 10.1 fl (7.4-10.4); Monocytes # 0.9 K/mm3 (0.1-1.0); Monocytes % 10.7 % (1.7-9.3); Neutrophils # 4.9 K/mm3 (1.8-7.8); Neutrophils % 60.1 % (37.0-80.0); Platelet Count 197 K/mm3 (142-424); Red Blood Count 3.63 M/mm3 (4.60-6.20); Red Cell Distribution Width 14.2 % (11.5-17.5); White Blood Count 8.1 K/mm3 (4.8-10.8)
== END 2024-01-18 23:59 | disposition home or self-care (01) ==
LOC: LAB.DROPOF 01-21 15:11
PROVIDERS: PCP Family Medicine; Visit Provider Family Medicine
DX: K92.2 Gastrointestinal hemorrhage, unspecified (principal)
CPT/HCPCS: 85025

== ENCOUNTER 2024-04-17 09:06 | Outpatient (CLI) | payer MEDICARE, SELFPAY ==
--- NOTE | 2024-04-17 09:07 | US_ITS ---
FINAL REPORT CLINICAL HISTORY: Right upper quad pain COMPARISON: None FINDINGS: Sonographic images of the right upper quadrant were obtained. The pancreas is partially obscured.The liver has an unremarkable appearance. Multiple gallstones are seen within the gallbladder. There is no evidence of biliary ductal dilatation.The common duct measures 3 mm. Limited images of the right kidney are unremarkable. IMPRESSION: Multiple gallstones. Reviewed, Interpreted and Dictated by Artem Bhardwaj III, MD Transcribed by Emma Bhakta Authenticated and [facility]
[2024-04-17 09:43] LABS: Blood Urea Nitrogen 37 mg/dl (9-20); Estimated Glomerular Filt Rate 36 ml/min (>60); GFR (African American) 44 ML/MIN (>60)
[2024-04-17 09:56] LABS: Basophils % 0.7 % (0.1-2.0); Eosinophils # 0.2 K/mm3 (0.0-0.4); Eosinophils % 3.9 % (0.1-12.0); Hematocrit 41.7 % (42.0-52.0); Hemoglobin 12.7 g/dL (14.1-18.0); Lymphocytes # 1.4 K/mm3 (0.7-4.5); Lymphocytes % 21.7 % (10-50); Mean Corpuscular HGB Conc 30.5 g/dL (31.8-35.4); Mean Corpuscular Hemoglobin 30.3 pg (27.0-31.2); Mean Corpuscular Volume 99.2 fl (80-94); Mean Platelet Volume 9.3 fl (7.4-10.4); Monocytes # 0.5 K/mm3 (0.1-1.0); Monocytes % 8.1 % (1.7-9.3); Neutrophils # 4.1 K/mm3 (1.8-7.8); Neutrophils % 65.6 % (37.0-80.0); Platelet Count 198 K/mm3 (142-424); Red Blood Count 4.21 M/mm3 (4.60-6.20); Red Cell Distribution Width 14.6 % (11.5-17.5); White Blood Count 6.2 K/mm3 (4.8-10.8)
[2024-04-17 10:22] LABS: Albumin Level 4.5 g/dl (3.5-5.0); Chloride 100 mmol/L (98-107); Potassium 4.8 mmoL/L (3.5-5.1); Sodium 139 mmol/L (136-145)
[2024-04-17 10:24] LABS: Alanine Aminotransferase 16 U/L (12-78); Alkaline Phosphatase 61 U/L (38-126); Amylase 126 U/L (30-110); Anion Gap 11.8 mEq/L (5-15); Aspartate Amino Transferase 33 U/L (17-59); Bilirubin,Total 0.5 mg/dl (0.2-1.3); Blood Urea Nitrogen 38 mg/dl (9-20); Carbon Dioxide 32 mmol/L (22.0-30.0); Estimated Glomerular Filt Rate 36 ml/min (>60); GFR (African American) 44 ML/MIN (>60)
[2024-04-17 10:25] LABS: Albumin/Globulin Ratio 1.4 (1.1-1.8); Calcium 9.4 mg/dl (8.4-10.2); Globulin 3.2 g/dL (1.3-3.2); Glucose 97 mg/dl (74-100); Lipase 121 U/L (23-300); Total Protein,Serum 7.7 g/dl (6.3-8.2)
== END 2024-04-17 23:59 | disposition home or self-care (01) ==
LOC: RAD 09:07
PROVIDERS: PCP Family Medicine; Visit Provider Surgery
DX: K80.20 Calculus of gallbladder without cholecystitis without obstruction (principal); E11.9 Type 2 diabetes mellitus without complications
CPT/HCPCS: 36415; 76705; 80053; 82150; 82565; 83690; 84520; 85025

== ENCOUNTER 2024-06-20 12:24 | Emergency (ER) | payer MEDICARE, SELFPAY ==
--- NOTE | 2024-06-20 13:09 | ED_ITS ---
Discharge Plan Disposition Patient Disposition: Home, Self-Care Condition: Good Prescriptions Prescriptions: New ciprofloxacin-dexamethasone 0.3-0.1 % Drops,Suspension 2 drp Ear-Both BID 7 Days Qty: 1 0RF No Action cholecalciferol (vitamin D3) 10 mcg (400 unit) capsule 10 mcg PO DAILY aspirin [Aspir-81] 81 mg tablet,delayed release (DR/EC) 81 mg PO DAILY Anoro Ellipta 62.5-25 mcg/actuation blister with device 1 inh inhalation DAILY 90 Days Qty: 180 2RF carvedilol 6.25 mg tablet 9.375 mg PO BID pantoprazole [Protonix] 40 mg tablet,delayed release (DR/EC) 40 mg PO DAILY Qty: 90 3RF losartan 50 mg tablet See Rx Instructions .ROUTE .COMPLEX Qty: 180 3RF Dose Instruction: TAKE 1 TABLET BY MOUTH TWICE A DAY Rx Instructions: TAKE 1 TABLET BY MOUTH TWICE A DAY rosuvastatin 10 mg tablet See Rx Instructions .ROUTE .COMPLEX Qty: 90 3RF Dose Instruction: TAKE 1 TABLET BY MOUTH ONCE DAILY AT BEDTIME FOR CHOLESTEROL Rx Instructions: TAKE 1 TABLET BY MOUTH ONCE DAILY AT BEDTIME FOR CHOLESTEROL metformin 1,000 mg tablet See Rx Instructions .ROUTE .COMPLEX Qty: 180 3RF Dose Instruction: TAKE 1 TABLET BY MOUTH TWICE A DAY FOR DIABETES Rx Instructions: TAKE 1 TABLET BY MOUTH TWICE A DAY FOR DIABETES furosemide 40 mg tablet See Rx Instructions .ROUTE .COMPLEX Qty: 90 1RF Dose Instruction: TAKE 1 TABLET BY MOUTH EVERY DAY FOR FLUID Rx Instructions: TAKE 1 TABLET BY MOUTH EVERY DAY FOR FLUID albuterol sulfate 90 mcg/actuation HFA aerosol inhaler 2 inh IH QID PRN (Reason: shortness of breath or wheezing) 90 Days Qty: 8.5 2RF Debrox 6.5 % drops 10 drp otic (ear) Q12H 4 Days Qty: 15 3RF Ear Drops (carbamide peroxide) 6.5 % drops 6.5 drp otic (ear) DIRECTED Patient Comments: 10 DRP INTO THE EAR(S) EVERY 12 HOURS FOR 4 DAYS Referrals Follow up/Referrals: Pedro Kahn MD [Physician] - See instructions Devin Thibodeaux MD [Primary Care Provider] - See instructions Activity Restrictions/Add. Instructions Additional Instructions/Restrictions: Use the new ear drops (cipro-dex) as directed. Stop the ear drops that you have been using. Follow up with your regular doctor. Follow up with the ENT physician. I put in a referral to Dr. Kahn. Please call his office and make an appointment. His office phone number will be on this paperwork. GO TO THE ER FOR ANY WORSENING SYMPTOMS Clinical Impressions Clinical Impression: Bilateral impacted cerumen Instructions Patient Instructions: How to Instill Ear Drops, DI for Cerumen Impaction, Cerumen Impaction Print Language Print Language: Samoan Discharge ED Provider: Valerio Jose [facility] [place] H[place] General Stated complaint: Pain in L ear, both ears stopped up Time Seen by Provider: 06/20/24 13:09 Related Data Home Medications ?Medication ?Instructions ?Recorded ?Confirmed aspirin 81 mg tablet,delayed 81 mg PO DAILY heart health 04/12/20 06/16/24 release (Aspir-) cholecalciferol (vitamin D3) 10 10 mcg PO DAILY Supplement 04/12/20 06/16/24 mcg (400 unit) capsule carvedilol 6.25 mg tablet 9.375 mg PO BID 02/20/24 06/16/24 carbamide peroxide 6.5 % ear drops 6.5 drp otic (ear) DIRECTED 06/20/24 06/20/24 (Ear Drops (carbamide peroxide)) Previous Rx's ?Medication ?Instructions ?Recorded umeclidinium 62.5 mcg-vilanterol 1 inh inhalation DAILY 90 days 10/18/23 25 mcg/actuation powdr for #180 ea inhalation (Anoro Ellipta) losartan 50 mg tablet See Rx Instructions .Route 01/07/24 .COMPLEX #180 tabs metformin 1,000 mg tablet See Rx Instructions .Route 02/29/24 .COMPLEX #180 tabs rosuvastatin 10 mg tablet See Rx Instructions .Route 02/29/24 .COMPLEX #90 tabs pantoprazole 40 mg tablet,delayed 40 mg PO DAILY #90 tabs 04/09/24 release (Protonix) albuterol sulfate 90 mcg/actuation 2 inh inhalation QID PRN shortness 05/26/24 aerosol inhaler of breath or wheezing 90 days #8.5 grams furosemide 40 mg tablet See Rx Instructions .Route 05/26/24 .COMPLEX #90 tabs carbamide peroxide 6.5 % ear drops 10 drp otic (ear) Q12H 4 days #15 06/13/24 (Debrox) mL ciprofloxacin 0.3 %-dexamethasone 2 drp Ear-Both BID 7 days #1 ea 06/20/24 0.1 % ear drops,suspension Allergies Allergy/AdvReac Type Severity Reaction Status Date / Time Penicillins Allergy Severe Rash Verified 06/16/24 10:39 [facility] Disclaimer: The information contained in this section may have been updated after the patient was seen, as this information can be updated by other users. Medical History Gallstones Hyperlipidemia Hypertension Carotid artery stenosis Diastolic dysfunction Coronary artery disease Diabetes Acute and chronic respiratory failure with hypoxia Parainfluenza infection Acute kidney injury Mediastinal lymphadenopathy Multiple pulmonary nodules Pulmonary emphysema Smoking greater than 30 pack years Dyspnea on exertion Diverticulitis Diverticular hemorrhage Abnormal EKG History of UTI COPD (chronic obstructive pulmonary disease) Surgical History History of heart valve replacement History of cataract surgery History of heart surgery History of tonsillectomy Hx of CABG Family History Sister Family history of myocardial infarction Mother Family history of myocardial infarction Other No significant family history Social History Smoking Status: Former smoker smoking status stop date: jul 2002 alcohol intake: never substance use type: denies use current occupational status: retired Travel in the last 8 weeks: None household members: none housing: house current occupational exposures/hazards: No caffeine: No ROS Obtained: Yes All systems reviewed & no additional complaints except as documented Constitutional Constitutional: Denies chills and Denies fever(s) Eyes Eyes: Denies eye discharge ENT Ears, Nose, Mouth, and Throat: Reports as per HPI, Denies dizziness, Denies otalgia, Reports hearing loss and Denies sore throat Cardiovascular Cardiovascular: Denies chest pain Respiratory Respiratory: Denies shortness of breath, Denies chest congestion, Denies cough, Denies stridor and Denies wheezing Gastrointestinal Gastrointestingal: Denies nausea or vomiting Musculoskeletal Musculoskeletal: Reports system reviewed and no additional complaints, except as documented and Denies arthralgias Integumentary/Breasts Skin/Breast: Denies rash Neurologic Neurologic: Denies dizziness and Denies paresthesias Allergic/Immunologic Allergic/Immunologic: Denies wheezing Physical Exam General General appearance: alert and in no apparent distress Head Head exam: atraumatic, normocephalic and normal inspection Eye Eye exam: Present normal appearance, PERRL and EOMI ENT ENT exam: Present normal oropharynx, mucous membranes moist and normal external ear exam Expanded ENT Exam TM/Canal exam: Right TM: cerumen impaction Neck Neck exam: Present normal inspection, full ROM and trachea midline; Absent meningismus or lymphadenopathy Chest Chest inspection: Present normal inspection and symmetric chest wall rise; Absent tenderness Respiratory Respiratory exam: Present normal lung sounds bilaterally; Absent respiratory distress Cardiovascular Cardiovascular exam: Present regular rate and normal rhythm; Absent JVD Abdominal Exam Abdominal exam: Present soft and normal bowel sounds; Absent distention, tenderness or guarding Extremities Exam Extremities exam: Present normal inspection, full ROM and normal capillary refill; Absent calf tenderness Back Exam Back exam: Present normal inspection; Absent tenderness Neurological Exam Neurological exam: Present alert and oriented X3 Psychiatric Psychiatric exam: Present normal affect and normal mood Skin Skin exam: Present warm, dry, intact and normal color Lymphatic Lymphatic Findings: no adenopathy Medical Decision Making Medical Records Medical records reviewed: No I reviewed the patient's medical records. Screening: Per USPSTF and CDC recommendations, given the prevalence of disease in our region, it is our hospital?s policy to screen for HIV and viral Hepatitis for all patients aged 18 and over and those with ongoing risk factors. Igor Inquiry Pt receiving controlled substance: No Procedures Risk/Benefits of Procedure(s) Were Explained: Yes Ear Wax Removal Both Ears: Results: Re-examined: cerumen removed completely TM Examination: TM(s) intact, normal appearance Ear Canal Exam: atraumatic Patient Tolerated Procedure: well and no complications Complications: no problems Technique: ear canal irrigated
[2024-06-20 13:14] VITALS: BP 130/75; PULSE 77; RESP 18; TEMP 36.6; O2SAT 94; BMI 24.0
[2024-06-20 14:06] VITALS: BP 130/75; PULSE 77; RESP 18; TEMP 36.6
== END 2024-06-20 14:08 | disposition home or self-care (01) ==
PROVIDERS: Emergency Provider Nurse Practitioner Family; PCP Family Medicine
DX: H61.23 Impacted cerumen, bilateral (principal); H92.02 Otalgia, left ear
CPT/HCPCS: 99212; G0381

== ENCOUNTER 2024-09-01 12:47 | Outpatient (CLI) | payer MEDICARE, SELFPAY ==
--- NOTE | 2024-09-01 12:54 | CA_ITS ---
APPROVED REPORT EXAM: Comprehensive 2D, Doppler, and color-flow Echocardiogram Director Geophysical Laboratory: Padmini Herman CRT Ht: 5 ft 6 in Wt: 153lbs BSA: 1.78 BP: 149/58 mmHg Indications: COPD, Shortness of Breath, Diabetes, Hyperlipidemia, Hypertension/HDD, CABG, AVR 2010 PORCINE 2D Dimensions LA Volume 31.80 mL LA Volume Index 17.40 mL/m2 (M/F) 16-34 M-Mode Dimensions RVDd 2.24 cm (0.9-2.6) LA Diam 3.60 cm (1.9-4.0) LVDd 3.95 cm (3.5-5.7) LVDs 2.74 cm (3.5-5.7) IVSd 1.17 cm (0.6-1.1) PWd 0.82 cm (0.6-1.1) EF (Teich) 58.80% FS 30.60% EDV (Teich) 67.90 mL ESV (Teich) 28.00 mL LV Diastology E Decel Time 257 (160-240 msec) E/A Ratio 0.71 MED A' 9.30 cm/s LAT A' 13.30 cm/s Aortic Valve MARIAJOSE Index 0.92 cm2/m2 AoV Peak Beltran. 300.0 (50-130 cm/s) AO Peak GR. 36.00 mmHg AO Mean GR. 19.00 (<5 mmHg) AO VTI 67.6 (18-25 cm) MARIAJOSE (VTI) 1.69 (2.5-4.5 cm2) Mitral Valve MV A Velocity 111.0 (40-130 cm/s) E/A Ratio 0.71 Pulmonary Valve PV Peak Velocity 115.0 (50-150 cm/s) Tricuspid Valve TR P. Velocity 237.00 cm/s RAP Estimate 10.00 mmHg RVSP 32.50 mmHg Left Ventricle The left ventricle is normal size. The left ventricular systolic function is normal. The left ventricular ejection fraction is within the normal range. There is increased LV wall thickness. There is normal LV segmental wall motion. Diastolic function is indeterminate. LVEF is 65%. Right Ventricle Right ventricle is mildly dilated. The right ventricular systolic function is normal. Atria Left atrium is mildly dilated. Right atrium is mildly dilated. There is no Doppler evidence of interatrial shunt. Aortic Valve s/p bioprosthetic AVR. The prosthesis is well-seated. Peak velocity 2.8 m/s. Mean AV gradient 13 mmHg. Max AV gradient 27 mmHg. Acceleration time 75 ms. Trace aortic regurgitation. Mitral Valve The mitral valve leaflets are mildly thickened. No evidence of mitral valve stenosis. Trace mitral regurgitation. Tricuspid Valve Tricuspid valve is grossly normal in structure and function. Mild tricuspid regurgitation. RVSP is normal. Pulmonic Valve The pulmonary valve is normal in structure. Trace pulmonic regurgitation. Great Vessels The aortic root is not well-visualized. IVC is normal in size and collapses >50% with inspiration. Pericardium There is no pericardial effusion. Other Information Study Quality: Fair Conclusion Normal biventricular systolic function. Mild RV dilation. Mild biatrial dilation. s/p bioprosthetic AVR (peak velocity 2.8 m/s. Mean AV gradient 13 mmHg. Max AV gradient 27 mmHg. Acceleration time 75 ms). Mild TR. Compared to prior study from 09/11/2023, the AVR gradients/velocities are unchanged. Electronically signed by : Rhina Swanson MD 09/15/2024 13:32:26
== END 2024-09-01 23:59 | disposition home or self-care (01) ==
LOC: RT 12:47
PROVIDERS: PCP Family Medicine; Visit Provider Physician Assistant
DX: I51.89 Other ill-defined heart diseases (principal); R06.09 Other forms of dyspnea; Z95.2 Presence of prosthetic heart valve
CPT/HCPCS: 93306

== ENCOUNTER 2024-11-10 15:13 | Outpatient (CLI) | payer MEDICARE, SELFPAY ==
--- NOTE | 2024-11-10 15:17 | XR_ITS ---
FINAL REPORT TECHNIQUE: Chest PA & Lateral CLINICAL HISTORY: SOB COMPARISON: 12/20/2023 FINDINGS: 2 views of the chest were performed. The heart size is normal. Multiple median sternotomy wires are noted. There is chronic scarring in the lung bases. There is no acute cardiopulmonary process. There are no pleural effusions. There is no pneumothorax. The bony thorax appears intact. IMPRESSION: Chronic scarring in the lung bases with no acute cardiopulmonary process. Reviewed, Interpreted and Dictated by Kermit Reeves MD Transcribed by Dari Jackson Authenticated and [facility]
== END 2024-11-10 23:59 | disposition home or self-care (01) ==
LOC: RAD 15:14
PROVIDERS: PCP Family Medicine; Visit Provider Internal Medicine Pulmonary Disease
DX: R06.02 Shortness of breath (principal)
CPT/HCPCS: 71046

== ENCOUNTER 2024-11-11 10:30 | Outpatient (CLI) | payer MEDICARE, SELFPAY ==
[2024-11-11 21:28] LABS: Alanine Aminotransferase 15 U/L (12-78); Albumin Level 4.5 g/dl (3.5-5.0); Albumin/Globulin Ratio 1.8 (1.1-1.8); Alkaline Phosphatase 42 U/L (38-126); Anion Gap 12.2 mEq/L (5-15); Aspartate Amino Transferase 27 U/L (17-59); Bilirubin,Total 0.3 mg/dl (0.2-1.3); Blood Urea Nitrogen 21 mg/dl (9-20); Calcium 9.8 mg/dl (8.4-10.2); Carbon Dioxide 31 mmol/L (22.0-30.0); Chloride 102 mmol/L (98-107); Estimated Glomerular Filt Rate 64 ml/min (>60); GFR (African American) 78 ML/MIN (>60); Globulin 2.5 g/dL (1.3-3.2); Glucose 86 mg/dl (74-100); Sodium 139 mmol/L (136-145)
[2024-11-11 21:31] LABS: 25-OH Vitamin D, Total 60.6 ng/mL (30-100)
[2024-11-11 21:40] LABS: Potassium 6.2 mmoL/L (3.5-5.1)
[2024-11-11 21:58] LABS: Creatinine,Urine Random 65 mg/dL (Not Estab.); Prostate Specific Ag Screen 0.3 ng/ml (0.0-4.0); Thyroid Stimulating Hormone 6.42 uIU/mL (0.465-4.68)
[2024-11-11 22:00] LABS: Microalbumin/Creatinine Ratio 18.6
[2024-11-11 22:11] LABS: Hemoglobin A1C 5.9 % (4.0-6.0)
[2024-11-11 22:17] LABS: Vitamin B12 205 pg/mL (239-931)
== END 2024-11-11 23:59 | disposition home or self-care (01) ==
LOC: LAB.DROPOF 11-13 09:36
PROVIDERS: PCP Nurse Practitioner; Visit Provider Nurse Practitioner
DX: E11.9 Type 2 diabetes mellitus without complications (principal); I10 Essential (primary) hypertension; E78.2 Mixed hyperlipidemia; E55.9 Vitamin D deficiency, unspecified; Z12.5 Encounter for screening for malignant neoplasm of prostate
CPT/HCPCS: 80053; 82043; 82306; 82570; 82607; 83036; 84443; G0103

== ENCOUNTER 2024-11-13 09:23 | Outpatient (CLI) | payer MEDICARE, SELFPAY ==
[2024-11-13 20:02] LABS: Chloride 102 mmol/L (98-107); Sodium 139 mmol/L (136-145)
[2024-11-13 20:03] LABS: Potassium 5.8 mmoL/L (3.5-5.1)
[2024-11-13 20:06] LABS: Anion Gap 11.8 mEq/L (5-15); Blood Urea Nitrogen 28 mg/dl (9-20); Calcium 9.5 mg/dl (8.4-10.2); Carbon Dioxide 31 mmol/L (22.0-30.0); Estimated Glomerular Filt Rate 49 ml/min (>60); GFR (African American) 59 ML/MIN (>60); Glucose 89 mg/dl (74-100)
[2024-11-13 20:52] LABS: Chol/HDL Ratio 2.6 (1-3.5); Cholesterol 95 mg/dl (140-200); HDL Cholesterol 37 mg/dl (40-60); Triglycerides 99 mg/dl (30-150); VLDL Cholesterol 20 mg/dL (0-40)
[2024-11-13 21:03] LABS: Direct LDL Cholesterol 30.59 mg/dL (100-129)
== END 2024-11-13 23:59 | disposition home or self-care (01) ==
LOC: LAB.DROPOF 11-14 10:12
PROVIDERS: Nurse Practitioner; PCP Family Medicine; Visit Provider Family Medicine
DX: E87.5 Hyperkalemia (principal); E78.2 Mixed hyperlipidemia
CPT/HCPCS: 80048; 80061

== ENCOUNTER 2024-12-02 08:55 | Outpatient (CLI) | payer MEDICARE, SELFPAY ==
[2024-12-02 20:25] LABS: Chloride 99 mmol/L (98-107)
[2024-12-02 20:26] LABS: Potassium 5.2 mmoL/L (3.5-5.1); Sodium 138 mmol/L (136-145)
[2024-12-02 20:29] LABS: Anion Gap 10.2 mEq/L (5-15); Blood Urea Nitrogen 21 mg/dl (9-20); Calcium 9.6 mg/dl (8.4-10.2); Carbon Dioxide 34 mmol/L (22.0-30.0); Estimated Glomerular Filt Rate 58 ml/min (>60); GFR (African American) 70 ML/MIN (>60); Glucose 98 mg/dl (74-100)
== END 2024-12-02 23:59 | disposition home or self-care (01) ==
LOC: LAB.DROPOF 12-03 13:51
PROVIDERS: PCP Nurse Practitioner; Visit Provider Nurse Practitioner
DX: E87.5 Hyperkalemia (principal)
CPT/HCPCS: 80048

== ENCOUNTER 2025-01-06 09:00 | Outpatient (CLI) | payer MEDICARE, SELFPAY ==
[2025-01-06 19:38] LABS: Alanine Aminotransferase 14 U/L (12-78); Albumin/Globulin Ratio 1.6 (1.1-1.8); Alkaline Phosphatase 55 U/L (38-126); Anion Gap 7.6 mEq/L (5-15); Aspartate Amino Transferase 24 U/L (17-59); Bilirubin,Total 0.3 mg/dl (0.2-1.3); Blood Urea Nitrogen 28 mg/dl (9-20); Calcium 9.8 mg/dl (8.4-10.2); Carbon Dioxide 35 mmol/L (22.0-30.0); Chloride 101 mmol/L (98-107); Estimated Glomerular Filt Rate 53 ml/min (>60); GFR (African American) 64 ML/MIN (>60); Globulin 2.5 g/dL (1.3-3.2); Glucose 93 mg/dl (74-100); Potassium 4.6 mmoL/L (3.5-5.1); Sodium 139 mmol/L (136-145); Total Protein,Serum 6.5 g/dl (6.3-8.2)
[2025-01-06 19:47] LABS: Free T4 (Free Thyroxine) 1.34 ng/dl (0.78-2.19)
[2025-01-06 20:24] LABS: Vitamin B12 429 pg/mL (239-931)
[2025-01-06 20:26] LABS: Thyroid Stimulating Hormone 1.29 uIU/mL (0.465-4.68)
== END 2025-01-06 23:59 | disposition home or self-care (01) ==
LOC: LAB.DROPOF 01-07 11:05
PROVIDERS: PCP Nurse Practitioner; Visit Provider Nurse Practitioner
DX: E03.9 Hypothyroidism, unspecified (principal); I10 Essential (primary) hypertension; E53.8 Deficiency of other specified B group vitamins; E87.5 Hyperkalemia
CPT/HCPCS: 80053; 82607; 84439; 84443

== ENCOUNTER 2025-03-09 13:47 | Outpatient (CLI) | payer MEDICARE, SELFPAY ==
--- OUTSIDE RECORDS SUMMARY | 2016-01-03 07:30 | XMS_ITS | Continuity of Care Document ---
Author Organization [facility] Address [address] [address] Phone Care Team Providers Care Hot Die Press Feeder Name Role Phone Jany Cavazos OD Unavailable Unavailable Allergies, Adverse Reactions, Alerts Substance Reaction Status Criticality PENICILLIN Active No Information Medications Medication Instructions Dosage Effective Dates (start - stop) Status Comments allopurinol 100 mg tablet take 1 tablet by oral route every day 100 MG - Active aspirin 81 mg tablet,delayed release take 1 tablet by oral route every day 81 MG - Active carvedilol 6.25 mg tablet take 1 tablet by oral route once with food 6.25 MG - Active Crestor 5 mg tablet take 1 tablet by oral route every day 5 MG - Active Effer-K 10 mEq effervescent tablet - Active furosemide 20 mg tablet take 1 tablet by oral route every day 20 MG - Active garlic oil 1,000 mg capsule - Active Multi Vitamin Unknown ORAL TABLET - Active ramipril 2.5 mg capsule take 1 capsule by oral route every day 2.5 MG - Active Travatan Z 0.004 % eye drops instill 1 drop by ophthalmic route every day into both eyes in the evening 1.00 drop - Active Vitamin D3 1,000 unit capsule take 1 Tablet by Oral route once 1 Tablet - Active Fish Oil 1,000 mg capsule take 1 tablet by oral route 2 times every day - Active metformin 500 mg tablet take 1 tablet by oral route every day 500 MG - Active omeprazole BUCCAL CAPSULE - Active Ilevro 0.3 % eye drops,suspension instill 1 drop by ophthalmic route every day to the left eye - No Longer Active Ilevro 0.3 % eye drops,suspension instill 1 drop by ophthalmic route every day 1 drop to the operative eye qd x 4wks 1 drop - No Longer Active Durezol 0.05 % [...] Diagnoses Date Provider Providers Copied on Encounter [facility] Physician s, [address] [place], [place], [facility], tel:[phone] [facility] [address] Presence of intraocular lens 6 Macy Carmichael. [address] [place], [place], [id number]. tel:[phone] Referring Provider: Valerio Stewart, [address] [place] [address], [address]. tel:[phone] [facility] Physician s, [address] [place], [address], tel:[phone] [facility] [address] [address] Presence of intraocular lens 2201 6 Macy Carmichael. [address] [place], [place], [address]. tel:[phone] Referring Provider: Valerio Stewart, [address] [place] [address], [address]. tel:[phone] [facility] Physician s, [address] [place], [place], [facility], tel:[phone] [facility] Age-related nuclear cataract, left eyePosterior subcapsular polar age-related cataract, left eye Apr-1 - 6 [facility]. [address], [address], [place], [place], [address]. tel:[phone] Referring Provider: Valerio Stewart, [address] [place], [address]. tel:[phone] [facility], [address] [place], [address], [place] tel:[phone] [facility] [address] No Information Apr-0 5- 6 [facility]. [address], [address], [place], [place], [address]. tel:[phone] [facility], [address] [place], [address], [place] tel:[phone] [facility] [address] [address] Presence of intraocular lens Mar-3 0- 6 No Information Referring Provider: Valerio Stewart, [address] [place], [address]. tel:[phone] [facility], [address] [place], [address], [place] tel:[phone] [facility] [address] [address] Presence of intraocular lens Mar-2 2- 6 Macy Carmichael. [address] [place], [place], [id number]. tel:[phone] Referring Provider: Valerio Stewart, [address] [place], [address]. tel:[phone] [facility], [address] [place], [address], [place] tel:[phone] [facility] Primary open-angle glaucoma, mild stageAge-rela new nuclear cataract, right eye Mar-2 - 6 [facility]. [address], [address], [place], [place], [address]. tel:[phone] Referring Provider: Valerio Stewart, [address] [place], [address]. tel:[phone] OFFICE/OUTPA TIENT VISIT, NEW [facility], [address] [facility], [place], [address], [place] tel:[phone] A[facility]ST[facility]II[facility] cataract evaluation (chief complaint) PSC (posterior subcapsular cataract), leftBilateral nuclear sclerosis cataractsDiab etes mellitus without ophthalmic manifestation sPosterior subcapsular polar age-related cataract, left eyeRegular astigmatism, bilateral 9-201 6 [facility]. [address], [address], [place], [place], [address]. tel:[phone] Referring Provider: Valerio Stewart, [address] [place], [address]. tel:[phone] Family History Family Member Type Diagnosis Age At Onset Problem (finding) Family history of Diabe ean mellitus Problem (finding) Family history of hyper tension Payers Payer name Insurance type Covered alliance party ID Authoriza tion(s) [employer] CI [id number] 2 Social History Type Description Quantity Date [...] (OD1st).-I-stent OD only-discussed Astigmatism management, pt not nhoiihqrep-pkm-vofed with Ilevro x 7 days prior to surgery. Related to See impression details Assessments Type Assessment Date No Information Patient Care Teams Name Effective Dates (start - stop) Status Members No Information
== END 2025-03-09 23:59 | disposition home or self-care (01) ==
LOC: RT 13:47
PROVIDERS: PCP Family Medicine; Visit Provider Physician Assistant
DX: R00.0 Tachycardia, unspecified (principal); R06.09 Other forms of dyspnea
CPT/HCPCS: 93225; 93227

== ENCOUNTER 2025-05-14 09:47 | Outpatient (CLI) | payer MEDICARE, SELFPAY ==
--- OUTSIDE RECORDS SUMMARY | 2025-05-14 09:56 | XMS_ITS | Continuity of Care Document ---
Author Organization [facility] [place] [address] Address [address] [place] [address] Care Team Providers Care Supply Chain Director Name Role Phone Devin Thibodeaux MD Primary Care Provider [phone] Encounters Date Type Department Care Team Description 12/23/2019 Travel 12/23/2019 4:15 PM EDT - 12/23/2019 7:22 PM EDT Emergency [facility] [address] [place] [address] Deshaun Patel MD Chest wall pain (Primary Dx); Chest pain, rule out acute myocardial infarction Discharge Disposition: Home or Self Care 03/18/2019 11:00 AM EDT Office Visit [facility] [address] [place] [address] Argelia Cortes APRN Essential hypertension (Primary Dx); ASHD (arteriosclerotic heart disease); S/P AVR; Cough due to TONA inhibitor; Dyslipidemia 12/10/2018 8:06 PM EDT - 12/12/2018 4:25 PM EDT Hospital Encounter [facility] [address] [address] [place] [address] Liz Lorenzo MD Krusling, Edward J, MD Conner, James C, MD Pneumonia of left lower lobe due to infectious organism (HCC) (Primary Dx); Hypoxia Discharge Disposition: Home or Self Care 06/18/2018 10:00 AM EDT Office Visit [facility] [address] [place] [address] Deshaun Yates MD ASHD (arteriosclerotic heart disease) (Primary Dx); S/P AVR; Cough due to TONA inhibitor; Dyslipidemia; Other emphysema (HCC) 01/09/2018 1:16 PM EDT - 01/09/2018 11:59 PM EDT Hospital Encounter [place] [id number] 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 APRN H/O prosthetic heart valve; Nonrheumatic aortic valve stenosis Discharge Disposition: Home or Self Care 12/14/[address] [address] Deshaun Yates MD 12/13/2017 10:00 AM EDT Office Visit [address] [address] 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 APRN ASHD (arteriosclerotic heart disease) (Primary Dx); H/O prosthetic heart valve; Essential hypertension; Other hyperlipidemia; Nonrheumatic aortic valve stenosis 12/11/2017 2:44 PM EDT - 12/11/2017 11:59 PM EDT Hospital Encounter [facility] [address] [place] [address] Devin Thibodeaux MD Emphysematous bleb (HCC) Discharge Disposition: Home or Self Care 07/03/[address] [address] Deshaun Yates MD Visit Follow Up 06/08/2017 9:40 AM EDT Office Visit [address] [address] Deshaun Yates MD S/P CABG (coronary artery bypass graft) (Primary Dx); S/P AVR; Other emphysema (HCC); Other hyperlipidemia; Essential hypertension 11/08/2016 1:00 PM EST Office Visit [facility] [address] [place] [address] 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, VIJAY H/O prosthetic heart valve (Primary Dx); ASHD (arteriosclerotic heart disease); Nonrheumatic aortic valve stenosis; Essential hypertension; Mixed hyperlipidemia 11/03/2016 9:57 AM EST - 11/03/2016 11:59 PM EST Hospital Encounter [facility] [address] [place] [address] 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, 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 H/O prosthetic heart valve; Nonrheumatic aortic valve stenosis Discharge Disposition: Home or Self Care 05/29/2016 Telephone [place] [address] 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, VIJAY Results 05/25/2016 9:58 AM EDT - 05/25/2016 11:59 PM EDT Hospital Encounter [facility] [address] [place] [phone] Deshaun Yates MD Secondary hypertension, unspecified; Nonrheumatic aortic valve stenosis; Coronary artery disease involving assiniboine and gros ventre tribes coronary artery of assiniboine and gros ventre tribes heart without angina pectoris Discharge Disposition: Home or Self Care 05/25/2016 11:00 AM EDT Office Visit [facility] [address] [place] [phone] Deshaun Yates MD S/P AVR (aortic valve replacement) (Primary Dx); S/P CABG (coronary artery bypass graft); Other hyperlipidemia; Essential hypertension 04/05/2016 Telephone [facility] [address] [place] [address] Deshaun Yates MD Appointment Needed 12/13/2015 11:45 AM EDT - 12/13/2015 12:00 PM EDT Surgery EDG [address] [place] [address] Jamie Villalobos MD CATARACT EXTRACTION WITH PHACOEMULSIFICATION AND INTRAOCULAR LENS 12/13/2015 11:39 AM EDT Anesthesia Event [facility] [address] [place] [address] Viki Joshi MD Alam, Masroor, MD 12/13/2015 10:25 AM EDT - 12/13/2015 12:37 PM EDT Hospital Encounter [facility] [address] [place] [address] Jamie Villalobos MD Discharge Disposition: Home or Self Care 11/22/2015 11:45 AM EDT - 11/22/2015 12:00 PM EDT Surgery [facility] [address] [place] [address] Jamie Villalobos MD CATARACT EXTRACTION WITH PHACOEMULSIFICATION AND INTRAOCULAR LENS 11/22/2015 11:11 AM EDT Anesthesia Event EDG [facility] [address] [place] [address] Nando Borja MD Alam, Masroor, MD 11/22/2015 10:09 AM EDT - 11/22/2015 12:13 PM EDT Hospital Encounter [facility] [address] [place] [address] Jamie Villalobos MD Discharge Disposition: Home or Self Care 11/15/[address] [address] Deshaun Yates MD Appointment Needed 04/12/2015 10:20 AM EDT Office Visit [facility]&[address] [address] Deshaun Yates MD S/P AVR (aortic valve replacement) (Primary Dx); S/P CABG (coronary artery bypass graft); Hyperlipidemia; COPD (chronic obstructive pulmonary disease) (HCC) 07/22/[address] [address] Ute Singer APRN Visit Follow Up 07/16/2014 Abstract [facility]&V [address] [address] Deshaun Yates MD 07/16/2014 9:40 AM EST Office Visit [address] [address] Ute Singer APRN S/P AVR (Primary Dx); CAD (coronary artery disease); HTN (hypertension); Hyperlipidemia; COPD (chronic obstructive pulmonary disease) ([facility]) 04/15/[address] [address] Deshaun Yates MD Appointment Needed 10/23/2013 12:28 PM EST - 10/23/2013 11:59 PM [place] [address] Ute Singer APRN CAD (coronary artery disease) Discharge Disposition: Home or Self Care 10/23/2013 2:00 PM EST Office Visit [address] [phone] Deshaun Yates MD S/P CABG (coronary artery bypass graft) (Primary Dx); S/P AVR; COPD (chronic obstructive pulmonary disease) ([facility]); HTN (hypertension); Hyperlipidemia 10/22/[address] [address] Deshaun Yates MD 06/17/[address] [address] Deshaun Yates MD Appointment Needed 04/15/2013 10:20 AM EDT Office Visit [address] [address] Ute Singer APRN S/P AVR (aortic valve replacement) (Primary Dx); CAD (coronary artery disease); HTN (hypertension); Hyperlipidemia 10/03/[address] [address] Deshaun Yates MD Medication Question 09/23/2012 9:30 AM EST - 09/23/2012 10:25 AM EST Surgery EDG PERIOP [facility] [place] [address] Solo Ng MD CYSTOSCOPY, URETEROSCOPY, LASER LITHOTRIPSY, RETROGRADE PYELOGRAM, STENT INSERTION 09/22/2012 3:07 PM EST - 09/23/2012 2:40 PM EST Hospital Encounter [facility] 2B2 UROLOGY [facility] [place] [address] Kermit Birzuela MD Cirulli, Christopher, MD Renal colic (Primary Dx); Hematuria; Ureteral obstruction Discharge Disposition: Home or Self Care 07/26/2012 Abstract [facility]&[address] [address] Deshaun Yates MD 07/26/2012 9:20 AM EST Office Visit [facility]&[address] [address] Deshaun Yates MD S/P AVR (aortic valve replacement); COPD (chronic obstructive pulmonary disease) ([facility]); S/P CABG (coronary artery bypass graft); HTN (hypertension); DM (diabetes mellitus) ([facility]); Hyperlipidemia 07/16/2012 9:52 AM EST - 07/17/2012 4:16 PM EST Hospital Encounter [facility] TCU 1A [facility] [place] [address] Jason Suárez MD Bankers, Bradley J, MD Febrile illness; H/O aortic valve replacement; HTN (hypertension); COPD (chronic obstructive pulmonary disease) ([facility]); Type II or unspecified type diabetes mellitus without mention of complication, not stated as uncontrolled ([facility]); CAD (coronary artery disease); S/P aortic valve replacement; Fever; Malaise Discharge Disposition: Home or Self Care 07/16/2012 9:35 AM EST - 07/16/2012 9:51 AM EST Hospital Encounter [facility] LABORATORY [facility] [place] [address] Discharge Disposition: Home or Self Care 07/01/[address] [address] Deshaun Yates MD 04/13/2012 7:29 PM EDT - 04/16/2012 3:06 PM EDT Hospital Encounter [facility] [address], [facility] Pedro Cordon MD Pfaff, Rhonda, MD Slone, Adam T, Pneumonia; CAD (coronary artery disease); Fever; Aortic stenosis; COPD (chronic obstructive pulmonary disease) ([facility]); DM (diabetes mellitus) ([facility]); HTN (hypertension); Hyperlipidemia; Hypotension; Malaise; S/P aortic valve replacement Discharge Disposition: Home or Self Care 03/15/[address] [address] Deshaun Yates MD Results 03/13/2012 1:43 PM EDT - 03/13/2012 11:59 PM EDT Hospital Encounter [facility] [address] [address] Ute Singer APRN S/P aortic valve replacement Discharge Disposition: Home or Self Care 03/12/2012 2:00 PM EDT Office Visit [address] [address] Ute Singer APRN S/P aortic valve replacement (Primary Dx); CAD (coronary artery disease); HTN (hypertension); Hyperlipidemia; COPD (chronic obstructive pulmonary disease) ([facility]); DM (diabetes mellitus) ([facility]) 09/22/2011 1:40 PM EST Office Visit [address] [phone] Ute Singer APRN Aortic stenosis (Primary Dx); CAD (coronary artery disease); Hyperlipidemia; HTN (hypertension); COPD (chronic obstructive pulmonary disease) ([facility]); DM (diabetes mellitus) ([facility]) 07/20/[address] [place] [phone] Deshaun Yates MD DM (diabetes mellitus) (HCC); COPD (chronic obstructive pulmonary disease) (HCC); HTN (hypertension); Hyperlipidemia 05/25/2011 11:59 AM EDT - 05/25/2011 11:59 PM EDT Hospital Encounter [facility] ECHO [address] [place] [address] Deshaun Yates MD Essential hypertension, benign; Coronary atherosclerosis of assiniboine and gros ventre tribes coronary artery; Aortic valve disorders Discharge Disposition: Home or Self Care 02/23/2011 5:38 AM EDT - 03/02/2011 3:50 PM EDT Hospital Encounter EDG 5D TCU [facility] [address] [facility] Tay Lombardo MD Discharge Disposition: Home or Self Care 02/23/2011 8:00 AM EDT - 02/23/2011 6:30 PM EDT Surgery EDG PERIOP [facility] [address] [facility] Tay Lombardo MD AORTIC VALVE REPAIR OR REPLACEMENT 02/21/2011 4:20 PM EDT - 02/21/2011 11:59 PM EDT Hospital Encounter Zaina EKG [facility] [place] [address] Tay Lombardo MD Discharge Disposition: Home or Self Care 02/21/2011 1:36 PM EDT - 02/21/2011 2:29 PM EDT Hospital Encounter EDG D-WING XRAY [facility] [place] [address] Tay Lombardo MD Discharge Disposition: Home or Self Care 02/21/2011 2:30 PM EDT - 02/21/2011 4:19 PM EDT Hospital Encounter [facility]G VASCULAR LAB [facility] [place] [address] Tay Lombardo MD Bruit; Aortic valve disorders Discharge Disposition: Home or Self Care 02/21/2011 12:34 PM EDT - 02/21/2011 1:35 PM EDT Hospital Encounter EDG PRE-ADMIT TESTING [facility] 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 [address] Deshaun Yates MD Aortic stenosis; CAD (coronary artery disease) Discharge Disposition: Home or Self Care 01/28/2011 9:35 AM EDT - 01/28/2011 11:59 PM EDT Hospital Encounter [facility] LABORATORY [facility] [place] [address] Pre-op testing Discharge Disposition: Home or Self Care 01/25/2011 1:32 PM EDT - 01/25/2011 11:59 PM EDT Hospital Encounter [facility] [address] [place] [address] Deshaun Yates MD Essential hypertension, benign; Intermediate coronary syndrome (HCC); Undiagnosed cardiac murmurs; Shortness of breath; Debility, unspecified Discharge Disposition: Home or Self Care 01/25/2011 10:08 AM EDT - 01/25/2011 10:09 AM EDT Hospital [facility] [address] [place] [address] Deshaun Yates MD Intermediate coronary syndrome (HCC); Undiagnosed cardiac murmurs; Essential hypertension, benign Discharge Disposition: Home or Self Care 01/25/2011 10:10 AM EDT - 01/25/2011 1:31 PM EDT Hospital Encounter [facility] [address] [place] [address] Deshaun Yates MD Intermediate coronary syndrome (HCC); Undiagnosed cardiac murmurs; Essential hypertension, benign; Shortness of breath; Debility, unspecified Discharge Disposition: Home or Self Care 07/12/2002 3:37 PM EST - 07/18/2002 8:15 PM EST Hospital Encounter [facility] E[facility]S [facility] Generic, Historical Provider 07/11/2002 Hospital Encounter [facility] UNKNFTT Generic, Historical Provider Allergies Active Allergy Reactions Criticality Noted Date Comments Penicillins Hives 01/25/2011 Medications rosuvastatin (CRESTOR) 10 mg tablet Take 10 mg by mouth daily. Active MULTI-VITAMIN ORAL Take by mouth daily. Active [place]-3 Fatty Acids-Vitamin E (FISH OIL) 1,000 mg Cap Take 1,000 mg by mouth daily. Active Garlic 1,000 mg Cap Take 1,000 mg by mouth daily. Active Aspirin 81 mgIndications:CAD (coronary artery disease) Take 81 mg by mouth daily. Active carvedilol (COREG) 6.25 mg tablet Take 6.25 mg by mouth 2 times daily. Active cholecalciferol, vitamin D3, 1,000 unit Oral Tablet Take 1 Tab by mouth daily. Active Omeprazole 20 mg Oral Tablet, Delayed Release (E.C.) Take by mouth. Active metFORMIN (GLUCOPHAGE) 1,000 mg Oral Tablet Take 1,000 mg by mouth 2 times daily (with meals). Active nitroGLYCERIN (NITROSTAT) 0.4 mg SL Tablet, SublingualIndicat ions:ASHD (arteriosclerotic heart disease),S/P AVR,Cough due to TONA inhibitor,Dyslipi demia,Essential hypertension Place 1 Tab under the tongue every 5 minutes as needed. 30 Tab 3 9 Active losartan (COZAAR) 50 mg Oral TabletIndications :ASHD (arteriosclerotic heart disease),S/P AVR,Cough due to TONA inhibitor,Dyslipi demia,Essential hypertension Take 1 Tab by mouth daily. 9 Active Active Problems Problem Noted Date Diagnosed Date S/P AVR 03/18/2019 Dyslipidemia 03/18/2019 LLL pneumonia 12/11/2018 Sepsis 12/11/2018 Acute pulmonary insufficiency 12/11/2018 Fever 04/14/2012 Malaise 04/14/2012 Hypotension 04/14/2012 Aortic stenosis 09/22/2011 Overview (09/22/2011): S/P porcine AVR ASHD (arteriosclerotic heart disease) 09/22/2011 Overview (09/22/2011): SVG x 1 DM (diabetes mellitus) 07/20/2011 COPD (chronic obstructive pulmonary disease) HTN (hypertension) 07/20/2011 Hyperlipidemia 07/20/2011 Former smoker Overview (11/16/2015): quit in 2001 H/O prosthetic heart valve Immunizations Immunization Administration Dates Next Due Influenza Patient Reported 06/14/2012 Pneumococcal Polysaccharide 23 Valent 07/17/2011 Family History Medical History Relation Name Comments Diabetes Brother Heart Disease Brother Lung Cancer Father attributed to w orking in [employer] in [place] and working in a [employer] Heart Disease Mother Hypertension Mother Heart Disease Sister Anesth Problems Neg Hx Relation Name Status Comments Brother Alive Father Mother Sister Social History Smoking Status as of 05/14/2025 Tobacco Use Types Packs/Day Years Used Date Smoking Tobacco: Never Assessed Sex and Gender Information Value Date Recorded Sex Assigned at Not on file Legal Sex Male 9:00 PM EDT Gender Identity Not on file Sexual Orientation Not on file Last Filed Vital Signs Vital Sign Reading Time Taken Comments Blood Pressure 164/82 12/23/2019 7:17 PM EDT Pulse 72 12/23/2019 7:17 PM EDT Temperature 36.6 C (97.9 F) 12/23/2019 4:01 PM EDT Respiratory Rate 15 12/23/2019 6:52 PM EDT Oxygen Saturation 96% 12/23/2019 6:52 PM EDT Inhaled Oxygen Concentration - - Weight 75.3 kg (166 lb) 03/18/2019 10:48 AM EDT Height 167.6 cm (5' 6 ) 03/18/2019 10:48 AM EDT Body Mass Index 26.79 03/18/2019 10:48 AM EDT Plan of Treatment Not on file Medical Devices Implanted Type Area Clock And Watch Hands Dipper Device Identifier Shelf Expiration Date Model / Serial / Lot Stent Contour 6 X 24 #[id number] - [id number] Implanted:Qty: 1 on 09/23/2012 by Sool Ng MD at [facility] Stent Right: Ureter [employer]:MICROVASIVE: UROLOGY 06/03/2015 180-222 / / [id number] Bioprosthesis Valve Aortic Porcine Irma Lomeli 21mm - [id number] Implanted:Qty: 1 on 02/23/2011 at [facility] Explanted:at [facility] (Quantity not on file) Heart LOMELI LIFESCI 01/01/2013 2650-21 / [id number] / Description:Jamie villanueva LLucasC. 21 mm IRMA Aortic Valve 2650-21, PO#[id number] Lens Intraocular Preloaded 22.0 Diopter - [id number] Implanted:Qty: 1 on 11/22/2015 by Jamie Villalobos MD at [facility] Right: Eye AUGUST LAB:SURG 08/02/2018 AU00T0.22 0 / [id number] / Stent Bypass Micro Trabecular Istent Left - [id number] Implanted:Qty: 1 on 11/22/2015 by Jamie Villalobos MD at [facility] Right: Eye GLAUKOS MILIND 04/03/2018 GTS-100-L / [id number] / [id number] Lens Intraocular Preloaded 22.0 Diopter - [id number] Implanted:Qty: 1 on 12/13/2015 by Jamie Villalobos MD at [facility] Left: Eye AUGUST LAB:SURG 08/02/2018 AU00T0.22 0 / [id number] / Procedures Procedure Name Priority Date/Time Associated Diagnosis Comments TROPONIN-T HIGH SENSITIVITY 2HR Timed 12/23/2019 6:03 PM EDT XR CHEST PA AND LATERAL JAMAL 12/23/19 20 5:12 PM EDT TROPONIN-T HIGH SENSITIVITY BASELINE W/ REFLEX STAT 12/23/2019 4:48 PM EDT BASIC METABOLIC PANEL STAT 12/23/2019 4:48 PM EDT CBC STAT 12/23/2019 4:31 PM EDT EK EKG 12 LEAD STAT 12/23/2019 4:00 PM EDT SALINE LOCK IV STAT 12/23/2019 4:00 PM EDT LIPID PANEL REFLEX Routine 02/14/2019 ASHD (arteriosclerotic heart disease) Dyslipidemia COMPREHENSIVE METABOLIC PANEL Routine 02/14/2019 ASHD (arteriosclerotic heart disease) S/P AVR Cough due to TONA inhibitor Dyslipidemia Essential hypertension GLUCOSE METER POC Routine 12/12/2018 1:24 PM EDT GLUCOSE METER POC Routine 12/12/2018 8:23 AM EDT ECG AND WAVEFORMS - TELEMETRY Routine 12/12/2018 7:00 AM EDT MICROALBUMIN/CREATININE RATIO URINE Routine 12/12/2018 7:00 AM EDT GLUCOSE METER POC Routine 12/11/2018 10:26 PM EDT GLUCOSE METER POC Routine 12/11/2018 9:22 PM EDT ECG AND WAVEFORMS - TELEMETRY Routine 12/11/2018 7:25 PM EDT GLUCOSE METER POC Routine 12/11/2018 6:00 PM EDT GLUCOSE METER POC Routine 12/11/2018 1:11 PM EDT GLUCOSE METER POC Routine 12/11/2018 9:20 AM EDT ECG AND WAVEFORMS - TELEMETRY Routine 12/11/2018 8:55 AM EDT SCANNED EKG 12/11/2018 8:38 AM EDT URINALYSIS STAT 12/11/2018 8:28 AM EDT EXTRA MORAN URINE CX STAT 12/11/2018 8:28 AM EDT TROPONIN-T HIGH SENSITIVITY BASELINE W/ REFLEX Timed 12/10/2018 11:43 PM EDT BLOOD CULTURE (NO STAIN) STAT 019 9:39 PM EDT BLOOD CULTURE (NO STAIN) STAT 019 9:39 PM EDT HEMOGLOBIN A1C Routine 12/10/2018 9:38 PM EDT TROPONIN-T HIGH SENSITIVITY BASELINE W/ REFLEX STAT 12/10/2018 9:38 PM EDT BASIC METABOLIC PANEL STAT 12/10/2018 9:38 PM EDT CBC WITH DIFF STAT 12/10/2018 9:38 PM EDT XR CHEST PA AND LATERAL JAMAL 12/11/19 19 9:07 PM EDT LACTIC ACID STAT 12/10/2018 8:39 PM EDT SALINE LOCK IV STAT 12/10/2018 8:13 PM EDT EK EKG 12 LEAD STAT 12/10/2018 7:55 PM EDT EC ECHOCARDIOGRAM COMPLETE W DOPPLER AND COLOR FLOW MAPPING Routine 01/09/2018 2:32 PM EDT H/O prosthetic heart valve Nonrheumatic aortic valve stenosis CT CHEST W CONTRAST Routine 12/11/2017 3:20 PM EDT Emphysematous bleb (HCC) CREATININE ISTAT Routine 12/11/2017 3:13 PM EDT LIPID PANEL REFLEX Routine 12/04/2017 COMPREHENSIVE METABOLIC PANEL Routine 12/04/2017 CBC WITH DIFF Routine 12/04/2017 SCANNED LABS 11/08/2016 1:55 PM EST EC ECHOCARDIOGRAM COMPLETE W DOPPLER AND COLOR FLOW MAPPING Routine 11/03/2016 11:06 AM EST H/O prosthetic heart valve Nonrheumatic aortic valve stenosis EC ECHOCARDIOGRAM COMPLETE W DOPPLER AND COLOR FLOW MAPPING Routine 05/25/2016 10:38 AM EDT Secondary hypertension, unspecified Nonrheumatic aortic valve stenosis Coronary artery disease involving assiniboine and gros ventre tribes coronary artery of assiniboine and gros ventre tribes heart without angina pectoris PERIPHERAL BLOCK Routine 12/13/2015 11:55 AM EDT CATARACT EXTRACTION WITH PHACOEMULSIFICATION AND INTRAOCULAR LENS 12/13/2015 11:47 AM EDT Nuclear sclerotic cataract of left eye Special Needs FAX GLUCOSE METER POC Routine 12/13/2015 11:07 AM EDT PERIPHERAL BLOCK Routine 11/22/2015 11:24 AM EDT CATARACT EXTRACTION WITH PHACOEMULSIFICATION AND INTRAOCULAR LENS 11/22/2015 11:18 AM EDT Nuclear sclerotic cataract of right eye Special Needs [id number] EYE 12/12 GLUCOSE METER POC Routine 11/22/2015 10:46 AM EDT SCANNED LABS 02/15/2015 10:11 AM EDT LIPID PANEL REFLEX Routine 07/07/2014 SCANNED LABS 10/31/2013 10:57 AM EST SCANNED LABS 10/31/2013 10:55 AM EST EC ECHOCARDIOGRAM COMPLETE W DOPPLER AND COLOR FLOW MAPPING Routine 10/23/2013 1:48 PM EST CAD (coronary artery disease) SCANNED RHYTHM STRIPS 09/25/2012 9:08 AM EST SCANNED PRE/POST PROCEDURES 09/25/2012 9:08 AM EST SCANNED ANESTHESIA FORMS 013 9:08 AM EST CYSTOSCOPY STENT INSERTION OR EXCHANGE 09/23/2012 9:28 AM EST same as preop Case Notes [facility] Special Needs 08:12 CYSTOSCOPY, URETEROSCOPY, LASER LITHOTRIPSY, RETROGRADE PYELOGRAM, STENT INSERTION 09/23/2012 9:28 AM EST same as preop Case Notes [facility] Special Needs 08:12 EK EKG 12 LEAD STAT 09/23/2012 8:[address] ABDOMEN PELVIS WO ORAL OR IV CONTRAST STAT 09/22/2012 3:46 PM EST DIFFERENTIAL STAT 09/22/2012 3:38 PM EST BASIC METABOLIC PANEL STAT 09/22/2012 3:38 PM EST CBC WITH DIFF STAT 09/22/2012 3:38 PM EST URINALYSIS STAT 09/22/2012 3:31 PM EST URINE CULTURE (NO STAIN) STAT 013 3:31 PM EST SCANNED OR REPORT 07/29/2012 12:00 AM EST EC ECHOCARDIOGRAM TRANSESOPHAGEAL W DOPPLER AND COLOR FLOW MAPPING Routine 07/17/2012 12:06 PM EST SCANNED RHYTHM STRIPS 07/17/2012 8:08 AM EST IP CONSULT TO CARDIOLOGY Routine 9:39 PM EST SCANNED RHYTHM STRIPS 07/16/2012 7:44 PM EST EC ECHOCARDIOGRAM COMPLETE W DOPPLER AND COLOR FLOW MAPPING STAT 07/16/2012 4:48 PM EST URINALYSIS STAT 07/16/2012 4:30 PM EST XR CHEST AP PORTABLE STAT 07/16/2012 11:32 AM EST BLOOD CULTURE (NO STAIN) STAT 11:25 AM EST SEDIMENTATION RATE AUTOMATED Routine 07/16/2012 11:09 AM EST DIFFERENTIAL STAT 07/16/2012 11:09 AM EST BASIC METABOLIC PANEL STAT 07/16/2012 11:09 AM EST CBC WITH DIFF STAT 07/16/2012 11:09 AM EST BLOOD CULTURE (NO STAIN) STAT 11:09 AM EST EK EKG 12 LEAD STAT 07/16/2012 11:02 AM EST XR CHEST PA AND LATERAL JAMAL 04/16/20 12 6:30 AM EDT DIFFERENTIAL Early AM 04/16/2012 5:31 AM EDT CBC WITH DIFF Early AM 04/16/2012 5:31 AM EDT BASIC METABOLIC PANEL Early AM 04/16/2012 5:31 AM EDT PT / INR Routine 04/16/2012 5:31 AM EDT EC ECHOCARDIOGRAM COMPLETE W DOPPLER AND COLOR FLOW MAPPING STAT 04/15/2012 1:20 PM EDT DIFFERENTIAL Early AM 04/15/2012 6:38 AM EDT CBC WITH DIFF Early AM 04/15/2012 6:38 AM EDT BASIC METABOLIC PANEL Early AM 04/15/2012 6:38 AM EDT .C DIFF TOXIN DNA RESULTS Routine 04/14/2012 10:[address] CHEST HIGH RESOLUTION W CONTRAST JAMAL 04/14/2012 9:48 AM EDT DIFFERENTIAL Early AM 04/14/2012 8:56 AM EDT ANTINUCLEAR ANTIBODIES (ENEIDA) SCREEN BY MOUNA W/ REFLEX TO IFA Routine 04/14/2012 8:56 AM EDT CREATINE KINASE Routine 04/14/2012 8:56 AM EDT LACTATE DEHYDROGENASE Routine 04/14/2012 8:56 AM EDT SEDIMENTATION RATE AUTOMATED Routine 04/14/2012 8:56 AM EDT CORTISOL STAT 04/14/2012 8:56 AM EDT CBC WITH DIFF Early AM 04/14/2012 8:56 AM EDT BASIC METABOLIC PANEL Early AM 04/14/2012 8:56 AM EDT XR CHEST PA AND LATERAL JAMAL 04/13/20 12 9:06 PM EDT URINALYSIS STAT 04/13/2012 8:45 PM EDT URINE CULTURE (NO STAIN) STAT 8:45 PM EDT DIFFERENTIAL STAT 04/13/2012 8:15 PM EDT LIPASE LEVEL STAT 04/13/2012 8:15 PM EDT LACTIC ACID STAT 04/13/2012 8:15 PM EDT TROPONIN-I STAT 04/13/2012 8:15 PM EDT COMPREHENSIVE METABOLIC PANEL STAT 04/13/2012 8:15 PM EDT CBC WITH DIFF STAT 04/13/2012 8:15 PM EDT BLOOD CULTURE (NO STAIN) STAT 8:15 PM EDT BLOOD CULTURE (NO STAIN) STAT 8:15 PM EDT EK EKG 12 LEAD STAT 04/13/2012 7:43 PM EDT EC ECHOCARDIOGRAM COMPLETE W DOPPLER AND COLOR FLOW MAPPING Routine 03/13/2012 2:40 PM EDT S/P aortic valve replacement SCANNED LABS 03/12/2012 12:00 AM EDT CAD (coronary artery disease) S/P aortic valve replacement SCANNED RADIOLOGY REPORT 12:00 AM EDT CAD (coronary artery disease) S/P aortic valve replacement SCANNED RADIOLOGY REPORT 12:00 AM EDT CAD (coronary artery disease) S/P aortic valve replacement SCANNED RADIOLOGY REPORT 012 12:00 AM EDT S/P aortic valve replacement SCANNED RADIOLOGY REPORT 012 12:00 AM EDT CAD (coronary artery disease) SCANNED LABS 10/05/2011 12:00 AM EST EC ECHOCARDIOGRAM COMPLETE W DOPPLER AND COLOR FLOW MAPPING Routine 05/25/2011 12:50 PM EDT Essential hypertension, benign Coronary atherosclerosis of [place] coronary artery Aortic valve disorders SCANNED LABS 03/06/2011 12:00 AM EDT SCANNED OR REPORT 03/06/2011 12:00 AM EDT SCANNED PRE/POST PROCEDURES 03/06/2011 12:00 AM EDT SCANNED ANESTHESIA FORMS 011 12:00 AM EDT PT / INR Early AM 03/02/2011 5:29 AM EDT PT / INR Early AM 03/01/2011 5:19 AM EDT BASIC METABOLIC PANEL Routine 02/28/2011 1:16 PM EDT IP CONSULT TO SOCIAL WORK Routine 02/28/2011 8:42 AM EDT XR CHEST PA AND LATERAL JAMAL 02/29/20 11 6:26 AM EDT PT / INR Early AM 02/28/2011 5:33 AM EDT LOWER RESPIRATORY CULTURE (STAIN INCLUDED) Routine 02/27/2011 11:52 AM EDT XR CHEST PA AND LATERAL JAMAL 02/28/20 11 10:12 AM EDT PT / INR Early AM 02/27/2011 5:43 AM EDT XR CHEST PA AND LATERAL Early AM 02/27/20 11 8:12 AM EDT EK EKG 12 LEAD Early AM 02/26/2011 8:10 AM EDT HEPATIC FUNCTION PANEL STAT 1 5:15 AM EDT LIPASE LEVEL STAT 02/26/2011 5:02 AM EDT AMYLASE LEVEL STAT 02/26/2011 5:02 AM EDT SMEAR REVIEW Timed 02/26/2011 5:02 AM EDT DIFFERENTIAL Timed 02/26/2011 5:02 AM EDT PT / INR Early AM 02/26/2011 5:02 AM EDT CBC WITH DIFF Timed 02/26/2011 5:02 AM EDT BASIC METABOLIC PANEL Timed 02/26/2011 5:02 AM EDT PT / INR Timed 02/25/2011 10:20 AM EDT POTASSIUM WHOLE BLOOD Timed 02/25/2011 8:25 AM EDT XR CHEST AP PORTABLE Timed 02/25/2011 7:19 AM EDT CBC Early AM 02/25/2011 4:30 AM EDT BASIC METABOLIC PANEL Early AM 02/25/2011 4:30 AM EDT POTASSIUM WHOLE BLOOD Timed 02/25/2011 12:35 AM EDT POTASSIUM WHOLE BLOOD STAT 02/24/2011 8:15 PM EDT POTASSIUM WHOLE BLOOD STAT 02/24/2011 1:10 PM EDT POTASSIUM WHOLE BLOOD STAT 02/24/2011 8:25 AM EDT EK EKG 12 LEAD Routine 02/24/2011 7:55 AM EDT XR CHEST AP PORTABLE Timed 02/24/2011 6:23 AM EDT BLOOD GAS ARTERIAL STAT 02/24/2011 5:13 AM EDT CBC Early AM 02/24/2011 5:13 AM EDT BASIC METABOLIC PANEL Early AM 02/24/2011 5:13 AM EDT BLOOD GAS ARTERIAL Routine 02/24/2011 2:06 AM EDT POTASSIUM WHOLE BLOOD STAT 02/24/2011 2:06 AM EDT BLOOD GAS ARTERIAL STAT 02/24/2011 12:26 AM EDT HEMOGLOBIN AND HEMATOCRIT STAT 02/24/2011 12:26 AM EDT POTASSIUM WHOLE BLOOD Timed 02/24/2011 12:26 AM EDT BLOOD GAS ARTERIAL STAT 02/23/2011 10:34 PM EDT TRANSFUSE RED BLOOD CELLS STAT 02/23/2011 9:45 PM EDT BLOOD GAS ARTERIAL STAT 02/23/2011 9:17 PM EDT RED BLOOD CELLS REQUEST STAT 02/24/20 11 8:58 PM EDT TRANSFUSE RED BLOOD CELLS STAT 02/23/2011 8:43 PM EDT RED BLOOD CELLS REQUEST STAT 02/24/20 11 8:23 PM EDT HEMOGLOBIN AND HEMATOCRIT STAT 02/23/2011 8:08 PM EDT POTASSIUM WHOLE BLOOD STAT 02/23/2011 8:08 PM EDT TRANSFUSE FRESH FROZEN PLASMA STAT 02/23/2011 6:45 PM EDT TRANSFUSE FRESH FROZEN PLASMA STAT 02/23/2011 6:33 PM EDT TRANSFUSE FRESH FROZEN PLASMA STAT 02/23/2011 5:45 PM EDT TRANSFUSE RED BLOOD CELLS STAT 02/23/2011 5:45 PM EDT TRANSFUSE FRESH FROZEN PLASMA STAT 02/23/2011 5:35 PM EDT TRANSFUSE RED BLOOD CELLS STAT 02/23/2011 5:30 PM EDT RED BLOOD CELLS REQUEST STAT 02/24/20 11 4:58 PM EDT PAT UPDATED SPECIMEN STAT 02/23/2011 4:53 PM EDT RED BLOOD CELLS REQUEST STAT 02/24/20 11 4:52 PM EDT FFP/PLASMA REQUEST STAT 02/23/2011 4:43 PM EDT BLOOD GAS ARTERIAL STAT 02/23/2011 4:15 PM EDT POTASSIUM WHOLE BLOOD Timed 02/23/2011 4:15 PM EDT HEMOGLOBIN AND HEMATOCRIT Timed 02/23/2011 4:15 PM EDT O2 SAT - MIXED VENOUS Timed 02/23/2011 3:42 PM EDT XR CHEST AP PORTABLE STAT 02/23/2011 1:32 PM EDT FIBRINOGEN STAT 02/23/2011 1:09 PM EDT PARTIAL THROMBOPLASTIN TIME STAT 02/23/2011 1:09 PM EDT PT / INR STAT 02/23/2011 1:09 PM EDT BLOOD GAS ARTERIAL STAT 02/23/2011 1:09 PM EDT POTASSIUM WHOLE BLOOD STAT 02/23/2011 1:09 PM EDT CBC STAT 02/23/2011 1:09 PM EDT CORONARY ARTERY BYPASS GRAFT 02/23/2011 8:12 AM EDT SAME PRE OP Special Needs SAUL CPT;10096 [id number] AORTIC VALVE REPAIR OR REPLACEMENT 02/23/2011 8:12 AM EDT SAME PRE OP Special Needs [facility] CPT;[id number] STAPHYLOCOCCUS AUREUS SCREEN Routine 02/23/2011 7:30 AM EDT PATHOLOGY TISSUE REPORT Routine 02/24/20 11 5:30 AM EDT EK EKG 12 LEAD Pre-Op 02/21/2011 4:24 PM EDT VA US CAROTID DUPLEX BILATERAL Routine 02/21/2011 3:46 PM EDT Bruit Aortic valve disorders PREADMISSION TYPE AND SCREEN Pre-Op 02/21/2011 1:52 PM EDT XR CHEST PA AND LATERAL Pre-Op 02/22/20 11 1:39 PM EDT ANTIBODY SCREEN IGG Pre-Op 02/21/2011 1:20 PM EDT ABORH Pre-Op 02/21/2011 1:20 PM EDT DIFFERENTIAL Pre-Op 02/21/2011 1:20 PM EDT PT / INR Pre-Op 02/21/2011 1:20 PM EDT PARTIAL THROMBOPLASTIN TIME Pre-Op 02/21/2011 1:20 PM EDT HEMOGLOBIN A1C Pre-Op 02/21/2011 1:20 PM EDT BASIC METABOLIC PANEL Pre-Op 02/21/2011 1:20 PM EDT CBC WITH DIFF Pre-Op 02/21/2011 1:20 PM EDT BLOOD GAS ARTERIAL Pre-Op 02/21/2011 1:15 PM EDT URINALYSIS Pre-Op 02/21/2011 1:00 PM EDT SCANNED CARDIAC MOLD PRESS OPERATOR 011 12:00 AM EDT SCANNED CARDIAC MOLD PRESS OPERATOR 011 12:00 AM EDT CARDIAC PROCEDURE-MOLD PRESS OPERATOR ONLY 01/31/2011 2:02 PM EDT ABN ECHO SOB CBC Routine 01/28/2011 10:10 AM EDT Pre-op testing BASIC METABOLIC PANEL Routine 01/28/2011 10:10 AM EDT Pre-op testing NM MYOCARDIAL PERFUSION SPECT LEXISCAN STRESS AND REST Routine 01/25/2011 2:50 PM EDT Essential hypertension, benign Intermediate coronary syndrome (HCC) Undiagnosed cardiac murmurs Shortness of breath Debility, unspecified ST STRESS TEST LEXISCAN Routine 01/26/20 11 1:40 PM EDT Essential hypertension, benign Intermediate coronary syndrome (HCC) Undiagnosed cardiac murmurs Shortness of breath Debility, unspecified EC ECHOCARDIOGRAM COMPLETE W DOPPLER AND COLOR FLOW MAPPING Routine 01/25/2011 11:50 AM EDT Intermediate coronary syndrome (HCC) Undiagnosed cardiac murmurs Essential hypertension, benign Results * TROPONIN-T HIGH SENSITIVITY 2HR (12/23/2019 6:03 PM EDT) kk-[id number]-[id number] 2HR 9 <22 ng/L 12/23/2019 6:50 PM EDT [facility] Comment:See the website [facility] for rule out MD care pathway, conditions other than AMI that can cause elevated hs cTnT, and comparison of values from the 4th and 5th generation Song tests. https://askmayoexpert.[facility].org/topic/clinical-answers/gnt-15895251/cpm-203 55506 hs-cTnT 2Hr Delta from Baseline -1 <4 ng/L 12/23/2019 6:50 PM EDT [facility] Blood VENOUS BLOOD / Unknown Venipuncture / Unknown 12/23/2019 6:03 PM EDT 12/23/2019 6:05 PM EDT Narrative [facility] - 12/23/2019 6:50 PM EDT Ingestion of arnulfo doses of biotin (>5 mg/day) taken within 8 hours of drawing blood sample can interfere with this immunoassay test. us Deshaun Patel MD CHEMISTRY ORDERABLES Final Re sult [facility] [address] [facility] [place] [address] * XR CHEST PA AND LATERAL (12/23/2019 5:12 PM EDT) Only the most recent of8 resultswithin the time period is included. Anatomical Region Laterality Modality Chest Radiographic Amarilis ging 12/23/2019 5:12 PM EDT Impressions 12/23/2019 5:17 PM EDT No acute finding. - Narrative 12/23/2019 5:17 PM EDT PA AND LATERAL CHEST X-RAY, 12/23/2019 5:12 PM CLINICAL HISTORY: -CHEST PAIN COMPARISON: 12/10/2018. PROCEDURE COMMENTS: Frontal and lateral views of the chest. FINDINGS: There are sternotomy wires and a prosthetic aortic valve. The lungs are clear. The costophrenic sulci are sharp. There is no pneumothorax. The heart and mediastinal contours are normal. There are no acute osseous findings in the chest. Procedure Note Chayo Guzman MD - 12/23/2019 PA AND LATERAL CHEST X-RAY, 12/23/2019 5:12 PM CLINICAL HISTORY: -CHEST PAIN COMPARISON: 12/10/2018. PROCEDURE COMMENTS: Frontal and lateral views of the chest. FINDINGS: There are sternotomy wires and a prosthetic aortic valve. Thelungs are clear. The costophrenic sulci are sharp. There is no pneumothorax. Theheart and mediastinal contours are normal. There are no acute osseous findingsin the chest. IMPRESSION: No acute finding. - us Deshaun Patel MD IMG DIAGNOSTIC IMAGING ORDERA BLES Final Result * TROPONIN-T HIGH SENSITIVITY BASELINE W/ REFLEX (12/23/2019 4:48 PM EDT) Only the most recent of3 resultswithin the time period is included. ip-[id number]-N 10 <22 ng/L 12/23/2019 5:18 PM EDT [facility] Comment:See the website [employer] for rule out MD care pathway, conditions other than AMI that can cause elevated hs cTnT, and comparison of values from the 4th and 5th generation Song tests. https://askmayoexpert.[facility].org/topic/clinical-answers/gnt-94314470/cpm-203 78416 Blood VENOUS BLOOD / Unknown Venipuncture / Unknown 12/23/2019 4:48 PM EDT 12/23/2019 4:50 PM EDT Narrative [facility] - 12/23/2019 5:18 PM EDT Ingestion of arnulfo doses of biotin (>5 mg/day) taken within 8 hours of drawing blood sample can interfere with this immunoassay test. us Deshaun Patel MD CHEMISTRY ORDERABLES Final Re sult [facility] [address] [place] [address] * (ABNORMAL) BASIC METABOLIC PANEL (12/23/2019 4:48 PM EDT) Only the most recent of13 resultswithin the time period is included. Sodium 135(L) 136 - 145 mmol/L 12/23/2019 5:18 PM EDT [facility] Potassium 4.8 3.5 - 5.0 mmol/L 12/23/2019 5:18 PM EDT [facility] Chloride 96(L) 98 - 107 mmol/L 12/23/2019 5:18 PM EDT [facility] Total CO2 28 22 - 29 mmol/L 12/23/2019 5:18 PM EDT [facility] Anion Gap 11 7 - 16 mmol/L 12/23/2019 5:18 PM EDT [facility] Calcium 9.9 8.8 - 10.4 mg/dL 12/23/2019 5:18 PM EDT [facility] Glucose Lvl 101(H) 82 - 100 mg/dL 12/23/2019 5:18 PM EDT [facility] BUN 14 8 - 23 mg/dL 12/23/2019 5:18 PM EDT [facility] Creatinine 0.93 0.67 - 1.30 mg/dL 12/23/2019 5:18 PM EDT [facility] GFR Afr Am 92 >=60 mL/min/1.7 3 m2 12/23/2019 5:18 PM EDT [facility] GFR Non Afr Am 79 >=60 mL/min/1.7 3 m2 12/23/2019 5:18 PM EDT [facility] Comment: This estimated GFR was calculated using CKD-EPI equation which is modified based on ethnicity for Non Americans and Americans. Both results are reported since it is not always possible to determine the patient's ethnicity. This equation should only be used for individuals 18 and older. It has not been validated for use with the elderly (>70 years), women, or in some racial or ethnic subgroups, such as Hispanics. The equation will be less accurate in people with differences in nutritional status or muscle mass. Blood VENOUS BLOOD / Unknown Venipuncture / Unknown 12/23/2019 4:48 PM EDT 12/23/2019 4:50 PM EDT us Deshaun Patel MD CHEMISTRY ORDERABLES Final Re sult [facility] [address] [place] [address] * (ABNORMAL) CBC (12/23/2019 4:31 PM EDT) Only the most recent of5 resultswithin the time period is included. WBC 7.3 4.0 - 11.0 x10(3)/mcL 12/23/2019 4:38 PM EDT [facility] RBC 4.25(L) 4.30 - 5.81 x10(6)/mcL 12/23/2019 4:38 PM EDT [facility] Hgb 12.3(L) 13.5 - 17.1 g/dL 12/23/2019 4:38 PM EDT [facility] Hct 38.4(L) 38.9 - 51.6 % 12/23/2019 4:38 PM EDT [facility] MCV 90.3 82.5 - 99.8 fL 12/23/2019 4:38 PM EDT [facility] MCH 28.8 27.0 - 34.3 pg 12/23/2019 4:38 PM EDT [facility] MCHC 31.9(L) 32.1 - 35.3 g/dL 12/23/2019 4:38 PM EDT [facility] RDW 15.3(H) 11.5 - 15.0 % 12/23/2019 4:38 PM EDT [facility] Platelet 203 144 - 423 x10(3)/mcL 12/23/2019 4:38 PM EDT [facility] MPV 9.1 6.8 - 10.8 fL 12/23/2019 4:38 PM EDT [facility] Blood VENOUS BLOOD / Unknown Venipuncture / Unknown 12/23/2019 4:31 PM EDT 12/23/2019 4:36 PM EDT us Deshaun Patel MD HEMATOLOGY ORDERABLES Final R esult [place] [id number] * EK EKG 12 LEAD (12/23/2019 4:00 PM EDT) Only the most recent of8 resultswithin the time period is included. Anatomical Region Laterality Modality Electrocardiogra phy 12/23/2019 4:09 PM EDT Impressions 12/23/2019 5:52 PM EDT [facility] Test Date: 2019-12-23 Pat Name: RICKEY RUSH Department: DEPID Room: Gender: Male Car Chaser: [facility] : 1945 Requested By: [facility] Order Number: [id number] Reading MD: Roger Nguyen MD Measurements Intervals [place] Rate: 75 P: 28 OR: 164 QRS: 17 QRSD: 90 T: 47 QT: 356 QTc: 400 Interpretive Statements SINUS RHYTHM normal Electronically Signed On 12-23-2019 17:52:14 EDT by Roger Nguyen MD Narrative Procedure Note Roger Nguyen MD - 12/23/[address] Test Date: 2019-12-23 Pat Name: RICKEY RUSH Department: DEPID Room: Gender: Male Car Chaser: [place] : 1945 Requested By: [facility] Order Number: [id number] Reading MD: Roger Nguyen MD Measurements Intervals [place] Rate: 75 P: 28 OR: 164 QRS: 17 QRSD: 90 T: 47 QT: 356 QTc: 400 Interpretive Statements SINUS RHYTHM normal Electronically Signed On 12-23-2019 17:52:14 EDT by Roger Nguyen MD Deshaun Patel MD IMG ECG ORDERABLES Final Resu lt * LIPID PANEL REFLEX (02/14/2019) Only the most recent of3 resultswithin the time period is included. Cholesterol, Total 118 [facility] Triglyceride 89 <=150 mg/dL [facility] HDL 48 35 - 70 MG/DL [facility] VLDL Cholesterol Michael 18 [facility] OFFICE LDL Calculated 52 mg/dL [facility] Blood VENOUS BLOOD / Unknown 02/14/2019 Historical Provider CHEMISTRY ORDERABLES Final R esult [facility] * (ABNORMAL) COMPREHENSIVE METABOLIC PANEL (02/14/2019) Only the most recent of3 resultswithin the time period is included. Glucose Fasting 104 [facility] Creatine/Creatin ine 0.91 [facility] BUN/Creatinine Ratio 14 [facility] Sodium 142 mmol/L [facility] Potassium 5.5(A) 3.5 - 5.0 mmol/L [facility] Chloride 101 mmol/L [facility] Calcium 9.7 8.8 - 10.4 mg/dL [facility] Protein, Total 6.8 [facility] Albumin 4.3 GM/DL [facility] Globulin, Total 2.5 SE[facility] OFFICE A/G Ratio 1.7 (CALC) [facility] Total Bilirubin 0.3 0.1 - 1.4 MG/DL [facility] Alkaline Phosphatase 54 [facility]P OFFICE AST 34 <=40 IU/L [facility] ALT 14 <=41 IU/L [facility] Blood VENOUS BLOOD / Unknown 02/14/2019 Historical Provider CHEMISTRY ORDERABLES Final R esult Performing Organization Address [facility] [address]/[facility] [[email or web address]] de Phone Number SE[facility] * (ABNORMAL) GLUCOSE METER POC (12/12/2018 1:24 PM EDT) Only the most recent of9 resultswithin the time period is included. Glucose Meter POC 105(H) 70 - 100 mg/dL 12/12/2018 1:25 PM EDT [facility] Sample Type Capillary 12/12/2018 1:25 PM EDT [facility] Patient Status Non-Critical Patient 12/12/2018 1:25 PM EDT [facility] Blood BLOOD SPECIMEN / Unknown 12/12/2018 1:24 PM EDT 12/12/2018 1:25 PM EDT Jamie Rdz MD POINT OF CARE TEST ORDERABL ES Final Result Performing Organization Address [facility] de Phone Number [facility] [address] [place] [address] * ECG AND WAVEFORMS - TELEMETRY (12/12/2018 7:00 AM EDT) Only the most recent of3 resultswithin the time period is included. [facility] ECG INTERPRET NSR [facility] ANALYST APPROVED Yes [facility] 12/12/2018 7:00 AM EDT Narrative [facility] - 12/12/2018 7:44 AM EDT OR 0.15 QRS 0.09 QT 0.30 See Clinical Report link for waveform capture Unknown Provider POINT OF CARE CARDIOLOGY Final Result Performing Organization Address [facility] [[email or web address]] de Phone Number [facility] [address] [place], [place] [id number] * MICROALBUMIN/CREATININE RATIO URINE (12/12/2018 7:00 AM EDT) Urine Microalb 17.7 mg/L 12/12/2018 9:22 AM EDT PREFERRED LAB [facility], [facility] Urine Creatinine 135.3 mg/dL 12/12/2018 9:22 AM EDT PREFERRED LAB [facility], [facility] Ur Microalb/Creat 13 0 - 30 mg/g 12/12/2018 9:22 AM EDT [facility], [facility] Urine STRUCTURE OF URINARY TRACT PROPER / Unknown 12/12/2018 7:00 AM EDT 12/12/2018 7:36 AM EDT Jamie Rdz MD URINE ORDERABLES Final Resu lt PREFERRED LAB [facility], [facility] [address] [facility] [place] [address] * SCANNED EKG (12/11/2018 8:38 AM EDT) Anatomical Region Laterality Modality Other 12/11/2018 8:38 AM EDT Unknown Unknown IMG ECG ORDERABLES Final Result * EXTRA MORAN URINE CX (12/11/2018 8:28 AM EDT) Urine URINE SPECIMEN COLLECTION, CLEAN CATCH / Unknown 12/11/2018 8:28 AM EDT 12/11/2018 8:45 AM EDT Lzi Lorenzo MD MICROBIOLOGY - GENERAL ORDERABLE S Final Result Performing Organization Address [facility] [address]/ZIP Co de Phone Number [facility] [address] [place] [phone] * (ABNORMAL) URINALYSIS (12/11/2018 8:28 AM EDT) Only the most recent of5 resultswithin the time period is included. UA Color Yellow 12/11/2018 9:00 AM EDT [facility] UA Appear Clear Clear 12/11/2018 9:00 AM EDT [facility] UA Glucose Negative Negative mg/dL 12/11/2018 9:00 AM EDT [facility] UA Ketones Negative Negative mg/dL 12/11/2018 9:00 AM EDT [facility] UA Blood Negative Negative 12/11/2018 9:00 AM EDT [facility] UA pH 6.0 5.0 - 8.0 pH 12/11/2018 9:00 AM EDT [facility] UA Protein 30(A) Negative mg/dL 12/11/2018 9:00 AM EDT [facility] UA Urobilinogen 0.2 <=1 mg/dL 9 9:00 AM EDT [facility] UA Bili Negative Negative 12/11/2018 9:00 AM EDT [facility] UA Nitrite Negative Negative 12/11/2018 9:00 AM EDT [facility] UA Leuk Est Negative Negative 12/11/2018 9:00 AM EDT [facility] UA Spec Grav >=1.030 1.001 - 1.035 no units 12/11/2018 9:00 AM EDT [facility] Comment: Reference range valid for random specimens only. UA WBC 5(H) 0 - 4 /HPF 12/11/2018 9:00 AM EDT [facility] UA Squam Epi 1+ /LPF 12/11/2018 9:00 AM EDT [facility] UA Mucus 1+ /LPF 12/11/2018 9:00 AM EDT [facility] UA Bacteria Trace(A) Negative /HPF 12/11/2018 9:00 AM EDT [facility] UA Hyal Cast 1 0 - 2 /LPF 12/11/2018 9:00 AM EDT [facility] UA WBC Cast 1(H) <=0 /LPF 12/11/2018 9:00 AM EDT [facility] Urine URINE SPECIMEN COLLECTION, CLEAN CATCH / Unknown 12/11/2018 8:28 AM EDT 12/11/2018 8:45 AM EDT us Liz Lorenzo MD URINE ORDERABLES Final Result [address] [place] [address] * BLOOD CULTURE (NO STAIN) (12/10/2018 9:39 PM EDT) Only the most recent of6 resultswithin the time period is included. Culture Result No Growth at 120 hours. BLOOD CULTURE (NO STAIN) 12/16/2018 2:00 AM EDT [facility] Blood VENOUS BLOOD / Unknown Venipuncture / Unknown 12/10/2018 9:39 PM EDT 12/10/2018 9:43 PM EDT us Liz Lorenzo MD MICROBIOLOGY - GENERAL ORDERABLE S Final Result [facility] [address] [facility] [address] [place] [phone] * (ABNORMAL) CBC WITH DIFF (12/10/2018 9:38 PM EDT) Only the most recent of10 resultswithin the time period is included. WBC 4.7 4.0 - 11.0 x10(3)/mcL 12/10/2018 10:09 PM EDT [facility] RBC 4.47 4.30 - 5.81 x10(6)/mcL 12/10/2018 10:09 PM EDT [facility] Hgb 12.7(L) 13.5 - 17.1 g/dL 12/10/2018 10:09 PM EDT [facility] Hct 40.0 38.9 - 51.6 % 12/10/2018 10:09 PM EDT [facility] MCV 89.5 82.5 - 99.8 fL 12/10/2018 10:09 PM EDT [facility] MCH 28.4 27.0 - 34.3 pg 12/10/2018 10:09 PM EDT [facility] MCHC 31.7(L) 32.1 - 35.3 g/dL 12/10/2018 10:09 PM EDT [facility] RDW 16.0(H) 11.5 - 15.0 % 12/10/2018 10:09 PM EDT [facility] Platelet 138(L) 144 - 423 x10(3)/mcL 12/10/2018 10:09 PM EDT [facility] MPV 8.8 6.8 - 10.8 fL 12/10/2018 10:09 PM EDT [facility] Neut Percent 54.0 % 12/10/2018 10:09 PM EDT [facility] Lymph Percent 27.8 % 12/10/2018 10:09 PM EDT [facility] [place] Percent 17.3 % 12/10/2018 10:09 PM EDT [facility] Eos Percent 0.5 % 12/10/2018 10:09 PM EDT [facility] Baso Percent 0.4 % 12/10/2018 10:09 PM EDT [facility] Neut # 2.5 1.8 - 7.7 x10(3)/mcL 12/10/2018 10:09 PM EDT [facility] Lymph # 1.3 0.6 - 4.8 x10(3)/mcL 12/10/2018 10:09 PM EDT [facility] [place] # 0.8 0.0 - 1.3 x10(3)/mcL 12/10/2018 10:09 PM EDT [facility] Eos# 0.0 0.0 - 0.5 x10(3)/mcL 12/10/2018 10:09 PM EDT [facility] Baso # 0.0 0.0 - 0.2 x10(3)/mcL 12/10/2018 10:09 PM EDT [facility] [employer] Present 12/10/2018 10:09 PM EDT [facility] Blood VENOUS BLOOD / Unknown Venipuncture / Unknown 12/10/2018 9:38 PM EDT 12/10/2018 9:42 PM EDT us Liz Lorenzo MD HEMATOLOGY ORDERABLES Final Resu lt [facility] [address] [facility] [place] [address] * (ABNORMAL) HEMOGLOBIN A1C (12/10/2018 9:38 PM EDT) Only the most recent of2 resultswithin the time period is included. Hgb A1C 6.6(H) 4.2 - 5.6 % 12/11/2018 5:31 PM EDT [facility] Est. Avg Glucose 143 mg/dL 12/11/2018 5:31 PM EDT [facility] Blood VENOUS BLOOD / Unknown Venipuncture / Unknown 12/10/2018 9:38 PM EDT 12/10/2018 9:42 PM EDT Narrative [facility] happin! - 12/11/2018 5:31 PM EDT REFERENCE RANGE: Normal: 4.0-5.6% Pre-diabetes: 5.7-6.4% Provisional diagnosis of diabetes: >6.4% Hgb F>10% and anything which shortens red cell survival, such as hemolytic anemia, or unstable hemoglobin variants such as HbSS, HbSC, or HbCC, will lower the HbA1c value associated with a given level of glycemic control. Jamie Rdz MD CHEMISTRY ORDERABLES Final Result Performing Organization Address City/[facility] [address]/[facility] Co de Phone Number [facility] [address] [place] [address], [place] [address] * LACTIC ACID (12/10/2018 8:39 PM EDT) Only the most recent of2 resultswithin the time period is included. Pathologist [facility] Lactic Acid 1.0 0.5 - 1.9 mmol/L 12/10/2018 9:03 PM EDT [facility] Blood VENOUS BLOOD / Unknown Venipuncture / Unknown 12/10/2018 8:39 PM EDT 12/10/2018 8:42 PM EDT Liz Lorenzo MD CHEMISTRY ORDERABLES Final Resul t Performing Organization Address [facility] [address]/ZIP Co de Phone Number [facility] [address] [place] [id number] * EC ECHOCARDIOGRAM COMPLETE W DOPPLER AND COLOR FLOW MAPPING (01/09/2018 2:32 PM EDT) Only the most recent of9 resultswithin the time period is included. Ejection Fraction 70-75 % P[place]AM[place] Anatomical Region Laterality Modality Electrocardiogra phy 01/09/2018 1:47 PM EDT Impressions 01/09/2018 4:30 PM EDT CONCLUSIONS Left Ventricular ejection fraction is estimated at 70-75%. Mild concentric hypertrophy. Abnormal tissue doppler signal c/w impaired diastolic function. Mild right ventricular dilatation. Mild mitral annular calcification. Mild mitral regurgitation. Mild tricuspid regurgitation. Normal appearing bioprosthetic aortic valve Narrative Procedure Note Deshaun Yates MD - 01/09/2018 IMPRESSION CONCLUSIONS Left Ventricular ejection fraction is estimated at 70-75%. Mild concentric hypertrophy. Abnormal tissue doppler signal c/w impaired diastolic function. Mild right ventricular dilatation. Mild mitral annular calcification. Mild mitral regurgitation. Mild tricuspid regurgitation. Normal appearing bioprosthetic aortic valve 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 IMG ECHO ORDERABLES Final Res ult * CT CHEST W CONTRAST (12/11/2017 3:20 PM EDT) Anatomical Region Laterality Modality Chest Computed Tomogra phy 12/11/2017 3:20 PM EDT Impressions 12/11/2017 4:47 PM EDT No acute finding. No suspicious pulmonary nodules. All nodules have been stable since 2011. Narrative 12/11/2017 4:[address] CHEST WITH CONTRAST, 12/11/2017 3:20 PM CLINICAL HISTORY: J43.9-Emphysema, [id number] COMPARISON: 04/14/2012 PROCEDURE COMMENTS: Multi detector volumetric CT scanning of the chest. Multiplanar reconstructions per protocol. 75 mL Isovue 370 given. Automated exposure control for dose reduction was used. CTDIvol: 9.6 - 13.9 mGy. DLP: 460 mGy-cm. FINDINGS: There is evidence of aortic valve replacement. There is enlarged but stable precarinal lymph node measuring 16 mm medial to lateral x 21 mm AP. Tracheobronchial tree is patent. Centrilobular presented this changes throughout the lungs. There are no suspicious pulmonary nodules. There are 2 nodules along the left major fissure which are stable. Most fissure nodules are benign. Largest nodule more medial measures 7 mm. Smaller nodule more peripheral measures 5 mm. These are stable since the prior examination. 5 mm nodule left lower lobe stable since 2011. 6 mm lingular nodule stable since 2011. There is a nodule in the minor fissure protruding into the right middle lobe measuring 6 mm unchanged. There is a nodule in the right lower lobe measuring 6 mm stable since 2011. Procedure Note Mauricio Lerma III, MD - 12/11/2017 CT CHEST WITH CONTRAST, 12/11/2017 3:20 PM CLINICAL HISTORY: [id number], [id number] COMPARISON: 04/14/2012 PROCEDURE COMMENTS: Multi detector volumetric CT scanning of the chest. Multiplanar reconstructions per protocol. 75 mL Isovue 370 given.Automated exposure control for dose reduction was used. CTDIvol: 9.6 - 13.9 mGy.DLP: 460 mGy-cm. FINDINGS: There is evidence of aortic valve replacement. There is enlarged butstable precarinal lymph node measuring 16 mm medial to lateral x 21 mm AP. Tracheobronchial tree is patent. Centrilobular presented this changes throughout the lungs. There are no suspicious pulmonary nodules. There are 2 nodules along theleft major fissure which are stable. Most fissure nodules are benign. Largestnodule more medial measures 7 mm. Smaller nodule more peripheral measures 5 mm.These are stable since the prior examination. 5 mm nodule left lower lobe stablesince 2011. 6 mm lingular nodule stable since 2011. There is a nodule in the minor fissure protruding into the right middlelobe measuring 6 mm unchanged. There is a nodule in the right lower lobe measuring 6 mm stable [id number]. IMPRESSION: No acute finding. No suspicious pulmonary nodules. All nodules have beenstable since 2011. us Devin Thibodeaux MD [facility] ORDERABLES Final Result * CREATININE ISTAT (12/11/2017 3:13 PM EDT) Creatinine-iST AT 1.0 0.6 - 1.3 mg/dL 12/11/2017 3:15 PM EDT [facility] Blood BLOOD SPECIMEN / Unknown 12/11/2017 3:13 PM EDT 12/11/2017 3:15 PM EDT us Devin Thibodeaux MD POINT OF CARE TEST ORDERABLES Fi nal Result [facility] [address] [place] [address] * SCANNED LABS (11/08/2016 1:55 PM EST) Only the most recent of7 resultswithin the time period is included. 11/08/2016 1:55 PM EST us Unknown Unknown HEMATOLOGY ORDERABLES Final Resu lt * PERIPHERAL BLOCK (12/13/2015 11:55 AM EDT) Narrative [facility] - 12/13/2015 11:55 AM EDT Latisha Marroquin CRNA 12/13/2015 11:55 AM Peripheral Block by Anesthesia Patient location during procedure: pre-op Procedure Date/Time: 12/13/2015 11:40 AM Staffing Anesthesiologist: VIKI JOSHI Resident/COMPOSITION PROFESSOR: LATISHA MARROQUIN Performed by: JAMILA Preanesthetic Checklist Completed: patient identified, site marked, surgical consent, pre-op evaluation, timeout performed, IV checked, risks and benefits discussed and monitors and equipment checked Peripheral Block Immediate pre anesthetic assessment completed: Yes Patient position: supine Prep: alcohol swabs Patient monitoring: heart rate, monitor car operator and continuous pulse ox Block type: peribulbar Laterality: left Injection technique: single-shot Medication: lidocaine 2% (wydase) Needle Needle type: short-bevel Needle gauge: 25 G Needle length: 5/8. Needle localization: anatomical landmarks Assessment Injection assessment: negative aspiration for heme, no paresthesia on injection and incremental injection Heart rate change: no us Latisha Marroquin CRNA ANESTHESIA ORDERABLES Final Result [facility] [address] [place] [address] * PERIPHERAL BLOCK (11/22/2015 11:24 AM EDT) Narrative [facility] - 11/22/2015 11:24 AM EDT Eliana Lopez CRNA 11/22/2015 11:24 AM Peripheral Block by Anesthesia Patient location during procedure: pre-op Procedure Date/Time: 11/22/2015 11:13 AM Reason for block: at surgeon's request Staffing Anesthesiologist: NANDO BORJA Resident/COMPOSITION PROFESSOR: ELIANA LOPEZ Performed by: JAMILA Preanesthetic Checklist Completed: patient identified, site marked, surgical consent, pre-op evaluation, timeout performed, IV checked, risks and benefits discussed, monitors and equipment checked and at surgeon's request Peripheral Block Immediate pre anesthetic assessment completed: Yes Patient position: sitting Prep: alcohol swabs Patient monitoring: continuous pulse ox, monitor car operator and heart rate Block type: peribulbar Laterality: right Injection technique: single-shot Medication: lidocaine 2% Dose: 6 Needle Needle type: short-bevel Needle gauge: 25 G Needle localization: anatomical landmarks Assessment Injection assessment: negative aspiration for heme, no paresthesia on injection and incremental injection Paresthesia pain: none Heart rate change: no us Eliana Lopez COMPOSITION PROFESSOR ANESTHESIA ORDERABLES Fi nal Result Performing Organization Address City/State/[facility] [place] [address] * SCANNED PRE/POST PROCEDURES (09/25/2012 9:08 AM EST) Narrative Procedure Note Unknown, Unknown - 09/25/2012 9:08 AM EST us Unknown Unknown PROCEDURE/MINOR SURGICAL ORDERAB LES Final Result * SCANNED ANESTHESIA FORMS (09/25/2012 9:08 AM EST) Narrative Procedure Note Unknown, Unknown - 09/25/2012 9:08 AM EST us Unknown Unknown PROCEDURE/MINOR SURGICAL ORDERAB LES Final Result * SCANNED RHYTHM STRIPS (09/25/2012 9:08 AM EST) Only the most recent of3 resultswithin the time period is included. Anatomical Region Laterality Modality Other Narrative Procedure Note Unknown, Unknown - 09/25/2012 9:08 AM EST us Unknown Unknown IMG ECG ORDERABLES Final Result * CT ABDOMEN PELVIS WO ORAL OR IV CONTRAST (09/22/2012 3:46 PM EST) Anatomical Region Laterality Modality Abdomen, Pelvis Computed Tomogra phy 09/22/2012 3:21 PM EST Impressions 09/22/2012 3:56 PM EST IMPRESSION: Obstructing 4 x 3 mm calculus distal right ureter with mild to moderate hydronephrosis the right kidney. No other acute findings in the abdomen or pelvis. Narrative 09/22/2012 3:56 PM EST PROCEDURE: CT abdomen and pelvis without contrast including reformats, 09/22/2012. INDICATION: Hematuria x3 days. FINDINGS: CT abdomen pelvis is performed without intravenous oral contrast material. 2-D sagittal and coronal reformats were obtained the CT scanner and reviewed. No comparison. ABDOMEN: Hyperinflation the visualized lung bases. Calcified hepatic granulomata. The liver, spleen, pancreas, adrenals, bowel and skeleton are negative for acute findings. There is mild to moderate hydronephrosis in the right kidney with right-sided hydroureter. Kidneys are otherwise unremarkable. PELVIS: Obstructing 4 x 3 mm calculus in the distal right ureter approximately 2 cm from the right UVJ. Diverticulosis without diverticulitis. Normal appendix. Franco catheter. Small fat-containing left inguinal hernia. Procedure Note Robert Paez MD - 09/22/2012 PROCEDURE: CT abdomen and pelvis without contrast including reformats,09/22/2012. INDICATION: Hematuria x3 days. FINDINGS: CT abdomen pelvis is performed without intravenous oral contrastmaterial. 2-D sagittal and coronal reformats were obtained the CT scanner and reviewed.No comparison. ABDOMEN: Hyperinflation the visualized lung bases. Calcified hepaticgranulomata. The liver, spleen, pancreas, adrenals, bowel and skeleton are negative for acutefindings. There is mild to moderate hydronephrosis in the right kidney with right-sidedhydroureter. Kidneys are otherwise unremarkable. PELVIS: Obstructing 4 x 3 mm calculus in the distal right ureterapproximately 2 cm from the right UVJ. Diverticulosis without diverticulitis. Normal appendix. Foleycatheter. Small fat-containing left inguinal hernia. IMPRESSION: Obstructing 4 x 3 mm calculus distal right ureter with mild tomoderate hydronephrosis the right kidney. No other acute findings in the abdomen orpelvis. us Kermit Brizuela MD IMG CT ORDERABLES Final Result * DIFFERENTIAL (09/22/2012 3:38 PM EST) Only the most recent of8 resultswithin the time period is included. Neut Percent 73.3 % [facility] Lymph Percent 15.2 % [facility] [place] Percent 8.4 % [facility] Eos Percent 2.9 % [facility] Baso Percent 0.2 % [facility] Neut# 7.3 1.8 - 7.7 x10(3)/mcL [facility] Lymph# 1.5 1.0 - 4.8 x10(3)/mcL [facility] [place]# 0.8 0.0 - 1.3 x10(3)/mcL [facility] Eos# 0.3 0.1 - 0.5 x10(3)/mcL [facility] Baso# 0.0 0.0 - 0.2 x10(3)/mcL [facility] Blood specimen (specimen) 09/22/2012 3:38 PM EST 09/22/2012 3:38 PM EST us Kermit Brizuela MD HEMATOLOGY ORDERABLES Final Resu lt Performing Organization Address City/[facility] [address]/ZIP Co de Phone Number [facility] [address] [place] [address] * URINE CULTURE (09/22/2012 3:31 PM EST) Only the most recent of2 resultswithin the time period is included. Final 4,000 cfu/ml Staphylococcus species No further workup [facility] Urine specimen obtained by single catheterization of urinary bladder (specimen) STRUCTURE OF URINARY TRACT PROPER / Unknown 09/22/2012 3:31 PM EST 09/22/2012 3:40 PM EST us Kermit Brizuela MD MICROBIOLOGY - GENERAL ORDERABLE S Final Result Performing Organization Address City/[facility] [address]/ZIP Co de Phone Number [facility] [address] [place] [address] * SCANNED OR REPORT (07/29/2012 12:00 AM EST) Narrative Procedure Note Unknown, Unknown - 07/29/2012 12:00 AM EST us Unknown Unknown PROCEDURE/MINOR SURGICAL ORDERAB LES Final Result * EC ECHOCARDIOGRAM TRANSESOPHAGEAL W DOPPLER AND COLOR FLOW MAPPING (07/17/2012 12:06 PM EST) Anatomical Region Laterality Modality Cardiac Stress T esting 07/17/2012 10:0 5 AM EST Impressions 07/17/2012 11:26 AM EST FINDINGS Left Ventricle Normal left ventricle size and function. Right Ventricle Normal right ventricular size and function. Right Atrium Normal right atrial size. Left Atrium Normal left atrial size. LA Appendage Normal left atrial appendage. No clot. IA Septum IAS intact. Mitral Valve Mild mitral regurgitation. No vegetation. Aortic Valve Bioprosthetic aortic valve. Tricuspid Valve Mild to moderate tricuspid regurgitation. No vegetation. Pulmonic Valve Structurally normal pulmonic valve without significant stenosis. There is no pulmonic regurgitation. Pericardium Normal pericardium without effusion. Aorta Normal aortic root dimension. CONCLUSIONS see above Narrative Procedure Note Jason Patterson MD - 07/17/2012 IMPRESSION FINDINGS Left Ventricle Normal left ventricle size and function. Right Ventricle Normal right ventricular size and function. Right Atrium Normal right atrial size. Left Atrium Normal left atrial size. LA Appendage Normal left atrial appendage. No clot. IA Septum IAS intact. Mitral Valve Mild mitral regurgitation. No vegetation. Aortic Valve Bioprosthetic aortic valve. Tricuspid Valve Mild to moderate tricuspid regurgitation. Novegetation. Pulmonic Valve Structurally normal pulmonic valve withoutsignificant stenosis. There is no pulmonic regurgitation. Pericardium Normal pericardium without effusion. Aorta Normal aortic root dimension. CONCLUSIONS see above us Mirna Quesada APRN IMG ECHO ORDERABLES Final R esult * IP CONSULT TO CARDIOLOGY (07/16/2012 9:39 PM EST) Narrative [facility] - 07/16/2012 9:39 PM EST Jason Patterson MD 07/16/2012 9:39 PM Cardiology Note: Rickey Rush Today's Date: 07/16/2012 Date of Admission: 07/16/2012 Primary Care Provider: Devin Thibodeaux MD Gold Burnisher: Dr. Deshaun Yates Chief Complaint: Fever, chills, diaphoresis, shortness of breath History of Present Illness: Patient is a 66 y.o. male admitted through the ED with one episode of fever, chills, diaphoresis and shortness of breath that began on Sunday night. Stated oral temperature was 100.5. The patient went to bed and woke up the next morning without symptoms. Denies chest pain, palpitations, dizziness. Admits to fever, chills, diarrhea, productive cough. Patient is s/p Blanca Lomeli AVR 02/[address] Lombardo. Patient admits to 2 previous admissions due to fever and chills. Patient is concerned that he has an infected valve . Echo in 04/2012 was negative for a vegetation. PMH: Hypertension, Hyperlipidemia, Diabetes Mellitus, Gout, COPD, UTI with antibiotic coverage, CAD: 02/2011 CAGB X's 1 with left SVG and AVR with CE valve Social: , tobacco use (quit 07/04/2002). Denies: recent weight changes, palpitations, edema, orthopnea, chest pain, dizziness, syncope Medical History: Past Medical History Diagnosis Date Hyperlipidemia Other and unspecified angina pectoris Shortness of breath Diabetes mellitus type 2 Glaucoma OD Gout COPD (chronic obstructive pulmonary disease) Pneumonia Sepsis with pneumonia 02/2012 CAD (coronary artery disease) CABG x1 - SVG to LAD 02/2011 Hypertension 04/15/2012 Echo estimated LVEF @ 50-55%, RVSP 34mmHg, mild MR noted Heart murmur Prostate 1984 infection Arthritis hands,hips Surgical History: Past Surgical History Procedure Date Tonsillectomy Aortic valve replacement 02/23/2011 AORTIC VALVE REPLACEMENT TRANS ESOPHAGEAL ECHOCARDIOGRAM - SCIP performed by TAY LOMBARDO at [facility] MA[facility] OR Cardiac catheterization 02/2011 Coronary artery bypass graft 02/23/2011 Dr Lombardo- CABG x1-SVG to LAD, Allergies: Allergies Allergen Reactions Penicillins Hives Prior To Admission Medications: Prescriptions prior to admission Medication Sig Dispense Refill albuterol (PROVENTIL) 2.5 mg /3 mL (0.083 %) nebulizer solution Take 2.5 mg by nebulization every 6 hours as needed. carvedilol (COREG) 6.25 mg tablet Take 6.25 mg by mouth 2 times daily. ramipril (ALTACE) 2.5 mg capsule Take 2.5 mg by mouth daily. Aspirin 81 mg Take 81 mg by mouth daily. fUROsemide (LASIX) 20 mg tablet Take 20 mg by mouth daily. potassium chloride (K-DUR) 10 mEq tablet Take 10 mEq by mouth daily. ALBUTEROL SULFATE (PROAIR HFA INHL) Inhale into the lungs. Inhale 2 puffs 30 minutes prior to exercise. b complex vitamins (VITAMIN B COMPLEX) capsule Take 1 Cap by mouth daily. allopurinol (ZYLOPRIM) 100 mg tablet Take by mouth daily. rosuvastatin (CRESTOR) 10 mg tablet Take 10 mg by mouth daily. metformin (GLUCOPHAGE) 500 mg tablet Take 1,000 mg by mouth 2 times daily. travoprost, benzalkonium, (TRAVATAN) 0.004 % ophthalmic solution Apply 1 Drop to eye nightly. right MULTI-VITAMIN ORAL Take by mouth daily. [place]-3 Fatty Acids-Vitamin E (FISH OIL) 1,000 mg Cap Take 1,000 mg by mouth daily. Garlic 1,000 mg Cap Take 1,000 mg by mouth daily. nitroGLYCERIN (NITROSTAT) 0.[address] under the tongue every 5 minutes as needed. Social History: History Substance Use Topics Smoking status: Former Smoker -- 4.0 packs/day for 45 years Types: Cigarettes Quit date: 07/04/2002 Smokeless tobacco: Never Used Comment: quit 07/05 Alcohol Use: No Family History: Family History Problem Relation Age of Onset Heart Disease Mother Hypertension Mother Heart Disease Sister Heart Disease Brother Diabetes Brother Anesth Problems Neg Hx Review of Systems: Denies: hematochezia, nausea, vomiting, constipation, bladder changes, myalgias, vision changes, chest pain, orthopnea, polyuria, dysuria, PND Complains of: fever, chills, diaphoresis, shortness of breath Physical Exam: General: A&O, well nourished, well developed, NAD HEENT: NC, sclerae anicteric, OPP/M Neck: supple, decreased JVP, no carotid bruits Heart: RRR, 2/6 systolic murmur, gallops, rubs Lungs: CTA, no wheeze Chest: nontender Abdomen: soft, nontender, + bowel sounds, no hepatosplenomegaly Extremities: no edema, +2 radial, PT, DP pulses Neuro: no focal abnormalities, cranial nerves 2-12 grossly intact Semiconductor Development Technician: Sinus Rhythm rate of 84 Vitals: Patient Vitals for the past 24 hrs: BP Temp Temp src Pulse Resp SpO2 Height Weight 07/16/12 1602 104/65 mmHg 97.8 F (36.6 C) Oral 78 20 95 % - - 07/16/12 1500 104/65 mmHg - - 94 20 97 % - - 07/16/12 1413 108/75 mmHg - - 94 20 97 % - - 07/16/12 1400 115/56 mmHg - - 56 20 96 % - - 07/16/12 1330 99/70 mmHg - - 64 20 98 % - - 07/16/12 1300 102/73 mmHg - - 70 20 97 % - - 07/16/12 1230 119/81 mmHg - - 75 20 94 % - - 07/16/12 1200 101/71 mmHg - - 71 20 98 % - - 07/16/12 1130 114/69 mmHg - - 61 20 97 % - - 07/16/12 1115 125/80 mmHg - - 69 20 96 % - - 07/16/12 1100 136/84 mmHg - - 63 20 97 % - - 07/16/12 1045 101/69 mmHg - - 72 20 97 % - - 07/16/12 1030 108/70 mmHg - - 71 20 98 % - - 07/16/12 1015 103/71 mmHg - - 71 20 95 % - - 07/16/12 0958 126/78 mmHg 97.7 F (36.5 C) - 62 20 99 % 5' 6 (1.676 m) 162 lb (73.483 kg) Weight: Wt Readings from Last 3 Encounters: 07/16/12 162 lb (73.483 kg) 04/14/12 170 lb 2 oz (77.168 kg) 03/12/12 168 lb (76.204 kg) Intake and Output: Labs: Lab Results Component Value Date TROPONINI <0.01 04/13/2012 Lab Results Component Value Date HGB 12.9* 07/16/2012 HCT 40.2 07/16/2012 PLT 182 07/16/2012 ALT 24 04/13/2012 AST 27 04/13/2012 NA 140 07/16/2012 K 4.2 07/16/2012 CREATININE 0.8 07/16/2012 BUN 16 07/16/2012 CO2 33* 07/16/2012 INR 1.09 04/16/2012 GLU 98 07/16/2012 HGBA1C 6.6 02/21/2011 Lab Results Component Value Date CKTOTAL 36* 04/14/2012 TROPONINI <0.01 04/13/2012 ECHO: EF 50-55%, Mild RV dilatation with preserved systolic function, Mild MR, Bioprosthetic aortic valve with no evidence of vegetation, Mild TR, Results for orders placed during the hospital encounter of 04/13/12 EC ECHOCARDIOGRAM COMPLETE W DOPPLER AND COLOR FLOW MAPPING ECHO: Pending from today Angiography: 02/01/12: Severe and Mod AI, Mod MR, non critical CAD CXR: EKG: Sinus Rhythm rate of 75 Assessment: Fever, Chills, diaphoresis, shortness of breath: Patient feels his valve is infected . Valve disorder: S/P AVR with CE 02/2011 CAD: S/P CABG x's 1 Left SVG 02/2011 Hypertension Hyperlipidemia COPD Diabetes Mellitus Plan: 1. Continue current medications 2. BILL in the am: Procedure explained to patient with risks and benefits described. Patient denies swallowing difficulties or oral lesions. Patient agrees to precede. 3. Sedimentation Rate 4. Monitor urine and blood cultures I have reviewed the chief complaint and history of present illness and review of systems as well as the past medical/social/family history sections for this patient. I have examined this patient, and participated in the care of this patient. I have reviewed the pertinent clinical information including physical exam, labs, radiographic and echo studies, and the plan. The patient was seen in coordination with the nurse practitioner. aJson Patterson MD [facility] Procedure Note Jason Patterson MD - 07/16/2012 4:46 PM EST Cardiology Note: Rickey Rush Today's Date: 07/16/2012 Date of Admission: 07/16/2012 Primary Care Provider: Devin Thibodeaux MD Gold Burnisher: Dr. Deshaun Yates Chief Complaint: Fever, chills, diaphoresis, shortness of breath History of Present Illness: Patient is a 66 y.o. male admitted through the ED with one episode offever, chills, diaphoresis and shortness of breath that began on Sundaynight. Stated oral temperature was 100.5. The patient went to bed and wokeup the next morning without symptoms. Denies chest pain, palpitations,dizziness. Admits to fever, chills, diarrhea, productive cough. Patientis s/p Blanca Lomeli AVR 02/[address] Lombardo. Patient admits to 2previous admissions due to fever and chills. Patient is concerned that hehas an infected valve . Echo in 04/2012 was negative for a vegetation. PMH: Hypertension, Hyperlipidemia, Diabetes Mellitus, Gout, COPD, UTI withantibiotic coverage, CAD: 02/2011 CAGB X's 1 with left SVG and AVR with CEvalve Social: , tobacco use (quit 07/04/2002). Denies: recent weight changes, palpitations, edema, orthopnea, chest pain,dizziness, syncope Medical History: Past Medical History Diagnosis Date Hyperlipidemia Other and unspecified angina pectoris Shortness of breath Diabetes mellitus type 2 Glaucoma OD Gout COPD (chronic obstructive pulmonary disease) Pneumonia Sepsis with pneumonia 02/2012 CAD (coronary artery disease) CABG x1 - SVG to LAD 02/2011 Hypertension 04/15/2012 Echo estimated LVEF @ 50-55%, RVSP 34mmHg, mild MR noted Heart murmur Prostate 1984 infection Arthritis hands,hips Surgical History: Past Surgical History Procedure Date Tonsillectomy Aortic valve replacement 02/23/2011 AORTIC VALVE REPLACEMENT TRANS ESOPHAGEAL ECHOCARDIOGRAM - SCIPperformed by TAY LOMBARDO at [facility] MA[facility] OR Cardiac catheterization 02/2011 Coronary artery bypass graft 02/23/2011 Dr Lombardo- CABG x1-SVG to LAD, Allergies: Allergies Allergen Reactions Penicillins Hives Prior To Admission Medications: Prescriptions prior to admission Medication Sig Dispense Refill albuterol (PROVENTIL) 2.5 mg /3 mL (0.083 %) nebulizer solution Take 2.5mg by nebulization every 6 hours as needed. carvedilol (COREG) 6.25 mg tablet Take 6.25 mg by mouth 2 times daily. ramipril (ALTACE) 2.5 mg capsule Take 2.5 mg by mouth daily. Aspirin 81 mg Take 81 mg by mouth daily. fUROsemide (LASIX) 20 mg tablet Take 20 mg by mouth daily. potassium chloride (K-DUR) 10 mEq tablet Take 10 mEq by mouth daily. ALBUTEROL SULFATE (PROAIR HFA INHL) Inhale into the lungs. Inhale 2puffs 30 minutes prior to exercise. b complex vitamins (VITAMIN B COMPLEX) capsule Take 1 Cap by mouthdaily. allopurinol (ZYLOPRIM) 100 mg tablet Take by mouth daily. rosuvastatin (CRESTOR) 10 mg tablet Take 10 mg by mouth daily. metformin (GLUCOPHAGE) 500 mg tablet Take 1,000 mg by mouth 2 timesdaily. travoprost, benzalkonium, (TRAVATAN) 0.004 % ophthalmic solution Apply 1Drop to eye nightly. right MULTI-VITAMIN ORAL Take by mouth daily. [place]-3 Fatty Acids-Vitamin E (FISH OIL) 1,000 mg Cap Take 1,000 mg bymouth daily. Garlic 1,000 mg Cap Take 1,000 mg by mouth daily. nitroGLYCERIN (NITROSTAT) 0.[address] under the tongue every5 minutes as needed. Social History: History Substance Use Topics Smoking status: Former Smoker -- 4.0 packs/day for 45 years Types: Cigarettes Quit date: 07/04/2002 Smokeless tobacco: Never Used Comment: quit 07/05 Alcohol Use: No Family History: Family History Problem Relation Age of Onset Heart Disease Mother Hypertension Mother Heart Disease Sister Heart Disease Brother Diabetes Brother Anesth Problems Neg Hx Review of Systems: Denies: hematochezia, nausea, vomiting, constipation, bladder changes,myalgias, vision changes, chest pain, orthopnea, polyuria, dysuria, PND Complains of: fever, chills, diaphoresis, shortness of breath Physical Exam: General: A&O, well nourished, well developed, NAD HEENT: NC, sclerae anicteric, OPP/M Neck: supple, decreased JVP, no carotid bruits Heart: RRR, 2/6 systolic murmur, gallops, rubs Lungs: CTA, no wheeze Chest: nontender Abdomen: soft, nontender, + bowel sounds, no hepatosplenomegaly Extremities: no edema, +2 radial, PT, DP pulses Neuro: no focal abnormalities, cranial nerves 2-12 grossly intact [employer] Development Technician: Sinus Rhythm rate of 84 Vitals: Patient Vitals for the past 24 hrs: BP Temp Temp src Pulse Resp SpO2 Height Weight 07/16/12 1602 104/65 mmHg 97.8 F (36.6 C) Oral 78 20 95 % - - 07/16/12 1500 104/65 mmHg - - 94 20 97 % - - 07/16/12 1413 108/75 mmHg - - 94 20 97 % - - 07/16/12 1400 115/56 mmHg - - 56 20 96 % - - 07/16/12 1330 99/70 mmHg - - 64 20 98 % - - 07/16/12 1300 102/73 mmHg - - 70 20 97 % - - 07/16/12 1230 119/81 mmHg - - 75 20 94 % - - 07/16/12 1200 101/71 mmHg - - 71 20 98 % - - 07/16/12 1130 114/69 mmHg - - 61 20 97 % - - 07/16/12 1115 125/80 mmHg - - 69 20 96 % - - 07/16/12 1100 136/84 mmHg - - 63 20 97 % - - 07/16/12 1045 101/69 mmHg - - 72 20 97 % - - 07/16/12 1030 108/70 mmHg - - 71 20 98 % - - 07/16/12 1015 103/71 mmHg - - 71 20 95 % - - 07/16/12 0958 126/78 mmHg 97.7 F (36.5 C) - 62 20 99 % 5' 6 (1.676 m)162 lb (73.483 kg) Weight: Wt Readings from Last 3 Encounters: 07/16/12 162 lb (73.483 kg) 04/14/12 170 lb 2 oz (77.168 kg) 03/12/12 168 lb (76.204 kg) Intake and Output: Labs: Lab Results Component Value Date TROPONINI <0.01 04/13/2012 Lab Results Component Value Date HGB 12.9* 07/16/2012 HCT 40.2 07/16/2012 PLT 182 07/16/2012 ALT 24 04/13/2012 AST 27 04/13/2012 NA 140 07/16/2012 K 4.2 07/16/2012 CREATININE 0.8 07/16/2012 BUN 16 07/16/2012 CO2 33* 07/16/2012 INR 1.09 04/16/2012 GLU 98 07/16/2012 HGBA1C 6.6 02/21/2011 Lab Results Component Value Date CKTOTAL 36* 04/14/2012 TROPONINI <0.01 04/13/2012 ECHO: EF 50-55%, Mild RV dilatation with preserved systolic function, MildMR, Bioprosthetic aortic valve with no evidence of vegetation, Mild TR, Results for orders placed during the hospital encounter of 04/13/12 EC ECHOCARDIOGRAM COMPLETE W DOPPLER AND COLOR FLOW MAPPING ECHO: Pending from today Angiography: 02/01/12: Severe and Mod AI, Mod MR, non critical CAD CXR: EKG: Sinus Rhythm rate of 75 Assessment: Fever, Chills, diaphoresis, shortness of breath: Patient feels his valveis infected . Valve disorder: S/P AVR with CE 02/2011 CAD: S/P CABG x's 1 Left SVG 02/2011 Hypertension Hyperlipidemia COPD Diabetes Mellitus Plan: 1. Continue current medications 2. BILL in the am: Procedure explained to patient with risks and benefitsdescribed. Patient denies swallowing difficulties or oral lesions.Patient agrees to precede. 3. Sedimentation Rate 4. Monitor urine and blood cultures I have reviewed the chief complaint and history of present illness andreview of systems as well as the past medical/social/family historysections for this patient. I have examined this patient, and participatedin the care of this patient. I have reviewed the pertinent clinicalinformation including physical exam, labs, radiographic and echo studies,and the plan. The patient was seen in coordination with the nursepractitioner. Jason Patterson MD [facility] us Jason Suárez MD INPATIENT CONSULT ORDERABLES Final Result [address] [address] * XR CHEST AP PORTABLE (07/16/2012 11:32 AM EST) Only the most recent of4 resultswithin the time period is included. Anatomical Region Laterality Modality Chest Radiographic Amarilis ging 07/16/2012 10:5 5 AM EST Impressions 07/16/2012 11:54 AM EST IMPRESSION: No acute disease. Narrative 07/16/2012 11:54 AM EST AP chest 07/16/2012 Compare: April 16, 2012 CLINICAL HISTORY: chest pain. FINDINGS: Aortic valve replacement again noted. Pulmonary vessels are upper limits of normal in caliber but unchanged from prior and likely chronic. No new infiltrate. Procedure Note Valerio Barnett MD - 07/16/2012 AP chest 07/16/2012 Compare: April 16, 2012 CLINICAL HISTORY: chest pain. FINDINGS: Aortic valve replacement again noted. Pulmonary vessels are upper limitsof normal in caliber but unchanged from prior and likely chronic. No new infiltrate. IMPRESSION: No acute disease. Jason Suárez MD IMG DIAGNOSTIC IMAGING ORDER ELDER Final Result * (ABNORMAL) SEDIMENTATION RATE AUTOMATED (07/16/2012 11:09 AM EST) Only the most recent of2 resultswithin the time period is included. Sed Rate 29(H) 0 - 20 mm [facility] Blood specimen (specimen) UPPER LIMB STRUCTURE / Unknown 07/16/2012 11:09 AM EST 07/16/2012 5:19 PM EST Mirna Quesada APRN HEMATOLOGY ORDERABLES Final Result Performing Organization Address City/[facility] [address]/[facility] Co de Phone Number [facility] [address] [place] [address] * PT / INR (04/16/2012 5:31 AM EDT) Only the most recent of9 resultswithin the time period is included. Pathologist [facility] PT 11.8 9.3 - 12.3 second(s) [facility] INR 1.09 0.86 - 1.14 [facility] Comment: Level of Therapy Indications Target INR Range Standard Dose Treatment and prophylaxis of venous 2.0 - 3.0 thrombosis, pulmonary embolism High Dose High risk patients with mechanical 2.5 - 3.5 heart valves Blood specimen (specimen) UPPER LIMB STRUCTURE / Unknown 04/16/2012 5:31 AM EDT 04/16/2012 5:54 AM EDT Jason Samaniego MD HEMATOLOGY ORDERABLES Final R esult Performing Organization Address City/[facility] [address]/[facility] Co de Phone Number [facility] [address] [place] [address] * .C DIFF TOXIN DNA RESULTS (04/14/2012 10:15 AM EDT) Pathologist [facility] c difficile specimen Stool [facility] Comment: TEST INFORMATION: This assay is a qualitative detection test for Clostridium difficile Toxin B (TcdB) gene in liquid or soft stool suspected of having Clostridium difficile-associated disease (CDAD). This test is an amplified DNA test by [facility], validated by [facility]. This Laboratory is authorized under the Clinial Laboratory Improvement Amendments (CLIA) as qualified to perform high-complexity testing. A negative result does not rule out the presence of Clostridium difficile Toxin B gene in concentrations below the detection of the assay. c DIFFICILE TOXIN DNA Negative [facility] Stool specimen (specimen) 04/14/2012 10:15 AM EDT 04/14/2012 10:24 AM EDT us Juan Carlos Salinas DO MICROBIOLOGY - GENERAL ORDERABLE S Final Result [facility] [address] [place] [address] * CT CHEST HIGH RESOLUTION W CONTRAST (04/14/2012 9:48 AM EDT) Anatomical Region Laterality Modality Chest Computed Tomogra phy 04/14/2012 9:09 AM EDT Impressions 04/14/2012 11:39 AM EDT IMPRESSION: Mild centrilobular emphysema. Three highly likely benign nodules as above. Six month followup CT suggested to ensure stability. Code followup Narrative 04/14/2012 11:[address] CHEST HIGH RESOLUTION W CONTRAST Apr 14, 2012 09:49:58 AM Clinical: Shortness of breath Imaging of the chest was done after 75 mL of Isovue-370. Selected levels were reconstructed at 1 mm slice thickness. FINDINGS: mild centrilobular emphysema is present. There is minimal linear atelectasis in the lingula there is a 5 mm fissural nodule in the minor fissure and there is a 3 x 4 mm fissural nodule in the lower left chest a 5 mm subpleural nodule is present in the anterior lateral aspect of the left lower lobe. Calcified right hilar nodes present from healed granulomatous disease. High-resolution images show no evidence of interstitial lung disease or bronchiectasis. No evidence of pleural effusion. There is a precarinal node that measures 1.4 cm in short axis. No evidence of pathologic hilar adenopathy. Images of the upper abdomen show a 4 mm nonobstructing stone in lower pole collecting system of the right kidney. Procedure Note Roger Contreras MD - 04/14/2012 CT CHEST HIGH RESOLUTION W CONTRAST Apr 14, 2012 09:49:58 AM Clinical: Shortness of breath Imaging of the chest was done after 75 mL of Isovue-370. Selected levelswere reconstructed at 1 mm slice thickness. FINDINGS: mild centrilobular emphysema is present. There is minimal linearatelectasis in the lingula there is a 5 mm fissural nodule in the minor fissure and there roman 3 x 4 mm fissural nodule in the lower left chest a 5 mm subpleural nodule is present in theanterior lateral aspect of the left lower lobe. Calcified right hilar nodes present fromhealed granulomatous disease. High-resolution images show no evidence of interstitial lung disease orbronchiectasis. No evidence of pleural effusion. There is a precarinal node that measures 1.4 cm in short axis. No evidenceof pathologic hilar adenopathy. Images of the upper abdomen show a 4 mm nonobstructing stonein lower pole collecting system of the right kidney. IMPRESSION: Mild centrilobular emphysema. Three highly likely benignnodules as above. Six month followup CT suggested to ensure stability. Code followup us Juan Carlos Salinas DO IMG CT ORDERABLES Final Result * ANTINUCLEAR ANTIBODY SCREEN (04/14/2012 8:56 AM EDT) Pathologist [facility] ENEIDA Screen Negative [facility] Comment: ENEIDA samples are screened using an automated EIA assay. All samples that screen positive are titered by an IFA method and will include an ENEIDA pattern. A titer of < 1:80 is considered clinically insignificant. In general, a titer >= 1:160 is considered significant positive. Blood specimen (specimen) UPPER LIMB STRUCTURE / Unknown 04/14/2012 8:56 AM EDT 04/14/2012 9:47 AM EDT Juan Carlos Salinas DO IMMUNOLOGY ORDERABLES Final Resu lt [facility] [address] [place] [address] * LACTATE DEHYDROGENASE (04/14/2012 8:56 AM EDT) Pathologist [facility] LDH 434 324 - 620 IU/L [facility] Blood specimen (specimen) UPPER LIMB STRUCTURE / Unknown 04/14/2012 8:56 AM EDT 04/14/2012 9:47 AM EDT us Juan Carlos Salinas DO CHEMISTRY ORDERABLES Final Resul t Performing Organization Address [facility] [address]/[facility] Co de Phone Number [facility] [address] [place] [address] * (ABNORMAL) CREATINE KINASE (04/14/2012 8:56 AM EDT) Pathologist [facility] CK 36(L) 55 - 170 IU/L [facility] Blood specimen (specimen) UPPER LIMB STRUCTURE / Unknown 04/14/2012 8:56 AM EDT 04/14/2012 9:47 AM EDT us Juan Carlos Salinas DO CHEMISTRY ORDERABLES Final Resul t Performing Organization Address [facility] Co de Phone Number [facility] [address] [place] [address] * CORTISOL (04/14/2012 8:56 AM EDT) [facility] Cortisol 7.4 mcg/dL [facility] Comment: Normals: Morning 6.0 - 25.0 ug/dl Evening 3.0 - 14.0 ug/dl Blood specimen (specimen) UPPER LIMB STRUCTURE / Unknown 04/14/2012 8:56 AM EDT 04/14/2012 9:15 AM EDT us Juan Carlos Salinas DO CHEMISTRY ORDERABLES Final Resul t Performing Organization Address [facility] [address]/[facility] Co de Phone Number [facility] [address] [place] [address] * TROPONIN-I (04/13/2012 8:15 PM EDT) [facility] Troponin-I <0.01 <=0.06 ng/mL [facility] Blood specimen (specimen) UPPER LIMB STRUCTURE / Unknown 04/13/2012 8:15 PM EDT 04/13/2012 8:32 PM EDT us Pedro Cordon MD CHEMISTRY ORDERABLES Final Result Performing Organization Address City/[facility] [address]/ZIP Co de Phone Number [facility] [address] [place] [address] * LIPASE LEVEL (04/13/2012 8:15 PM EDT) Only the most recent of2 resultswithin the time period is included. Lipase Lvl 78 36 - 250 IU/L [facility] Blood specimen (specimen) UPPER LIMB STRUCTURE / Unknown 04/13/2012 8:15 PM EDT 04/13/2012 8:32 PM EDT us Pedro Cordon MD CHEMISTRY ORDERABLES Final Result Performing Organization Address [facility] [[email or web address]] de Phone Number [facility] [address] [place] [address] * SCANNED RADIOLOGY REPORT (03/12/2012 12:00 AM EDT) Only the most recent of4 resultswithin the time period is included. Anatomical Region Laterality Modality Other Narrative Transcriptions Unknown, Unknown - 03/12/2012 12:00 AM EDT us Unknown Unknown IMG DIAGNOSTIC IMAGING ORDERABLE S Final Result * SCANNED PRE/POST PROCEDURES (03/06/2011 12:00 AM EDT) Narrative 03/06/2011 1:07 PM EDT Ordered by an unspecified provider. Transcriptions Unknown, Unknown - 03/06/2011 1:06 PM EDT us Unknown Unknown PROCEDURE/MINOR SURGICAL ORDERAB LES Final Result * SCANNED ANESTHESIA FORMS (03/06/2011 12:00 AM EDT) Narrative 03/06/2011 1:06 PM EDT Ordered by an unspecified provider. Transcriptions Unknown, Unknown - 03/06/2011 1:06 PM EDT us Unknown Unknown PROCEDURE/MINOR SURGICAL ORDERAB LES Final Result * SCANNED OR REPORT (03/06/2011 12:00 AM EDT) Narrative 03/06/2011 1:07 PM EDT Ordered by an unspecified provider. Transcriptions Unknown, Unknown - 03/06/2011 1:06 PM EDT us Unknown Unknown PROCEDURE/MINOR SURGICAL ORDERAB LES Final Result * LOWER RESPIRATORY CULTURE (02/27/2011 11:52 AM EDT) Pathologist [facility] GS Group 5: >25 WBC and <10 epithelial cells/lpf Abundant Gram positive cocci [facility] Final Abundant growth of Moraxella catarrhalis Beta-lactamase positive 03/01/2011 7:25:49 AM [facility] Sputum specimen (specimen) MOUTH REGION STRUCTURE / Unknown 02/27/2011 11:52 AM EDT 02/27/2011 11:59 AM EDT us Tay Lombardo MD MICROBIOLOGY - GENERAL ORDER ELDER Final Result [facility] [address] [place] [address] * HEPATIC FUNCTION PANEL (02/26/2011 5:15 AM EDT) Total Protein 6.5 6.0 - 8.2 gm/dL [facility] Albumin 4.1 3.4 - 4.8 gm/dL [facility] Bili Direct 0.1 0.0 - 0.4 mg/dL [facility] Bili Total 0.8 0.1 - 1.4 mg/dL [facility] AST 32 16 - 55 IU/L SE LAB ALT 30 6 - 72 IU/L [facility] Alk Phos 55 41 - 119 IU/L [facility] Blood specimen (specimen) UPPER LIMB STRUCTURE / Unknown 02/26/2011 5:15 AM EDT 02/26/2011 10:42 AM EDT Narrative [facility] - 02/26/2011 11:15 AM EDT Add to blood in lab or draw us Tay Lombardo MD CHEMISTRY ORDERABLES Final R esult Performing Organization Address City/[facility] [address]/ZIP Co de Phone Number [facility] [address] [place] [address] * SMEAR REVIEW (02/26/2011 5:02 AM EDT) Bands 2 0 - 10 % [facility] Aniso Slight [facility] Polychrom Slight [facility] Blood specimen (specimen) 02/26/2011 5:02 AM EDT 02/26/2011 5:44 AM EDT us Tay Lombardo MD HEMATOLOGY ORDERABLES Final Result Performing Organization Address [facility] Co de Phone Number [facility] [address] [place] [address] * AMYLASE LEVEL (02/26/2011 5:02 AM EDT) [facility] Amylase Lvl 35 30 - 97 IU/L [facility] Blood specimen (specimen) UPPER LIMB STRUCTURE / Unknown 02/26/2011 5:02 AM EDT 02/26/2011 10:14 AM EDT Narrative [facility] - 02/26/2011 10:49 AM EDT Add to blood in lab or draw stat us Tay Lombardo MD CHEMISTRY ORDERABLES Final R esult Performing Organization Address [facility] [address]/[facility] Co de Phone Number [facility] [address] [place] [address] * POTASSIUM WHOLE BLOOD (02/25/2011 8:25 AM EDT) Only the most recent of10 resultswithin the time period is included. K-WB 4.4 3.5 - 5.0 mEq/L [facility] Blood specimen (specimen) UPPER LIMB STRUCTURE / Unknown 02/25/2011 8:25 AM EDT 02/25/2011 8:30 AM EDT Tay Lombardo MD CHEMISTRY ORDERABLES Final R esult Performing Organization Address [facility] [address]/[facility] Co de Phone Number [facility] [address] [place] [address] * (ABNORMAL) BLOOD GAS ARTERIAL (02/24/2011 5:13 AM EDT) Only the most recent of8 resultswithin the time period is included. pH 7.350(L) 7.370 - 7.440 [facility] pCO2 50(H) 32 - 45 mmHg [facility] pO2 122(H) 80 - 95 mmHg [facility] HCO3 28 20 - 29 mmol/L [facility] TCO2 29 21 - 30 mmol/L [facility] Base Excess 1.2 -2.8 - 2.3 mEq/L [facility] O2 Sat 99(H) 95 - 97 % [facility] Inspired O2 3L [facility] Specimen Type Arterial [facility] Blood specimen (specimen) UPPER LIMB STRUCTURE / Unknown 02/24/2011 5:13 AM EDT 02/24/2011 5:13 AM EDT us Tay Lombardo MD CHEMISTRY ORDERABLES Final R esult Performing Organization Address City/[facility] [address]/ZIP Co de Phone Number [facility] [address] [place] [address] * (ABNORMAL) HEMOGLOBIN AND HEMATOCRIT (02/24/2011 12:26 AM EDT) Only the most recent of3 resultswithin the time period is included. Hgb 10.1(L) 13.5 - 17.1 gm/dL [facility] Hct 30.0(L) 40.0 - 50.2 % [facility] Blood specimen (specimen) UPPER LIMB STRUCTURE / Unknown 02/24/2011 12:26 AM EDT 02/24/2011 12:26 AM EDT us Tay Lombardo MD HEMATOLOGY ORDERABLES Final Result Performing Organization Address City/[facility] [address]/ZIP Co de Phone Number [facility] [address] [place] [address] * TRANSFUSE RED BLOOD CELLS (02/23/2011 11:20 PM EDT) Only the most recent of4 resultswithin the time period is included. us Tay Lombardo MD NURSING TREATMENT ORDERABLES - BLOOD ADMIN Final Result * RED BLOOD CELLS REQUEST (02/23/2011 8:58 PM EDT) Only the most recent of4 resultswithin the time period is included. Red Blood Cells Status Ready [facility] Blood specimen (specimen) 02/23/2011 8:58 PM EDT 02/23/2011 8:58 PM EDT Tay Lombardo MD BLOOD PRODUCT ORDERS Final R [facility] Performing Organization Address [facility] de Phone Number [facility] [address] [place] [address] * TRANSFUSE FRESH FROZEN PLASMA (02/23/2011 8:43 PM EDT) Only the most recent of4 resultswithin the time period is included. us Tay Lombardo MD NURSING TREATMENT ORDERABLES - BLOOD ADMIN Final Result * FFP/PLASMA REQUEST (02/23/2011 4:43 PM EDT) Pathologist [facility] FFP/Plasma Status Ready [facility] Blood specimen (specimen) 02/23/2011 4:43 PM EDT 02/23/2011 4:43 PM EDT Narrative [facility] - 02/23/2011 5:08 PM EDT Due Date(MM/DD/YYYY):02/23/11Due Time(24hour clock): now Tay Lombardo MD BLOOD PRODUCT ORDERS Final R [facility] Performing Organization Address [facility] [[email or web address]] de Phone Number [facility] [address] [place] [address] * O2 SAT - MIXED VENOUS (02/23/2011 3:42 PM EDT) O2 Sat - Mixed Venous 67 % [facility] Blood specimen (specimen) UPPER LIMB STRUCTURE / Unknown 02/23/2011 3:42 PM EDT 02/23/2011 3:42 PM EDT Narrative [facility] - 02/23/2011 3:49 PM EDT Mixed venous invivo SVO2 calibration 2 hrs. Post-Op and q 24hrs. prn. us Tay Lombardo MD CHEMISTRY ORDERABLES Final R esult Performing Organization Address [facility] [address]/[facility] Co de Phone Number [facility] [address] [place] [address] * (ABNORMAL) PARTIAL THROMBOPLASTIN TIME (02/23/2011 1:09 PM EDT) Only the most recent of2 resultswithin the time period is included. PTT 36.0(H) 23.6 - 35.1 second(s) [facility] Blood specimen (specimen) UPPER LIMB STRUCTURE / Unknown 02/23/2011 1:09 PM EDT 02/23/2011 1:11 PM EDT Narrative [facility] - 02/23/2011 2:55 PM EDT On admission to [facility] Tay Lombardo MD HEMATOLOGY ORDERABLES Final Result Performing Organization Address [facility] de Phone Number [facility] [address] [place] [address] * (ABNORMAL) FIBRINOGEN (02/23/2011 1:09 PM EDT) Fibrinogen 128(L) 196 - 447 mg/dL [facility] Blood specimen (specimen) UPPER LIMB STRUCTURE / Unknown 02/23/2011 1:09 PM EDT 02/23/2011 1:11 PM EDT Narrative [facility] - 02/23/2011 2:55 PM EDT On admission to [facility] us Tay Lombardo MD HEMATOLOGY ORDERABLES Final Result Performing Organization Address [facility] [address]/[facility] Co de Phone Number [facility] [address] [place] [address] * STAPHYLOCOCCUS AUREUS SCREEN (02/23/2011 7:30 AM EDT) Final Growth of Staphylococcus aureus identified as methicillin sensitive. [facility] Specimen from nose (specimen) NASAL STRUCTURE / Unknown 02/23/2011 7:30 AM EDT 02/23/2011 7:48 AM EDT us Tay Lombardo MD MICROBIOLOGY - GENERAL ORDER ELDER Final Result Performing Organization Address [facility] [address]/[facility] Co de Phone Number [facility] [address] [place] [address] * SURGICAL PATHOLOGY REPORT (02/23/2011 5:30 AM EDT) Surgical Pathology Report PATIENT NAME:RICKEY RUSH Surgical Pathology Report Accession Number Collected Date/Time Received Date/Time [id number] 02/23/11 05:30 EDT 02/24/11 05:29 EDT Diagnosis Aortic valve: - Nodular calcifications with stromal fibrosis (clinically with stenosis). AIDA VIZCAINO MD (Electronically signed by) Verified: 02/27/2011 [facility] Laboratory Clinical Information CAD; aortic stenosis. Gross Description Received in formalin, labeled with the patient's name and aortic valve are approximately 10 mullen-yellow calcified valve tissues ranging from 0.5 to 2.0 cm in greatest dimension. Hand Finisher sections are submitted in one cassette following decalcification./B C HARLEYP/CELSO Microscopic Description Microscopic examination is performed and the findings corroborate the diagnosis. [facility] 02/23/2011 5:30 AM EDT Tay Lombardo MD PATHOLOGY ORDERABLES Final R esult [facility] [address] [place] [address] * [place] US CAROTID DUPLEX BILATERAL (02/21/2011 3:46 PM EDT) Pathologist [facility] PYRAMIS LINK PYRAMIS Anatomical Region Laterality Modality Vascular, Head, Neck Vascular Im aging 02/21/2011 3:08 PM EDT Tay Lombardo MD IMG VASCULAR ORDERABLES Maite l Result * ABORH (02/21/2011 1:20 PM EDT) Pathologist [facility] ABOR Int O POS [facility] Blood specimen (specimen) 02/21/2011 1:20 PM EDT 02/21/2011 1:25 PM EDT Tay Lombardo MD BLOOD BANK ORDERABLES Final Result Performing Organization Address City/[facility] [address]/ZIP Co de Phone Number [facility] [address] [place] [address] * ANTIBODY SCREEN IGG (02/21/2011 1:20 PM EDT) ABSC IgG Int Negative [facility] Blood specimen (specimen) 02/21/2011 1:20 PM EDT 02/21/2011 1:25 PM EDT us Tay Lombardo MD BLOOD BANK ORDERABLES Final Result [facility] [address] [place] [address] * SCANNED CARDIAC MOLD PRESS OPERATOR (02/02/2011 12:00 AM EDT) Only the most recent of2 resultswithin the time period is included. Narrative 02/02/2011 6:19 AM EDT Ordered by an unspecified provider. Transcriptions Unknown, Unknown - 02/02/2011 6:19 AM EDT us Unknown Unknown [facility] CARDIAC CATH ORDERABLES Maite l Result * NM MYOCARDIAL PERFUSION SPECT LEXISCAN STRESS AND REST (01/25/2011 2:50 PM EDT) PYRAMIS LINK PYRAMIS Anatomical Region Laterality Modality Nuclear Medicine 01/25/2011 1:08 PM EDT us Deshaun Yates MD IMG NM CARDIAC ORDERABLES Maite l Result * ST STRESS TEST LEXISCAN (01/25/2011 1:40 PM EDT) Anatomical Region Laterality Modality Cardiac Stress T esting Narrative 01/25/2011 4:03 PM EDT [facility] Name:Rickey Rush Date:01/25/2011 :1945 Baseline EKG revealed: NSR Baseline blood pressure was: 132/82 0.4 mg Lexiscan given IV push at 20 seconds into protocol. Lexiscan injection was done with low level exercise. The test was stopped due to pharmacologic stress protocol completion. The patient did have symptoms during the procedure. Specific symptoms include: Shortness of breath. Aminophylline was not given in recovery. Stress EKG was interpreted as: Ischemic Lexiscan GXT with associated chest discomfort. by: Myoview scan report pending. Procedure Note Deshaun Yates MD - 01/25/2011 [facility] [employer] [facility] INTERPRETATION Name:Rickey Rush Date:01/25/2011 :1945 Baseline EKG revealed: NSR Baseline blood pressure was: 132/82 0.4 mg Lexiscan given IV push at 20 seconds into protocol. Lexiscan injection was done with low level exercise. The test was stopped due to pharmacologic stress protocol completion. The patient did have symptoms during the procedure. Specific symptoms include: Shortness of breath. Aminophylline was not given in recovery. Stress EKG was interpreted as: Ischemic Lexiscan GXT with associated chestdiscomfort. by: Myoview scan report pending. us Deshaun Yates MD IMG STRESS ORDERABLES Final Re sult Visit Diagnoses Diagnosis Start Date Essential hypertension, benign 01/25/2011 Intermediate coronary syndrome (HCC) Intermediate coronary syndrome 01/25/2011 Undiagnosed cardiac murmurs 01/25/2011 Shortness of breath 01/25/2011 Debility, unspecified 01/25/2011 Intermediate coronary syndrome (HCC) Intermediate coronary syndrome 01/25/2011 Undiagnosed cardiac murmurs 01/25/2011 Essential hypertension, benign 01/25/2011 Intermediate coronary syndrome (HCC) Intermediate coronary syndrome 01/25/2011 Undiagnosed cardiac murmurs 01/25/2011 Essential hypertension, benign 01/25/2011 Shortness of breath 01/25/2011 Debility, unspecified 01/25/2011 Pre-op testing Preoperative examination, unspecified 01/28/2011 Aortic stenosis Aortic valve disorders 01/31/2011 CAD (coronary artery disease) Coronary atherosclerosis of unspecified type of vessel, [place] or graft 01/31/2011 Bruit Other symptoms involving cardiovascular system 02/21/2011 Aortic valve disorders 02/21/2011 Essential hypertension, benign 05/25/2011 Coronary atherosclerosis of [place] coronary artery 05/25/2011 Aortic valve disorders 05/25/2011 DM (diabetes mellitus) ([facility]) Type II or unspecified type diabetes mellitus without mention of complication, not stated as uncontrolled 07/20/2011 COPD (chronic obstructive pulmonary disease) (HCC) Chronic airway obstruction, not elsewhere classified 07/20/2011 HTN (hypertension) Unspecified essential hypertension 07/20/2011 Hyperlipidemia Other and unspecified hyperlipidemia 07/20/2011 Aortic stenosis Aortic valve disorders 09/22/2011 CAD (coronary artery disease) Coronary atherosclerosis of unspecified type of vessel, [place] or graft 09/22/2011 Hyperlipidemia Other and unspecified hyperlipidemia 09/22/2011 HTN (hypertension) Unspecified essential hypertension 09/22/2011 COPD (chronic obstructive pulmonary disease) (HCC) Chronic airway obstruction, not elsewhere classified 09/22/2011 DM (diabetes mellitus) ([facility]) Type II or unspecified type diabetes mellitus without mention of complication, not stated as uncontrolled 09/22/2011 CAD (coronary artery disease) Coronary atherosclerosis of unspecified type of vessel, [place] or graft 03/12/2012 HTN (hypertension) Unspecified essential hypertension 03/12/2012 Hyperlipidemia Other and unspecified hyperlipidemia 03/12/2012 COPD (chronic obstructive pulmonary disease) (HCC) Chronic airway obstruction, not elsewhere classified 03/12/2012 S/P aortic valve replacement Heart valve 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 03/12/2012 DM (diabetes mellitus) ([facility]) Type II or unspecified type diabetes mellitus without mention of complication, not stated as uncontrolled 03/12/2012 S/P aortic valve replacement Heart valve 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 03/13/2012 Pneumonia Pneumonia, organism unspecified 04/13/2012 CAD (coronary artery disease) Coronary atherosclerosis of unspecified type of vessel, [place] or graft 04/13/2012 Fever Fever, unspecified 04/13/2012 Aortic stenosis Aortic valve disorders 04/13/2012 COPD (chronic obstructive pulmonary disease) (HCC) Chronic airway obstruction, not elsewhere classified 04/13/2012 DM (diabetes mellitus) ([facility]) Type II or unspecified type diabetes mellitus without mention of complication, not stated as uncontrolled 04/13/2012 HTN (hypertension) Unspecified essential hypertension 04/13/2012 Hyperlipidemia Other and unspecified hyperlipidemia 04/13/2012 Hypotension Hypotension, unspecified 04/13/2012 Malaise Other malaise and fatigue 04/13/2012 S/P aortic valve replacement Heart valve 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 04/13/2012 Febrile illness Fever, unspecified 07/16/2012 H/O aortic valve replacement Heart valve 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 07/16/2012 HTN (hypertension) Unspecified essential hypertension 07/16/2012 COPD (chronic obstructive pulmonary disease) (HCC) Chronic airway obstruction, not elsewhere classified 07/16/2012 Type II or unspecified type diabetes mellitus without mention of complication, not stated as uncontrolled 07/16/2012 CAD (coronary artery disease) Coronary atherosclerosis of unspecified type of vessel, [place] or graft 07/16/2012 S/P aortic valve replacement Heart valve 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 07/16/2012 Fever Fever, unspecified 07/16/2012 Malaise Other malaise and fatigue 07/16/2012 S/P AVR (aortic valve replacement) Heart valve 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 07/26/2012 COPD (chronic obstructive pulmonary disease) (HCC) Chronic airway obstruction, not elsewhere classified 07/26/2012 S/P CABG (coronary artery bypass graft) Postsurgical aortocoronary bypass status 07/26/2012 HTN (hypertension) Unspecified essential hypertension 07/26/2012 DM (diabetes mellitus) ([facility]) Type II or unspecified type diabetes mellitus without mention of complication, not stated as uncontrolled 07/26/2012 Hyperlipidemia Other and unspecified hyperlipidemia 07/26/2012 Renal colic 09/22/2012 Hematuria Hematuria, unspecified 09/22/2012 Ureteral obstruction Other ureteric obstruction 09/22/2012 S/P AVR (aortic valve replacement) Heart valve 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 04/15/2013 CAD (coronary artery disease) Coronary atherosclerosis of unspecified type of vessel, [place] or graft 04/15/2013 HTN (hypertension) Unspecified essential hypertension 04/15/2013 Hyperlipidemia Other and unspecified hyperlipidemia 04/15/2013 CAD (coronary artery disease) Coronary atherosclerosis of unspecified type of vessel, [place] or graft 06/17/2013 CAD (coronary artery disease) Coronary atherosclerosis of unspecified type of vessel, [place] or graft 10/23/2013 S/P CABG (coronary artery bypass graft) Postsurgical aortocoronary bypass status 10/23/2013 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 10/23/2013 COPD (chronic obstructive pulmonary disease) (HCC) Chronic airway obstruction, not elsewhere classified 10/23/2013 HTN (hypertension) Unspecified essential hypertension 10/23/2013 Hyperlipidemia Other and unspecified hyperlipidemia 10/23/2013 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 07/16/2014 CAD (coronary artery disease) Coronary atherosclerosis of unspecified type of vessel, [place] or graft 07/16/2014 HTN (hypertension) Unspecified essential hypertension 07/16/2014 Hyperlipidemia Other and unspecified hyperlipidemia 07/16/2014 COPD (chronic obstructive pulmonary disease) (HCC) Chronic airway obstruction, not elsewhere classified 07/16/2014 S/P AVR (aortic valve replacement) Heart valve 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 04/12/2015 S/P CABG (coronary artery bypass graft) Postsurgical aortocoronary bypass status 04/12/2015 Hyperlipidemia Other and unspecified hyperlipidemia 04/12/2015 COPD (chronic obstructive pulmonary disease) (HCC) Chronic airway obstruction, not elsewhere classified 04/12/2015 Nuclear sclerotic cataract of right eye Senile nuclear sclerosis 11/22/2015 Nuclear sclerotic cataract of left eye Senile nuclear sclerosis 12/13/2015 Secondary hypertension, unspecified 04/05/2016 Nonrheumatic aortic valve stenosis Aortic valve disorders 04/05/2016 Coronary artery disease involving [place] coronary artery of [place] heart without angina pectoris 04/05/2016 Secondary hypertension, unspecified 05/25/2016 Nonrheumatic aortic valve stenosis Aortic valve disorders 05/25/2016 Coronary artery disease involving [place] coronary artery of [place] heart without angina pectoris 05/25/2016 S/P AVR (aortic valve replacement) Heart valve 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 05/25/2016 S/P CABG (coronary artery bypass graft) Postsurgical aortocoronary bypass status 05/25/2016 Other hyperlipidemia 05/25/2016 Essential hypertension Unspecified essential hypertension 05/25/2016 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 05/29/2016 Nonrheumatic aortic valve stenosis Aortic valve disorders 05/29/2016 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 11/03/2016 Nonrheumatic aortic valve stenosis Aortic valve disorders 11/03/2016 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 11/08/2016 ASHD (arteriosclerotic heart disease) Coronary atherosclerosis of unspecified type of vessel, [place] or graft 11/08/2016 Nonrheumatic aortic valve stenosis Aortic valve disorders 11/08/2016 Essential hypertension Unspecified essential hypertension 11/08/2016 Mixed hyperlipidemia 11/08/2016 S/P CABG (coronary artery bypass graft) Postsurgical aortocoronary bypass status 06/08/2017 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 06/08/2017 Other emphysema (HCC) Other emphysema 06/08/2017 Other hyperlipidemia 06/08/2017 Essential hypertension Unspecified essential hypertension 06/08/2017 Emphysematous bleb (HCC) Emphysematous bleb 12/11/2017 ASHD (arteriosclerotic heart disease) Coronary atherosclerosis of unspecified type of vessel, [place] or graft 12/13/2017 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 12/13/2017 Essential hypertension Unspecified essential hypertension 12/13/2017 Other hyperlipidemia 12/13/2017 Nonrheumatic aortic valve stenosis Aortic valve disorders 12/13/2017 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 01/09/2018 Nonrheumatic aortic valve stenosis Aortic valve disorders 01/09/2018 ASHD (arteriosclerotic heart disease) Coronary atherosclerosis of unspecified type of vessel, [place] or graft 06/18/2018 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 06/18/2018 Cough due to TONA inhibitor Cough 06/18/2018 Dyslipidemia Other and unspecified hyperlipidemia 06/18/2018 Other emphysema (HCC) Other emphysema 06/18/2018 Pneumonia of left lower lobe due to infectious organism 12/10/2018 Hypoxia Hypoxemia 12/10/2018 ASHD (arteriosclerotic heart disease) Coronary atherosclerosis of unspecified type of vessel, [place] or graft 03/18/2019 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 03/18/2019 Cough due to TONA inhibitor Cough 03/18/2019 Dyslipidemia Other and unspecified hyperlipidemia 03/18/2019 Essential hypertension Unspecified essential hypertension 03/18/2019 Chest wall pain Painful respiration 12/23/2019 Chest pain, rule out acute myocardial infarction Chest pain, unspecified 12/23/2019 Fever Fever, unspecified 04/13/2012 Hyperlipidemia Other and unspecified hyperlipidemia 04/13/2012 HTN (hypertension) Unspecified essential hypertension 04/13/2012 DM (diabetes mellitus) (HCC) Type II or unspecified type diabetes mellitus without mention of complication, not stated as uncontrolled 04/13/2012 COPD (chronic obstructive pulmonary disease) (HCC) Chronic airway obstruction, not elsewhere classified 04/13/2012 CAD (coronary artery disease) Coronary atherosclerosis of unspecified type of vessel, [place] or graft 04/13/2012 Aortic stenosis Aortic valve disorders 04/13/2012 Malaise Other malaise and fatigue 04/13/2012 Hypotension Hypotension, unspecified 04/13/2012 COPD (chronic obstructive pulmonary disease) (HCC) Chronic airway obstruction, not elsewhere classified 07/16/2012 Hyperlipidemia Other and unspecified hyperlipidemia 07/16/2012 Aortic stenosis Aortic valve disorders 07/16/2012 CAD (coronary artery disease) Coronary atherosclerosis of unspecified type of vessel, [place] or graft 07/16/2012 Fever Fever, unspecified 07/16/2012 Malaise Other malaise and fatigue 07/16/2012 Hypotension Hypotension, unspecified 07/16/2012 S/P aortic valve replacement Heart valve 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 07/16/2012 Former smoker Personal history of tobacco use, presenting hazards to health 11/22/2015 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
[2025-05-14] MEDS: ALBUTEROL 0.083% 2.5 MG/3 ML NEB IH (13:37)
== END 2025-05-14 23:59 | disposition home or self-care (01) ==
LOC: RT 09:48
PROVIDERS: PCP Family Medicine; Visit Provider Internal Medicine Pulmonary Disease
DX: J44.9 Chronic obstructive pulmonary disease, unspecified (principal); R94.2 Abnormal results of pulmonary function studies
CPT/HCPCS: 94010; 94618

== ENCOUNTER 2025-05-18 09:17 | Outpatient (CLI) | payer MEDICARE, SELFPAY ==
[2025-05-18 15:34] LABS: Hematocrit 37.7 % (42.0-52.0); Hemoglobin 11.5 g/dL (14.1-18.0); Immature Granulocytes % 0.1 %; Mean Corpuscular HGB Conc 30.5 g/dL (31.8-35.4); Mean Corpuscular Hemoglobin 29.8 pg (27.0-31.2); Mean Corpuscular Volume 97.7 fl (80-94); Nucleated Red Blood Cells % 0 %; Platelet Count 226 K/mm3 (142-424); Red Blood Count 3.86 M/mm3 (4.60-6.20); Red Cell Distribution Width-SD 51.1 fL; White Blood Count 7.2 K/mm3 (4.8-10.8)
[2025-05-18 17:56] LABS: Albumin Level 4.4 g/dl (3.5-5.0); Chloride 100 mmol/L (98-107); Potassium 5.7 mmoL/L (3.5-5.1); Sodium 141 mmol/L (136-145)
[2025-05-18 17:59] LABS: Alanine Aminotransferase 10 U/L (12-78); Albumin/Globulin Ratio 1.6 (1.1-1.8); Alkaline Phosphatase 50 U/L (38-126); Anion Gap 15.7 mEq/L (5-15); Aspartate Amino Transferase 29 U/L (17-59); Bilirubin,Total 0.3 mg/dl (0.2-1.3); Blood Urea Nitrogen 30 mg/dl (9-20); Calcium 10.2 mg/dl (8.4-10.2); Carbon Dioxide 31 mmol/L (22.0-30.0); Creatinine,Serum 1.30 mg/dl (0.66-1.25); Estimated Glomerular Filt Rate 53 ml/min (>60); GFR (African American) 64 ML/MIN (>60); Globulin 2.8 g/dL (1.3-3.2); Glucose 86 mg/dl (74-100); Total Protein,Serum 7.2 g/dl (6.3-8.2)
[2025-05-18 18:30] LABS: Thyroid Stimulating Hormone 3.28 uIU/mL (0.465-4.68)
--- OUTSIDE RECORDS SUMMARY | 2025-05-19 10:47 | XMS_ITS | Continuity of Care Document ---
Author Organization [facility] [place] Address [address] [place] [address] Care Team Providers Care Mobile Service Rv Technician Name Role Phone Devin Thibodeaux MD Primary Care Provider [phone] Encounters Date Type Department Care Team Description 12/23/2019 Travel 12/23/2019 4:15 PM EDT - 12/23/2019 7:22 PM EDT Emergency [facility] [address] [place] [address] Deshaun Patel MD Chest wall pain (Primary Dx); Chest pain, rule out acute myocardial infarction Discharge Disposition: Home or Self Care 03/18/2019 11:00 AM EDT Office Visit [facility] [address] [place] [address] Argelia Cortes APRN Essential hypertension (Primary Dx); ASHD (arteriosclerotic heart disease); S/P AVR; Cough due to TONA inhibitor; Dyslipidemia 12/10/2018 8:06 PM EDT - 12/12/2018 4:25 PM EDT Hospital Encounter [facility] [address] [place] [address] Liz Lorenzo MD Krusling, Edward J, MD Conner, James C, MD Pneumonia of left lower lobe due to infectious organism (HCC) (Primary Dx); Hypoxia Discharge Disposition: Home or Self Care 06/18/2018 10:00 AM EDT Office Visit [facility] [address] [place] [address] Deshaun Yates MD ASHD (arteriosclerotic heart disease) (Primary Dx); S/P AVR; Cough due to TONA inhibitor; Dyslipidemia; Other emphysema (HCC) 01/09/2018 1:16 PM EDT - 01/09/2018 11:59 PM EDT Hospital Encounter [place] [id number] 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 APRN H/O prosthetic heart valve; Nonrheumatic aortic valve stenosis Discharge Disposition: Home or Self Care 12/14/[address] [address] Deshaun Yates MD 12/13/2017 10:00 AM EDT Office Visit [address] [address] 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 APRN ASHD (arteriosclerotic heart disease) (Primary Dx); H/O prosthetic heart valve; Essential hypertension; Other hyperlipidemia; Nonrheumatic aortic valve stenosis 12/11/2017 2:44 PM EDT - 12/11/2017 11:59 PM EDT Hospital Encounter [facility] [address] [place] [address] Devin Thibodeaux MD Emphysematous bleb (HCC) Discharge Disposition: Home or Self Care 07/03/[address] [address] Deshaun Yates MD Visit Follow Up 06/08/2017 9:40 AM EDT Office Visit [address] [address] Deshaun Yates MD S/P CABG (coronary artery bypass graft) (Primary Dx); S/P AVR; Other emphysema (HCC); Other hyperlipidemia; Essential hypertension 11/08/2016 1:00 PM EST Office Visit [facility] [address] [place] [address] 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, VIJAY H/O prosthetic heart valve (Primary Dx); ASHD (arteriosclerotic heart disease); Nonrheumatic aortic valve stenosis; Essential hypertension; Mixed hyperlipidemia 11/03/2016 9:57 AM EST - 11/03/2016 11:59 PM EST Hospital Encounter [facility] [address] [place] [address] 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, DEBLOCKER H/O prosthetic heart valve; Nonrheumatic aortic valve stenosis Discharge Disposition: Home or Self Care 05/29/2016 [place]phone [place] [address] 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, VIJAY Results 05/25/2016 9:58 AM EDT - 05/25/2016 11:59 PM EDT Hospital Encounter [facility] [address] [place] [phone] Deshaun Yates MD Secondary hypertension, unspecified; Nonrheumatic aortic valve stenosis; Coronary artery disease involving nuiqsut coronary artery of nuiqsut heart without angina pectoris Discharge Disposition: Home or Self Care 05/25/2016 11:00 AM EDT Office Visit [facility] [address] [place] [phone] Deshaun Yates MD S/P AVR (aortic valve replacement) (Primary Dx); S/P CABG (coronary artery bypass graft); Other hyperlipidemia; Essential hypertension 04/05/2016 Telephone [facility] [address] [place] [address] eDshaun Yates MD Appointment Needed 12/13/2015 11:45 AM EDT - 12/13/2015 12:00 PM EDT Surgery [facility] [address] [place] [address] Jamie Villalobos MD CATARACT EXTRACTION WITH PHACOEMULSIFICATION AND INTRAOCULAR LENS 12/13/2015 11:39 AM EDT Anesthesia Event [facility] [place] [facility] [address] [place] [address] Viki Joshi MD Alam, Masroor, MD 12/13/2015 10:25 AM EDT - 12/13/2015 12:37 PM EDT Hospital Encounter [facility] [place] [facility] [address] [place] [address] Jamie Villalobos MD Discharge Disposition: Home or Self Care 11/22/2015 11:45 AM EDT - 11/22/2015 12:00 PM EDT Surgery EDG [facility] [address] [place] [address] Jamie Villalobos MD CATARACT EXTRACTION WITH PHACOEMULSIFICATION AND INTRAOCULAR LENS 11/22/2015 11:11 AM EDT Anesthesia Event EDG [facility] [address] [place] [address] Nando Borja MD Alam, Masroor, MD 11/22/2015 10:09 AM EDT - 11/22/2015 12:13 PM EDT Hospital Encounter EDG [facility] [address] [place] [address] Jamie Villalobos MD Discharge Disposition: Home or Self Care 11/15/[address] [address] Deshaun Yates MD Appointment Needed 04/12/2015 10:20 AM EDT Office Visit [facility]&[address] [address] Deshaun Yates MD S/P AVR (aortic valve replacement) (Primary Dx); S/P CABG (coronary artery bypass graft); Hyperlipidemia; COPD (chronic obstructive pulmonary disease) (HCC) 07/22/[address] [address] Ute Singer APRN Visit Follow Up 07/16/2014 Abstract [facility]&V [address] [address] Deshaun Yates MD 07/16/2014 9:40 AM EST Office Visit [address] [address] Ute Singer APRN S/P AVR (Primary Dx); CAD (coronary artery disease); HTN (hypertension); Hyperlipidemia; COPD (chronic obstructive pulmonary disease) ([facility]) 04/15/[address] [address] Deshaun Yates MD Appointment Needed 10/23/2013 12:28 PM EST - 10/23/2013 11:59 PM [place] [address] Ute Singer APRN CAD (coronary artery disease) Discharge Disposition: Home or Self Care 10/23/2013 2:00 PM EST Office Visit [address] [address] Deshaun Yates MD S/P CABG (coronary artery bypass graft) (Primary Dx); S/P AVR; COPD (chronic obstructive pulmonary disease) ([facility]); HTN (hypertension); Hyperlipidemia 10/22/[address] [address] Deshaun Yates MD 06/17/[address] [address] Deshaun Yates MD Appointment Needed 04/15/2013 10:20 AM EDT Office Visit [address] [address] Ute Singer APRN S/P AVR (aortic valve replacement) (Primary Dx); CAD (coronary artery disease); HTN (hypertension); Hyperlipidemia 10/03/[address] [address] Deshaun Yates MD Medication Question 09/23/2012 9:30 AM EST - 09/23/2012 10:25 AM EST Surgery EDG PERIOP [facility] [place] [address] Solo Ng MD CYSTOSCOPY, URETEROSCOPY, LASER LITHOTRIPSY, RETROGRADE PYELOGRAM, STENT INSERTION 09/22/2012 3:07 PM EST - 09/23/2012 2:40 PM EST Hospital Encounter EDG 2B2 UROLOGY [facility] [place] [address] Kermit Brizuela MD Cirulli, Christopher, MD Renal colic (Primary Dx); Hematuria; Ureteral obstruction Discharge Disposition: Home or Self Care 07/26/2012 Abstract [facility]&[address] [address] Deshaun Yates MD 07/26/2012 9:20 AM EST Office Visit [facility]&[address] [address] Deshaun Yates MD S/P AVR (aortic valve replacement); COPD (chronic obstructive pulmonary disease) ([facility]); S/P CABG (coronary artery bypass graft); HTN (hypertension); DM (diabetes mellitus) ([facility]); Hyperlipidemia 07/16/2012 9:52 AM EST - 07/17/2012 4:16 PM EST Hospital Encounter EDG TCU 1A [facility] [place] [address] Jason Suárez MD Bankers, Bradley J, MD Febrile illness; H/O aortic valve replacement; HTN (hypertension); COPD (chronic obstructive pulmonary disease) ([facility]); Type II or unspecified type diabetes mellitus without mention of complication, not stated as uncontrolled ([facility]); CAD (coronary artery disease); S/P aortic valve replacement; Fever; Malaise Discharge Disposition: Home or Self Care 07/16/2012 9:35 AM EST - 07/16/2012 9:51 AM EST Hospital Encounter [facility] LABORATORY [facility] [place] [address] Discharge Disposition: Home or Self Care 07/01/[address] [address] Deshaun Yates MD 04/13/2012 7:29 PM EDT - 04/16/2012 3:06 PM EDT Hospital Encounter EDG 7D [facility] [address] [place], [facility] Pedro Cordon MD Pfaff, Rhonda, MD Slone, Adam T, Pneumonia; CAD (coronary artery disease); Fever; Aortic stenosis; COPD (chronic obstructive pulmonary disease) ([facility]); DM (diabetes mellitus) ([facility]); HTN (hypertension); Hyperlipidemia; Hypotension; Malaise; S/P aortic valve replacement Discharge Disposition: Home or Self Care 03/15/[address] [address] Deshaun Yates MD Results 03/13/2012 1:43 PM EDT - 03/13/2012 11:59 PM EDT Hospital Encounter [facility]I [address] [address] Ute Singer APRN S/P aortic valve replacement Discharge Disposition: Home or Self Care 03/12/2012 2:00 PM EDT Office Visit [address] [address] Ute Singer APRN S/P aortic valve replacement (Primary Dx); CAD (coronary artery disease); HTN (hypertension); Hyperlipidemia; COPD (chronic obstructive pulmonary disease) ([facility]); DM (diabetes mellitus) ([facility]) 09/22/2011 1:40 PM EST Office Visit [address] [phone] Ute Singer APRN Aortic stenosis (Primary Dx); CAD (coronary artery disease); Hyperlipidemia; HTN (hypertension); COPD (chronic obstructive pulmonary disease) ([facility]); DM (diabetes mellitus) ([facility]) 07/20/[address] [place] [phone] Deshaun Yates MD DM (diabetes mellitus) (HCC); COPD (chronic obstructive pulmonary disease) (HCC); HTN (hypertension); Hyperlipidemia 05/25/2011 11:59 AM EDT - 05/25/2011 11:59 PM EDT Hospital Encounter [facility] ECHO [address] [place] [address] Deshaun Yates MD Essential hypertension, benign; Coronary atherosclerosis of nuiqsut coronary artery; Aortic valve disorders Discharge Disposition: Home or Self Care 02/23/2011 5:38 AM EDT - 03/02/2011 3:50 PM EDT Hospital Encounter EDG 5D TCU [facility] [address] [facility]17 Tay Lombardo MD Discharge Disposition: Home or Self Care 02/23/2011 8:00 AM EDT - 02/23/2011 6:30 PM EDT Surgery EDG PERIOP [facility] [facility]17 Tay Lombardo MD AORTIC VALVE REPAIR OR REPLACEMENT 02/21/2011 4:20 PM EDT - 02/21/2011 11:59 PM EDT Hospital Encounter Zaina EKG [facility] [place] [address] Tay Lombardo MD Discharge Disposition: Home or Self Care 02/21/2011 1:36 PM EDT - 02/21/2011 2:29 PM EDT Hospital Encounter EDG D-WING XRAY [facility] [place] [address] Tay Lombardo MD Discharge Disposition: Home or Self Care 02/21/2011 2:30 PM EDT - 02/21/2011 4:19 PM EDT Hospital Encounter EDG VASCULAR LAB [facility] [place] [address] Tay Lombardo MD Bruit; Aortic valve disorders Discharge Disposition: Home or Self Care 02/21/2011 12:34 PM EDT - 02/21/2011 1:35 PM EDT Hospital Encounter EDG PRE-ADMIT TESTING [facility] [place] [address] Discharge Disposition: Home or Self Care 01/31/2011 1:30 PM EDT - 01/31/2011 2:30 PM EDT Surgery Deshaun Yates MD CARDIAC PROCEDURE-WOOD FENCE ERECTOR ONLY 01/31/2011 12:12 PM EDT - 01/31/2011 8:34 PM EDT Hospital Encounter EDG CARD CATH REC [facility] [place] [address] Deshaun Yates MD Aortic stenosis; CAD (coronary artery disease) Discharge Disposition: Home or Self Care 01/28/2011 9:35 AM EDT - 01/28/2011 11:59 PM EDT Hospital Encounter EDG LABORATORY [facility] [place] [address] Pre-op testing Discharge Disposition: Home or Self Care 01/25/2011 1:32 PM EDT - 01/25/2011 11:59 PM EDT Hospital Encounter [facility] STRESS [address] [place] [address] Deshaun Yates MD Essential hypertension, benign; Intermediate coronary syndrome (HCC); Undiagnosed cardiac murmurs; Shortness of breath; Debility, unspecified Discharge Disposition: Home or Self Care 01/25/2011 10:08 AM EDT - 01/25/2011 10:09 AM EDT [facility] [address] [place] [address] Deshaun Yates MD Intermediate coronary syndrome (HCC); Undiagnosed cardiac murmurs; Essential hypertension, benign Discharge Disposition: Home or Self Care 01/25/2011 10:10 AM EDT - 01/25/2011 1:31 PM EDT Hospital Encounter [facility] NUCMED [address] [place] [address] Deshaun Yates MD Intermediate coronary syndrome (HCC); [...] MULTI-VITAMIN ORAL Take by mouth daily. Active [place]-3 Fatty Acids-Vitamin E (FISH OIL) 1,000 mg [...] Cancer Father attributed to w orking in [email or web address] in [place] and working in a [employer] Heart Disease Mother Hypertension Mother Heart Disease Sister Anesth Problems Neg Hx Relation Name Status Comments Brother Alive Father Mother Sister Social History Smoking Status as of 05/19/2025 Tobacco Use Types Packs/Day Years Used Date [...] on file Medical Devices Implanted Type Area Brass Sorter Device Identifier Shelf Expiration Date Model / Serial / Lot Stent Contour 6 X 24 #[id number] - [id number] Implanted:Qty: 1 on 09/23/2012 by Solo Ng MD at [facility] Stent Right: Ureter [employer]:MICROVASIVE: UROLOGY 06/03/2015 180-222 / / [id number] Bioprosthesis Valve Aortic Porcine Irma Lomeli 21mm - [id number] Implanted:Qty: 1 on 02/23/2011 at [facility] Explanted:at [facility] (Quantity not on file) Heart LOMELI LIFESCI 01/01/2013 2650-21 / [id number] / Description:Jamie villanueva LLucasC. 21 mm IRMA Aortic Valve 2650-21, PO#[id number] Lens Intraocular Preloaded 22.0 Diopter - [id number] Implanted:Qty: 1 on 11/22/2015 by Jamie Villalobos MD at [facility] Right: Eye AUGUST LAB:SURG 08/02/2018 AU00T0.22 0 / [id number] / Stent Bypass Micro Trabecular Istent Left - [id number] Implanted:Qty: 1 on 11/22/2015 by Jamie Villalobos MD at [facility] Right: Eye GLAUKOS MILIND 04/03/2018 GTS-100-L / [id number] / [id number] Lens Intraocular Preloaded 22.0 Diopter - [id number] Implanted:Qty: 1 on 12/13/2015 by Jamie Villalobos MD at [facility] Left: Eye AUGUST LAB:SURG 08/02/2018 AU00T0.22 0 / [id number] / Procedures Procedure Name Priority Date/Time [...] aortic valve stenosis Coronary artery disease involving nuiqsut coronary artery of nuiqsut heart without angina pectoris PERIPHERAL BLOCK Routine [...] EDT Essential hypertension, benign Coronary atherosclerosis of nuiqsut coronary artery Aortic valve disorders SCANNED LABS [...] EDT SAME PRE OP Special Needs SAUL CPT;[id number] AORTIC VALVE REPAIR OR REPLACEMENT 02/23/2011 8:12 AM EDT SAME PRE OP Special Needs SAUL CPT;33211 [id number] STAPHYLOCOCCUS AUREUS SCREEN Routine 02/23/2011 7:30 AM [...] Pre-Op 02/21/2011 1:00 PM EDT SCANNED CARDIAC WOOD FENCE ERECTOR 011 12:00 AM EDT SCANNED CARDIAC WOOD FENCE ERECTOR 011 12:00 AM EDT CARDIAC PROCEDURE-WOOD FENCE ERECTOR ONLY 01/31/2011 2:02 PM EDT ABN ECHO [...] HIGH SENSITIVITY 2HR (12/23/2019 6:03 PM EDT) vx-jJjtnehyy-T 2HR 9 <22 ng/L 12/23/2019 6:50 PM EDT [facility] Comment:See the website [facility] for rule out [place] care pathway, conditions other than AMI that can cause elevated hs cTnT, and comparison of values from the 4th and 5th generation Song tests. https://[email or web address]/topic/clinical-answers/[email or web address]/cpm-203 15281 hs-cTnT 2Hr Delta from Baseline -1 <4 ng/L 12/23/2019 6:50 PM EDT [facility] Blood VENOUS BLOOD / Unknown Venipuncture / Unknown 12/23/2019 6:03 PM EDT 12/23/2019 6:05 PM EDT Narrative [facility] - 12/23/2019 6:50 PM EDT Ingestion of arnulfo doses of biotin (>5 mg/day) taken within 8 hours of drawing blood sample can interfere with this immunoassay test. us Deshaun Patel MD CHEMISTRY ORDERABLES Final Re sult [facility] [address] [facility] [place] [address] * XR CHEST PA AND [...] of3 resultswithin the time period is included. ik-aCjghvzcd-H 10 <22 ng/L 12/23/2019 5:18 PM EDT [facility] Comment:See the website [employer] for rule out [place] care pathway, conditions other than AMI that can cause elevated hs cTnT, and comparison of values from the 4th and 5th generation Song tests. https://[email or web address]/topic/clinical-answers/[email or web address]/cpm-203 29562 Blood VENOUS BLOOD / Unknown Venipuncture / Unknown 12/23/2019 4:48 PM EDT 12/23/2019 4:50 PM EDT Narrative [facility] - 12/23/2019 5:18 PM EDT Ingestion of arnulfo doses of biotin (>5 mg/day) taken within 8 hours of drawing blood sample can interfere with this immunoassay test. us Deshaun Patel MD CHEMISTRY ORDERABLES Final Re sult [facility] [address] [place] [address] * (ABNORMAL) BASIC METABOLIC PANEL (12/23/2019 4:48 PM EDT) Only the most recent of13 resultswithin the time period is included. Sodium 135(L) 136 - 145 mmol/L 12/23/2019 5:18 PM EDT [facility] Potassium 4.8 3.5 - 5.0 mmol/L 12/23/2019 5:18 PM EDT [facility] Chloride 96(L) 98 - 107 mmol/L 12/23/2019 5:18 PM EDT [facility] Total CO2 28 22 - 29 mmol/L 12/23/2019 5:18 PM EDT [facility] Anion Gap 11 7 - 16 mmol/L 12/23/2019 5:18 PM EDT [facility] Calcium 9.9 8.8 - 10.4 mg/dL 12/23/2019 5:18 PM EDT [facility] Glucose Lvl 101(H) 82 - 100 mg/dL 12/23/2019 5:18 PM EDT [facility] BUN 14 8 - 23 mg/dL 12/23/2019 5:18 PM EDT [facility] Creatinine 0.93 0.67 - 1.30 mg/dL 12/23/2019 5:18 PM EDT [facility] GFR Afr Am 92 >=60 mL/min/1.7 3 m2 12/23/2019 5:18 PM EDT [facility] GFR Non Afr Am 79 >=60 mL/min/1.7 3 m2 12/23/2019 5:18 PM EDT [facility] Comment: This estimated GFR was [...] Patel MD CHEMISTRY ORDERABLES Final Re sult [facility] [address] [place] [address] * (ABNORMAL) CBC (12/23/2019 4:31 PM EDT) Only the most recent of5 resultswithin the time period is included. WBC 7.3 4.0 - 11.0 x10(3)/mcL 12/23/2019 4:38 PM EDT [facility] RBC 4.25(L) 4.30 - 5.81 x10(6)/mcL 12/23/2019 4:38 PM EDT [facility] Hgb 12.3(L) 13.5 - 17.1 g/dL 12/23/2019 4:38 PM EDT [facility] Hct 38.4(L) 38.9 - 51.6 % 12/23/2019 4:38 PM EDT [facility] MCV 90.3 82.5 - 99.8 fL 12/23/2019 4:38 PM EDT [facility] MCH 28.8 27.0 - 34.3 pg 12/23/2019 4:38 PM EDT [facility] MCHC 31.9(L) 32.1 - 35.3 g/dL 12/23/2019 4:38 PM EDT [facility] RDW 15.3(H) 11.5 - 15.0 % 12/23/2019 4:38 PM EDT [facility] Platelet 203 144 - 423 x10(3)/mcL 12/23/2019 4:38 PM EDT [facility] MPV 9.1 6.8 - 10.8 fL 12/23/2019 4:38 PM EDT [facility] Blood VENOUS BLOOD / Unknown Venipuncture / Unknown 12/23/2019 4:31 PM EDT 12/23/2019 4:36 PM EDT us Deshaun Patel MD HEMATOLOGY ORDERABLES Final R esult [place] [id number] * EK EKG 12 LEAD (12/23/2019 4:00 PM EDT) Only the most recent of8 resultswithin the time period is included. Anatomical Region Laterality Modality Electrocardiogra phy 12/23/2019 4:09 PM EDT Impressions 12/23/2019 5:52 PM EDT [facility] Test Date: 2019-12-23 Pat Name: RICKEY RUSH Department: DEPID Room: Gender: Male [employer]: [facility] : 1945 Requested By: [facility] Order Number: [id number] Reading MD: Roger Nguyen MD Measurements Intervals Ambler Rate: 75 P: 28 OH: 164 QRS: 17 QRSD: 90 T: 47 QT: 356 QTc: 400 Interpretive Statements SINUS RHYTHM normal Electronically Signed On 12-23-2019 17:52:14 EDT by Roger Nguyen MD Narrative Procedure Note Roger Nguyen MD - 12/23/[address] [facility] Test Date: 2019-12-23 Pat Name: RICKEY RUSH Department: DEPID Room: Gender: Male [employer]: [employer] : 1945 Requested By: [facility] Order Number: [id number] Reading MD: Roger Nguyen MD Measurements Intervals Ambler Rate: 75 P: 28 [place]: 164 QRS: 17 QRSD: 90 T: 47 [...] ORDERABLES Final R esult Performing Organization Address [facility] de Phone Number SEP OFFICE * (ABNORMAL) GLUCOSE METER POC (12/12/2018 1:24 PM EDT) Only the most recent of9 resultswithin the time period is included. Glucose Meter POC 105(H) 70 - 100 mg/dL 12/12/2018 1:25 PM EDT [facility] Sample Type Capillary 12/12/2018 1:25 PM EDT [facility] Patient Status Non-Critical Patient 12/12/2018 1:25 PM EDT [facility] Blood BLOOD SPECIMEN / Unknown 12/12/2018 1:24 PM EDT 12/12/2018 1:25 PM EDT Jamie Rdz MD POINT OF CARE TEST ORDERABL ES Final Result Performing Organization Address [facility] de Phone Number [facility] [address] [place] [address] * ECG AND WAVEFORMS - TELEMETRY (12/12/2018 7:00 AM EDT) Only the most recent of3 resultswithin the time period is included. [facility] INTERPRET NSR [facility] CLASS A REGIONAL DRIVERS APPROVED Yes [facility] 12/12/2018 7:00 AM EDT Narrative [facility] - 12/12/2018 7:44 AM EDT [place] 0.15 QRS 0.09 QT 0.30 See Clinical Report link for waveform capture Unknown Provider POINT OF CARE CARDIOLOGY Final Result Performing Organization Address [facility] de Phone Number [facility] [address] [place], [place] [id number] * MICROALBUMIN/CREATININE RATIO URINE (12/12/2018 7:00 AM EDT) Urine Microalb 17.7 mg/L 12/12/2018 9:22 AM EDT PREFERRED [facility], [facility] Urine Creatinine 135.3 mg/dL 12/12/2018 9:22 AM EDT [facility]REFERRED [facility], [facility] Ur Microalb/Creat 13 0 - 30 mg/g 12/12/2018 9:22 AM EDT [facility], [facility] Urine STRUCTURE OF URINARY TRACT PROPER / Unknown 12/12/2018 7:00 AM EDT 12/12/2018 7:36 AM EDT Jamie Rdz MD URINE ORDERABLES Final Resu lt PREFERRED LAB [facility], [facility] [address] [facility], [address] [address] * SCANNED EKG (12/11/2018 8:38 AM EDT) Anatomical Region Laterality Modality Other 12/11/2018 8:38 AM EDT Unknown Unknown IMG ECG ORDERABLES Final Result * EXTRA MORAN URINE CX (12/11/2018 8:28 AM EDT) Urine URINE SPECIMEN COLLECTION, CLEAN CATCH / Unknown 12/11/2018 8:28 AM EDT 12/11/2018 8:45 AM EDT Liz Lorenzo MD MICROBIOLOGY - GENERAL ORDERABLE S Final Result Performing Organization Address [facility]/ZIP Co de Phone Number [facility] [address] [place], [place] [id number] * (ABNORMAL) URINALYSIS (12/11/2018 8:28 AM EDT) Only the most recent of5 resultswithin the time period is included. UA Color Yellow 12/11/2018 9:00 AM EDT [facility] UA Appear Clear Clear 12/11/2018 9:00 AM EDT [facility] UA Glucose Negative Negative mg/dL 12/11/2018 9:00 AM EDT [facility] UA Ketones Negative Negative mg/dL 12/11/2018 9:00 AM EDT [facility] UA Blood Negative Negative 12/11/2018 9:00 AM EDT [facility] UA pH 6.0 5.0 - 8.0 pH 12/11/2018 9:00 AM EDT [facility] UA Protein 30(A) Negative mg/dL 12/11/2018 9:00 AM EDT [facility] UA Urobilinogen 0.2 <=1 mg/dL 9 9:00 AM EDT [facility] UA Bili Negative Negative 12/11/2018 9:00 AM EDT [facility] UA Nitrite Negative Negative 12/11/2018 9:00 AM EDT [facility] UA Leuk Est Negative Negative 12/11/2018 9:00 AM EDT [facility] UA Spec Grav >=1.030 1.001 - 1.035 no units 12/11/2018 9:00 AM EDT [facility] Comment: Reference range valid for random specimens only. UA WBC 5(H) 0 - 4 /HPF 12/11/2018 9:00 AM EDT [facility] UA Squam Epi 1+ /LPF 12/11/2018 9:00 AM EDT [facility] UA Mucus 1+ /LPF 12/11/2018 9:00 AM EDT [facility] UA Bacteria Trace(A) Negative /HPF 12/11/2018 9:00 AM EDT [facility] UA Hyal Cast 1 0 - 2 /LPF 12/11/2018 9:00 AM EDT [facility] UA WBC Cast 1(H) <=0 /LPF 12/11/2018 9:00 AM EDT [facility] Urine URINE SPECIMEN COLLECTION, CLEAN CATCH / Unknown 12/11/2018 8:28 AM EDT 12/11/2018 8:45 AM EDT us Liz Lorenzo MD URINE ORDERABLES Final Result [address] [place] [address] * BLOOD CULTURE (NO STAIN) (12/10/2018 9:39 PM EDT) Only the most recent of6 resultswithin the time period is included. Culture Result No Growth at 120 hours. BLOOD CULTURE (NO STAIN) 12/16/2018 2:00 AM EDT [facility] Blood VENOUS BLOOD / Unknown Venipuncture / Unknown 12/10/2018 9:39 PM EDT 12/10/2018 9:43 PM EDT us Liz Lorenzo MD MICROBIOLOGY - GENERAL ORDERABLE S Final Result [facility] [address] [facility] , [address] [place] [id number] * (ABNORMAL) CBC WITH DIFF (12/10/2018 9:38 PM EDT) Only the most recent of10 resultswithin the time period is included. WBC 4.7 4.0 - 11.0 x10(3)/mcL 12/10/2018 10:09 PM EDT [facility] RBC 4.47 4.30 - 5.81 x10(6)/mcL 12/10/2018 10:09 PM EDT [facility] Hgb 12.7(L) 13.5 - 17.1 g/dL 12/10/2018 10:09 PM EDT [facility] Hct 40.0 38.9 - 51.6 % 12/10/2018 10:09 PM EDT [facility] MCV 89.5 82.5 - 99.8 fL 12/10/2018 10:09 PM EDT [facility] MCH 28.4 27.0 - 34.3 pg 12/10/2018 10:09 PM EDT [facility] MCHC 31.7(L) 32.1 - 35.3 g/dL 12/10/2018 10:09 PM EDT [facility] RDW 16.0(H) 11.5 - 15.0 % 12/10/2018 10:09 PM EDT [facility] Platelet 138(L) 144 - 423 x10(3)/mcL 12/10/2018 10:09 PM EDT [facility] MPV 8.8 6.8 - 10.8 fL 12/10/2018 10:09 PM EDT [facility] Neut Percent 54.0 % 12/10/2018 10:09 PM EDT [facility] Lymph Percent 27.8 % 12/10/2018 10:09 PM EDT [facility] [place] Percent 17.3 % 12/10/2018 10:09 PM EDT [facility] Eos Percent 0.5 % 12/10/2018 10:09 PM EDT [facility] Baso Percent 0.4 % 12/10/2018 10:09 PM EDT [facility] Neut # 2.5 1.8 - 7.7 x10(3)/mcL 12/10/2018 10:09 PM EDT [facility] Lymph # 1.3 0.6 - 4.8 x10(3)/mcL 12/10/2018 10:09 PM EDT [facility] [place] # 0.8 0.0 - 1.3 x10(3)/mcL 12/10/2018 10:09 PM EDT [facility] Eos# 0.0 0.0 - 0.5 x10(3)/mcL 12/10/2018 10:09 PM EDT [facility] Baso # 0.0 0.0 - 0.2 x10(3)/mcL 12/10/2018 10:09 PM EDT [facility] [employer] PLTS Present 12/10/2018 10:09 PM EDT [facility] Blood VENOUS BLOOD / Unknown Venipuncture / Unknown 12/10/2018 9:38 PM EDT 12/10/2018 9:42 PM EDT us Liz Lorenzo MD HEMATOLOGY ORDERABLES Final Resu lt [facility] [address] [facility] [address] * (ABNORMAL) HEMOGLOBIN A1C (12/10/2018 9:38 PM EDT) Only the most recent of2 resultswithin the time period is included. Hgb A1C 6.6(H) 4.2 - 5.6 % 12/11/2018 5:31 PM EDT [facility] Est. Avg Glucose 143 mg/dL 12/11/2018 5:31 PM EDT [facility] Blood VENOUS BLOOD / Unknown Venipuncture / Unknown 12/10/2018 9:38 PM EDT 12/10/2018 9:42 PM EDT Narrative [facility] - 12/11/2018 5:31 PM EDT REFERENCE RANGE: Normal: 4.0-5.6% Pre-diabetes: 5.7-6.4% Provisional diagnosis of diabetes: >6.4% Hgb F>10% and anything which shortens red cell survival, such as hemolytic anemia, or unstable hemoglobin variants such as HbSS, HbSC, or HbCC, will lower the HbA1c value associated with a given level of glycemic control. Jamie Rdz MD CHEMISTRY ORDERABLES Final Result Performing Organization Address City/[facility] Co de Phone Number [facility] [address] [place] [address], [place] [address] * LACTIC ACID (12/10/2018 8:39 PM EDT) Only the most recent of2 resultswithin the time period is included. Pathologist [facility] Lactic Acid 1.0 0.5 - 1.9 mmol/L 12/10/2018 9:03 PM EDT [facility] Blood VENOUS BLOOD / Unknown Venipuncture / Unknown 12/10/2018 8:39 PM EDT 12/10/2018 8:42 PM EDT Liz Lorenzo MD CHEMISTRY ORDERABLES Final Resul t Performing Organization Address [facility]/ZIP Co de Phone Number [facility] [address] [place] [id number] * EC ECHOCARDIOGRAM COMPLETE W DOPPLER [...] Normal appearing bioprosthetic aortic valve 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 DEBLOCKER IMG ECHO ORDERABLES Final Res ult * CT CHEST W CONTRAST (12/11/2017 3:20 PM EDT) Anatomical Region Laterality Modality Chest Computed Tomogra phy 12/11/2017 3:20 PM EDT Impressions 12/11/2017 4:47 PM EDT No acute finding. No suspicious pulmonary nodules. All nodules have been stable since 2011. Narrative 12/11/2017 4:[address] CHEST WITH CONTRAST, 12/11/2017 3:20 PM CLINICAL HISTORY: J43.9-Emphysema, [id number] COMPARISON: 04/14/2012 PROCEDURE COMMENTS: Multi detector volumetric [...] CONTRAST, 12/11/2017 3:20 PM CLINICAL HISTORY: J43.9-Emphysema, [id number] COMPARISON: 04/14/2012 PROCEDURE COMMENTS: Multi detector volumetric [...] right lower lobe measuring 6 mm stable [id number]. IMPRESSION: No acute finding. No suspicious pulmonary nodules. All nodules have beenstable since 2011. us Devin Thibodeaux MD [facility] ORDERABLES Final Result * CREATININE ISTAT (12/11/2017 3:13 PM EDT) Creatinine-iST AT 1.0 0.6 - 1.3 mg/dL 12/11/2017 3:15 PM EDT [facility] Blood BLOOD SPECIMEN / Unknown 12/11/2017 3:13 PM EDT 12/11/2017 3:15 PM EDT us Devin Thibodeaux MD POINT OF CARE TEST ORDERABLES Fi nal Result [facility] [address] [place] [address] * SCANNED LABS (11/08/2016 1:55 PM EST) Only the most recent of7 resultswithin the time period is included. 11/08/2016 1:55 PM EST us Unknown Unknown HEMATOLOGY ORDERABLES Final Resu lt * PERIPHERAL BLOCK (12/13/2015 11:55 AM EDT) Narrative [facility] - 12/13/2015 11:55 AM EDT Latisha Marroquin CRNA 12/13/2015 11:55 AM Peripheral Block by Anesthesia Patient location during procedure: pre-op Procedure Date/Time: 12/13/2015 11:40 AM Staffing Anesthesiologist: VIKI JOSHI Resident/THREADING MACHINE OPERATOR: LATISHA MARROQUIN Performed by: JAMILA Preanesthetic Checklist Completed: patient identified, site marked, surgical consent, pre-op evaluation, timeout performed, IV checked, risks and benefits discussed and monitors and equipment checked Peripheral Block Immediate pre anesthetic assessment completed: Yes Patient position: supine Prep: alcohol swabs Patient monitoring: heart rate, phototypesetting equipment monitor and continuous pulse ox Block type: peribulbar Laterality: left Injection technique: single-shot Medication: lidocaine 2% (wydase) Needle Needle type: short-bevel Needle gauge: 25 G Needle length: 5/8. Needle localization: anatomical landmarks Assessment Injection assessment: negative aspiration for heme, no paresthesia on injection and incremental injection Heart rate change: no us Latisha Marroquin CRNA ANESTHESIA ORDERABLES Final Result [facility] [address] [place] [address] * PERIPHERAL BLOCK (11/22/2015 11:24 AM EDT) Narrative [facility] - 11/22/2015 11:24 AM EDT Eliana Lopez CRNA 11/22/2015 11:24 AM Peripheral Block by Anesthesia Patient location during procedure: pre-op Procedure Date/Time: 11/22/2015 11:13 AM Reason for block: at surgeon's request Staffing Anesthesiologist: NANDO BORJA Resident/THREADING MACHINE OPERATOR: ELIANA LOPEZ Performed by: JAMILA Preanesthetic Checklist Completed: patient identified, site marked, surgical consent, pre-op evaluation, timeout performed, IV checked, risks and benefits discussed, monitors and equipment checked and at surgeon's request Peripheral Block Immediate pre anesthetic assessment completed: Yes Patient position: sitting Prep: alcohol swabs Patient monitoring: continuous pulse ox, phototypesetting equipment monitor and heart rate Block type: peribulbar Laterality: right Injection technique: single-shot Medication: lidocaine 2% Dose: 6 Needle Needle type: short-bevel Needle gauge: 25 G Needle localization: anatomical landmarks Assessment Injection assessment: negative aspiration for heme, no paresthesia on injection and incremental injection Paresthesia pain: none Heart rate change: no us Eliana Lopez THREADING MACHINE OPERATOR ANESTHESIA ORDERABLES Fi nal Result Performing Organization Address City/State/[facility] [place] [address] * SCANNED PRE/POST PROCEDURES (09/25/2012 9:08 AM [...] LAB Lymph Percent 15.2 % SE LAB [place] Percent 8.4 % SE LAB Eos Percent 2.9 % SE LAB Baso Percent 0.2 % SE LAB Neut# 7.3 1.8 - 7.7 x10(3)/mcL SE LAB Lymph# 1.5 1.0 - 4.8 x10(3)/mcL [facility] [place]# 0.8 0.0 - 1.3 x10(3)/mcL [facility] Eos# 0.3 0.1 - 0.5 x10(3)/mcL [facility] Baso# 0.0 0.0 - 0.2 x10(3)/mcL [facility] Blood specimen (specimen) 09/22/2012 3:38 PM EST 09/22/2012 3:38 PM EST us Kermit Brizuela MD HEMATOLOGY ORDERABLES Final Resu lt Performing Organization Address City/[facility]/ZIP Co de Phone Number [facility] [address] [place] [address] * URINE CULTURE (09/22/2012 3:31 PM EST) Only the most recent of2 resultswithin the time period is included. Final 4,000 cfu/ml Staphylococcus species No further workup [facility] Urine specimen obtained by single catheterization of urinary bladder (specimen) STRUCTURE OF URINARY TRACT PROPER / Unknown 09/22/2012 3:31 PM EST 09/22/2012 3:40 PM EST us Kermit Brizuela MD MICROBIOLOGY - GENERAL ORDERABLE S Final Result Performing Organization Address City/[facility]/ZIP Co de Phone Number [facility] [address] [place] [address] * SCANNED OR REPORT (07/29/2012 12:00 AM [...] TO CARDIOLOGY (07/16/2012 9:39 PM EST) Narrative [facility] - 07/16/2012 9:39 PM EST Jason Patterson MD 07/16/2012 9:39 PM Cardiology Note: Rickey Rush Today's Date: 07/16/2012 Date of Admission: 07/16/2012 Primary Care Provider: Devin Thibodeaux MD Betting Agency Manager: Dr. Deshaun Yates Chief Complaint: Fever, chills, [...] - SCIP performed by TAY LOMBARDO at [facility] OR Cardiac catheterization 02/2011 Coronary [...] right MULTI-VITAMIN ORAL Take by mouth daily. [place]mont-3 Fatty Acids-Vitamin E (FISH OIL) 1,000 mg [...] focal abnormalities, cranial nerves 2-12 grossly intact Barn Boss: Sinus Rhythm rate of 84 Vitals: Patient [...] seen in coordination with the nurse practitioner. Jason Patterson MD [facility] Procedure Note Jason Patterson MD - 07/16/2012 4:46 PM EST Cardiology Note: Rickey Rush Today's Date: 07/16/2012 Date of Admission: 07/16/2012 Primary Care Provider: Devin Thibodeaux MD Betting Agency Manager: Dr. Deshaun Yates Chief Complaint: Fever, chills, [...] ECHOCARDIOGRAM - SCIPperformed by TAY LOMBARDO at [facility] OR Cardiac catheterization 02/2011 Coronary [...] right MULTI-VITAMIN ORAL Take by mouth daily. [place]mont-3 Fatty Acids-Vitamin E (FISH OIL) 1,000 mg [...] focal abnormalities, cranial nerves 2-12 grossly intact Barn Boss: Sinus Rhythm rate of 84 Vitals: Patient [...] coordination with the nursepractitioner. Jason Patterson MD [facility] us Jason Suárez MD INPATIENT CONSULT ORDERABLES Final Result [address] [address] * XR CHEST AP PORTABLE (07/16/2012 11:32 [...] Sed Rate 29(H) 0 - 20 mm [facility] Blood specimen (specimen) UPPER LIMB STRUCTURE / Unknown 07/16/2012 11:09 AM EST 07/16/2012 5:19 PM EST Mirna Quesada APRN HEMATOLOGY ORDERABLES Final Result Performing Organization Address City/[facility] Co de Phone Number [facility] [address] [place] [address] * PT / INR (04/16/2012 5:31 AM EDT) Only the most recent of9 resultswithin the time period is included. Pathologist [facility] PT 11.8 9.3 - 12.3 second(s) [facility] INR 1.09 0.86 - 1.14 [facility] Comment: Level of Therapy Indications Target INR Range Standard Dose Treatment and prophylaxis of venous 2.0 - 3.0 thrombosis, pulmonary embolism High Dose High risk patients with mechanical 2.5 - 3.5 heart valves Blood specimen (specimen) UPPER LIMB STRUCTURE / Unknown 04/16/2012 5:31 AM EDT 04/16/2012 5:54 AM EDT Jason Samaniego MD HEMATOLOGY ORDERABLES Final R esult Performing Organization Address City/[facility] Co de Phone Number [facility] [address] [place] [address] * .C DIFF TOXIN DNA RESULTS (04/14/2012 10:15 AM EDT) Pathologist [facility] c difficile specimen Stool [facility] Comment: TEST INFORMATION: This assay is a qualitative detection test for Clostridium difficile Toxin B (TcdB) gene in liquid or soft stool suspected of having Clostridium difficile-associated disease (CDAD). This test is an amplified DNA test by [employer], validated by [facility]. This Laboratory is authorized under the Clinial Laboratory Improvement Amendments (CLIA) as qualified to perform high-complexity testing. A negative result does not rule out the presence of Clostridium difficile Toxin B gene in concentrations below the detection of the assay. c DIFFICILE TOXIN DNA Negative [facility] Stool specimen (specimen) 04/14/2012 10:15 AM EDT 04/14/2012 10:24 AM EDT us Juan Carlos Salinas DO MICROBIOLOGY - GENERAL ORDERABLE S Final Result [facility] [address] [place] [address] * CT CHEST HIGH RESOLUTION W CONTRAST [...] ANTIBODY SCREEN (04/14/2012 8:56 AM EDT) Pathologist [facility] ENEIDA Screen Negative [facility] Comment: ENEIDA samples are screened [...] Salinas DO IMMUNOLOGY ORDERABLES Final Resu lt [facility] [address] [place] [address] * LACTATE DEHYDROGENASE (04/14/2012 8:56 AM EDT) Pathologist [facility] LDH 434 324 - 620 IU/L [facility] Blood specimen (specimen) UPPER LIMB STRUCTURE / Unknown 04/14/2012 8:56 AM EDT 04/14/2012 9:47 AM EDT us Juan Carlos Salinas DO CHEMISTRY ORDERABLES Final Resul t Performing Organization Address [facility] Co de Phone Number [facility] [address] [place] [address] * (ABNORMAL) CREATINE KINASE (04/14/2012 8:56 AM EDT) Pathologist [facility] CK 36(L) 55 - 170 IU/L [facility] Blood specimen (specimen) UPPER LIMB STRUCTURE / Unknown 04/14/2012 8:56 AM EDT 04/14/2012 9:47 AM EDT us Juan Carlos Salinas DO CHEMISTRY ORDERABLES Final Resul t Performing Organization Address [facility] Co de Phone Number [facility] [address] [place] [address] * CORTISOL (04/14/2012 8:56 AM EDT) [facility] Cortisol 7.4 mcg/dL [facility] Comment: Normals: Morning 6.0 - 25.0 ug/dl Evening 3.0 - 14.0 ug/dl Blood specimen (specimen) UPPER LIMB STRUCTURE / Unknown 04/14/2012 8:56 AM EDT 04/14/2012 9:15 AM EDT us Juan Carlos Salinas DO CHEMISTRY ORDERABLES Final Resul t Performing Organization Address [facility] Co de Phone Number [facility] [address] [place] [address] * TROPONIN-I (04/13/2012 8:15 PM EDT) [facility] Troponin-I <0.01 <=0.06 ng/mL [facility] Blood specimen (specimen) UPPER LIMB STRUCTURE / Unknown 04/13/2012 8:15 PM EDT 04/13/2012 8:32 PM EDT us Pedro Cordon MD CHEMISTRY ORDERABLES Final Result Performing Organization Address City/[facility]/ZIP Co de Phone Number [facility] [address] [place] [address] * LIPASE LEVEL (04/13/2012 8:15 PM EDT) Only the most recent of2 resultswithin the time period is included. Lipase Lvl 78 36 - 250 IU/L [facility] Blood specimen (specimen) UPPER LIMB STRUCTURE / Unknown 04/13/2012 8:15 PM EDT 04/13/2012 8:32 PM EDT us Pedro Cordon MD CHEMISTRY ORDERABLES Final Result Performing Organization Address [facility] de Phone Number [facility] [address] [place] [address] * SCANNED RADIOLOGY REPORT (03/12/2012 12:00 AM [...] RESPIRATORY CULTURE (02/27/2011 11:52 AM EDT) Pathologist [facility] GS Group 5: >25 WBC and <10 epithelial cells/lpf Abundant Gram positive cocci [facility] Final Abundant growth of Moraxella catarrhalis Beta-lactamase positive 03/01/2011 7:25:49 AM [facility] Sputum specimen (specimen) MOUTH REGION STRUCTURE / Unknown 02/27/2011 11:52 AM EDT 02/27/2011 11:59 AM EDT us Tay Lombardo MD MICROBIOLOGY - GENERAL ORDER ELDER Final Result [facility] [address] [place] [address] * HEPATIC FUNCTION PANEL (02/26/2011 5:15 AM EDT) Total Protein 6.5 6.0 - 8.2 gm/dL [facility] Albumin 4.1 3.4 - 4.8 gm/dL [facility] Bili Direct 0.1 0.0 - 0.4 mg/dL [facility] Bili Total 0.8 0.1 - 1.4 mg/dL [facility] AST 32 16 - 55 IU/L SE LAB ALT 30 6 - 72 IU/L [facility] Alk Phos 55 41 - 119 IU/L [facility] Blood specimen (specimen) UPPER LIMB STRUCTURE / Unknown 02/26/2011 5:15 AM EDT 02/26/2011 10:42 AM EDT Narrative [facility] - 02/26/2011 11:15 AM EDT Add to blood in lab or draw us Tay Lombardo MD CHEMISTRY ORDERABLES Final R esult Performing Organization Address City/[facility]/ZIP Co de Phone Number [facility] [address] [place] [address] * SMEAR REVIEW (02/26/2011 5:02 AM EDT) Bands 2 0 - 10 % [facility] Aniso Slight [facility] Polychrom Slight [facility] Blood specimen (specimen) 02/26/2011 5:02 AM EDT 02/26/2011 5:44 AM EDT us Tay Lombardo MD HEMATOLOGY ORDERABLES Final Result Performing Organization Address [facility] Co de Phone Number [facility] [address] [place] [address] * AMYLASE LEVEL (02/26/2011 5:02 AM EDT) [facility] Amylase Lvl 35 30 - 97 IU/L [facility] Blood specimen (specimen) UPPER LIMB STRUCTURE / Unknown 02/26/2011 5:02 AM EDT 02/26/2011 10:14 AM EDT Narrative [facility] - 02/26/2011 10:49 AM EDT Add to blood in lab or draw stat us Tay Lombardo MD CHEMISTRY ORDERABLES Final R esult Performing Organization Address [facility] Co de Phone Number [facility] [address] [place] [address] * POTASSIUM WHOLE BLOOD (02/25/2011 8:25 AM EDT) Only the most recent of10 resultswithin the time period is included. K-WB 4.4 3.5 - 5.0 mEq/L [facility] Blood specimen (specimen) UPPER LIMB STRUCTURE / Unknown 02/25/2011 8:25 AM EDT 02/25/2011 8:30 AM EDT Tay Lombardo MD CHEMISTRY ORDERABLES Final R esult Performing Organization Address [facility] Co de Phone Number [facility] [address] [place] [address] * (ABNORMAL) BLOOD GAS ARTERIAL (02/24/2011 5:13 AM EDT) Only the most recent of8 resultswithin the time period is included. pH 7.350(L) 7.370 - 7.440 [facility] pCO2 50(H) 32 - 45 mmHg [facility] pO2 122(H) 80 - 95 mmHg [facility] HCO3 28 20 - 29 mmol/L [facility] TCO2 29 21 - 30 mmol/L [facility] Base Excess 1.2 -2.8 - 2.3 mEq/L [facility] O2 Sat 99(H) 95 - 97 % [facility] Inspired O2 3L [facility] Specimen Type Arterial [facility] Blood specimen (specimen) UPPER LIMB STRUCTURE / Unknown 02/24/2011 5:13 AM EDT 02/24/2011 5:13 AM EDT us Tay Lombardo MD CHEMISTRY ORDERABLES Final R esult Performing Organization Address City/[facility]/ZIP Co de Phone Number [facility] [address] [place] [address] * (ABNORMAL) HEMOGLOBIN AND HEMATOCRIT (02/24/2011 12:26 AM EDT) Only the most recent of3 resultswithin the time period is included. Hgb 10.1(L) 13.5 - 17.1 gm/dL [facility] Hct 30.0(L) 40.0 - 50.2 % [facility] Blood specimen (specimen) UPPER LIMB STRUCTURE / Unknown 02/24/2011 12:26 AM EDT 02/24/2011 12:26 AM EDT us Tay Lombardo MD HEMATOLOGY ORDERABLES Final Result Performing Organization Address City/[facility]/ZIP Co de Phone Number [facility] [address] [place] [address] * TRANSFUSE RED BLOOD CELLS (02/23/2011 11:20 PM EDT) Only the most recent of4 resultswithin the time period is included. us Tay Lombardo MD NURSING TREATMENT ORDERABLES - BLOOD ADMIN Final Result * RED BLOOD CELLS REQUEST (02/23/2011 8:58 PM EDT) Only the most recent of4 resultswithin the time period is included. Red Blood Cells Status Ready [facility] Blood specimen (specimen) 02/23/2011 8:58 PM EDT 02/23/2011 8:58 PM EDT Tay Lombardo MD BLOOD PRODUCT ORDERS Final R critical access hospital Performing Organization Address [facility] de Phone Number [facility] [address] [place] [address] * TRANSFUSE FRESH FROZEN PLASMA (02/23/2011 8:43 PM EDT) Only the most recent of4 resultswithin the time period is included. us Tay Lombardo MD NURSING TREATMENT ORDERABLES - BLOOD ADMIN Final Result * FFP/PLASMA REQUEST (02/23/2011 4:43 PM EDT) Pathologist [facility] FFP/Plasma Status Ready [facility] Blood specimen (specimen) 02/23/2011 4:43 PM EDT 02/23/2011 4:43 PM EDT Narrative [facility] - 02/23/2011 5:08 PM EDT Due Date(MM/DD/YYYY):02/23/11Due Time(24hour clock): now Tay Lombardo MD BLOOD PRODUCT ORDERS Final R critical access hospital Performing Organization Address [facility] de Phone Number [facility] [address] [place] [address] * O2 SAT - MIXED VENOUS (02/23/2011 3:42 PM EDT) O2 Sat - Mixed Venous 67 % [facility] Blood specimen (specimen) UPPER LIMB STRUCTURE / Unknown 02/23/2011 3:42 PM EDT 02/23/2011 3:42 PM EDT Narrative [facility] - 02/23/2011 3:49 PM EDT Mixed venous invivo SVO2 calibration 2 hrs. Post-Op and q 24hrs. prn. us Tay Lombardo MD CHEMISTRY ORDERABLES Final R esult Performing Organization Address [facility] Co de Phone Number [facility] [address] [place] [address] * (ABNORMAL) PARTIAL THROMBOPLASTIN TIME (02/23/2011 1:09 PM EDT) Only the most recent of2 resultswithin the time period is included. PTT 36.0(H) 23.6 - 35.1 second(s) [facility] Blood specimen (specimen) UPPER LIMB STRUCTURE / Unknown 02/23/2011 1:09 PM EDT 02/23/2011 1:11 PM EDT Narrative [facility] - 02/23/2011 2:55 PM EDT On admission to [facility] Tay Lombardo MD HEMATOLOGY ORDERABLES Final Result Performing Organization Address [facility] de Phone Number [facility] [address] [place] [address] * (ABNORMAL) FIBRINOGEN (02/23/2011 1:09 PM EDT) Fibrinogen 128(L) 196 - 447 mg/dL [facility] Blood specimen (specimen) UPPER LIMB STRUCTURE / Unknown 02/23/2011 1:09 PM EDT 02/23/2011 1:11 PM EDT Narrative [facility] - 02/23/2011 2:55 PM EDT On admission to [facility] us Tay Lombardo MD HEMATOLOGY ORDERABLES Final Result Performing Organization Address [facility] Co de Phone Number [facility] [address] [place] [address] * STAPHYLOCOCCUS AUREUS SCREEN (02/23/2011 7:30 AM EDT) Final Growth of Staphylococcus aureus identified as methicillin sensitive. [facility] Specimen from nose (specimen) NASAL STRUCTURE / Unknown 02/23/2011 7:30 AM EDT 02/23/2011 7:48 AM EDT us Tay Lombardo MD MICROBIOLOGY - GENERAL ORDER ELDER Final Result Performing Organization Address [facility] Co de Phone Number [facility] [address] [place] [address] * SURGICAL PATHOLOGY REPORT (02/23/2011 5:30 AM EDT) Surgical Pathology Report PATIENT NAME:RICKEY RUSH Surgical Pathology Report Accession Number Collected Date/Time Received Date/Time [id number] 02/23/11 05:30 EDT 02/24/11 05:29 EDT Diagnosis Aortic valve: - Nodular calcifications with stromal fibrosis (clinically with stenosis). AIDA VIZCAINO MD (Electronically signed by) Verified: 02/27/2011 [facility] Clinical Information CAD; aortic stenosis. Gross Description Received in formalin, labeled with the patient's name and aortic valve are approximately 10 mullen-yellow calcified valve tissues ranging from 0.5 to 2.0 cm in greatest dimension. Oyster Fisherman sections are submitted in one cassette following decalcification./B C HARLEYP/CELSO Microscopic Description Microscopic examination is performed and the findings corroborate the diagnosis. [facility] 02/23/2011 5:30 AM EDT Tay Lombardo MD PATHOLOGY ORDERABLES Final R esult [facility] [address] [place] [address] * IA US CAROTID DUPLEX BILATERAL (02/21/2011 3:46 PM EDT) Pathologist [facility] PYRAMIS LINK PYRAMIS Anatomical Region Laterality Modality Vascular, Head, Neck Vascular Im aging 02/21/2011 3:08 PM EDT Tay Lombardo MD IMG VASCULAR ORDERABLES Maite l Result * ABORH (02/21/2011 1:20 PM EDT) Pathologist [facility] ABOR Int O POS [facility] Blood specimen (specimen) 02/21/2011 1:20 PM EDT 02/21/2011 1:25 PM EDT Tay Lombardo MD BLOOD BANK ORDERABLES Final Result Performing Organization Address City/[facility]/ZIP Co de Phone Number [facility] [address] [place] [address] * ANTIBODY SCREEN IGG (02/21/2011 1:20 PM EDT) ABSC IgG Int Negative [facility] Blood specimen (specimen) 02/21/2011 1:20 PM EDT 02/21/2011 1:25 PM EDT us Tay Lombardo MD BLOOD BANK ORDERABLES Final Result [facility] [address] [place] [address] * SCANNED CARDIAC WOOD FENCE ERECTOR (02/02/2011 12:00 AM EDT) Only the most recent of2 resultswithin the time period is included. Narrative 02/02/2011 6:19 AM EDT Ordered by an unspecified provider. Transcriptions Unknown, Unknown - 02/02/2011 6:19 AM EDT us Unknown Unknown [facility] CARDIAC CATH ORDERABLES Maite l Result [...] T esting Narrative 01/25/2011 4:03 PM EDT [facility] Name:Rickey Rush Date:01/25/2011 :1945 [...] Procedure Note Deshaun Yates MD - 01/25/2011 [facility] Name:Rickey Rush Date:01/25/2011 :1945 [...] Coronary atherosclerosis of unspecified type of vessel, [place] or graft 01/31/2011 Bruit Other symptoms involving cardiovascular system 02/21/2011 Aortic valve disorders 02/21/2011 Essential hypertension, benign 05/25/2011 Coronary atherosclerosis of [place] coronary artery 05/25/2011 Aortic valve disorders 05/25/2011 DM (diabetes mellitus) ([facility]) Type II or unspecified type diabetes mellitus without mention of complication, not stated as uncontrolled 07/20/2011 COPD (chronic obstructive pulmonary disease) (HCC) Chronic airway obstruction, not elsewhere classified 07/20/2011 HTN (hypertension) Unspecified essential hypertension 07/20/2011 Hyperlipidemia Other and unspecified hyperlipidemia 07/20/2011 Aortic stenosis Aortic valve disorders 09/22/2011 CAD (coronary artery disease) Coronary atherosclerosis of unspecified type of vessel, [place] or graft 09/22/2011 Hyperlipidemia Other and unspecified hyperlipidemia 09/22/2011 HTN (hypertension) Unspecified essential hypertension 09/22/2011 COPD (chronic obstructive pulmonary disease) (HCC) Chronic airway obstruction, not elsewhere classified 09/22/2011 DM (diabetes mellitus) ([facility]) Type II or unspecified type diabetes mellitus without mention of complication, not stated as uncontrolled 09/22/2011 CAD (coronary artery disease) Coronary atherosclerosis of unspecified type of vessel, [place] or graft 03/12/2012 HTN (hypertension) Unspecified essential hypertension 03/12/2012 Hyperlipidemia Other and unspecified hyperlipidemia 03/12/2012 COPD (chronic obstructive pulmonary disease) (HCC) Chronic airway obstruction, not elsewhere classified 03/12/2012 S/P aortic valve replacement Heart valve 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 03/12/2012 DM (diabetes mellitus) ([facility]) Type II or unspecified type diabetes mellitus without mention of complication, not stated as uncontrolled 03/12/2012 S/P aortic valve replacement Heart valve 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 03/13/2012 Pneumonia Pneumonia, organism unspecified 04/13/2012 CAD (coronary artery disease) Coronary atherosclerosis of unspecified type of vessel, [place] or graft 04/13/2012 Fever Fever, unspecified 04/13/2012 Aortic stenosis Aortic valve disorders 04/13/2012 COPD (chronic obstructive pulmonary disease) (HCC) Chronic airway obstruction, not elsewhere classified 04/13/2012 DM (diabetes mellitus) ([facility]) Type II or unspecified type [...] Coronary atherosclerosis of unspecified type of vessel, [place] or graft 07/16/2012 S/P aortic valve replacement [...] Unspecified essential hypertension 07/26/2012 DM (diabetes mellitus) ([facility]) Type II or unspecified type diabetes mellitus without mention of complication, not stated as uncontrolled 07/26/2012 Hyperlipidemia Other and unspecified hyperlipidemia 07/26/2012 Renal colic 09/22/2012 Hematuria Hematuria, unspecified 09/22/2012 Ureteral obstruction Other ureteric obstruction 09/22/2012 S/P AVR (aortic valve replacement) Heart valve 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 04/15/2013 CAD (coronary artery disease) Coronary atherosclerosis of unspecified type of vessel, [place] or graft 04/15/2013 HTN (hypertension) Unspecified essential hypertension 04/15/2013 Hyperlipidemia Other and unspecified hyperlipidemia 04/15/2013 CAD (coronary artery disease) Coronary atherosclerosis of unspecified type of vessel, [place] or graft 06/17/2013 CAD (coronary artery disease) Coronary atherosclerosis of unspecified type of vessel, [place] or graft 10/23/2013 S/P CABG (coronary artery [...] Coronary atherosclerosis of unspecified type of vessel, [place] or graft 07/16/2014 HTN (hypertension) Unspecified essential [...] valve disorders 04/05/2016 Coronary artery disease involving [place] coronary artery of [place] heart without angina pectoris 04/05/2016 Secondary hypertension, unspecified 05/25/2016 Nonrheumatic aortic valve stenosis Aortic valve disorders 05/25/2016 Coronary artery disease involving [place] coronary artery of [place] heart without angina pectoris 05/25/2016 S/P AVR [...] Coronary atherosclerosis of unspecified type of vessel, [place] or graft 11/08/2016 Nonrheumatic aortic valve stenosis [...] Coronary atherosclerosis of unspecified type of vessel, [place] or graft 12/13/2017 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 12/13/2017 Essential hypertension Unspecified essential hypertension 12/13/2017 Other hyperlipidemia 12/13/2017 Nonrheumatic aortic valve stenosis Aortic valve disorders 12/13/2017 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 01/09/2018 Nonrheumatic aortic valve stenosis Aortic valve disorders 01/09/2018 ASHD (arteriosclerotic heart disease) Coronary atherosclerosis of unspecified type of vessel, [place] or graft 06/18/2018 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 06/18/2018 Cough due to TONA inhibitor Cough 06/18/2018 Dyslipidemia Other and unspecified hyperlipidemia 06/18/2018 Other emphysema (HCC) Other emphysema 06/18/2018 Pneumonia of left lower lobe due to infectious organism 12/10/2018 Hypoxia Hypoxemia 12/10/2018 ASHD (arteriosclerotic heart disease) Coronary atherosclerosis of unspecified type of vessel, [place] or graft 03/18/2019 S/P AVR Heart valve [...] Coronary atherosclerosis of unspecified type of vessel, [place] or graft 04/13/2012 Aortic stenosis Aortic valve disorders 04/13/2012 Malaise Other malaise and fatigue 04/13/2012 Hypotension Hypotension, unspecified 04/13/2012 COPD (chronic obstructive pulmonary disease) (HCC) Chronic airway obstruction, not elsewhere classified 07/16/2012 Hyperlipidemia Other and unspecified hyperlipidemia 07/16/2012 Aortic stenosis Aortic valve disorders 07/16/2012 CAD (coronary artery disease) Coronary atherosclerosis of unspecified type of vessel, [place] or graft 07/16/2012 Fever Fever, unspecified 07/16/2012 [...] obstruction, not elsewhere classified 12/10/2018 Care Teams Mobile Service Rv Technician Relationship Specialty Start Date End Date Devin Thibodeaux MD PCP - General 01/19/11
== END 2025-05-18 23:59 ==
LOC: LAB.DROPOF 05-19 10:22
PROVIDERS: PCP Family Medicine; Visit Provider Family Medicine
DX: E03.9 Hypothyroidism, unspecified (principal); E11.9 Type 2 diabetes mellitus without complications; I10 Essential (primary) hypertension
CPT/HCPCS: 80053; 84443; 85025

== ENCOUNTER 2025-07-06 12:57 | Inpatient (IN) | payer MEDICARE, SELFPAY ==
[2025-07-06] VITALS (20 sets, daily range): BP systolic 91–147; BP diastolic 57–98; PULSE 64–95; RESP 12–24; TEMP 36.4–36.9; O2SAT 90–100; BMI 23.1
--- NOTE | 2025-07-06 13:33 | ECG_ITS ---
APPROVED REPORT Exam: Resting ECG HR:69 bpm ECG Measurements Heart Rate 69 AXES [place] 141 P 79 QRSd 86 QRS 55 QT 353 T 64 QTc 372 Conclusion SINUS RHYTHM NORMAL ECG Electronically signed by : LENORA CHOI, 07/13/2025 07:20:04
[2025-07-06 13:39] LABS: Coronavirus 19, PCR Not Detected (NotDetected); Influenza A, PCR Not Detected (NotDetected); Influenza B, PCR Not Detected (NotDetected)
--- NOTE | 2025-07-06 14:29 | ED_ITS ---
<Statement entered by Kel Farooq MD - 07/06/25 16:36> I consulted the LYNDSEY, and we discussed the complexity of the problems being addressed. I approved the treatment and management plan for this patient's care in the emergency department, thus performing a substantial portion of the medical decision making. Will MD sOeas Discharge Plan Disposition Patient Disposition: Admitted Condition: Good Clinical Impressions Clinical Impression: Pneumonia Discharge ED Provider: Kel Farooq HPI <GURDEEP Jonas - Last Filed: 07/06/25 18:12> General Chief Complaint: Shortness of Breath/Dyspnea Stated Complaint: SOA Time Seen by Provider: 07/06/25 13:56 Mode of Arrival: Wheelchair Source of Information: Patient Description of Symptoms (Recalled from ER Triage Doc. by RN): Pt states he woke up yesterday very short of air and gasping. Pt states he has had a slight cough but nothing major. He wears at home O2 usually, and states even on his home oxygen he has felt short of air. Pt states this morning he woke up with the same SOA issue, states he has been very weak. Pt has a history of COPD and an open heart surgery in 2010. History of Present Illness HPI narrative: 79-year-old male presents to the emergency department with dyspnea that has been going on for the last 2 days, patient states he woke up on Sunday morning , gasping for air , patient states he had to go out the back door and get some fresh air . Patient endorses a slight productive cough, describes it as brownish , denies any fever chills, denies any chest pain, admits to shortness of breath, generalized weakness for 2 days, that is worse and is at his baseline, utilizes 2 L nasal cannula at home as needed, patient denies any nausea vomiting constipation diarrhea no urinary type symptomatology, patient is a former smoker, denies any alcohol or drug use, other past medical history consistent with COPD, hypothyroidism, CAD status post 2 stent placements, status post aortic valve replacement with porcine valve, hyperlipidemia, hypertension, carotid artery stenosis, T2DM, pulmonary nodules, HFpEF, anemia, GERD. Initial triage vitals are unremarkable on 2-3 L nasal cannula. Please note that above description of symptoms, in this electronic medical record under categorization of recalled from ER triage doctor by RN are reflective of an initial nursing assessment, however, is not reflective of my full history and physical exam that was personally taken and clarified. Consequentially, this preceding description of symptoms, which may include the patient's categorized chief complaint in the EMR, do not reflect my personal clinical impression, and the ultimate description of history of present illness and patient stated complaints should be deferred to this section of the note. Unless stated otherwise or congruent with this section of the note, additional signs, symptoms, or incongruence should be interpreted as inaccurate with my clinical impression. MD complaint: other Onset (ago): day(s) Related Data Home Medications ?Medication ?Instructions ?Recorded ?Confirmed aspirin 81 mg tablet,delayed 81 mg PO DAILY heart heal th 04/12/20 05/18/25 release (Aspir-) cholecalciferol (vitamin D3) 10 10 mcg PO DAILY Supple ment 04/12/20 05/18/25 mcg (400 unit) capsule ascorbic acid (vitamin C) 500 mg 500 mg PO DAILY 11/1105/18/25 tablet (Vitamin C) garlic 500 mg capsule 500 mg PO DAILY 11/11/24 multivitamin 1 tab PO DAILY 11/11/2405/04 Previous Rx's ?Medication ?Instructions ?Recorded umeclidinium 62.5 mcg-vilanterol See Rx Instructions . Route 11/03/24 25 mcg/actuation powdr for .COMPLEX #180 ea inhalation (Anoro Ellipta) losartan 50 mg tablet 50 mg PO DAILY #90 tabs 10/28 nitroglycerin 0.4 mg sublingual 0.4 mg sublingual Q5M PRN chest 02/02/25 tablet pain #20 tabs carvedilol 12.5 mg tablet See Rx Instructions .Route 0 02/09/25 .COMPLEX #180 tabs metformin 1,000 mg tablet See Rx Instructions .Route 0 03/31/25 .COMPLEX #180 tabs rosuvastatin 10 mg tablet See Rx Instructions .Route 0 04/02/25 .COMPLEX #90 tabs albuterol sulfate 90 mcg/actuation 2 inh inhalation QI D PRN shortness 04/06/25 aerosol inhaler of breath or wheezing 90 day s #8.5 grams cyanocobalamin (vitamin B-12) 1,000 mcg PO DAILY #30 t abs 05/05/25 1,000 mcg tablet levothyroxine 50 mcg tablet 50 mcg PO DAILY #30 tabs 0 9/03/25 ipratropium 0.5 mg-albuterol 3 mg 3 ml inhalation QID PRN shortness 05/14/25 (2.5 mg base)/3 mL nebulization of breath or wheezing 90 days #90 soln mL pantoprazole 40 mg tablet,delayed 40 mg PO DAILY #90 t abs 06/16/25 release (Protonix) furosemide 40 mg tablet See Rx Instructions .Route 1 .COMPLEX #90 tabs Allergies Allergy/AdvReac Type Severity Reaction Status Date / Time Penicillins Allergy Severe Rash Verified 05/18/25 08:22 [facility] <GURDEEP Jonas - Last Filed: 07/06/25 18:12> [facility] Disclaimer: The information contained in this section may have been updated after the patient was seen, as this information can be updated by other users. Medical History Tachycardia Acquired hypothyroidism Vitamin B12 deficiency Vitamin D deficiency Hearing difficulty Ear pain Gallstones Hyperlipidemia Hypertension Carotid artery stenosis Diastolic dysfunction Coronary artery disease Diabetes Acute and chronic respiratory failure with hypoxia Parainfluenza infection Acute kidney injury Mediastinal lymphadenopathy Multiple pulmonary nodules Pulmonary emphysema Smoking greater than 30 pack years Dyspnea on exertion Diverticulitis Diverticular hemorrhage Abnormal EKG History of UTI COPD (chronic obstructive pulmonary disease) Surgical History History of heart valve replacement History of cataract surgery History of heart surgery History of tonsillectomy Hx of CABG Family History Sister Family history of myocardial infarction Mother Family history of myocardial infarction Other No significant family history Social History (Updated 05/18/25 @ 08:38 by Samanta Butt MA) Smoking Status: Former smoker smoking status stop date: jul 2002 alcohol intake: never substance use type: denies use current occupational status: retired Travel in the last 8 weeks?: None household members: none housing: house current occupational exposures/hazards: No caffeine: No Have you lived/traveled outside [place] in past 30 days?: No Contact w/someone who lives/traveled outside US past 30 days?: No Exposure to someone with infectious disease in past 14 days?: No Do you have a fever (greater than 100.4 F or 38 C)?: No Have you tested positive for COVID-19?: No Exposed to someone with COVID-19 in past 14 days?: No Do you have a sore throat?: No Do you have a cough?: No Do you have any weakness?: No Do you have any diarrhea?: No Are you experiencing any unusual bleeding?: No Do you have any muscle aches/pain?: No Do you have any abdominal pain?: No Are you experiencing loss of taste or smell?: No Other Medical History Have you received the Flu Vaccine for this season: No Have you received the Pneumonia Vaccine: Yes <GURDEEP Jonas - Last Filed: 07/06/25 18:12> ROS Obtained: Yes All systems reviewed & no additional complaints except as documented Physical Exam <GURDEEP Jonas - Last Filed: 07/06/25 18:12> General General appearance: alert and in no apparent distress Head Head exam: atraumatic and normocephalic Eye Eye exam: Present PERRL and EOMI ENT ENT exam: Present mucous membranes moist Neck Neck exam: Present normal inspection Chest Chest inspection: Present normal inspection and symmetric chest wall rise Respiratory Respiratory exam: Present wheezes and other (Some air trapping, decreased air movement and mild wheezes noted to bilateral lung saenz); Absent normal lung sounds bilaterally or respiratory distress Cardiovascular Cardiovascular exam: Present regular rate and normal rhythm Abdominal Exam Abdominal exam: Present soft; Absent tenderness, guarding, rebound or trauma Extremities Exam Extremities exam: Present normal inspection Neurological Exam Neurological exam: Present alert and oriented X3 Psychiatric Psychiatric exam: Present normal affect Skin Skin exam: Present warm and dry HEART Score <Kel Farooq MD - Last Filed: 07/06/25 16:45> HEART Score HEART Score assessment performed?: No Critical Care <Kel Farooq MD - Last Filed: 07/06/25 16:45> Critical Care Time Critical Care Time: No Medical Decision Making <GURDEEP Jonas - Last Filed: 07/06/25 18:12> Medical Records Medical records reviewed: Yes I reviewed the patient's medical records. Igor Inquiry Pt receiving controlled substance: No Igor was queried for this patient: No Vital Signs Vital Signs: 07/06/25 13:28 07/06/25 13:32 07/06/25 13:33 Temperature 97.6 F 97.6 F Temperature Source Oral Oral Pulse Rate 70 Pulse Rate [Right] 69 Respiratory Rate 24 18 Blood Pressure 147/65 H Blood Pressure [Right Arm] 147/65 H Blood Pressure Mean Blood Pressure Mean [Right Arm] 92 Blood Pressure Source [Right Arm] Automatic Cuff Blood Pressure Position [Right Arm] Sitting 02 Sat by Pulse Oximetry 90 L 90 L 90 L Oxygen Delivery Method Nasal Cannula Nasal Cannula Nasal Cannula Oxygen Flow Rate (LPM) 2 2 2 07/06/25 14:00 07/06/25 14:15 07/06/25 14:31 Temperature Temperature Source Pulse Rate 64 64 66 Pulse Rate [Right] Respiratory Rate 18 19 16 Blood Pressure 117/63 133/62 134/64 Blood Pressure [Right Arm] Blood Pressure Mean Blood Pressure Mean [Right Arm] Blood Pressure Source [Right Arm] Blood Pressure Position [Right Arm] 02 Sat by Pulse Oximetry 100 100 100 Oxygen Delivery Method Nasal Cannula Nasal Cannula Oxygen Flow Rate (LPM) 2 2 07/06/25 14:45 07/06/25 15:00 07/06/25 15:30 Temperature Temperature Source Pulse Rate 67 65 67 Pulse Rate [Right] Respiratory Rate 21 21 21 Blood Pressure 144/66 H 124/69 128/62 Blood Pressure [Right Arm] Blood Pressure Mean 84 Blood Pressure Mean [Right Arm] Blood Pressure Source [Right Arm] Blood Pressure Position [Right Arm] 02 Sat by Pulse Oximetry 100 100 100 Oxygen Delivery Method Oxygen Flow Rate (LPM) 07/06/25 15:45 07/06/25 16:00 07/06/25 16:17 Temperature Temperature Source Pulse Rate 66 65 66 Pulse Rate [Right] Respiratory Rate 15 20 18 Blood Pressure 120/70 141/61 H 91/61 L Blood Pressure [Right Arm] Blood Pressure Mean 78 76 71 Blood Pressure Mean [Right Arm] Blood Pressure Source [Right Arm] Blood Pressure Position [Right Arm] 02 Sat by Pulse Oximetry 100 100 100 Oxygen Delivery Method Oxygen Flow Rate (LPM) 07/06/25 16:30 Temperature Temperature Source Pulse Rate 66 Pulse Rate [Right] Respiratory Rate 18 Blood Pressure 131/65 Blood Pressure [Right Arm] Blood Pressure Mean 87 Blood Pressure Mean [Right Arm] Blood Pressure Source [Right Arm] Blood Pressure Position [Right Arm] 02 Sat by Pulse Oximetry 100 Oxygen Delivery Method Oxygen Flow Rate (LPM) Lab Data Lab results reviewed: Yes I reviewed the patient's lab results. Labs: Lab Results 07/06/25 13:35: SARS-CoV-2 (PCR) Not detected, Influenza A Untype (PCR) Not detected, Influenza Type B (PCR) Not detected 07/06/25 14:10: WBC 6.6, RBC 3.47 L, Hgb 10.6 L, Hct 34.1 L, MCV 98.3 H, MCH 30.5, MCHC 31.1 L, RDW 13.5, Plt Count 201, MPV 10.8 H, Neut % (Auto) 70.4, Lymph % (Auto) 14.5, Winston % (Auto) 12.3 H, Eos % (Auto) 2.3, Baso % (Auto) 0.3, Neut # (Auto) 4.7, Lymph # (Auto) 1.0, Winston # (Auto) 0.8, Eos # (Auto) 0.2, Baso # (Auto) 0.0, D-Dimer 0.86 H, Sodium 138, Potassium 5.1, Chloride 100, Carbon Dioxide 33 H, Anion Gap 10.1, BUN 25 H, Creatinine 1.10, Estimated Creat Clear 48, Estimated GFR 64, Est GFR ( Amer) 78, Glucose 121 H, Calcium 9.6, M agnesium 1.3 L, Total Bilirubin 0.4, AST 25, ALT 12, Alkaline Phosphatase 45, Troponin I < 0.01, NT-Pro-B Natriuret Pep 953 H, Total Protein 7.3, Albumin 4.0, Globulin 3.3 H, Albumin/Globulin Ratio 1.2 07/06/25 14:47: VBG pH 7.32, VBG pCO2 58.2 H, VBG pO2 32.6, VBG HCO3 29.0, VBG Total CO2 30.8 H, VBG O2 Saturation 56.1, VBG Base Excess 2.8 H, VBG Lactic Acid 1.2 07/06/25 14:10 07/06/25 14:10 Response Orders (Tests/Meds): ED MEDICATIONS Generic Name Dose Route Start Last Admin Trade Name Freq PRN Reason Stop Dose Admin Acetaminophen 650 mg 07/06/25 17:46 Acetaminophen 325mg Tab PO 08/05/25 17:45 Q4HP PRN Fever or Mild Pain (1-3) Heparin Sodium (Porcine) 5,000 unit 07/06/25 21:00 Heparin Sodium 5,000 Unit/Ml Vial SUBCUT 08/05/25 20:59 TID [facility] Azithromycin 500 mg/ Sodium 250 mls @ 250 mls/hr 07/07/25 18:00 Chloride IV 07/08/25 18:01 Q24H [facility] Ceftriaxone Sodium 1 gm/ 50 mls @ 100 mls/hr 07/07/25 17:00 Sodium Chloride IV 07/17/25 16:59 Q24H [facility] Insulin Human Lispro 0 unit 07/06/25 21:00 Humalog 100 Units/Ml 10ml Vial (Ssi) SUBCUT 08/05/25 20:59 ACHS [facility] Protocol Discontinued Medications Generic Name Dose Route Start Last Admin Trade Name Freq PRN Reason Stop Dose Admin Albuterol/Ipratropium 6 ml 07/06/25 14:38 07/06/25 14:51 Ipratropium/Albuterol 3 Ml Neb IH 07/06/25 14:39 6 ml ONCE ONE Administration Magnesium Sulfate 2 gm in 50 mls @ 50 mls/hr 07/06/25 15:10 07/06/25 16:20 Magnesium Sulfate 2gm/50ml Premix IV 07/06/25 16:09 Infused ONCE ONE Infusion Azithromycin 500 mg/ Sodium 250 mls @ 250 mls/hr 07/06/25 17:15 Chloride IV 07/06/25 17:16 Q24H ONE Ceftriaxone Sodium 1 gm/ 50 mls @ 100 mls/hr 07/06/25 17:15 07/06/25 17:48 Sodium Chloride IV 07/06/25 17:44 100 mls/hr ONCE ONE Administration Methylprednisolone Sodium Succinate 125 mg 07/06/25 14:40 07/06/25 14:51 Methylprednisolone Sod Succ 125mg Vial IV 07/06/25 14:41 125 mg ONCE ONE Administration ORDERS Category Date Time Status Pulmonology Consult [Consult to Pulmonology] [CONS] Cons 07/06/25 17:50 Active Routine XR chest portable Stat Exams 07/06/25 14:37 Completed Complete Blood Count Auto Diff AMLAB Lab 07/07/25 06:00 Ordered Complete Blood Count Auto Diff Stat Lab 07/06/25 14:10 Completed Comprehensive Metabolic Panel AMLAB Lab 07/07/25 06:00 Ordered Comprehensive Metabolic Panel Stat Lab 07/06/25 14:10 Completed D-Dimer Stat Lab 07/06/25 14:10 Completed HIV Combo Routine Lab 07/06/25 14:50 Received Hemoglobin A1C AMLAB Lab 07/07/25 06:00 Ordered Hepatitis C Ab Qual. W/ RFX Routine Lab 07/06/25 14:50 Received Magnesium AMLAB Lab 07/07/25 06:00 Ordered Magnesium Stat Lab 07/06/25 14:10 Completed NT Pro Brain Natriuretic Pep. Stat Lab 07/06/25 14:10 Completed Rapid PCR Covid and Flu A/B Stat Lab 07/06/25 13:35 Completed Troponin I Q3H Lab 07/06/25 17:45 Ordered Troponin I Q3H Lab 07/06/25 20:45 Ordered Troponin I Stat Lab 07/06/25 14:10 Completed Blood Culture Stat Micro 07/06/25 17:27 Received VBG [Venous Blood Gas] Stat RT 07/06/25 14:47 Completed MDM Narrative Medical Decision Narrative: 79-year-old male presents to the emergency department with shortness of breath for the last 2 days, productive cough, differential diagnose include but not limited to, viral URI, acute bronchitis, pneumothorax, pneumonia, COPD exacerbation, CHF exacerbation, pulmonary edema, pleural effusion, PE, cardiac arrhythmia, electrolyte disturbance among others. I discussed this patient's case with the attending physician he saw and examined the patient as well. Will obtain basic laboratory studies, EKG, chest x-ray, D-dimer, magnesium level proBNP rib PCR COVID and flu, troponin, will give the patient 6 mm DuoNeb, 125 mg IV methylprednisone obtain VBG. CBC is notable for erythrocyte pi?a 3.47, hemoglobin is 10.6, hematocrit 34.1, MCV is mildly elevated at 98.3, seems to be in line with the patient's baseline anemia CMP is notable for D-dimer of 0.86, utilizing age-adjusted D-dimer criteria, negative for VTE/PE, also utilizing years algorithm, negative for PE. CMP is notable for hypercapnia at 33 BUN elevation 25 magnesium level at 1.3, thus will give 2 g IV magnesium for replacement as well as smooth muscle relaxant in the setting of COPD exacerbation, otherwise unremarkable CMP VBG is unremarkable. Troponin is less than 0.01, proBNP is mildly elevated at 953. COVID-19 and influenza A and B are negative via PCR I reviewed the patient's chest x-ray along the corresponding radiologic report, findings favor pneumonia recommend follow-up. Patient on curb 65 score and PSI score, recommend hospital admission for pneumonia, will give 500 mg IV azithromycin and 1 g IV ceftriaxone to treat community-acquired pneumonia, obtain blood cultures prior to this. I attempted to discussed this patient's case with the hospitalist physician Dr. Garcia at approximately 5:21pm at this time he is currently performing patient care, will call back later. I discussed this patient's case with the hospitalist physician Dr. Garcia at approximately 5:45 PM, he is in agreement with the current admission plan/treatment plan for pneumonia. I discussed need for admission with the patient's family and patient at the bedside patient and family are in agreement with current admission plan/treatment plan. <Kel Farooq MD - Last Filed: 07/06/25 16:45> Vital Signs Vital Signs: 07/06/25 13:28 07/06/25 13:32 07/06/25 13:33 Temperature 97.6 F 97.6 F Temperature Source Oral Oral Pulse Rate 70 Pulse Rate [Right] 69 Respiratory Rate 24 18 Blood Pressure 147/65 H Blood Pressure [Right Arm] 147/65 H Blood Pressure Mean Blood Pressure Mean [Right Arm] 92 Blood Pressure Source [Right Arm] Automatic Cuff Blood Pressure Position [Right Arm] Sitting 02 Sat by Pulse Oximetry 90 L 90 L 90 L Oxygen Delivery Method Nasal Cannula Nasal Cannula Nasal Cannula Oxygen Flow Rate (LPM) 2 2 2 07/06/25 14:00 07/06/25 14:15 07/06/25 14:31 Temperature Temperature Source Pulse Rate 64 64 66 Pulse Rate [Right] Respiratory Rate 18 19 16 Blood Pressure 117/63 133/62 134/64 Blood Pressure [Right Arm] Blood Pressure Mean Blood Pressure Mean [Right Arm] Blood Pressure Source [Right Arm] Blood Pressure Position [Right Arm] 02 Sat by Pulse Oximetry 100 100 100 Oxygen Delivery Method Nasal Cannula Nasal Cannula Oxygen Flow Rate (LPM) 2 2 07/06/25 14:45 07/06/25 15:00 07/06/25 15:30 Temperature Temperature Source Pulse Rate 67 65 67 Pulse Rate [Right] Respiratory Rate 21 21 21 Blood Pressure 144/66 H 124/69 128/62 Blood Pressure [Right Arm] Blood Pressure Mean 84 Blood Pressure Mean [Right Arm] Blood Pressure Source [Right Arm] Blood Pressure Position [Right Arm] 02 Sat by Pulse Oximetry 100 100 100 Oxygen Delivery Method Oxygen Flow Rate (LPM) 07/06/25 15:45 07/06/25 16:00 07/06/25 16:17 Temperature Temperature Source Pulse Rate 66 65 66 Pulse Rate [Right] Respiratory Rate 15 20 18 Blood Pressure 120/70 141/61 H 91/61 L Blood Pressure [Right Arm] Blood Pressure Mean 78 76 71 Blood Pressure Mean [Right Arm] Blood Pressure Source [Right Arm] Blood Pressure Position [Right Arm] 02 Sat by Pulse Oximetry 100 100 100 Oxygen Delivery Method Oxygen Flow Rate (LPM) 07/06/25 16:30 Temperature Temperature Source Pulse Rate 66 Pulse Rate [Right] Respiratory Rate 18 Blood Pressure 131/65 Blood Pressure [Right Arm] Blood Pressure Mean 87 Blood Pressure Mean [Right Arm] Blood Pressure Source [Right Arm] Blood Pressure Position [Right Arm] 02 Sat by Pulse Oximetry 100 Oxygen Delivery Method Oxygen Flow Rate (LPM) Lab Data Labs: Lab Results 07/06/25 13:35: SARS-CoV-2 (PCR) Not detected, Influenza A Untype (PCR) Not detected, Influenza Type B (PCR) Not detected 07/06/25 14:10: WBC 6.6, RBC 3.47 L, Hgb 10.6 L, Hct 34.1 L, MCV 98.3 H, MCH 30.5, MCHC 31.1 L, RDW 13.5, Plt Count 201, MPV 10.8 H, Neut % (Auto) 70.4, Lymph % (Auto) 14.5, Winston % (Auto) 12.3 H, Eos % (Auto) 2.3, Baso % (Auto) 0.3, Neut # (Auto) 4.7, Lymph # (Auto) 1.0, Winston # (Auto) 0.8, Eos # (Auto) 0.2, Baso # (Auto) 0.0, D-Dimer 0.86 H, Sodium 138, Potassium 5.1, Chloride 100, Carbon Dioxide 33 H, Anion Gap 10.1, BUN 25 H, Creatinine 1.10, Estimated Creat Clear 48, Estimated GFR 64, Est GFR ( Amer) 78, Glucose 121 H, Calcium 9.6, M agnesium 1.3 L, Total Bilirubin 0.4, AST 25, ALT 12, Alkaline Phosphatase 45, Troponin I < 0.01, NT-Pro-B Natriuret Pep 953 H, Total Protein 7.3, Albumin 4.0, Globulin 3.3 H, Albumin/Globulin Ratio 1.2 07/06/25 14:47: VBG pH 7.32, VBG pCO2 58.2 H, VBG pO2 32.6, VBG HCO3 29.0, VBG Total CO2 30.8 H, VBG O2 Saturation 56.1, VBG Base Excess 2.8 H, VBG Lactic Acid 1.2 Response Orders (Tests/Meds): ED MEDICATIONS Generic Name Dose Route Start Last Admin Trade Name Azeem PRN Reason Stop Dose Admin Acetaminophen 650 mg 07/06/25 17:46 Acetaminophen 325mg Tab PO 08/05/25 17:45 Q4HP PRN Fever or Mild Pain (1-3) Heparin Sodium (Porcine) 5,000 unit 07/06/25 21:00 Heparin Sodium 5,000 Unit/Ml Vial SUBCUT 08/05/25 20:59 TID [facility] Azithromycin 500 mg/ Sodium 250 mls @ 250 mls/hr 07/07/25 18:00 Chloride IV 07/08/25 18:01 Q24H [facility] Ceftriaxone Sodium 1 gm/ 50 mls @ 100 mls/hr 07/07/25 17:00 Sodium Chloride IV 07/17/25 16:59 Q24H [facility] Insulin Human Lispro 0 unit 07/06/25 21:00 Humalog 100 Units/Ml 10ml Vial ([facility]) SUBCUT 08/05/25 20:59 ACHS [facility] Protocol Discontinued Medications Generic Name Dose Route Start Last Admin Trade Name Azeem PRN Reason Stop Dose Admin Albuterol/Ipratropium 6 ml 07/06/25 14:38 07/06/25 14:51 Ipratropium/Albuterol 3 Ml Neb IH 07/06/25 14:39 6 ml ONCE ONE Administration Magnesium Sulfate 2 gm in 50 mls @ 50 mls/hr 07/06/25 15:10 07/06/25 16:20 Magnesium Sulfate 2gm/50ml Premix IV 07/06/25 16:09 Infused ONCE ONE Infusion Azithromycin 500 mg/ Sodium 250 mls @ 250 mls/hr 07/06/25 17:15 Chloride IV 07/06/25 17:16 Q24H ONE Ceftriaxone Sodium 1 gm/ 50 mls @ 100 mls/hr 07/06/25 17:15 07/06/25 17:48 Sodium Chloride IV 07/06/25 17:44 100 mls/hr ONCE ONE Administration Methylprednisolone Sodium Succinate 125 mg 07/06/25 14:40 07/06/25 14:51 Methylprednisolone Sod Succ 125mg Vial IV 07/06/25 14:41 125 mg ONCE ONE Administration ORDERS Category Date Time Status Pulmonology Consult [Consult to Pulmonology] [CONS] Cons 07/06/25 17:50 Active Routine XR chest portable Stat Exams 07/06/25 14:37 Completed Complete Blood Count Auto Diff AMLAB Lab 07/07/25 06:00 Ordered Complete Blood Count Auto Diff Stat Lab 07/06/25 14:10 Completed Comprehensive Metabolic Panel AMLAB Lab 07/07/25 06:00 Ordered Comprehensive Metabolic Panel Stat Lab 07/06/25 14:10 Completed D-Dimer Stat Lab 07/06/25 14:10 Completed HIV Combo Routine Lab 07/06/25 14:50 Received Hemoglobin A1C AMLAB Lab 07/07/25 06:00 Ordered Hepatitis C Ab Qual. W/ RFX Routine Lab 07/06/25 14:50 Received Magnesium AMLAB Lab 07/07/25 06:00 Ordered Magnesium Stat Lab 07/06/25 14:10 Completed NT Pro Brain Natriuretic Pep. Stat Lab 07/06/25 14:10 Completed Rapid PCR Covid and Flu A/B Stat Lab 07/06/25 13:35 Completed Troponin I Q3H Lab 07/06/25 17:45 Ordered Troponin I Q3H Lab 07/06/25 20:45 Ordered Troponin I Stat Lab 07/06/25 14:10 Completed Blood Culture Stat Micro 07/06/25 17:27 Received VBG [Venous Blood Gas] Stat RT 07/06/25 14:47 Completed
--- NOTE | 2025-07-06 14:37 | XR_ITS ---
FINAL REPORT CLINICAL HISTORY: Shortness of breath FINDINGS: A portable view of the chest is obtained. There is no prior exam for comparison. Prior median sternotomy. The heart is normal in size. There are [id number]-left patchy lung opacities. Small radkr-cgybtij-fhdy-left pleural effusions are noted. There is no pneumothorax. IMPRESSION: Findings favor pneumonia. Recommend follow-up. Reviewed, Interpreted and Dictated by Dorinda Santo MD Transcribed by Emma Bhakta Authenticated and [facility]
[2025-07-06 14:50] LABS: Hematocrit 34.1 % (42.0-52.0); Hemoglobin 10.6 g/dL (14.1-18.0); Immature Granulocytes % 0.2 %; Mean Corpuscular HGB Conc 31.1 g/dL (31.8-35.4); Mean Corpuscular Hemoglobin 30.5 pg (27.0-31.2); Mean Corpuscular Volume 98.3 fl (80-94); Nucleated Red Blood Cells % 0 %; Platelet Count 201 K/mm3 (142-424); Red Blood Count 3.47 M/mm3 (4.60-6.20); Red Cell Distribution Width-SD 48.5 fL; White Blood Count 6.6 K/mm3 (4.8-10.8)
[2025-07-06] MEDS: METHYLPREDNISOLONE SOD SUCC 125MG VIAL 125 MG IV (14:51)
[2025-07-06] MEDS: IPRATROPIUM/ALBUTEROL 3 ML NEB 6 ML IH (14:51)
[2025-07-06 14:54] LABS: Magnesium 1.3 mg/dl (1.6-2.3)
[2025-07-06 14:54] LABS: Lactate Venous 1.2 mmol/L (0.4-2.0); VBG HCO3 29.0 mmol/L (23-30); VBG PCO2 58.2 mmol/L (35-51); VBG PH 7.32 mmol/L (7.31-7.41); VBG PO2 32.6 mmol/L (28-40)
[2025-07-06 14:55] LABS: Alanine Aminotransferase 12 U/L (12-78); Albumin Level 4.0 g/dl (3.5-5.0); Albumin/Globulin Ratio 1.2 (1.1-1.8); Alkaline Phosphatase 45 U/L (38-126); Anion Gap 10.1 mEq/L (5-15); Aspartate Amino Transferase 25 U/L (17-59); Bilirubin,Total 0.4 mg/dl (0.2-1.3); Blood Urea Nitrogen 25 mg/dl (9-20); Calcium 9.6 mg/dl (8.4-10.2); Carbon Dioxide 33 mmol/L (22.0-30.0); Chloride 100 mmol/L (98-107); Creatinine Clearance Estimated 48 mL/min (50-200); Creatinine,Serum 1.10 mg/dl (0.66-1.25); Estimated Glomerular Filt Rate 64 ml/min (>60); GFR (African American) 78 ML/MIN (>60); Globulin 3.3 g/dL (1.3-3.2); Glucose 121 mg/dl (74-100); Potassium 5.1 mmoL/L (3.5-5.1); Sodium 138 mmol/L (136-145); Total Protein,Serum 7.3 g/dl (6.3-8.2)
[2025-07-06 14:59] LABS: D-Dimer 0.86 ug/mL (0.0-0.5)
[2025-07-06 15:05] LABS: NT Pro Brain Natriuretic Pep. 953 pg/mL (0-450)
[2025-07-06 15:09] LABS: Troponin I < 0.01 ng/ml (0.00-0.034)
[2025-07-06] MEDS: MAGNESIUM SULFATE IN WATER 2 GM/50 ML PIGGYBACK IV (15:20)
--- NOTE | 2025-07-06 18:10 | PC.NURSE ---
Report called @ 5000 to second floor RN
[2025-07-06] MEDS: AZITHROMYCIN 500 MG in 0.9 % SODIUM CHLORIDE 250 ML 250 MG IV (18:11)
--- NOTE | 2025-07-06 18:19 | PC.NURSE ---
arrived by w/c from ED
[2025-07-06 18:55] LABS: Troponin I < 0.01 ng/ml (0.00-0.034)
[2025-07-06 19:04] LABS: Hepatitis C Ab Qual. W/ RFX NEGATIVE (Negative)
[2025-07-06] MEDS: FUROSEMIDE 40MG/4ML VIAL 40 MG IV (20:21)
[2025-07-06] MEDS: ATORVASTATIN 20MG TABLET 20 MG PO (20:26)
[2025-07-06] MEDS: CARVEDILOL 12.5MG TABLET 12.5 MG PO (20:34)
[2025-07-06] MEDS: HEPARIN SODIUM 5,000 UNIT/ML VIAL 5000 UNIT SUBCUT (20:34)
[2025-07-06 20:48] LABS: POC Glucose,Bedside 135 gm/dL (70-110)
--- NOTE | 2025-07-06 21:19 | P.HP_ITS ---
<Statement entered by Valerio Garcia MD - 07/07/25 08:19> Rounded on patient prior to nurse practitioner. Personally examined and interviewed patient. Agree with exam findings and care plan as documented. History of Present Illness *Admission Date: 07/06/25 *Reason for visit:: Shortness of breath *History of present illness: Patient is a 79-year-old male with past medical history significant for COPD, CAD status post 2 stent placements, diastolic dysfunction, HTN, HLD, hypothyroidism, DM2, CABG, heart valve replacement. Presents to [facility] due to shortness of breath. Reports progressive symptoms over the last few days. Patient reports on Sunday morning he woke up gasping for air feeling as though he could not get his breath. Stating that he went outside to breathe in the cold air and attempt to alleviate symptoms. Reportedly used an an old inhaler at home belonged to his but noted some mild relief in symptoms. Reported mostly having a nonproductive cough but noted he did have an episode with brown sputum. Patient also reports has not been taking his diuretic as prescribed. States missing a couple doses when he leaves home to avoid frequent urination. Due to persistent symptoms patient ultimately may followed up to the emergency department and treatment. Denies any fever, chills nausea vomiting or chest pain. Initial ED workup included laboratory studies and imaging. Laboratory findings significant for D-dimer 0.86, venous blood gas pO2 58, venous blood gas CO2 30, carbon dioxide 33, magnesium 1.3, BNP 953. Imaging study included chest x-ray, I personally reviewed showing pneumonia. Upon bedside assessment patient without any acute distress, resting in bed comfortably, on 3 L nasal cannula with adequate saturations. Nontoxic-appearing. [facility] Disclaimer: The information contained in this section may have been updated after the patient was seen, as this information can be updated by other users. Medical History Tachycardia Acquired hypothyroidism Vitamin B12 deficiency Vitamin D deficiency Hearing difficulty Ear pain Gallstones Hyperlipidemia Hypertension Carotid artery stenosis Diastolic dysfunction Coronary artery disease Diabetes Acute and chronic respiratory failure with hypoxia Parainfluenza infection Acute kidney injury Mediastinal lymphadenopathy Multiple pulmonary nodules Pulmonary emphysema Smoking greater than 30 pack years Dyspnea on exertion Diverticulitis Diverticular hemorrhage Abnormal EKG History of UTI COPD (chronic obstructive pulmonary disease) Surgical History History of heart valve replacement History of cataract surgery History of heart surgery History of tonsillectomy Hx of CABG Family History Sister Family history of myocardial infarction Mother Family history of myocardial infarction Other No significant family history Social History Smoking Status: Former smoker smoking status stop date: jul 2002 alcohol intake: never substance use type: denies use current occupational status: retired Travel in the last 8 weeks?: None household members: none housing: house current occupational exposures/hazards: No caffeine: No Have you lived/traveled outside [place] in past 30 days?: No Contact w/someone who lives/traveled outside [place] past 30 days?: No Exposure to someone with infectious disease in past 14 days?: No Do you have a fever (greater than 100.4 F or 38 C)?: No Have you tested positive for COVID-19?: No Exposed to someone with COVID-19 in past 14 days?: No Do you have a sore throat?: No Do you have a cough?: No Do you have any weakness?: No Do you have any diarrhea?: No Are you experiencing any unusual bleeding?: No Do you have any muscle aches/pain?: No Do you have any abdominal pain?: No Are you experiencing loss of taste or smell?: No Other Medical History Have you received the Flu Vaccine for this season: No Have you received the Pneumonia Vaccine: Yes Review of Systems Review of Systems Review of systems:: pertinent systems reviewed and negative unless documented below Constitutional Constitutional: Reports system reviewed and no additional complaints, except as documented Eyes Eyes: Reports system reviewed and no additional complaints, except as documented ENT Ears, Nose, Mouth, and Throat: Reports system reviewed and no additional complaints, except as documented *Cardiovascular Cardiovascular: Reports system reviewed and no additional complaints, except as documented, Reports dyspnea and Reports dyspnea on exertion *Respiratory Respiratory: Reports as per HPI, Reports change in phlegm color, Reports chest congestion, Reports cough, Reports dyspnea and Reports dyspnea on exertion *Gastrointestinal Gastrointestinal: Reports system reviewed and no additional complaints, except as documented and Reports as per HPI *Genitourinary Genitourinary: Reports system reviewed and no additional complaints, except as documented and Reports as per HPI *Musculoskeletal Musculoskeletal: Reports system reviewed and no additional complaints, except as documented and Reports as per HPI Integumentary/Breasts Skin/Breast: Reports system reviewed and no additional complaints, except as documented and Reports as per HPI *Neurologic Neurologic: Reports system reviewed and no additional complaints, except as documented and Reports as per HPI Psychiatric Psychiatric: Reports system reviewed and no additional complaints, except as documented and Reports as per HPI Endocrine Endocrine: Reports system reviewed and no additional complaints, except as documented and Reports as per HPI Hematologic/Lymphatic Hematologic/Lymphatic: Reports system reviewed and no additional complaints, except as documented and Reports as per HPI Allergic/Immunologic Allergic/Immunologic: Reports system reviewed and no additional complaints, except as documented and Reports as per HPI Meds Home Medications and Allergies Home Medications ?Medication ?Instructions ?Recorded ?Confirmed ?Type aspirin 81 mg tablet,delayed 81 mg PO DAILY heart heal th 04/12/20 07/06/25 History release (Aspir-) cholecalciferol (vitamin D3) 10 10 mcg PO DAILY Supple ment 04/12/20 07/06/25 History mcg (400 unit) capsule umeclidinium 62.5 mcg-vilanterol See Rx Instructions . Route 11/03/24 07/06/25 Rx 25 mcg/actuation powdr for .COMPLEX #180 ea inhalation (Anoro Ellipta) ascorbic acid (vitamin C) 500 mg 500 mg PO DAILY 11/1107/06/25 History tablet (Vitamin C) garlic 500 mg capsule 500 mg PO DAILY 11/11/2411/25 History multivitamin 1 tab PO DAILY 11/11/2411/25 History losartan 50 mg tablet 50 mg PO DAILY #90 tabs 10/2807/06/25 Rx nitroglycerin 0.4 mg sublingual 0.4 mg sublingual Q5M PRN chest 02/02/25 07/06/25 Rx tablet pain #20 tabs carvedilol 12.5 mg tablet See Rx Instructions .Route 0 02/09/25 07/06/25 Rx .COMPLEX #180 tabs metformin 1,000 mg tablet See Rx Instructions .Route 0 03/31/25 07/06/25 Rx .COMPLEX #180 tabs rosuvastatin 10 mg tablet See Rx Instructions .Route 0 04/02/25 07/06/25 Rx .COMPLEX #90 tabs albuterol sulfate 90 mcg/actuation 2 inh inhalation QI D PRN shortness 04/06/25 07/06/25 Rx aerosol inhaler of breath or wheezing 90 day s #8.5 grams cyanocobalamin (vitamin B-12) 1,000 mcg PO DAILY #30 t abs 05/05/25 07/06/25 Rx 1,000 mcg tablet levothyroxine 50 mcg tablet 50 mcg PO DAILY #30 tabs 0 05/06/25 07/06/25 Rx ipratropium 0.5 mg-albuterol 3 mg 3 ml inhalation QID PRN shortness 05/14/25 07/06/25 Rx (2.5 mg base)/3 mL nebulization of breath or wheezing 90 days #90 soln mL pantoprazole 40 mg tablet,delayed 40 mg PO DAILY #90 t abs 06/16/25 07/06/25 Rx release (Protonix) furosemide 40 mg tablet See Rx Instructions .Route 1 07/06/25 Rx .COMPLEX #90 tabs New Prescriptions to Start Prescriptions: Allergies Allergy/AdvReac Type Severity Reaction Status Date / Time Penicillins Allergy Severe Rash Verified 05/18/25 08:22 Exam Data for Last 24 hours Vital signs and Labs for Last 24 Hours: Temp Pulse Resp BP Pulse Ox O2 Del Method O2 Flow Rate 97.9 F 85 12 123/57 L 96 Nasal Cannula 3 07/06/25 20:00 07/06/25 20:00 07/06/25 20:00 07/06/25 20:00 07/06/25 20:00 07/06/25 20:00 07/06/25 20:00 Laboratory Results - last 24 hr 07/06/25 13:35: SARS-CoV-2 (PCR) Not detected, Influenza A Untype (PCR) Not de tected, Influenza Type B (PCR) Not detected 07/06/25 14:10: WBC 6.6, RBC 3.47 L, Hgb 10.6 L, Hct 34.1 L, MCV 98.3 H, MCH 30.5, MCHC 31.1 L, RDW 13.5, Plt Count 201, MPV 10.8 H, Neut % (Auto) 70.4, Lymph % (Auto) 14.5, [place] % (Auto) 12.3 H, Eos % (Auto) 2.3, Baso % (Auto) 0.3, Neut # (Auto) 4.7, Lymph # (Auto) 1.0, [place] # (Auto) 0.8, Eos # (Auto) 0.2, Baso # (Auto) 0.0, D-Dimer 0.86 H, Sodium 138, Potassium 5.1, Chloride 100, Carbon Dioxide 33 H, Anion Gap 10.1, BUN 25 H, Creatinine 1.10, Estimated Creat Clear 48, Estimated GFR 64, Est GFR ( Amer) 78, Glucose 121 H, Calcium 9.6, Magnesium 1.3 L, Total Bilirubin 0.4, AST 25, ALT 12, Alkaline Phosphatase 45, Troponin I < 0.01, NT-Pro-B Natriuret Pep 953 H, Total Protein 7.3, Albumin 4.0, Globulin 3.3 H, Albumin/Globulin Ratio 1.2 07/06/25 14:47: VBG pH 7.32, VBG pCO2 58.2 H, VBG pO2 32.6, VBG HCO3 29.0, VBG Total CO2 30.8 H, VBG O2 Saturation 56.1, VBG Base Excess 2.8 H, VBG Lactic Acid 1.2 07/06/25 14:50: HCV Ab SRINATH w/Rflx PCR Qn Negative, HIV Ag/Ab Combo Qual Negative 07/06/25 18:11: Troponin I < 0.01 07/06/25 20:17: POC Glucose 135 H Temp Pulse Resp BP Pulse Ox 100.7 F H 89 20 119/60 95 11/28/22 20:00 11/28/22 20:00 11/28/22 20:00 11/28/22 20:00 11/28/22 20:00 Laboratory Results - last 24 hr 11/28/22 16:26: WBC 7.4, RBC 4.25 L, Hgb 12.5 L, Hct 40.8 L, MCV 96.1 H, MCH 29.4, MCHC 30.6 L, RDW 14.2, Plt Count 172, MPV 9.6, Neut % (Auto) 72.3, Lymph % (Auto) 15.0, [place] % (Auto) 11.0 H, Eos % (Auto) 0.0 L, Baso % (Auto) 1.8, Neut # (Auto) 5.4, Lymph # (Auto) 1.1, [place] # (Auto) 0.8, Eos # (Auto) 0.0, Baso # (Auto) 0.1 11/28/22 16:26: Sodium 141, Potassium 4.6, Chloride 100, Carbon Dioxide 33 H, Anion Gap 12.6, BUN 27 H, Creatinine 1.40 H, Estimated Creat Clear 45, Estimated GFR 49 L, Est GFR ( Amer) 59, Glucose 108 H, Calcium 9.3, Total Bilirubin 0.3, AST 38, ALT 19, Alkaline Phosphatase 52, Troponin I 0.25 H, Total Protein 7.8, Albumin 4.6, Globulin 3.2, Albumin/Globulin Ratio 1.4 11/28/22 16:26: Lactate 1.4 11/28/22 16:26: SARS-CoV-2 (PCR) Not detected, Influenza A Untype (PCR) Not detected, Influenza Type B (PCR) Not detected 11/28/22 16:26: Procalcitonin 0.106 11/28/22 16:26: Lactate Dehydrogenase 256 L 11/28/22 18:39: Urine Color Yellow, Urine Appearance Clear, Urine pH 6.0, Ur Specific [place] 1.020, Urine Protein Trace, Urine Glucose (UA) Negative, Urine Ketones Trace, Urine Blood Negative, Urine Nitrate Negative, Urine Bilirubin Negative, Urine Urobilinogen 0.2, Ur Leukocyte Esterase Negative, Urine RBC None, Urine WBC Occasional, Ur Squamous Epith Cells Occasional, Urine Bacteria None 11/28/22 20:00: Troponin I 0.43 H I & O for Last 24 hours: Intake & Output 07/03/25 07/04/25 07/05/25 07/06/25 23:59 23:59 22:59 23:59 Intake Total 100 / 100 Balance 100 / 100 Weight 64.864 kg Intake & Output 11/25/22 11/26/22 11/27/22 11/28/22 23:59 23:59 23:59 23:59 Weight 72.121 kg Constitutional Constitutional: no acute distress *Routine HEENT Exam Head: Present normocephalic and atraumatic Eye: Present EOMI, PERRL and normal accommodation ENT: Present mucous membranes moist *Routine Neck Exam Neck: Present supple and full ROM *Routine Respiratory Exam Respiratory: Present decreased breath sounds and crackles *Routine Cardiovascular Exam Cardiovascular: Present RRR, Normal S1 and Normal S2 *Routine Abdominal Exam Abdominal: Present soft and normoactive bowel sounds *Routine Rectal Exam Rectal:: deferred *Routine Genitalia Exam Genitalia:: deferred *Routine Extremities Exam Extremities: Present full ROM, pulses intact and normal capillary refill Routine Back/Spine/Pelvis Exam Back/Spine: Present full ROM *Routine Skin Exam Skin: Present intact *Routine Neurological Exam Neurological: Present alert, oriented X3 and CN II-XII intact Routine Psychiatric Exam Psychiatric: Present normal affect Assessment and Plan *Assessment and plan (1) Community acquired pneumonia: Status: Resolved Qualifiers: Laterality: left Lung location: lower lobe of lung Qualified Code(s): J18.9 - Pneumonia, unspecified organism Category: Medical Code(s): J18.9 - Pneumonia, unspecified organism (2) Acute exacerbation of CHF (congestive heart failure): Status: Acute Category: Medical Code(s): I50.9 - Heart failure, unspecified (3) COPD (chronic obstructive pulmonary disease): Status: Acute Qualifiers: COPD type: emphysema Emphysema type: centrilobular Qualified Code(s): J43.2 - Centrilobular emphysema Category: Medical Code(s): J44.9 - Chronic obstructive pulmonary disease, unspecified (4) Acquired hypothyroidism: Status: Acute Category: Medical Code(s): E03.9 - Hypothyroidism, unspecified (5) Hypertension: Status: Acute Qualifiers: Hypertension type: primary hypertension Qualified Code(s): I10 - Essential (primary) hypertension Category: Medical Code(s): I10 - Essential (primary) hypertension (6) CAD (coronary artery disease): Status: Deleted Category: Medical Code(s): I25.10 - Atherosclerotic heart disease of [place] coronary artery without angina pectoris (7) History of heart valve replacement: Status: Chronic Category: Surgical Code(s): Z95.2 - Presence of prosthetic heart valve (8) Hyperlipidemia: Status: Acute Qualifiers: Hyperlipidemia type: mixed hyperlipidemia Qualified Code(s): E78.2 - Mixed hyperlipidemia Category: Medical Code(s): E78.5 - Hyperlipidemia, unspecified (9) Diabetes: Status: Acute Qualifiers: Diabetes mellitus type: type 2 Category: Medical Code(s): E11.9 - Type 2 diabetes mellitus without complications (10) Vitamin B12 deficiency: Status: Acute Category: Medical Code(s): E53.8 - Deficiency of other specified B group vitamins (11) Vitamin D deficiency: Status: Acute Category: Medical Code(s): E55.9 - Vitamin D deficiency, unspecified (12) Hypomagnesemia: Status: Acute Category: Medical Code(s): E83.42 - Hypomagnesemia Plan 1. CAP: Imaging study as noted above suggestive of pneumonia. IV antibiotics initiated on the emergency department, resumed IVP azithromycin and Rocephin. DuoNebs, supplemental oxygen as needed to keep sats greater than 90%. PCR unremarkable for COVID or influenza A. Blood cultures were obtained prior to antibiotic administration in the emergency department, pending. Sputum cultures requested/pending. Currently on 3 L nc. Baseline 2 L nasal cannula nightly or 2 to 3 L nasal cannula with exertional activity. Patient follows with pulmonary, consult placed for further evaluation and input. Resume pulmonary hygiene, IS at bedside. 2. Acute exacerbation of CHF: Patient admitted holding a few doses of his diuretic. Suspect underlying respiratory distress due to combination pneumonia and CHF exacerbation. 1+ BLE. ECHO (08/2024) EF 55%. IV Lasix, monitor daily weight, intake output, low-sodium diet. Cardiology consult for further evaluation/input. 3. COPD: Resume home nebs, pulmonary hygiene, monitor oxygen saturation. 4. CAD/hypertension/hyperlipidemia: Resume home statin, beta-maco and aspirin. 5. DM2: Insulin sliding scale, Accu-Cheks ACHS, diabetic diet. Hemoglobin A1c with morning labs. 6. Acquired hypothyroidism: Resume home Synthroid. 7. Hypomagnesemia: Magnesium level 1.4, received 2 g magnesium sulfate in the emergency department. Continue to monitor, replace per protocol. DVT prophylaxis: Heparin subq Full code Diet diabetic/2 g sodium
[2025-07-06 21:33] LABS: Troponin I < 0.01 ng/ml (0.00-0.034)
[2025-07-06] MEDS: IPRATROPIUM/ALBUTEROL 3 ML NEB IH (23:11)
[2025-07-07] VITALS (14 sets, daily range): BP systolic 105–126; BP diastolic 60–88; PULSE 60–95; RESP 12–18; TEMP 36.6–36.9; O2SAT 12–99; BMI 23.1
[2025-07-07 05:27] LABS: POC Glucose,Bedside 134 gm/dL (70-110)
[2025-07-07 06:31] LABS: Hematocrit 32.7 % (42.0-52.0); Hemoglobin 10.3 g/dL (14.1-18.0); Immature Granulocytes % 0.5 %; Mean Corpuscular HGB Conc 31.5 g/dL (31.8-35.4); Mean Corpuscular Hemoglobin 30.3 pg (27.0-31.2); Mean Corpuscular Volume 96.2 fl (80-94); Nucleated Red Blood Cells % 0 %; Platelet Count 195 K/mm3 (142-424); Red Blood Count 3.40 M/mm3 (4.60-6.20); Red Cell Distribution Width-SD 46.6 fL; White Blood Count 4.3 K/mm3 (4.8-10.8)
[2025-07-07] MEDS: IPRATROPIUM/ALBUTEROL 3 ML NEB IH ×4 (06:39→23:36)
[2025-07-07 06:44] LABS: Albumin Level 4.2 g/dl (3.5-5.0); Chloride 98 mmol/L (98-107); Potassium 5.0 mmoL/L (3.5-5.1); Sodium 139 mmol/L (136-145)
[2025-07-07 06:46] LABS: Alanine Aminotransferase 10 U/L (12-78); Aspartate Amino Transferase 23 U/L (17-59); Hemoglobin A1C 5.7 % (4.0-6.0)
[2025-07-07 06:47] LABS: Albumin/Globulin Ratio 1.8 (1.1-1.8); Alkaline Phosphatase 51 U/L (38-126); Anion Gap 11.0 mEq/L (5-15); Bilirubin,Total 0.2 mg/dl (0.2-1.3); Calcium 8.8 mg/dl (8.4-10.2); Carbon Dioxide 35 mmol/L (22.0-30.0); Globulin 2.3 g/dL (1.3-3.2); Glucose 129 mg/dl (74-100); Magnesium 1.4 mg/dl (1.6-2.3); Total Protein,Serum 6.5 g/dl (6.3-8.2)
--- NOTE | 2025-07-07 08:16 | HMH.PHAINT1 ---
Pharmacy Intervention Comments: HOME MEDICATION LIST VERIFIED USING LIST FROM OUTPATIENT PHARMACY
[2025-07-07 08:53] LABS: Blood Urea Nitrogen 23 mg/dl (9-20); Creatinine Clearance Estimated 45 mL/min (50-200); Creatinine,Serum 1.20 mg/dl (0.66-1.25); Estimated Glomerular Filt Rate 58 ml/min (>60); GFR (African American) 70 ML/MIN (>60)
[2025-07-07] MEDS: CARVEDILOL 12.5MG TABLET 12.5 MG PO ×2 (09:00→20:26)
[2025-07-07] MEDS: FUROSEMIDE 40MG/4ML VIAL 40 MG IV (09:00)
[2025-07-07] MEDS: HEPARIN SODIUM 5,000 UNIT/ML VIAL 5000 UNIT SUBCUT ×3 (09:00→20:26)
[2025-07-07] MEDS: PANTOPRAZOLE 40MG TABLET 40 MG PO (09:00)
[2025-07-07] MEDS: ASPIRIN EC 81MG TABLET 81 MG PO (09:01)
[2025-07-07] MEDS: LEVOTHYROXINE 50MCG (0.05MG) TAB 50 MCG PO (09:01)
[2025-07-07] MEDS: IRBESARTAN 75MG TABLET 75 MG PO (09:01)
--- NOTE | 2025-07-07 09:32 | EXP.PULM.CON ---
History of Present Illness History of present illness: Mr. Araya is a 79-year-old male greater than [id number] smoking history and COPD at baseline on Anoro inhaler, chronic hypoxic respiratory failure presented to the ER with worsening respiratory status found to have bilateral pneumonia right greater than left and pulmonary was called for further evaluation and management. Patient admits worsening respiratory distress worsening wheezing lower extremity swelling and worsening cough for the last 3 to 4 days prior to admission. Denies any worsening productive phlegm. He also admits to increasing oxygen requirements for the last 3 to 4 days. [facility] Disclaimer: The information contained in this section may have been updated after the patient was seen, as this information can be updated by other users. Medical History Tachycardia Acquired hypothyroidism Vitamin B12 deficiency Vitamin D deficiency Hearing difficulty Ear pain Gallstones Hyperlipidemia Hypertension Carotid artery stenosis Diastolic dysfunction Coronary artery disease Diabetes Acute and chronic respiratory failure with hypoxia Parainfluenza infection Acute kidney injury Mediastinal lymphadenopathy Multiple pulmonary nodules Pulmonary emphysema Smoking greater than 30 pack years Dyspnea on exertion Diverticulitis Diverticular hemorrhage Abnormal EKG History of UTI COPD (chronic obstructive pulmonary disease) Surgical History History of heart valve replacement History of cataract surgery History of heart surgery History of tonsillectomy Hx of CABG Family History Sister Family history of myocardial infarction Mother Family history of myocardial infarction Other No significant family history Social History Smoking Status: Former smoker smoking status stop date: jul 2002 alcohol intake: never substance use type: denies use current occupational status: retired Travel in the last 8 weeks?: None household members: none housing: house current occupational exposures/hazards: No caffeine: No Have you lived/traveled outside [place] in past 30 days?: No Contact w/someone who lives/traveled outside [place] past 30 days?: No Exposure to someone with infectious disease in past 14 days?: No Do you have a fever (greater than 100.4 F or 38 C)?: No Have you tested positive for COVID-19?: No Exposed to someone with COVID-19 in past 14 days?: No Do you have a sore throat?: No Do you have a cough?: No Do you have any weakness?: No Do you have any diarrhea?: No Are you experiencing any unusual bleeding?: No Do you have any muscle aches/pain?: No Do you have any abdominal pain?: No Are you experiencing loss of taste or smell?: No Review of Systems Constitutional Constitutional: Reports anorexia, Reports body ache(s) and Reports fatigue Eyes Eyes: Denies eye discharge, Denies dry eyes, Denies irritation and Denies itchy eyes ENT Ears, Nose, Mouth, and Throat: Denies epistaxis, Denies facial pain, Denies lip swelling and Denies throat swelling *Cardiovascular Cardiovascular: Reports dyspnea and Reports dyspnea on exertion *Respiratory Respiratory: Denies change in phlegm color, Reports chest congestion, Reports cough, Reports dyspnea, Reports dyspnea on exertion, Denies excessive phlegm production, Denies hemoptysis, Denies pain on inspiration, Denies pain with cough and Reports wheezing *Gastrointestinal Gastrointestinal: Denies abdominal pain, Denies belching and Denies cramping *Musculoskeletal Musculoskeletal: Reports back pain, Reports myalgias and Reports other (No small joint swelling or Pain) *Neurologic Neurologic: Reports system reviewed and no additional complaints, except as documented and Reports as per HPI Psychiatric Psychiatric: Denies homicidal ideation and Denies suicidal ideation Endocrine Endocrine: Reports fatigue and Denies heat intolerance Hematologic/Lymphatic Hematologic/Lymphatic: Denies easy bleeding and Denies lymphadenopathy Allergic/Immunologic Allergic/Immunologic: Denies itchy eyes, Denies lip swelling, Denies throat swelling and Reports wheezing Pulmonology Exam Inpatient Vital signs and Labs for Last 24 Hours: Temp Pulse Resp BP Pulse Ox O2 Del Method O2 Flow Rate 98.0 F 80 16 119/63 87 L Room Air 3 07/07/25 08:00 07/07/25 08:00 07/07/25 08:00 07/07/25 08:00 07/07/25 09:19 07/07/25 09:19 07/07/25 08:00 FiO2 32 07/07/25 06:39 Laboratory Results - last 24 hr 07/06/25 13:35: SARS-CoV-2 (PCR) Not detected, Influenza A Untype (PCR) Not detected, Influenza Type B (PCR) Not detected 07/06/25 14:10: WBC 6.6, RBC 3.47 L, Hgb 10.6 L, Hct 34.1 L, MCV 98.3 H, MCH 30.5, MCHC 31.1 L, RDW 13.5, Plt Count 201, MPV 10.8 H, Neut % (Auto) 70.4, Lymph % (Auto) 14.5, [place] % (Auto) 12.3 H, Eos % (Auto) 2.3, Baso % (Auto) 0.3, Neut # (Auto) 4.7, Lymph # (Auto) 1.0, [place] # (Auto) 0.8, Eos # (Auto) 0.2, Baso # (Auto) 0.0, D-Dimer 0.86 H, Sodium 138, Potassium 5.1, Chloride 100, Carbon Dioxide 33 H, Anion Gap 10.1, BUN 25 H, Creatinine 1.10, Estimated Creat Clear 48, Estimated GFR 64, Est GFR ( Amer) 78, Glucose 121 H, Calcium 9.6, Magnesium 1.3 L, Total Bilirubin 0.4, AST 25, ALT 12, Alkaline Phosphatase 45, Troponin I < 0.01, NT-Pro-B Natriuret Pep 953 H, Total Protein 7.3, Albumin 4.0, Globulin 3.3 H, Albumin/Globulin Ratio 1.2 07/06/25 14:47: VBG pH 7.32, VBG pCO2 58.2 H, VBG pO2 32.6, VBG HCO3 29.0, VBG Total CO2 30.8 H, VBG O2 Saturation 56.1, VBG Base Excess 2.8 H, VBG Lactic Acid 1.2 07/06/25 14:50: HCV Ab SRINATH w/Rflx PCR Qn Negative, HIV Ag/Ab Combo Qual Negative 07/06/25 18:11: Troponin I < 0.01 07/06/25 20:17: POC Glucose 135 H 07/06/25 20:30: Troponin I < 0.01 07/07/25 05:16: POC Glucose 134 H 07/07/25 05:45: WBC 4.3 L D, RBC 3.40 L, Hgb 10.3 L, Hct 32.7 L, MCV 96.2 H, MCH 30.3, MCHC 31.5 L, RDW 13.2, Plt Count 195, MPV 10.6 H, Neut % (Auto) 85.1 H, Lymph % (Auto) 12.8, [place] % (Auto) 1.6 L, Eos % (Auto) 0.0 L, Baso % (Auto) 0.0 L, Neut # (Auto) 3.7, Lymph # (Auto) 0.6 L, [place] # (Auto) 0.1, Eos # (Auto) 0.0, Baso # (Auto) 0.0, Sodium 139, Potassium 5.0, Chloride 98, Carbon Dioxide 35 H, Anion Gap 11.0, BUN 23 H, Creatinine 1.20, Estimated Creat Clear 45, Estimated GFR 58 L, Est GFR ( Amer) 70, Glucose 129 H, Hemoglobin A1c 5.7, Calcium 8.8, Magnesium 1.4 L, Total Bilirubin 0.2, AST 23, ALT 10 L, Alkaline Phosphatase 51, Total Protein 6.5, Albumin 4.2, Globulin 2.3, Albumin/Globulin Ratio 1.8 I & O for Labs for Last 24 Hours: Intake & Output 07/04/25 07/05/25 07/06/25 07/07/25 23:59 22:59 23:59 23:59 Intake Total 350 / 350 360 / 360 Output Total 0 / 0 175 / 175 Balance 350 / 350 185 / 185 Weight 143 lb 144 lb 4 oz Constitutional: Present moderate distress Head: Present normocephalic and atraumatic ENT: Present normal exam, normal oropharynx and mucous membranes moist Neck: Present normal inspection and full ROM Respiratory: Present prolonged expiratory phase, respiratory distress and able to speak in complete sentences; Absent wheezes or diminished air movement Cardiac: Present S1/S2, Tachycardia and radial pulses present GI: Present soft and distention; Absent tenderness or guarding Skin: Present intact; Absent cyanosis or jaundice Neuro: Present alert, awake and oriented x 3 Extremities: Present normal inspection; Absent clubbing or cyanosis Psychiatric: Present normal affect and cooperative Meds Home Medications and Allergies Home Medications ?Medication ?Instructions ?Recorded ?Confirmed ?Type aspirin 81 mg tablet,delayed 81 mg PO DAILY heart health 04/12/20 07/06/25 History release (Aspir-) cholecalciferol (vitamin D3) 10 10 mcg PO DAILY Supplement 04/12/20 07/06/25 History mcg (400 unit) capsule ascorbic acid (vitamin C) 500 mg 500 mg PO DAILY 11/11/24 07/06/25 History tablet (Vitamin C) garlic 500 mg capsule 500 mg PO DAILY 11/11/24 07/06/25 History multivitamin 1 tab PO DAILY 11/11/24 07/06/25 History losartan 50 mg tablet 50 mg PO DAILY #90 tabs 02/02/25 07/06/25 Rx nitroglycerin 0.4 mg sublingual 0.4 mg sublingual Q5M PRN chest 02/02/25 07/06/25 Rx tablet pain #20 tabs albuterol sulfate 90 mcg/actuation 2 inh inhalation QID PRN shortness 04/06/25 07/06/25 Rx aerosol inhaler of breath or wheezing 90 days #8.5 grams cyanocobalamin (vitamin B-12) 1,000 mcg PO DAILY #30 tabs 05/05/25 07/06/25 Rx 1,000 mcg tablet levothyroxine 50 mcg tablet 50 mcg PO DAILY #30 tabs 05/06/25 07/06/25 Rx ipratropium 0.5 mg-albuterol 3 mg 3 ml inhalation QID PRN shortness 05/14/25 07/06/25 Rx (2.5 mg base)/3 mL nebulization of breath or wheezing 90 days #90 soln mL pantoprazole 40 mg tablet,delayed 40 mg PO DAILY #90 tabs 06/16/25 07/06/25 Rx release (Protonix) carvedilol 12.5 mg tablet 12.5 mg PO BID 07/07/25 07/07/25 History furosemide 40 mg tablet 40 mg PO DAILY 07/07/25 07/07/25 History metformin 1,000 mg tablet 1,000 mg PO BID 07/07/25 07/07/25 History rosuvastatin 10 mg tablet 10 mg PO HS 07/07/25 07/07/25 History umeclidinium 62.5 mcg-vilanterol 1 ea inhalation DAILY 07/07/25 07/07/25 History 25 mcg/actuation powdr for inhalation New Prescriptions to Start Prescriptions: Allergies Allergy/AdvReac Type Severity Reaction Status Date / Time Penicillins Allergy Severe Rash Verified 05/18/25 08:22 Results Laboratory Findings 07/07/25 05:45 07/07/25 05:45 PT/INR, D-dimer D-Dimer 0.86 ug/mL (0.0-0.5) H 07/06/25 14:10 Abnormal lab findings: Abnormal Labs 07/06/25 07/06/25 07/06/25 14:10 14:47 20:17 WBC RBC 3.47 L Hgb 10.6 L Hct 34.1 L MCV 98.3 H MCHC 31.1 L MPV 10.8 H Neut % (Auto) [place] % (Auto) 12.3 H Eos % (Auto) Baso % (Auto) Lymph # (Auto) D-Dimer 0.86 H VBG pCO2 58.2 H VBG Total CO2 30.8 H VBG Base Excess 2.8 H Carbon Dioxide 33 H BUN 25 H Estimated GFR Glucose 121 H POC Glucose 135 H Magnesium 1.3 L ALT NT-Pro-B Natriuret Pep 953 H Globulin 3.3 H 07/07/25 07/07/25 05:16 05:45 WBC 4.3 L D RBC 3.40 L Hgb 10.3 L Hct 32.7 L MCV 96.2 H MCHC 31.5 L MPV 10.6 H Neut % (Auto) 85.1 H [place] % (Auto) 1.6 L Eos % (Auto) 0.0 L Baso % (Auto) 0.0 L Lymph # (Auto) 0.6 L D-Dimer VBG pCO2 VBG Total CO2 VBG Base Excess Carbon Dioxide 35 H BUN 23 H Estimated GFR 58 L Glucose 129 H POC Glucose 134 H Magnesium 1.4 L ALT 10 L NT-Pro-B Natriuret Pep Globulin Assessment and Plan *Assessment and plan (1) Community acquired pneumonia: Status: Resolved Qualifiers: Laterality: left Lung location: lower lobe of lung Qualified Code(s): J18.9 - Pneumonia, unspecified organism Category: Medical Code(s): J18.9 - Pneumonia, unspecified organism (2) Acute respiratory failure with hypoxia: Status: Resolved Category: Medical Code(s): J96.01 - Acute respiratory failure with hypoxia Plan Mr. Araya is a 79-year-old male greater than [id number] smoking history and COPD at baseline on Anoro inhaler, chronic hypoxic respiratory failure presented to the ER with worsening respiratory status found to have bilateral pneumonia right greater than left and pulmonary was called for further evaluation and management. Patient admits worsening respiratory distress worsening wheezing lower extremity swelling and worsening cough for the last 3 to 4 days prior to admission. Denies any worsening productive phlegm. He also admits to increasing oxygen requirements for the last 3 to 4 days. Afebrile. Hemodynamically stable. Leukopenia. Blood gas upon admission mild hypercarbic respiratory failure with a pH of 7.32 and pCO2 58.2. Currently receiving ceftriaxone azithromycin for community-acquired pneumonia. Plan: Continue oxygen supplementation to maintain O2 saturation goal 90% and above, currently on 3 L nasal cannula which is higher above his baseline. Patient at baseline using only oxygen supplementation with exertion. Continue ceftriaxone and azithromycin pending sputum culture results, will do sputum induction today. Blood cultures pending. Continue Anoro inhaler along with DuoNebs 4 times daily as needed # Thank you for involving pulmonary in this patient care. Will continue to follow.
--- NOTE | 2025-07-07 11:52 | CA_ITS ---
APPROVED REPORT EXAM: Comprehensive 2D, Doppler, and color-flow Echocardiogram [employer]: Ella Coelho RVT Ht: 5 ft 6 in Wt: 144lbs BSA: 1.74 BP: 123/57 mmHg Indications: Congestive Heart Failure,Shortness of breath, bioprosthetic AVR 2D Dimensions EF AP4 47.60 % GL Strain -18.6 % M-Mode Dimensions RVDd 2.92 cm (0.9-2.6) LA Diam 3.56 cm (1.9-4.0) LVDd 4.63 cm (3.5-5.7) LVDs 3.26 cm (3.5-5.7) IVSd 0.57 cm (0.6-1.1) PWd 0.76 cm (0.6-1.1) EF (Teich) 56.70% FS 29.60% EDV (Teich) 98.80 mL TAPSE 1.09 (<1.7) ESV (Teich) 42.80 mL LV Diastology E Decel Time 210 (160-240 msec) E/A Ratio 1.1 Aortic Valve MARIAJOSE Index 0.77 cm2/m2 AoV Peak Beltran. 301.0 (50-130 cm/s) AO Peak GR. 36.60 mmHg AO Mean GR. 18.50 (<5 mmHg) AO VTI 56.8 (18-25 cm) MARIAJOSE (VTI) 1.37 (2.5-4.5 cm2) Mitral Valve MV E Max Beltran. 114.0 (40-130 cm/s) MV A Velocity 107.0 (40-130 cm/s) E/A Ratio 1.06 MV PHT 62.0 ms Pulmonary Valve PV Peak Velocity 90.0 (50-150 cm/s) Left Ventricle The left ventricle is normal size. Left ventricular systolic function is normal. The left ventricular ejection fraction is within the normal range. There is increased left ventricular wall thickness. There is normal LV segmental wall motion. The left ventricular diastolic function is indeterminate. LVEF is 60% Right Ventricle The right ventricle is mildly dilated. The right ventricular systolic function is normal. Atria The left atrium is mildly dilated. The right atrium size is normal. There is no color Doppler evidence of interatrial shunt. Aortic Valve s/p bioprosthetic AVR. The prosthesis is well-seated. Peak velocity 2.8 m/s, mean AV gradients 12 mmHg. Max of 22 mmHg. Acceleration time 80 ms. Trace aortic regurgitation is present. Mitral Valve The mitral valve is normal in structure. No evidence of mitral valve stenosis. Trace mitral regurgitation is present. Tricuspid Valve The tricuspid valve leaflets are thin and pliable. Trace tricuspid regurgitation. There is insufficient TR jet to estimate RVSP. Pulmonic Valve The pulmonary valve is grossly normal in structure. Trace pulmonic valve regurgitation is present. Great Vessels The aortic root is normal in size. IVC is normal in size and collapses >50% with inspiration. Pericardium There is no pericardial effusion. Other Information Study Quality: Fair Conclusion Normal biventricular systolic function. Mild RV dilation. s/p bioprosthetic AVR (acceptable AV gradients - peak velocity 2.8 m/s, mean AV gradients 12 mmHg. Max of 22 mmHg. Acceleration time 80 ms). Compared to prior study from 09/01/2024, there are no significant changes. The transaortic gradients are overall unchanged. Electronically signed by : Rhina Swanson MD 07/07/2025 13:38:56
[2025-07-07] MEDS: MAGNESIUM SULFATE IN WATER 2 GM/50 ML PIGGYBACK IV ×3 (12:00→13:39)
[2025-07-07] MEDS: UMECLIDINIUM/VILANTEROL 62.5/25MCG INHALER 1 PUFF IH (12:01)
[2025-07-07 12:14] LABS: POC Glucose,Bedside 136 gm/dL (70-110)
--- NOTE | 2025-07-07 12:56 | EXP.CARD.CON ---
History of Present Illness History of Present Illness Consult date: 07/07/25 Requesting physician: Valerio Garcia Consult reason: congestive heart failure and shortness of breath Chief complaint: Pneumonia, CHF Additional Medical History:: CAD is present and likely stable. ANNIE to circ x2 in 11/2022. Hx of CABG x 1 in 2010 with AV replacement with bioprosthetic valve in 2010. Stable. On aspirin ECHO-(08/2024) EF 55%, Mild RV dilation, Mild biatrial dilation, s/p bioprosthetic AVR, Mild TR Ascending aorta is borderline dilated, measuring 3.7 cm in diameter. HTN-BP acceptable, SBP 120's HLD-LDL goal is < 55. LDL 30.59 (11/2024) On statin therapy ARIE is less than 20% bilateral ICA, MAY 2020. COPD DM is present, controlled per PCP History of present illness: Patient is a 79-year-old male with past medical history significant for COPD, CAD status post 2 stent placements, diastolic dysfunction, HTN, HLD, hypothyroidism, DM2, CABG, heart valve replacement. Presents to [facility] due to shortness of breath. Reports progressive symptoms over the last few days. Patient reports on Sunday morning he woke up gasping for air feeling as though he could not get his breath. Stating that he went outside to breathe in the cold air and attempt to alleviate symptoms. Reportedly used an an old inhaler at home belonged to his but noted some mild relief in symptoms. Reported mostly having a nonproductive cough but noted he did have an episode with brown sputum. Patient also reports has not been taking his diuretic as prescribed. States missing a couple doses when he leaves home to avoid frequent urination. Due to persistent symptoms patient ultimately may followed up to the emergency department and treatment. Denies any fever, chills nausea vomiting or chest pain. Initial ED workup included laboratory studies and imaging. Laboratory findings significant for D-dimer 0.86, venous blood gas pO2 58, venous blood gas CO2 30, carbon dioxide 33, magnesium 1.3, BNP 953. Imaging study included chest x-ray, I personally reviewed showing pneumonia. Upon bedside assessment patient without any acute distress, resting in bed comfortably, on 3 L nasal cannula with adequate saturations. Nontoxic-appearing. The above per Dr. Garcia. The above events confirmed with the patient. He states he has diuresed well overnight and is feeling somewhat improved but not quite back to baseline. He does require oxygen at home, mostly at night. Troponins normal this admission with EKG showing normal sinus rhythm with no acute changes. BNP elevated at 953 with chest x-ray evidence of pneumonia. [facility] Disclaimer: The information contained in this section may have been updated after the patient was seen, as this information can be updated by other users. Medical History Tachycardia Acquired hypothyroidism Vitamin B12 deficiency Vitamin D deficiency Hearing difficulty Ear pain Gallstones Hyperlipidemia Hypertension Carotid artery stenosis Diastolic dysfunction Coronary artery disease Diabetes Acute and chronic respiratory failure with hypoxia Parainfluenza infection Acute kidney injury Mediastinal lymphadenopathy Multiple pulmonary nodules Pulmonary emphysema Smoking greater than 30 pack years Dyspnea on exertion Diverticulitis Diverticular hemorrhage Abnormal EKG History of UTI COPD (chronic obstructive pulmonary disease) Surgical History History of heart valve replacement History of cataract surgery History of heart surgery History of tonsillectomy Hx of CABG Family History Sister Family history of myocardial infarction Mother Family history of myocardial infarction Other No significant family history Social History Smoking Status: Former smoker smoking status stop date: jul 2002 alcohol intake: never substance use type: denies use current occupational status: retired Travel in the last 8 weeks?: None household members: none housing: house current occupational exposures/hazards: No caffeine: No Review of Systems Review of Systems Review of systems:: pertinent systems reviewed and negative unless documented below *Cardiovascular Cardiovascular: Denies chest pain, Reports dyspnea and Reports dyspnea on exertion *Respiratory Respiratory: Reports cough, Reports dyspnea and Reports dyspnea on exertion *Neurologic Neurologic: Reports system reviewed and no additional complaints, except as documented and Reports as per HPI Exam Data for Last 24 hours Vital signs and Labs for Last 24 Hours: Temp Pulse Resp BP Pulse Ox O2 Del Method O2 Flow Rate 98.2 F 68 16 126/61 99 Nasal Cannula 3 07/07/25 12:00 07/07/25 12:00 07/07/25 12:00 07/07/25 12:00 07/07/25 12:00 07/07/25 12:00 07/07/25 12:00 FiO2 32 07/07/25 06:39 Laboratory Results - last 24 hr 07/06/25 13:35: SARS-CoV-2 (PCR) Not detected, Influenza A Untype (PCR) Not detected, Influenza Type B (PCR) Not detected 07/06/25 14:10: WBC 6.6, RBC 3.47 L, Hgb 10.6 L, Hct 34.1 L, MCV 98.3 H, MCH 30.5, MCHC 31.1 L, RDW 13.5, Plt Count 201, MPV 10.8 H, Neut % (Auto) 70.4, Lymph % (Auto) 14.5, Holt % (Auto) 12.3 H, Eos % (Auto) 2.3, Baso % (Auto) 0.3, Neut # (Auto) 4.7, Lymph # (Auto) 1.0, Holt # (Auto) 0.8, Eos # (Auto) 0.2, Baso # (Auto) 0.0, D-Dimer 0.86 H, Sodium 138, Potassium 5.1, Chloride 100, Carbon Dioxide 33 H, Anion Gap 10.1, BUN 25 H, Creatinine 1.10, Estimated Creat Clear 48, Estimated GFR 64, Est GFR ( Amer) 78, Glucose 121 H, Calcium 9.6, Magnesium 1.3 L, Total Bilirubin 0.4, AST 25, ALT 12, Alkaline Phosphatase 45, Troponin I < 0.01, NT-Pro-B Natriuret Pep 953 H, Total Protein 7.3, Albumin 4.0, Globulin 3.3 H, Albumin/Globulin Ratio 1.2 07/06/25 14:47: VBG pH 7.32, VBG pCO2 58.2 H, VBG pO2 32.6, VBG HCO3 29.0, VBG Total CO2 30.8 H, VBG O2 Saturation 56.1, VBG Base Excess 2.8 H, VBG Lactic Acid 1.2 07/06/25 14:50: HCV Ab SRINATH w/Rflx PCR Qn Negative, HIV Ag/Ab Combo Qual Negative 07/06/25 18:11: Troponin I < 0.01 07/06/25 20:17: POC Glucose 135 H 07/06/25 20:30: Troponin I < 0.01 07/07/25 05:16: POC Glucose 134 H 07/07/25 05:45: WBC 4.3 L D, RBC 3.40 L, Hgb 10.3 L, Hct 32.7 L, MCV 96.2 H, MCH 30.3, MCHC 31.5 L, RDW 13.2, Plt Count 195, MPV 10.6 H, Neut % (Auto) 85.1 H, Lymph % (Auto) 12.8, Holt % (Auto) 1.6 L, Eos % (Auto) 0.0 L, Baso % (Auto) 0.0 L, Neut # (Auto) 3.7, Lymph # (Auto) 0.6 L, Holt # (Auto) 0.1, Eos # (Auto) 0.0, Baso # (Auto) 0.0, Sodium 139, Potassium 5.0, Chloride 98, Carbon Dioxide 35 H, Anion Gap 11.0, BUN 23 H, Creatinine 1.20, Estimated Creat Clear 45, Estimated GFR 58 L, Est GFR ( Amer) 70, Glucose 129 H, Hemoglobin A1c 5.7, Calcium 8.8, Magnesium 1.4 L, Total Bilirubin 0.2, AST 23, ALT 10 L, Alkaline Phosphatase 51, Total Protein 6.5, Albumin 4.2, Globulin 2.3, Albumin/Globulin Ratio 1.8 07/07/25 11:59: POC Glucose 136 H I & O for Last 24 hours: Intake & Output 07/05/25 07/06/25 07/07/25 07/08/25 10:59 11:59 11:59 11:59 Intake Total 710 / 710 41.667 / 41.667 Output Total 175 / 175 Balance 535 / 535 41.667 / 41.667 Weight 144 lb 4 oz Constitutional Constitutional: no acute distress *Routine Respiratory Exam Respiratory: Present rales, rhonchi and diminished air movement; Absent wheezes *Routine Cardiovascular Exam Cardiovascular: Present RRR and murmur; Absent gallop or rubs *Routine Extremities Exam Extremities: Absent edema *Routine Neurological Exam Neurological: Present alert, oriented X3 and CN II-XII intact Meds Home Medications and Allergies Home Medications ?Medication ?Instructions ?Recorded ?Confirmed ?Type aspirin 81 mg tablet,delayed 81 mg PO DAILY heart health 04/12/20 07/06/25 History release (Aspir-) cholecalciferol (vitamin D3) 10 10 mcg PO DAILY Supplement 04/12/20 07/06/25 History mcg (400 unit) capsule ascorbic acid (vitamin C) 500 mg 500 mg PO DAILY 11/11/24 07/06/25 History tablet (Vitamin C) garlic 500 mg capsule 500 mg PO DAILY 11/11/24 07/06/25 History multivitamin 1 tab PO DAILY 11/11/24 07/06/25 History losartan 50 mg tablet 50 mg PO DAILY #90 tabs 02/02/25 07/06/25 Rx nitroglycerin 0.4 mg sublingual 0.4 mg sublingual Q5M PRN chest 02/02/25 07/06/25 Rx tablet pain #20 tabs albuterol sulfate 90 mcg/actuation 2 inh inhalation QID PRN shortness 04/06/25 07/06/25 Rx aerosol inhaler of breath or wheezing 90 days #8.5 grams cyanocobalamin (vitamin B-12) 1,000 mcg PO DAILY #30 tabs 05/05/25 07/06/25 Rx 1,000 mcg tablet levothyroxine 50 mcg tablet 50 mcg PO DAILY #30 tabs 05/06/25 07/06/25 Rx ipratropium 0.5 mg-albuterol 3 mg 3 ml inhalation QID PRN shortness 05/14/25 07/06/25 Rx (2.5 mg base)/3 mL nebulization of breath or wheezing 90 days #90 soln mL pantoprazole 40 mg tablet,delayed 40 mg PO DAILY #90 tabs 06/16/25 07/06/25 Rx release (Protonix) carvedilol 12.5 mg tablet 12.5 mg PO BID 07/07/25 07/07/25 History furosemide 40 mg tablet 40 mg PO DAILY 07/07/25 07/07/25 History metformin 1,000 mg tablet 1,000 mg PO BID 07/07/25 07/07/25 History rosuvastatin 10 mg tablet 10 mg PO HS 07/07/25 07/07/25 History umeclidinium 62.5 mcg-vilanterol 1 ea inhalation DAILY 07/07/25 07/07/25 History 25 mcg/actuation powdr for inhalation New Prescriptions to Start Prescriptions: Allergies Allergy/AdvReac Type Severity Reaction Status Date / Time Penicillins Allergy Severe Rash Verified 05/18/25 08:22 Assessment and Plan *Assessment and plan (1) Pneumonia: Status: Acute Qualifiers: Pneumonia type: due to unspecified organism Laterality: bilateral Lung location: unspecified part of lung Qualified Code(s): J18.9 - Pneumonia, unspecified organism Category: Medical Code(s): J18.9 - Pneumonia, unspecified organism (2) Acute exacerbation of CHF (congestive heart failure): Status: Acute Qualifiers: Heart failure type: unspecified Qualified Code(s): I50.9 - Heart failure, unspecified Category: Medical Code(s): I50.9 - Heart failure, unspecified (3) Hypomagnesemia: Status: Acute Category: Medical Code(s): E83.42 - Hypomagnesemia (4) COPD (chronic obstructive pulmonary disease): Status: Acute Qualifiers: COPD type: emphysema Emphysema type: centrilobular Qualified Code(s): J43.2 - Centrilobular emphysema Category: Medical Code(s): J44.9 - Chronic obstructive pulmonary disease, unspecified (5) Hx of CABG: Status: Chronic Category: Surgical Code(s): Z95.1 - Presence of aortocoronary bypass graft (6) History of aortic valve replacement with bioprosthetic valve: Status: Chronic Category: Surgical Code(s): Z95.3 - Presence of xenogenic heart valve Plan 1. Pneumonia -Azithromycin and ceftriaxone -Pulmonary consulted 2. Acute exacerbation of CHF, likely right-sided due to pneumonia -Echo pending -IV Lasix ordered -BNP 953 -On Avapro, carvedilol -consider SGLT2i pending results of echo -hold on spironolactone due to intermittent hyperkalemia 3. History of CAD/CABG with prosthetic aortic valve -Check echo to assess EF and valve status -Continue aspirin, statin, beta-maco, ARB -Troponins normal 4. COPD with history of tobacco use -Home oxygen therapy 5. Hypothyroidism -On replacement 6. Chronic anemia -stable around 10-11 7. Diabetes mellitus -Hemoglobin A1c 5.7 8. Hypomagnesemia -On replacement check echo to assess LVEF and prosthetic valve anticipate home tomorrow
[2025-07-07 13:44] LABS: Procalcitonin 0.036 ng/mL (0.0-2.0)
[2025-07-07 14:01] LABS: C-Reactive Protein 1.5 mg/L (0-4)
--- NOTE | 2025-07-07 14:31 | P.PN_ITS ---
<Statement entered by Efra Mclaughlin MD - 07/11/25 14:19> Agree with the plan of care as outlined by the OPERATIONS SUPPORT REPRESENTATIVE. Subjective *Date: 07/07/25 *Time: 14:31 Interval history: Patient is doing very well this morning. Is sitting on the edge of the bed, currently oxygen is not on, patient O2 saturation 87%. Patient states he wears oxygen at home intermittently, encourage patient to wear oxygen to maintain oxygen saturation greater than 90%. Patient denies shortness of breath currently. Pulmonology and cardiology consulted. Medical Exam Vital signs and Labs for Last 24 Hours: Vital Signs Temp Pulse Pulse Resp BP BP Pulse Ox 07/07/25 13:00 07/07/25 12:00 98.2 F 68 16 126/61 99 07/07/25 11:14 60 07/07/25 11:14 68 07/07/25 11:00 07/07/25 09:19 87 L 07/07/25 09:00 07/07/25 08:00 07/07/25 08:00 98.0 F 80 16 119/63 96 07/07/25 06:40 07/07/25 06:39 82 07/07/25 06:39 84 07/07/25 06:39 92 L 07/07/25 05:00 07/07/25 04:00 98.2 F 87 12 109/65 L 92 L 07/07/25 03:00 07/07/25 01:00 07/07/25 00:00 98.4 F 88 12 105/60 L 12 L 07/06/25 23:12 85 07/06/25 23:12 84 07/06/25 23:12 95 07/06/25 23:00 07/06/25 21:00 07/06/25 20:00 12 96 07/06/25 20:00 97.9 F 85 12 123/57 L 96 07/06/25 18:58 07/06/25 18:19 98.5 F 85 20 143/77 H 07/06/25 18:01 95 07/06/25 17:59 95 H 18 121/98 H 97 07/06/25 17:00 72 16 123/65 100 07/06/25 16:45 66 14 132/58 L 100 07/06/25 16:30 66 18 131/65 100 07/06/25 16:17 66 18 91/61 L 100 07/06/25 16:00 65 20 141/61 H 100 07/06/25 15:45 66 15 120/70 100 07/06/25 15:30 67 21 128/62 100 07/06/25 15:00 65 21 124/69 100 07/06/25 14:45 67 21 144/66 H 100 O2 Del Method O2 Flow Rate FiO2 07/07/25 13:00 Nasal Cannula 2 07/07/25 12:00 Nasal Cannula 3 07/07/25 11:14 07/07/25 11:14 07/07/25 11:00 Nasal Cannula 2 07/07/25 09:19 Room Air 07/07/25 09:00 Nasal Cannula 3 07/07/25 08:00 Nasal Cannula 3 07/07/25 08:00 Nasal Cannula 3 07/07/25 06:40 Nasal Cannula 07/07/25 06:39 07/07/25 06:39 07/07/25 06:39 Nasal Cannula 3 32 07/07/25 05:00 Nasal Cannula 3 07/07/25 04:00 Room Air 07/07/25 03:00 Nasal Cannula 3 07/07/25 01:00 Nasal Cannula 3 07/07/25 00:00 Room Air 07/06/25 23:12 07/06/25 23:12 07/06/25 23:12 Nasal Cannula 3 07/06/25 23:00 Nasal Cannula 3 07/06/25 21:00 Nasal Cannula 3 07/06/25 20:00 Nasal Cannula 3 07/06/25 20:00 Nasal Cannula 3 07/06/25 18:58 Nasal Cannula 3 07/06/25 18:19 Nasal Cannula 3 07/06/25 18:01 Nasal Cannula 3 07/06/25 17:59 Nasal Cannula 3 07/06/25 17:00 Nasal Cannula 3 07/06/25 16:45 Nasal Cannula 3 07/06/25 16:30 07/06/25 16:17 07/06/25 16:00 07/06/25 15:45 07/06/25 15:30 07/06/25 15:00 07/06/25 14:45 Intake and Output 07/06/25 07/07/25 07/07/25 23:59 07:59 15:59 Intake Total 350 / 350 922.500 / 922.500 Output Total 0 / 0 175 / 875 700 / 875 Balance 350 / 350 -175 / 47.500 222.500 / 47.500 Intake: Intake, Oral Amount 840 / 840 Intake, Total IV Amount 350 / 350 82.500 / 82.500 Azithromycin 500 mg In 0.9 % 250 / 250 Sodium Chloride 250 ml @ 250 mls/hr IV Q24H ONE Rx#:[id number] Ceftriaxone Sodium 1 gm In 0.9 50 / 50 % Sodium Chloride 50 ml @ 100 mls/hr IV ONCE ONE Rx#:[id number] Magnesium Sulfate in Water 2 gm 50 / 50 In 50 ml @ 50 mls/hr IV ONCE ONE Rx#:[id number] Magnesium Sulfate in Water 2 gm 82.500 / 82.500 In 50 ml @ 50 mls/hr IV Q1H [place] Rx#:[id number] Output: Output, Urine Amount 0 / 0 175 / 875 700 / 875 Other: Number of Unmeasured Voids 1 0 0 Weight 65.431 kg Patient Weight 07/07/25 23:59 Weight 65.431 kg Laboratory Results - last 24 hr 07/06/25 13:35: SARS-CoV-2 (PCR) Not detected, Influenza A Untype (PCR) Not detected, Influenza Type B (PCR) Not detected 07/06/25 14:10: WBC 6.6, RBC 3.47 L, Hgb 10.6 L, Hct 34.1 L, MCV 98.3 H, MCH 30. 5, MCHC 31.1 L, RDW 13.5, Plt Count 201, MPV 10.8 H, Neut % (Auto) 70.4, Lymph % (Auto) 14.5, Kidder % (Auto) 12.3 H, Eos % (Auto) 2.3, Baso % (Auto) 0.3, Neut # (Auto) 4.7, Lymph # (Auto) 1.0, Kidder # (Auto) 0.8, Eos # (Auto) 0.2, Baso # (Auto) 0.0, D-Dimer 0.86 H, Sodium 138, Potassium 5.1, Chloride 100, Carbon Dioxide 33 H, Anion Gap 10.1, BUN 25 H, Creatinine 1.10, Estimated Creat Clear 48, Estimated GFR 64, Est GFR ( Amer) 78, Glucose 121 H, Calcium 9.6, Magnesium 1.3 L, Total Bilirubin 0.4, AST 25, ALT 12, Alkaline Phosphatase 45, Troponin I < 0.01, NT-Pro-B Natriuret Pep 953 H, Total Protein 7.3, Albumin 4.0, Globulin 3.3 H, Albumin/Globulin Ratio 1.2 07/06/25 14:47: VBG pH 7.32, VBG pCO2 58.2 H, VBG pO2 32.6, VBG HCO3 29.0, VBG Total CO2 30.8 H, VBG O2 Saturation 56.1, VBG Base Excess 2.8 H, VBG Lactic Acid 1.2 07/06/25 14:50: HCV Ab SRINATH w/Rflx PCR Qn Negative, HIV Ag/Ab Combo Qual Negative 07/06/25 18:11: Troponin I < 0.01 07/06/25 20:17: POC Glucose 135 H 07/06/25 20:30: Troponin I < 0.01 07/07/25 05:16: POC Glucose 134 H 07/07/25 05:45: WBC 4.3 L D, RBC 3.40 L, Hgb 10.3 L, Hct 32.7 L, MCV 96.2 H, MCH 30.3, MCHC 31.5 L, RDW 13.2, Plt Count 195, MPV 10.6 H, Neut % (Auto) 85.1 H, Lymph % (Auto) 12.8, [place] % (Auto) 1.6 L, Eos % (Auto) 0.0 L, Baso % (Auto) 0.0 L, Neut # (Auto) 3.7, Lymph # (Auto) 0.6 L, Kidder # (Auto) 0.1, Eos # (Auto) 0.0, Baso # (Auto) 0.0, Sodium 139, Potassium 5.0, Chloride 98, Carbon Dioxide 35 H, Anion Gap 11.0, BUN 23 H, Creatinine 1.20, Estimated Creat Clear 45, Estimated GFR 58 L, Est GFR ( Amer) 70, Glucose 129 H, Hemoglobin A1c 5.7, Calcium 8.8, Magnesium 1.4 L, Total Bilirubin 0.2, AST 23, ALT 10 L, Alkaline Phosphatase 51, C-Reactive Protein 1.5, Total Protein 6.5, Albumin 4.2, Globulin 2.3, Albumin/Globulin Ratio 1.8, Procalcitonin 0.036 07/07/25 11:59: POC Glucose 136 H I & O for Labs for Last 24 Hours: Intake & Output 07/04/25 07/05/25 07/06/25 07/07/25 23:59 22:59 23:59 23:59 Intake Total 350 / 350 922.500 / 922.500 Output Total 0 / 0 875 / 875 Balance 350 / 350 47.500 / 47.500 Weight 64.864 kg 65.431 kg Constitutional: Present no acute distress, average body habitus and cooperative Head: Present atraumatic Eyes: Present as per HPI ENT: Present normal exam Neck: Present normal inspection Respiratory: Present wheezes, diminished air movement, able to speak in complete sentences and symmetric chest movement; Absent rhonchi or crackles Cardiac: Present Reg Rate and Rhythm and Audible Murmur GI: Present soft and normal bowel sounds; Absent distention or tenderness Rectal (male): Present deferred (male): Present deferred Extremities: Present normal inspection, full ROM, normal capillary refill and edema (1-2+ bilateral lower extremity) Skin: Present intact and dry; Absent erythema or rash Neuro: Present Grossly Intact and moves all extremities Assessment and Plan *Assessment and plan (1) Community acquired pneumonia: Status: Resolved Qualifiers: Laterality: left Lung location: lower lobe of lung Qualified Code(s): J18.9 - Pneumonia, unspecified organism Category: Medical Code(s): J18.9 - Pneumonia, unspecified organism (2) Acute exacerbation of CHF (congestive heart failure): Status: Acute Qualifiers: Heart failure type: unspecified Qualified Code(s): I50.9 - Heart failure, unspecified Category: Medical Code(s): I50.9 - Heart failure, unspecified (3) COPD (chronic obstructive pulmonary disease): Status: Acute Qualifiers: COPD type: emphysema Emphysema type: centrilobular Qualified Code(s): J43.2 - Centrilobular emphysema Category: Medical Code(s): J44.9 - Chronic obstructive pulmonary disease, unspecified (4) COPD exacerbation: Status: Acute Category: Medical Code(s): J44.1 - Chronic obstructive pulmonary disease with (acute) exacerbation (5) Heart failure with preserved ejection fraction: Status: Acute Qualifiers: Heart failure chronicity: chronic Qualified Code(s): I50.32 - Chronic diastolic (congestive) heart failure Category: Medical Code(s): I50.30 - Unspecified diastolic (congestive) heart failure (6) Pulmonary emphysema: Status: Chronic Category: Medical Code(s): J43.9 - Emphysema, unspecified (7) Heart murmur: Status: Acute Category: Medical Code(s): R01.1 - Cardiac murmur, unspecified (8) Hx of CABG: Status: Chronic Category: Surgical Code(s): Z95.1 - Presence of aortocoronary bypass graft (9) History of aortic valve replacement with bioprosthetic valve: Status: Chronic Category: Surgical Code(s): Z95.3 - Presence of xenogenic heart valve (10) Coronary artery disease: Status: Chronic Qualifiers: Coronary Disease-Associated Artery/Lesion type: [place] artery [place] vs. transplanted heart: [place] heart Associated angina: without angina Qualified Code(s): I25.10 - Atherosclerotic heart disease of [place] coronary artery without angina pectoris Category: Medical Code(s): I25.10 - Atherosclerotic heart disease of [place] coronary artery without angina pectoris (11) Hyperlipidemia: Status: Acute Qualifiers: Hyperlipidemia type: mixed hyperlipidemia Qualified Code(s): E78.2 - Mixed hyperlipidemia Category: Medical Code(s): E78.5 - Hyperlipidemia, unspecified (12) Hypertension: Status: Acute Qualifiers: Hypertension type: primary hypertension Qualified Code(s): I10 - Essential (primary) hypertension Category: Medical Code(s): I10 - Essential (primary) hypertension Plan Mr. Araya is an 79-year-old male who presented to the emergency department with complaints of increasing shortness of breath worsening over the past week. He has a primary medical history of HFpEF, hypothyroidism, hypertension, hyperlipidemia, carotid artery stenosis, CAD, aortic valve replacement, diastolic dysfunction, COPD/emphysema, diabetes, CABG, heart murmur. Workup in the emergency department was significant for bilateral pneumonia and elevated BNP. Patient doing very well today anticipate discharge home tomorrow. Hospital medicine was consulted for admission, plan of care as follows: #Community-acquired pneumonia #CHF exacerbation #COPD/emphysema ? Chest x-ray suggestive of bilateral pneumonia, IV antibiotics azithromycin and Rocephin started in the ED. Continuing through admission. DuoNebs every 6 hours scheduled. Continue home Avapro daily. Patient wears oxygen 2 L NC as needed and at night at home. Currently wearing between 2-3 L nasal cannula. Assessment this morning patient had oxygen off and room air was 87%. Patient did not appear short of breath or have any complaints of dyspnea. Lungs bilaterally wheezy and tight, no crackles or rhonchi noted. ? Respiratory swab negative for COVID and flu, blood cultures pending. Sputum culture requested/pending currently. Encouraged incentive spirometer use, pulmonology consulted appreciate their recommendations. ? Patient currently takes Lasix 40 mg daily at home. Per patient he takes his Lasix as needed. And has not taken it recently. Lasix 40 mg twice daily L ordered during admission. ?Patient had notable murmur during assessment, has a history of aortic valve replacement. Echo 08/26 has EF of 55%, repeat echo today unchanged. Cardiology consulted appreciate their recommendations. #CAD #Hypertension #Hyperlipidemia ? Resume home cardiac medications: Aspirin 81 mg daily, carvedilol 12.5 mg twice daily, losartan 50 mg daily, rosuvastatin 10 mg at bedtime #Hypothyroidism: Continue levothyroxine 50 mcg daily. #GERD: Continue pantoprazole 40 mg daily #Diabetes mellitus, type II: Patient's A1c 5.4%, currently takes metformin 1000 mg twice daily holding in the inpatient setting. SSI and ACHS fingersticks ordered. Full code VTE?heparin 5000 subcu 3 times daily Ambulate as tolerated Diabetic diet
[2025-07-07] MEDS: SODIUM CHLORIDE 3% 15ML NEB 3 ML IH (15:40)
--- NOTE | 2025-07-07 17:37 | PC.NURSE ---
Pt is A&Ox4. Vital signs stable tolerating baseline 2L NC. IV abx infused per MAR. IV diuretics given per NOV with adequate urinary output. Magnesium replaced per protocol. Sputum sample collected. Pt has no complaints of pain. Pt resting comfortably sitting on the side of the bed with no further needs voiced at this time. Call light within reach.
[2025-07-07] MEDS: AZITHROMYCIN 500 MG in 0.9 % SODIUM CHLORIDE 250 ML 250 MG IV (18:02)
[2025-07-07] MEDS: ATORVASTATIN 10MG TABLET 10 MG PO (20:26)
[2025-07-08] VITALS: BP 101/48; PULSE 68; RESP 18; TEMP 36.9; O2SAT 95
--- NOTE | 2025-07-08 03:42 | PC.NURSE ---
Pt. is alert and orientated x 4. Pt. on baseline
[2025-07-08 04:00] VITALS: BP 127/59; PULSE 72; RESP 18; TEMP 36.7; O2SAT 95; BMI 23.3
[2025-07-08 04:15] LABS: MRSA DNA PCR Negative (Negative)
--- NOTE | 2025-07-08 04:52 | PC.NURSE ---
Pt. is alert and orientated x 4. Pt. is on baseline oxygen of 2 liters per N/C. Pt. has a congested cough but states his breathing is getting better. Pt. up independently walking around the room and to the bathroom. Pt. sleeping on and off this shift. Pt. denies pain or ;shortness of breath. Personal items and call branch in reach. Bed in low and locked position. Safety measures in place.
[2025-07-08 06:03] LABS: POC Glucose,Bedside 112 gm/dL (70-110)
[2025-07-08] MEDS: IPRATROPIUM/ALBUTEROL 3 ML NEB IH (06:11)
[2025-07-08] MEDS: UMECLIDINIUM/VILANTEROL 62.5/25MCG INHALER 1 PUFF IH (06:11)
[2025-07-08 06:12] VITALS: PULSE 61; PULSE 64; O2SAT 92
[2025-07-08 07:35] VITALS: BP 126/68; PULSE 67; RESP 16; TEMP 36.6; O2SAT 95
[2025-07-08] MEDS: ASPIRIN EC 81MG TABLET 81 MG PO (08:49)
[2025-07-08] MEDS: IRBESARTAN 75MG TABLET 75 MG PO (08:49)
[2025-07-08] MEDS: HEPARIN SODIUM 5,000 UNIT/ML VIAL 5000 UNIT SUBCUT ×2 (08:49→12:06)
[2025-07-08] MEDS: LEVOTHYROXINE 50MCG (0.05MG) TAB 50 MCG PO (08:49)
[2025-07-08] MEDS: CARVEDILOL 12.5MG TABLET 12.5 MG PO (08:49)
[2025-07-08] MEDS: FUROSEMIDE 40MG/4ML VIAL 40 MG IV (08:49)
[2025-07-08] MEDS: PANTOPRAZOLE 40MG TABLET 40 MG PO (08:49)
[2025-07-08 09:09] LABS: Hematocrit 32.0 % (42.0-52.0); Hemoglobin 10.0 g/dL (14.1-18.0); Immature Granulocytes % 0.3 %; Mean Corpuscular HGB Conc 31.3 g/dL (31.8-35.4); Mean Corpuscular Hemoglobin 30.5 pg (27.0-31.2); Mean Corpuscular Volume 97.6 fl (80-94); Nucleated Red Blood Cells % 0 %; Platelet Count 189 K/mm3 (142-424); Red Blood Count 3.28 M/mm3 (4.60-6.20); Red Cell Distribution Width-SD 48.2 fL; White Blood Count 9.6 K/mm3 (4.8-10.8)
[2025-07-08 09:27] LABS: Alanine Aminotransferase 15 U/L (12-78); Albumin Level 3.8 g/dl (3.5-5.0); Albumin/Globulin Ratio 1.2 (1.1-1.8); Alkaline Phosphatase 45 U/L (38-126); Anion Gap 8.3 mEq/L (5-15); Aspartate Amino Transferase 24 U/L (17-59); Bilirubin,Total 0.3 mg/dl (0.2-1.3); Blood Urea Nitrogen 33 mg/dl (9-20); Calcium 9.2 mg/dl (8.4-10.2); Carbon Dioxide 36 mmol/L (22.0-30.0); Chloride 96 mmol/L (98-107); Creatinine Clearance Estimated 41 mL/min (50-200); Creatinine,Serum 1.30 mg/dl (0.66-1.25); Estimated Glomerular Filt Rate 53 ml/min (>60); GFR (African American) 64 ML/MIN (>60); Globulin 3.1 g/dL (1.3-3.2); Glucose 137 mg/dl (74-100); Magnesium 2.2 mg/dl (1.6-2.3); Potassium 4.3 mmoL/L (3.5-5.1); Sodium 136 mmol/L (136-145); Total Protein,Serum 6.9 g/dl (6.3-8.2)
--- NOTE | 2025-07-08 09:33 | P.PN_ITS ---
Subjective Subjective Date: 07/08/25 Time: 09:33 Principal diagnosis: Pneumonia, CHF Interval history: 79 yo WM in chair in NAD. Ready to go home. No complaints. Exam Data for Last 24 hours Vital signs and Labs for Last 24 Hours: Temp Pulse Resp BP Pulse Ox O2 Del Method O2 Flow Rate 97.9 F 67 16 126/68 95 Nasal Cannula 2 07/08/25 07:35 07/08/25 07:35 07/08/25 07:35 07/08/25 07:35 07/08/25 07:35 07/08/25 07:35 07/08/25 07:00 FiO2 28 07/08/25 06:12 Laboratory Results - last 24 hr 07/07/25 05:45: C-Reactive Protein 1.5, Procalcitonin 0.036 07/07/25 11:59: POC Glucose 136 H 07/07/25 13:43: MRSA (PCR) Negative 07/08/25 05:53: POC Glucose 112 H 07/08/25 08:38: WBC 9.6 D, RBC 3.28 L, Hgb 10.0 L, Hct 32.0 L, MCV 97.6 H, MCH 30.5, MCHC 31.3 L, RDW 13.6, Plt Count 189, MPV 10.3, Neut % (Auto) 79.6, Lymph % (Auto) 12.5, [place] % (Auto) 7.5, Eos % (Auto) 0.1, Baso % (Auto) 0.0 L, Neut # (Auto) 7.6, Lymph # (Auto) 1.2, [place] # (Auto) 0.7, Eos # (Auto) 0.0, Baso # (Auto) 0.0 I & O for Last 24 hours: Intake & Output 07/05/25 07/06/25 07/07/25 07/08/25 10:59 11:59 11:59 11:59 Intake Total 710 / 710 2032.500 / 2032.500 Output Total 175 / 175 1000 / 1000 Balance 535 / 535 1032.500 / 1032.500 Weight 144 lb 4 oz 145 lb Microbiology Reports for the Last 24 Hours: Microbiology 07/07/25 16:36 Sputum - Expectorated Sputum Gram Stain - Final 07/06/25 17:27 Blood Blood Culture - Preliminary NO GROWTH AFTER 24 HOURS 07/06/25 17:27 Blood Blood Culture - Preliminary NO GROWTH AFTER 24 HOURS Constitutional Constitutional: no acute distress *Routine Respiratory Exam Respiratory: Present decreased breath sounds; Absent rales or rhonchi *Routine Cardiovascular Exam Cardiovascular: Present RRR and murmur; Absent gallop or rubs *Routine Extremities Exam Extremities: Absent edema Progress Note: A&P Assessment and plan (1) Community acquired pneumonia: Status: Resolved (2) Acute exacerbation of CHF (congestive heart failure): Status: Acute (3) COPD (chronic obstructive pulmonary disease): Status: Acute (4) COPD exacerbation: Status: Acute (5) Heart failure with preserved ejection fraction: Status: Acute (6) Pulmonary emphysema: Status: Chronic (7) Heart murmur: Status: Acute (8) Hx of CABG: Status: Chronic (9) History of aortic valve replacement with bioprosthetic valve: Status: Chronic (10) Coronary artery disease: Status: Chronic (11) Hyperlipidemia: Status: Acute (12) Hypertension: Status: Acute Assessment and Plan Assessment and Plan for All Diagnoses:: 1. Pneumonia -Azithromycin and ceftriaxone -Pulmonary consulted 2. Acute exacerbation of CHF, likely right-sided due to pneumonia -Echo this admit shows EF 60% with bioprosthetic AVR functioning appropria tely -IV Lasix -BNP 953 -On Avapro, carvedilol -consider adding SGLT2i as outpatient -hold on spironolactone due to intermittent hyperkalemia 3. History of CAD/CABG with prosthetic aortic valve -Check echo to assess EF and valve status -Continue aspirin, statin, beta-maco, ARB -Troponins normal 4. COPD with history of tobacco use -Home oxygen therapy 5. Hypothyroidism -On replacement 6. Chronic anemia -stable around 06-13 7. Diabetes mellitus -Hemoglobin A1c 5.7 8. Hypomagnesemia -On replacement STable for discharge from Cardiac standpoint. Home medication recommendations: Aspirin 81 mg daily Carvedilol 12.5 mg twice daily Lipitor 10 mg daily Lasix 40 mg daily Losartan 50 mg daily No spironolactone or Melissa Aniyah due to recurrent hyperkalemia Consider adding SGLT2 inhibitor after he recovers from pneumonia Follow-up in 1 to 2 weeks
--- NOTE | 2025-07-08 09:34 | EXP.DC.SUM ---
General Admission date:: 07/06/25 Discharge date: 07/08/25 HPI HPI HPI: Patient is a 79-year-old male with past medical history significant for COPD, CAD status post 2 stent placements, diastolic dysfunction, HTN, HLD, hypothyroidism, DM2, CABG, heart valve replacement. Presents to [facility] due to shortness of breath. Reports progressive symptoms over the last few days. Patient reports on Sunday morning he woke up gasping for air feeling as though he could not get his breath. Stating that he went outside to breathe in the cold air and attempt to alleviate symptoms. Reportedly used an an old inhaler at home belonged to his but noted some mild relief in symptoms. Reported mostly having a nonproductive cough but noted he did have an episode with brown sputum. Patient also reports has not been taking his diuretic as prescribed. States missing a couple doses when he leaves home to avoid frequent urination. Due to persistent symptoms patient ultimately may followed up to the emergency department and treatment. Denies any fever, chills nausea vomiting or chest pain. Initial ED workup included laboratory studies and imaging. Laboratory findings significant for D-dimer 0.86, venous blood gas pO2 58, venous blood gas CO2 30, carbon dioxide 33, magnesium 1.3, BNP 953. Imaging study included chest x-ray, I personally reviewed showing pneumonia. Upon bedside assessment patient without any acute distress, resting in bed comfortably, on 3 L nasal cannula with adequate saturations. Nontoxic-appearing. Hospital Course Hospital Course Hospital Course: Mr. Araya is an 79-year-old male who presented to the emergency department with complaints of increasing shortness of breath worsening over the past week. He has a primary medical history of HFpEF, hypothyroidism, hypertension, hyperlipidemia, carotid artery stenosis, CAD, aortic valve replacement, diastolic dysfunction, COPD/emphysema, diabetes, CABG, heart murmur. Workup in the emergency department was significant for bilateral pneumonia and elevated BNP. Patient was then extremely well during admission and is safe to return home. Hospital medicine was consulted for admission, plan of care as follows: #Community-acquired pneumonia #CHF exacerbation #COPD/emphysema ? Chest x-ray suggestive of bilateral pneumonia, IV antibiotics azithromycin and Rocephin started in the ED, continued through admission. Patient will be discharged home on Levaquin 750 every 48 hour, renally dosed to complete a 7-day course of antibiotics. Continue DuoNebs every 6 hours as needed. Continue home Avapro daily. Patient has continuous home oxygen at 2 L NC, states he usually wears it at night and with exertion. Encourage patient to wear O2 continuously until pneumonia resolves. ? Respiratory swab negative for COVID and flu, blood cultures show no growth after 24 hours. Sputum culture pending. Encouraged incentive spirometer use, patient will follow-up with pulmonology after discharge. ? Patient currently takes Lasix 40 mg daily at home. Per patient he takes his Lasix as needed. And has not taken it recently. Patient received Lasix 40 mg twice daily during admission, discharged home back on home regimen of Lasix 40 mg daily. Discussed with patient the need for medication compliance. ?Patient had notable murmur during assessment, has a history of aortic valve replacement. Echo 08/26 has EF of 55%, repeat echo today unchanged. Cardiology consulted recommend to continue aspirin 81 mg daily, Coreg 12.5 mg twice daily, Lipitor 10 mg daily, Lasix 40 mg daily, losartan 50 mg daily. No spironolactone or Cardura due to recurrent hyperkalemia. May consider SGLT2 inhibitor after recovery from pneumonia. #CAD #Hypertension #Hyperlipidemia ?Resume cardiac medications as above. Patient remained hemodynamically stable during admission. #Hypothyroidism: Continue levothyroxine 50 mcg daily. TSH 3.28 on 05/2025. #GERD: Continue pantoprazole 40 mg daily. #Diabetes mellitus, type II: Patient's A1c 5.4%, continue metformin 1000 mg twice daily. PCP may consider reducing metformin dose due to low A1c for patient's age. Total time spent on discharge 32 minutes in counseling, documentation, chart review, and direct care with patient. Exam Data for Last 24 hours Vital signs and Labs for Last 24 Hours: Temp Pulse Resp BP Pulse Ox O2 Del Method O2 Flow Rate 97.9 F 67 16 126/68 95 Nasal Cannula 2 07/08/25 07:35 07/08/25 07:35 07/08/25 07:35 07/08/25 07:35 07/08/25 07:35 07/08/25 07:35 07/08/25 07:00 FiO2 28 07/08/25 06:12 Laboratory Results - last 24 hr 07/07/25 05:45: C-Reactive Protein 1.5, Procalcitonin 0.036 07/07/25 11:59: POC Glucose 136 H 07/07/25 13:43: MRSA (PCR) Negative 07/08/25 05:53: POC Glucose 112 H 07/08/25 08:38: WBC 9.6 D, RBC 3.28 L, Hgb 10.0 L, Hct 32.0 L, MCV 97.6 H, MCH 30.5, MCHC 31.3 L, RDW 13.6, Plt Count 189, MPV 10.3, Neut % (Auto) 79.6, Lymph % (Auto) 12.5, [place] % (Auto) 7.5, Eos % (Auto) 0.1, Baso % (Auto) 0.0 L, Neut # (Auto) 7.6, Lymph # (Auto) 1.2, [place] # (Auto) 0.7, Eos # (Auto) 0.0, Baso # (Auto) 0.0 Temp Pulse Resp BP Pulse Ox 97.9 F 67 19 113/58 L 95 12/02/22 11:05 12/02/22 11:05 12/02/22 11:05 12/02/22 11:05 12/02/22 11:05 Laboratory Results - last 24 hr 12/01/22 17:12: POC Glucose 141 H 12/01/22 20:20: POC Glucose 235 H 12/02/22 06:08: POC Glucose 109 12/02/22 08:07: Sodium 142, Potassium 4.0, Chloride 106, Carbon Dioxide 32 H, Anion Gap 8.0, BUN 35 H, Creatinine 0.90, Estimated Creat Clear 59, Estimated GFR 81, Est GFR ( Amer) 98, Glucose 110 H, Calcium 8.7, Total Bilirubin 0.5, AST 41, ALT 20, Alkaline Phosphatase 39, Total Protein 6.8, Albumin 3.8, Globulin 3.0, Albumin/Globulin Ratio 1.3 12/02/22 08:07: WBC 8.5, RBC 3.62 L, Hgb 11.0 L, Hct 35.3 L, MCV 97.4 H, MCH 30.3, MCHC 31.1 L, RDW 14.5, Plt Count 158, MPV 10.5 H, Neut % (Auto) 74.2, Lymph % (Auto) 18.8, [place] % (Auto) 6.7, Eos % (Auto) 0.0 L, Baso % (Auto) 0.3, Neut # (Auto) 6.3, Lymph # (Auto) 1.6, [place] # (Auto) 0.6, Eos # (Auto) 0.0, Baso # (Auto) 0.0 12/02/22 08:07: Phosphorus 2.8, Magnesium 1.9 I & O for Last 24 hours: Intake & Output 07/05/25 07/06/25 07/07/25 07/08/25 22:59 23:59 23:59 23:59 Intake Total 350 / 350 1022.500 / 8307.080 8505 / 1370 Output Total 0 / 0 1175 / 1175 0 / 0 Balance 350 / 350 -152.500 / 87.500 1370 / 1370 Weight 64.864 kg 65.431 kg 65.771 kg Intake & Output 11/29/22 11/30/22 12/01/22 12/02/22 23:59 23:59 23:59 23:59 Intake Total 915 / 915 360 / 1010 1370 / 1370 240 / 240 Output Total 1050 / 1050 875 / 1075 400 / 400 Balance 914 / 914 -690 / -40 495 / 295 -160 / -160 Weight 72.121 kg 72 kg 69.354 kg Microbiology Reports for the Last 24 Hours: Microbiology 07/07/25 16:36 Sputum - Expectorated Sputum Gram Stain - Final 07/06/25 17:27 Blood Blood Culture - Preliminary NO GROWTH AFTER 24 HOURS 07/06/25 17:27 Blood Blood Culture - Preliminary NO GROWTH AFTER 24 HOURS Microbiology 11/30/22 08:53 Sputum - Expectorated Sputum Gram Stain - Final 11/30/22 08:53 Sputum - Expectorated Sputum Sputum Culture - Final Normal Respiratory Ami Constitutional Constitutional: no acute distress, average body habitus, chronically ill appearing and cooperative *Routine HEENT Exam Head: Present normocephalic Eye: Present EOMI and PERRL ENT: Present mucous membranes moist *Routine Neck Exam Neck: Present supple; Absent lymphadenopathy Routine Chest/Breast/Axilla Exam Comments: well healed midline/sternotomy scar *Routine Respiratory Exam Respiratory: Present CTA bilaterally and normal respiratory effort; Absent accessory muscle use, rhonchi or crackles *Routine Cardiovascular Exam Cardiovascular: Present RRR and murmur *Routine Abdominal Exam Abdominal: Present soft and normoactive bowel sounds; Absent tenderness *Routine Rectal Exam Patient deferred: visual exam *Routine Exam Patient deferred: penile exam *Routine Extremities Exam Extremities: Present full ROM; Absent cyanosis, clubbing or edema *Routine Skin Exam Skin: Present intact, dry and warm; Absent rash *Routine Neurological Exam Neurological: Present alert, oriented X3 and moving all extremities; Absent altered mental status Results Data Completed and Pending Labs on day of discharge: Labs from last 24 hours 07/08/25 07/08/25 07/07/25 08:38 05:53 13:43 WBC 9.6 D RBC 3.28 L Hgb 10.0 L Hct 32.0 L MCV 97.6 H MCH 30.5 MCHC 31.3 L RDW 13.6 Plt Count 189 MPV 10.3 Neut % (Auto) 79.6 Lymph % (Auto) 12.5 [place] % (Auto) 7.5 Eos % (Auto) 0.1 Baso % (Auto) 0.0 L Neut # (Auto) 7.6 Lymph # (Auto) 1.2 [place] # (Auto) 0.7 Eos # (Auto) 0.0 Baso # (Auto) 0.0 POC Glucose 112 H C-Reactive Protein Procalcitonin MRSA (PCR) Negative 07/07/25 07/07/25 11:59 05:45 WBC RBC Hgb Hct MCV MCH MCHC RDW Plt Count MPV Neut % (Auto) Lymph % (Auto) [place] % (Auto) Eos % (Auto) Baso % (Auto) Neut # (Auto) Lymph # (Auto) [place] # (Auto) Eos # (Auto) Baso # (Auto) POC Glucose 136 H C-Reactive Protein 1.5 Procalcitonin 0.036 MRSA (PCR) Preliminary micro results at discharge 07/06/25 17:27 Blood Culture - Preliminary Blood NO GROWTH AFTER 24 HOURS 07/06/25 17:27 Blood Culture - Preliminary Blood NO GROWTH AFTER 24 HOURS DS: Diagnosis Discharge Diagnosis (1) Community acquired pneumonia: Status: Resolved Code(s): J18.9 - Pneumonia, unspecified organism Qualifiers: Laterality: left Lung location: lower lobe of lung Qualified Code(s): J18.9 - Pneumonia, unspecified organism (2) Acute exacerbation of CHF (congestive heart failure): Status: Acute Code(s): I50.9 - Heart failure, unspecified Qualifiers: Heart failure type: unspecified Qualified Code(s): I50.9 - Heart failure, unspecified (3) COPD (chronic obstructive pulmonary disease): Status: Acute Code(s): J44.9 - Chronic obstructive pulmonary disease, unspecified Qualifiers: COPD type: emphysema Emphysema type: centrilobular Qualified Code(s): J43.2 - Centrilobular emphysema (4) COPD exacerbation: Status: Acute Code(s): J44.1 - Chronic obstructive pulmonary disease with (acute) exacerbation (5) Heart failure with preserved ejection fraction: Status: Acute Code(s): I50.30 - Unspecified diastolic (congestive) heart failure Qualifiers: Heart failure chronicity: chronic Qualified Code(s): I50.32 - Chronic diastolic (congestive) heart failure (6) Pulmonary emphysema: Status: Chronic Code(s): J43.9 - Emphysema, unspecified (7) Heart murmur: Status: Acute Code(s): R01.1 - Cardiac murmur, unspecified (8) Hx of CABG: Status: Chronic Code(s): Z95.1 - Presence of aortocoronary bypass graft (9) History of aortic valve replacement with bioprosthetic valve: Status: Chronic Code(s): Z95.3 - Presence of xenogenic heart valve (10) Coronary artery disease: Status: Chronic Code(s): I25.10 - Atherosclerotic heart disease of [place] coronary artery without angina pectoris Qualifiers: Associated angina: without angina Coronary Disease-Associated Artery/Lesion type: [place] artery [place] vs. transplanted heart: [place] heart Qualified Code(s): I25.10 - Atherosclerotic heart disease of [place] coronary artery without angina pectoris (11) Hyperlipidemia: Status: Acute Code(s): E78.5 - Hyperlipidemia, unspecified Qualifiers: Hyperlipidemia type: mixed hyperlipidemia Qualified Code(s): E78.2 - Mixed hyperlipidemia (12) Hypertension: Status: Acute Code(s): I10 - Essential (primary) hypertension Qualifiers: Hypertension type: primary hypertension Qualified Code(s): I10 - Essential (primary) hypertension Meds Home Medications and Allergies Home Medications ?Medication ?Instructions ?Recorded ?Confirmed ?Type aspirin 81 mg tablet,delayed 81 mg PO DAILY heart health 04/12/20 07/06/25 History release (Aspir-) cholecalciferol (vitamin D3) 10 10 mcg PO DAILY Supplement 04/12/20 07/06/25 History mcg (400 unit) capsule ascorbic acid (vitamin C) 500 mg 500 mg PO DAILY 11/11/24 07/06/25 History tablet (Vitamin C) garlic 500 mg capsule 500 mg PO DAILY 11/11/24 07/06/25 History multivitamin 1 tab PO DAILY 11/11/24 07/06/25 History losartan 50 mg tablet 50 mg PO DAILY #90 tabs 02/02/25 07/06/25 Rx nitroglycerin 0.4 mg sublingual 0.4 mg sublingual Q5M PRN chest 02/02/25 07/06/25 Rx tablet pain #20 tabs albuterol sulfate 90 mcg/actuation 2 inh inhalation QID PRN shortness 04/06/25 07/06/25 Rx aerosol inhaler of breath or wheezing 90 days #8.5 grams cyanocobalamin (vitamin B-12) 1,000 mcg PO DAILY #30 tabs 05/05/25 07/06/25 Rx 1,000 mcg tablet levothyroxine 50 mcg tablet 50 mcg PO DAILY #30 tabs 05/06/25 07/06/25 Rx ipratropium 0.5 mg-albuterol 3 mg 3 ml inhalation QID PRN shortness 05/14/25 07/06/25 Rx (2.5 mg base)/3 mL nebulization of breath or wheezing 90 days #90 soln mL pantoprazole 40 mg tablet,delayed 40 mg PO DAILY #90 tabs 06/16/25 07/06/25 Rx release (Protonix) carvedilol 12.5 mg tablet 12.5 mg PO BID 07/07/25 07/07/25 History furosemide 40 mg tablet 40 mg PO DAILY 07/07/25 07/07/25 History metformin 1,000 mg tablet 1,000 mg PO BID 07/07/25 07/07/25 History rosuvastatin 10 mg tablet 10 mg PO HS 07/07/25 07/07/25 History umeclidinium 62.5 mcg-vilanterol 1 ea inhalation DAILY 07/07/25 07/07/25 History 25 mcg/actuation powdr for inhalation levofloxacin 750 mg tablet 750 mg PO .Every other day #2 tabs 07/08/25 Rx New Prescriptions to Start Prescriptions: levofloxacin Bethanie Núñez Allergies Allergy/AdvReac Type Severity Reaction Status Date / Time Penicillins Allergy Severe Rash Verified 05/18/25 08:22 Discharge Plan Disposition Patient Disposition: Home, Self-Care Condition: Good Discharge Order Discharge Orders: Discharge Order (Routine); Ordered 07/08/25 Ordered By: Bethanie Núñez Follow up Plan Follow up with: Artur Núñez PA [Physician Machine Room Operator, Cardiology] - 07/22/25 1:30 pm Twyla Wall MD [Physician, Pulmonology] - 08/03/25 11:20 am Devin Thibodeaux MD [Primary Care Provider, [facility]] - 07/15/25 10:40 am Prescriptions/Medication Reconciliation: New levofloxacin 750 mg tablet 750 mg PO .Every other day Qty: 2 0RF Continued ascorbic acid (vitamin C) [Vitamin C] 500 mg tablet 500 mg PO DAILY multivitamin Tablet 1 tab PO DAILY garlic 500 mg capsule 500 mg PO DAILY cholecalciferol (vitamin D3) 10 mcg (400 unit) capsule 10 mcg PO DAILY aspirin [Aspir-81] 81 mg tablet,delayed release (DR/EC) 81 mg PO DAILY ipratropium-albuterol 0.5 mg-3 mg(2.5 mg base)/3 mL solution for nebulization 3 ml inhalation QID PRN (Reason: shortness of breath or wheezing) 90 Days Qty: 90 3RF nitroglycerin 0.4 mg tablet, sublingual 0.4 mg sublingual Q5M PRN (Reason: chest pain) Qty: 20 3RF Rx Instructions: do not exceed 3 doses per episode losartan 50 mg tablet 50 mg PO DAILY Qty: 90 3RF albuterol sulfate 90 mcg/actuation HFA aerosol inhaler 2 inh IH QID PRN (Reason: shortness of breath or wheezing) 90 Days Qty: 8.5 2RF cyanocobalamin (vitamin B-12) 1,000 mcg tablet 1,000 mcg PO DAILY Qty: 30 5RF levothyroxine 50 mcg tablet 50 mcg PO DAILY Qty: 30 2RF pantoprazole [Protonix] 40 mg tablet,delayed release (DR/EC) 40 mg PO DAILY Qty: 90 3RF furosemide 40 mg tablet 40 mg PO DAILY Patient Comments: TAKE 1 TABLET BY MOUTH EVERY DAY FOR FLUID carvedilol 12.5 mg tablet 12.5 mg PO BID Patient Comments: TAKE 1 TABLET BY MOUTH TWICE A DAY metformin 1,000 mg tablet 1,000 mg PO BID Patient Comments: TAKE 1 TABLET BY MOUTH TWICE A DAY FOR DIABETES rosuvastatin 10 mg tablet 10 mg PO HS Patient Comments: TAKE 1 TABLET BY MOUTH EVERY DAY AT BEDTIME FOR CHOLESTEROL umeclidinium-vilanterol 62.5-25 mcg/actuation blister with device 1 ea INHALATION DAILY Patient Comments: INHALE ONE PUFF BY MOUTH DAILY FOR 90 DAYS Problem Reconciliation Problems Reviewed?: Yes Patient Discharge Instructions ACTIVITY: Continue current activity DIET: continue same diet Patient Instructions: Atypical Pneumonia, DI for Chronic Obstructive Pulmonary Disease, Stop Light Pneumonia, Stop Light COPD, Stop Light Infection Print Language: [place] Providers Primary Care Provider: Devin Thibodeaux Admit Provider: Valerio Garcia Attending Provider: Valerio Garcia
[2025-07-08 11:15] LABS: POC Glucose,Bedside 152 gm/dL (70-110)
[2025-07-08 11:26] VITALS: BP 117/64; PULSE 76; RESP 17; TEMP 36.6; O2SAT 97
--- NOTE | 2025-07-09 10:47 | SW/DCPLANNER ---
Spoke with patient on the phone. Patient stated that he is doing well. patient stated that he is aware of his upcoming appointments. Patient stated that he was able to get [facility] from [facility]. Patient stated that he was taken care of very good and has no complaints. Patient stated that he has no concerns or questions at this time. Janina Adamson
[2025-07-09 15:58] LABS: POC Glucose,Bedside 130 gm/dL (70-110)
[2025-07-09 15:59] LABS: POC Glucose,Bedside 129 gm/dL (70-110)
== END 2025-07-08 14:58 | disposition home or self-care (01) | DRG 193 ==
LOC: ER 17:47 → 2ND 18:02
PROVIDERS: Physician Assistant; Student in an Organized Health Care Education/Training Program; Admitting Provider Internal Medicine Adolescent Medicine; Emergency Provider Student in an Organized Health Care Education/Training Program; PCP Family Medicine; Visit Provider Internal Medicine Adolescent Medicine
DX: J18.9 Pneumonia, unspecified organism (principal); I50.33 Acute on chronic diastolic (congestive) heart failure; J96.21 Acute and chronic respiratory failure with hypoxia; J44.1 Chronic obstructive pulmonary disease with (acute) exacerbation; J44.0 Chronic obstructive pulmonary disease with (acute) lower respiratory infection; I11.0 Hypertensive heart disease with heart failure; J43.2 Centrilobular emphysema; E03.9 Hypothyroidism, unspecified; I25.10 Atherosclerotic heart disease of native coronary artery without angina pectoris; E78.2 Mixed hyperlipidemia; E11.9 Type 2 diabetes mellitus without complications; E53.8 Deficiency of other specified B group vitamins; E83.42 Hypomagnesemia; D64.9 Anemia, unspecified; K21.9 Gastro-esophageal reflux disease without esophagitis; Z87.891 Personal history of nicotine dependence; Z95.3 Presence of xenogenic heart valve; Z95.1 Presence of aortocoronary bypass graft; Z95.5 Presence of coronary angioplasty implant and graft; Z88.0 Allergy status to penicillin; Z79.82 Long term (current) use of aspirin; Z79.84 Long term (current) use of oral hypoglycemic drugs; Z79.890 Hormone replacement therapy; Z79.899 Other long term (current) drug therapy
CPT/HCPCS: 36415; 71045; 80053; 82803; 82962; 83036; 83735; 83880; 84145; 84484; 85025; 85378; 86140; 86803; 87040; 87070; 87205; 87389; 87636; 87641; 89220; 93005; 93306; 94640; 99285; J0456; J0696; J1644; J1938; J2919; J3475; J7050

== ENCOUNTER 2025-07-21 13:49 | Outpatient (CLI) | payer MEDICARE, SELFPAY ==
--- OUTSIDE RECORDS SUMMARY | 2016-01-03 06:30 | XMS_ITS | Continuity of Care Document ---
Author Organization [facility] Address [address] [place] [address] Phone Care Team Providers Care Mechanical Test Technician Name Role Phone Jany Cavazos OD Unavailable Unavailable Allergies, Adverse Reactions, Alerts Substance Reaction Status Criticality PENICILLIN Active No Information Medications Medication Instructions Dosage Effective Dates (start - stop) Status Comments omeprazole BUCCAL CAPSULE - Active metformin 500 mg tablet take 1 tablet by oral route every day 500 MG - Active Fish Oil 1,000 mg capsule take 1 tablet by oral route 2 times every day - Active Vitamin D3 1,000 unit capsule take 1 Tablet by Oral route once 1 Tablet - Active Travatan Z 0.004 % eye drops instill 1 drop by ophthalmic route every day into both eyes in the evening 1.00 drop - Active ramipril 2.5 mg capsule take 1 capsule by oral route every day 2.5 MG - Active Multi Vitamin Unknown ORAL TABLET - Active garlic oil 1,000 mg capsule - Active furosemide 20 mg tablet take 1 tablet by oral route every day 20 MG - Active Effer-K 10 mEq effervescent tablet - Active Crestor 5 mg tablet take 1 tablet by oral route every day 5 MG - Active carvedilol 6.25 mg tablet take 1 tablet by oral route once with food 6.25 MG - Active aspirin 81 mg tablet,delayed release take 1 tablet by oral route every day 81 MG - Active allopurinol 100 mg tablet take 1 tablet by oral route every day 100 MG - Active Ilevro 0.3 % eye drops,suspension instill 1 drop by ophthalmic route every day 1 drop to the operative eye qd x 4wks 1 drop - No Longer Active Ilevro 0.3 % eye drops,suspension instill 1 drop by ophthalmic route every day to the left eye - No Longer Active Durezol 0.05 % eye drops instill 1 drop by ophthalmic route 2 times every day into the left eye - No Longer Active Procedures Procedure Date Post Op Follow Up Visit Post Op Follow Up Visit CATARACT SURG W/IOL, 1 STAGE Ophthalmic Biometry W Iol Calculation Pr of Comp Unilateral Post Op Follow Up Visit Post Op Follow Up Visit Insert Anterior Seg Aqueous Drainage Dev ice ISfaisalt Initial Insertion CATARACT SURG W/IOL, 1 STAGE OFFICE/OUTPATIENT VISIT, NEW Ophthalmic Biometry W Iol Calculation Un ilateral Advance Directives Directive Yes / No Effective Date File Name No Information Encounters Encounter Description Practice Location Reason(s) For Visit Diagnoses Date Provider Providers Copied on Encounter [facility] Physician s, [address] [place], [place], [facility], tel:[phone] [facility] [address] Presence of intraocular lens 6 Macy Carmichael. [address] [place], [place], [id number]. tel:[phone] Referring Provider: Valerio Stewart, [address] [place] [address], [address]. tel:[phone] [facility] Physician s, [address] [place], [address], tel:[phone] [facility] [address] Presence of intraocular lens 6 Macy Carmichael. [address] [place], [place], [id number]. tel:[phone] Referring Provider: Valerio Stewart, [address] [place] [address], [address]. tel:[phone] [facility] Physician s, [address] [place], [address], tel:[phone] [facility] Age-related nuclear cataract, left eyePosterior subcapsular polar age-related cataract, left eye Apr-1 - 6 [facility]. [address], [address], [place], [place], [id number]. tel:[phone] Referring Provider: Valerio Stewart, [address] [place], [address]. tel:[phone] [facility], [address] [place], [address], [place] tel:[phone] [facility] [address] No Information Apr-0 5- 6 [facility]. [address], [address], [place], [place], [address]. tel:[phone] [facility], [address] [place], [address], [place] tel:[phone] [facility] [address] Presence of intraocular lens Mar-3 0- 6 No Information Referring Provider: Valerio Stewart, [address] [place], [address]. tel:[phone] [facility], [address] [place], [address], [place] tel:[phone] [facility] [address] Presence of intraocular lens Mar-2 2- 6 Macy Carmichael. [address] [place], [place], [id number]. tel:[phone] Referring Provider: Valerio Stewart, [address] [place], [address]. tel:[phone] [facility], [address] [place], [address], [place] tel:[phone] [facility] Primary open-angle glaucoma, mild stageAge-rela new nuclear cataract, right eye Mar-2 - 6 [facility]. [address], [address], [place], [place], [address]. tel:[phone] Referring Provider: Valerio Stewart, [address] [place], [address]. tel:[phone] OFFICE/OUTPA TIENT VISIT, NEW [facility], [address] [facility], [place], [address], [place] tel:[phone] [facility] cataract evaluation (chief complaint) PSC (posterior subcapsular cataract), leftBilateral nuclear sclerosis cataractsDiab etes mellitus without ophthalmic manifestation sPosterior subcapsular polar age-related cataract, left eyeRegular astigmatism, bilateral 9-201 6 [facility]. [address], [address], [place], [place], [address]. tel:[phone] Referring Provider: Valerio Stewart, [address] [place], [address]. tel:[phone] Family History Family Member Type Diagnosis Age At Onset Problem (finding) Family history of Diabe ean mellitus Problem (finding) Family history of hyper tension Payers Payer name Insurance type Covered alliance party ID Authoriza tion(s) [employer] CI [id number] 2 Social History Type Description Quantity Date Captured Comments Alcohol Use Details Unknown Caffeine Use Details Unknown Tobacco Use Status No Information Smoking Status No Information Sex Male Chief Complaint And Reason For Visit No Information Reason For Referral Reason For Referral No Information History Of Present Illness Encounter Date Complaint History Of Prese nt Illness dur,levo bid os illev. qd os cataract evaluation The 69 year old male presents for evaluation of cataract evaluation in the right and left eyes. It started about 2 year(s) ago. It affects decrease in both near and distance vision. The condition is described as blurry vision. Patient denies eye pain, flashes and floaters. He states reading is very difficult for him and has to use his left eye for a lot of things. Functional Status Date Functional Assessmen t No Information Instructions Date Instruction Additional Infor mation - Return in PRNRTC w ith Dr. Espino for cont care Related to PO PCIOL - Return in 3 weeks Related to P O PCIOL/ISTENT - Proceed as planned with phaco/IOL 12/13/15 Related to PO PCIOL - Return in 1 week. Related to P O PCIOL - Return - schedule procedure Re lated to See impression details - 1. Cataracts accou nt for the patient's complaints. Discussed risks, benefits, procedures and recovery. Patient desires to have surgery, recommend phacoemulsification with intraocular lens OU (OD1st).-I-stent OD only-discussed Astigmatism management, pt not gaeqfhxene-yqc-[id number] with Ilevro x 7 days prior to surgery. Related to See impression details Assessments Type Assessment Date No Information Patient Care Teams Name Effective Dates (start - stop) Status Members No Information
--- OUTSIDE RECORDS SUMMARY | 2016-01-03 06:30 | XMS_ITS | Continuity of Care Document ---
Author Organization [facility] Address [address] [place] [address] Phone Care Team Providers Care Guest Services Representative Name Role Phone Jany Cavazos OD Unavailable [...] Diagnoses Date Provider Providers Copied on Encounter [facility] Physician s, [address] [place], [place], [facility], tel:[phone] [facility] [address] Presence of intraocular lens 6 Macy Carmichael. [address] [place], [place], [id number]. tel:[phone] Referring Provider: Valerio Stewart, [address] [place] [address], [address]. tel:[phone] [facility] Physician s, [address] [place], [address], tel:[phone] [facility] [address] Presence of intraocular lens 6 Macy Carmichael. [address] [place], [place], [id number]. tel:[phone] Referring Provider: Valerio Stewart, [address] [place] [address], [address]. tel:[phone] [facility] Physician s, [address] [place], [address], tel:[phone] [facility] Age-related nuclear cataract, left eyePosterior subcapsular polar age-related cataract, left eye Apr-1 - 6 [facility]. [address], [address], [place], [place], [address]. tel:[phone] Referring Provider: Valerio Stewart, [address] [place], [address]. tel:[phone] [facility], [address] [place], [address], [place] tel:[phone] [facility] [address] [address] No Information Apr-0 5- 6 [facility]. [address], [address], [place], [place], [address]. tel:[phone] [facility], [address] [place], [address], [place] tel:[phone] [facility] Presence of intraocular lens Mar-3 0- 6 No Information Referring Provider: Valerio Stewart, [address] [place], [address]. tel:[phone] [facility], [address] [place], [address], [place] tel:[phone] [facility] [address] Presence of intraocular lens Mar-2 2- 6 Macy Carmichael. [address] [place], [place], [id number]. tel:[phone] Referring Provider: Valerio Stewart, [address] [place], [address]. tel:[phone] [facility], [address] [place], [address], [place] tel:[phone] [facility] Primary open-angle glaucoma, mild stageAge-rela new nuclear cataract, right eye Mar-2 - 6 [facility]. [address], [address], [place], [place], [address]. tel:[phone] Referring Provider: Valerio Stewart, [address] [place], [address]. tel:[phone] OFFICE/OUTPA TIENT VISIT, NEW [facility], [address] [facility], [place], [address], [place] tel:[phone] [facility] cataract evaluation (chief complaint) PSC (posterior subcapsular cataract), leftBilateral nuclear sclerosis cataractsDiab etes mellitus without ophthalmic manifestation sPosterior subcapsular polar age-related cataract, left eyeRegular astigmatism, bilateral 9-201 6 [facility]. [address], [address], [place], [place], [address]. tel:[phone] Referring Provider: Valerio Stewart, [address] [place], [address]. tel:[phone] Family History Family Member Type Diagnosis Age At Onset Problem (finding) Family history of Diabe ean mellitus Problem (finding) Family history of hyper tension Payers Payer name Insurance type Covered alliance party ID Authoriza tion(s) [employer] CI [id number] 2 Social History Type Description Quantity Date [...] (OD1st).-I-stent OD only-discussed Astigmatism management, pt not [id number]-aaa-[id number] with Ilevro x 7 days prior to surgery. Related to See impression details Assessments Type Assessment Date No Information Patient Care Teams Name Effective Dates (start - stop) Status Members No Information
--- OUTSIDE RECORDS SUMMARY | 2016-01-03 06:30 | XMS_ITS | Continuity of Care Document ---
Author Organization [facility] Address [address] [place] [address] Phone Care Team Providers Care Cut Out Machine Operator Name Role Phone Jany Cavazos OD Unavailable [...] Diagnoses Date Provider Providers Copied on Encounter [facility] Physician s, [address] [place], [place], [facility], tel:[phone] [facility] Presence of intraocular lens 6 Macy Carmichael. [address] [place], [place], [id number]. tel:[phone] Referring Provider: Valerio Stewart, [address] [place] [address], [address]. tel:[phone] [facility] Physician s, [address] [place], [address], tel:[phone] [facility] [address] Presence of intraocular lens 6 Macy Carmichael. [address] [place], [place], [id number]. tel:[phone] Referring Provider: Valerio Stewart, [address] [place] [address], [address]. tel:[phone] [facility] Physician s, [address] [place], [address], tel:[phone] [facility] Age-related nuclear cataract, left eyePosterior subcapsular polar age-related cataract, left eye Apr-1 - 6 [facility]. [address], [address], [place], [place], [address]. tel:[phone] Referring Provider: Valerio Stewart, [address] [place], [address]. tel:[phone] [facility], [address] [place], [address], [place] tel:[phone] [facility] [address] No Information Apr-0 5- 6 [facility]. [address], [address], [place], [place], [address]. tel:[phone] [facility], [address] [place], [address], [place] tel:[phone] [facility] [address] Presence of intraocular lens Mar-3 0- 6 No Information Referring Provider: Valerio Stewart, [address] [place], [address]. tel:[phone] [facility], [address] [place], [address], [place] tel:[phone] [facility] [address] Presence of intraocular lens Mar-2 2- 6 Macy Carmichael. [address] [place], [place], [address]. tel:[phone] Referring Provider: Valerio Stewart, [address] [place], [address]. tel:[phone] [facility], [address] [place], [address], [place] tel:[phone] [facility] Primary open-angle glaucoma, mild stageAge-rela new nuclear cataract, right eye Mar-2 - 6 [facility]. [address], [address], [place], [place], [address]. tel:[phone] Referring Provider: Valerio Stewart, [address] [place], [address]. tel:[phone] OFFICE/OUTPA TIENT VISIT, NEW [facility], [address] [facility], [place], [address], [place] tel:[phone] [facility]II[facility] cataract evaluation (chief complaint) PSC (posterior subcapsular cataract), leftBilateral nuclear sclerosis cataractsDiab etes mellitus without ophthalmic manifestation sPosterior subcapsular polar age-related cataract, left eyeRegular astigmatism, bilateral 9-201 6 [facility]. [address], [address], [place], [place], [address]. tel:[phone] Referring Provider: Valerio Stewart, [address] [place], [address]. tel:[phone] Family History Family Member Type Diagnosis Age At Onset Problem (finding) Family history of Diabe ean mellitus Problem (finding) Family history of hyper tension Payers Payer name Insurance type Covered libertarian ID Authoriza tion(s) [employer] Life [employer] CI [id number] 2 Social History Type Description Quantity Date [...] (OD1st).-I-stent OD only-discussed Astigmatism management, pt not qsxvulwxsn-czg-fhvbk with Ilevro x 7 days prior to surgery. Related to See impression details Assessments Type Assessment Date No Information Patient Care Teams Name Effective Dates (start - stop) Status Members No Information
[2025-07-21 19:15] LABS: Hematocrit 34.3 % (42.0-52.0); Hemoglobin 10.3 g/dL (14.1-18.0); Immature Granulocytes % 0.3 %; Mean Corpuscular HGB Conc 30.0 g/dL (31.8-35.4); Mean Corpuscular Hemoglobin 29.5 pg (27.0-31.2); Mean Corpuscular Volume 98.3 fl (80-94); Nucleated Red Blood Cells % 0 %; Platelet Count 179 K/mm3 (142-424); Red Blood Count 3.49 M/mm3 (4.60-6.20); Red Cell Distribution Width-SD 49.1 fL; White Blood Count 12.6 K/mm3 (4.8-10.8)
[2025-07-21 19:30] LABS: Albumin Level 3.7 g/dl (3.5-5.0); Chloride 97 mmol/L (98-107); Potassium 4.7 mmoL/L (3.5-5.1); Sodium 140 mmol/L (136-145)
[2025-07-21 19:33] LABS: Alanine Aminotransferase 14 U/L (12-78); Albumin/Globulin Ratio 1.5 (1.1-1.8); Alkaline Phosphatase 44 U/L (38-126); Anion Gap 11.7 mEq/L (5-15); Aspartate Amino Transferase 24 U/L (17-59); Bilirubin,Total 0.3 mg/dl (0.2-1.3); Blood Urea Nitrogen 43 mg/dl (9-20); Calcium 9.7 mg/dl (8.4-10.2); Carbon Dioxide 36 mmol/L (22.0-30.0); Creatinine,Serum 1.40 mg/dl (0.66-1.25); Estimated Glomerular Filt Rate 49 ml/min (>60); GFR (African American) 59 ML/MIN (>60); Globulin 2.5 g/dL (1.3-3.2); Glucose 79 mg/dl (74-100); Total Protein,Serum 6.2 g/dl (6.3-8.2)
[2025-07-21 19:34] LABS: Magnesium 1.3 mg/dl (1.6-2.3)
--- OUTSIDE RECORDS SUMMARY | 2025-07-22 12:18 | XMS_ITS | Continuity of Care Document ---
Author Organization [facility] [address] Address [address] [place] [address] Care Team Providers Care Sports Marketing Specialist Name Role Phone Devin Thibodeaux MD Primary Care Provider [phone] Encounters Date Type Department Care Team Description 12/23/2019 Travel 12/23/2019 4:15 PM EDT - 12/23/2019 7:22 PM EDT Emergency [facility] [address] [place] [address] Deshaun Patel MD Chest wall pain (Primary Dx); Chest pain, rule out acute myocardial infarction Discharge Disposition: Home or Self Care 03/18/2019 11:00 AM EDT Office Visit [facility] [address] [place] [address] Argelia Cortes APRN Essential hypertension (Primary Dx); ASHD (arteriosclerotic heart disease); S/P AVR; Cough due to TONA inhibitor; Dyslipidemia 12/10/2018 8:06 PM EDT - 12/12/2018 4:25 PM EDT Hospital Encounter [facility] [address] [place] [address] Liz Lorenzo MD Krusling, Edward J, MD Conner, James C, MD Pneumonia of left lower lobe due to infectious organism (HCC) (Primary Dx); Hypoxia Discharge Disposition: Home or Self Care 06/18/2018 10:00 AM EDT Office Visit [facility] [address] [place] [address] Deshaun Yates MD ASHD (arteriosclerotic heart disease) (Primary Dx); S/P AVR; Cough due to TONA inhibitor; Dyslipidemia; Other emphysema (HCC) 01/09/2018 1:16 PM EDT - 01/09/2018 11:59 PM EDT Hospital Encounter [place] [id number] 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 APRN H/O prosthetic heart valve; Nonrheumatic aortic valve stenosis Discharge Disposition: Home or Self Care 12/14/[address] [address] Deshaun Yates MD 12/13/2017 10:00 AM EDT Office Visit [address] [address] 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 APRN ASHD (arteriosclerotic heart disease) (Primary Dx); H/O prosthetic heart valve; Essential hypertension; Other hyperlipidemia; Nonrheumatic aortic valve stenosis 12/11/2017 2:44 PM EDT - 12/11/2017 11:59 PM EDT Hospital Encounter [facility] [address] [place] [address] Devin Thibodeaux MD Emphysematous bleb (HCC) Discharge Disposition: Home or Self Care 07/03/[address] [address] Deshaun Yates MD Visit Follow Up 06/08/2017 9:40 AM EDT Office Visit [address] [address] Deshaun Yates MD S/P CABG (coronary artery bypass graft) (Primary Dx); S/P AVR; Other emphysema (HCC); Other hyperlipidemia; Essential hypertension 11/08/2016 1:00 PM EST Office Visit [facility] [address] [place] [address] 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, VIJAY H/O prosthetic heart valve (Primary Dx); ASHD (arteriosclerotic heart disease); Nonrheumatic aortic valve stenosis; Essential hypertension; Mixed hyperlipidemia 11/03/2016 9:57 AM EST - 11/03/2016 11:59 PM EST Hospital Encounter 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 H/O prosthetic heart valve; Nonrheumatic aortic valve stenosis Discharge Disposition: Home or Self Care 05/29/2016 Telephone [place] [address] 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, VIJAY Results 05/25/2016 9:58 AM EDT - 05/25/2016 11:59 PM EDT Hospital Encounter [facility] [address] [place] [phone] Deshaun Yates MD Secondary hypertension, unspecified; Nonrheumatic aortic valve stenosis; Coronary artery disease involving ekuk coronary artery of ekuk heart without angina pectoris Discharge Disposition: Home or Self Care 05/25/2016 11:00 AM EDT Office Visit [facility] [address] [place] [phone] Deshaun Yates MD S/P AVR (aortic valve replacement) (Primary Dx); S/P CABG (coronary artery bypass graft); Other hyperlipidemia; Essential hypertension 04/05/2016 Telephone [facility] [address] [place] [address] Deshaun Yates MD Appointment Needed 12/13/2015 11:45 AM EDT - 12/13/2015 12:00 PM EDT Surgery [facility] [address] [place] [address] Jamie Villalobos MD CATARACT EXTRACTION WITH PHACOEMULSIFICATION AND INTRAOCULAR LENS 12/13/2015 11:39 AM EDT Anesthesia Event [facility] [address] [place] [address] Viki Joshi MD Alam, Masroor, MD 12/13/2015 10:25 AM EDT - 12/13/2015 12:37 PM EDT Hospital Encounter [facility] [address] [place] [address] Jamie Villalobos MD Discharge Disposition: Home or Self Care 11/22/2015 11:45 AM EDT - 11/22/2015 12:00 PM EDT Surgery EDG [facility] [address] [place] [address] Jamie Villalobos MD CATARACT EXTRACTION WITH PHACOEMULSIFICATION AND INTRAOCULAR LENS 11/22/2015 11:11 AM EDT Anesthesia Event EDG [facility] [address] [place] [address] Nando Borja MD Alam, Masroor, MD 11/22/2015 10:09 AM EDT - 11/22/2015 12:13 PM EDT Hospital Encounter EDG [facility] [address] [place] [address] Jamie Villalobos MD Discharge Disposition: Home or Self Care 11/15/[address] [address] Deshaun Yates MD Appointment Needed 04/12/2015 10:20 AM EDT Office Visit [facility]&[address] [address] Deshaun Yates MD S/P AVR (aortic valve replacement) (Primary Dx); S/P CABG (coronary artery bypass graft); Hyperlipidemia; COPD (chronic obstructive pulmonary disease) (HCC) 07/22/[address] [address] Ute Singer APRN Visit Follow Up 07/16/2014 Abstract [facility]&V [address] [address] Deshaun Yates MD 07/16/2014 9:40 AM EST Office Visit [address] [phone] Ute Singer APRN S/P AVR (Primary Dx); CAD (coronary artery disease); HTN (hypertension); Hyperlipidemia; COPD (chronic obstructive pulmonary disease) ([facility]) 04/15/[address] [address] Deshaun Yates MD Appointment Needed 10/23/2013 12:28 PM EST - 10/23/2013 11:59 PM [place] [address] Ute Singer APRN CAD (coronary artery disease) Discharge Disposition: Home or Self Care 10/23/2013 2:00 PM EST Office Visit [address] [address] Deshaun Yates MD S/P CABG (coronary artery bypass graft) (Primary Dx); S/P AVR; COPD (chronic obstructive pulmonary disease) ([facility]); HTN (hypertension); Hyperlipidemia 10/22/[address] [address] Deshaun Yates MD 06/17/[address] [address] Deshaun Yates MD Appointment Needed 04/15/2013 10:20 AM EDT Office Visit [address] [address] Ute Singer APRN S/P AVR (aortic valve replacement) (Primary Dx); CAD (coronary artery disease); HTN (hypertension); Hyperlipidemia 10/03/[address] [address] Deshaun Yates MD Medication Question 09/23/2012 9:30 AM EST - 09/23/2012 10:25 AM EST Surgery EDG PERIOP [facility] [place] [address] Solo Ng MD CYSTOSCOPY, URETEROSCOPY, LASER LITHOTRIPSY, RETROGRADE PYELOGRAM, STENT INSERTION 09/22/2012 3:07 PM EST - 09/23/2012 2:40 PM EST Hospital Encounter EDG 2B2 UROLOGY [facility] [place] [address] Kermit Brizuela MD Cirulli, Christopher, MD Renal colic (Primary Dx); Hematuria; Ureteral obstruction Discharge Disposition: Home or Self Care 07/26/2012 Abstract [facility]&[address] [address] Deshaun Yates MD 07/26/2012 9:20 AM EST Office Visit [facility]&[address] [address] Deshaun Yates MD S/P AVR (aortic valve replacement); COPD (chronic obstructive pulmonary disease) ([facility]); S/P CABG (coronary artery bypass graft); HTN (hypertension); DM (diabetes mellitus) ([facility]); Hyperlipidemia 07/16/2012 9:52 AM EST - 07/17/2012 4:16 PM EST Hospital Encounter EDG TCU 1A [facility] [place] [address] Jason Suárez MD Bankers, Bradley J, MD Febrile illness; H/O aortic valve replacement; HTN (hypertension); COPD (chronic obstructive pulmonary disease) ([facility]); Type II or unspecified type diabetes mellitus without mention of complication, not stated as uncontrolled ([facility]); CAD (coronary artery disease); S/P aortic valve replacement; Fever; Malaise Discharge Disposition: Home or Self Care 07/16/2012 9:35 AM EST - 07/16/2012 9:51 AM EST Hospital Encounter [facility] LABORATORY [facility] [place] [address] Discharge Disposition: Home or Self Care 07/01/[address] [address] Deshaun Yates MD 04/13/2012 7:29 PM EDT - 04/16/2012 3:06 PM EDT Hospital Encounter EDG 7D [facility] [address], [facility]17 Pedro Cordon MD Pfaff, Rhonda, MD Slone, Adam T, Pneumonia; CAD (coronary artery disease); Fever; Aortic stenosis; COPD (chronic obstructive pulmonary disease) ([facility]); DM (diabetes mellitus) ([facility]); HTN (hypertension); Hyperlipidemia; Hypotension; Malaise; S/P aortic valve replacement Discharge Disposition: Home or Self Care 03/15/[address] [address] Deshaun Yates MD Results 03/13/2012 1:43 PM EDT - 03/13/2012 11:59 PM EDT Hospital Encounter [facility] [address] [address] Ute Singer APRN S/P aortic valve replacement Discharge Disposition: Home or Self Care 03/12/2012 2:00 PM EDT Office Visit [address] [address] Ute Singer APRN S/P aortic valve replacement (Primary Dx); CAD (coronary artery disease); HTN (hypertension); Hyperlipidemia; COPD (chronic obstructive pulmonary disease) ([facility]); DM (diabetes mellitus) ([facility]) 09/22/2011 1:40 PM EST Office Visit [address] [address] Ute Singer APRN Aortic stenosis (Primary Dx); CAD (coronary artery disease); Hyperlipidemia; HTN (hypertension); COPD (chronic obstructive pulmonary disease) ([facility]); DM (diabetes mellitus) ([facility]) 07/20/[address] [place] [phone] Deshaun Yates MD DM (diabetes mellitus) (HCC); COPD (chronic obstructive pulmonary disease) (HCC); HTN (hypertension); Hyperlipidemia 05/25/2011 11:59 AM EDT - 05/25/2011 11:59 PM EDT Hospital Encounter [facility] ECHO [address] [place] [address] Deshaun Yates MD Essential hypertension, benign; Coronary atherosclerosis of ekuk coronary artery; Aortic valve disorders Discharge Disposition: Home or Self Care 02/23/2011 5:38 AM EDT - 03/02/2011 3:50 PM EDT Hospital Encounter EDG 5D TCU [facility] [address] [facility]17 Tay Lombardo MD Discharge Disposition: Home or Self Care 02/23/2011 8:00 AM EDT - 02/23/2011 6:30 PM EDT Surgery EDG PERIOP [facility] [address] [facility]17 Tay Lombardo MD AORTIC VALVE REPAIR OR REPLACEMENT 02/21/2011 4:20 PM EDT - 02/21/2011 11:59 PM EDT Hospital Encounter Zaina EKG [facility] [place] [address] Tay Lombardo MD Discharge Disposition: Home or Self Care 02/21/2011 1:36 PM EDT - 02/21/2011 2:29 PM EDT Hospital Encounter EDG D-WING XRAY [facility] [place] [address] Tay Lombardo MD Discharge Disposition: Home or Self Care 02/21/2011 2:30 PM EDT - 02/21/2011 4:19 PM EDT Hospital Encounter EDG VASCULAR LAB [facility] [place] [address] Tay Lombardo MD Bruit; Aortic valve disorders Discharge Disposition: Home or Self Care 02/21/2011 12:34 PM EDT - 02/21/2011 1:35 PM EDT Hospital Encounter EDG PRE-ADMIT TESTING [facility] [place] [address] Discharge Disposition: Home or Self Care 01/31/2011 1:30 PM EDT - 01/31/2011 2:30 PM EDT Surgery Deshaun Yates MD CARDIAC PROCEDURE-HELPER ELECTRICAL ONLY 01/31/2011 12:12 PM EDT - 01/31/2011 8:34 PM EDT Hospital Encounter EDG CARD CATH REC [facility] [place] [address] Deshaun Yates MD Aortic stenosis; CAD (coronary artery disease) Discharge Disposition: Home or Self Care 01/28/2011 9:35 AM EDT - 01/28/2011 11:59 PM EDT Hospital Encounter EDG LABORATORY [facility] [place] [address] Pre-op testing Discharge Disposition: Home or Self Care 01/25/2011 1:32 PM EDT - 01/25/2011 11:59 PM EDT Hospital Encounter [facility] [address] [place] [address] Deshaun Yates MD Essential hypertension, benign; Intermediate coronary syndrome (HCC); Undiagnosed cardiac murmurs; Shortness of breath; Debility, unspecified Discharge Disposition: Home or Self Care 01/25/2011 10:08 AM EDT - 01/25/2011 10:09 AM EDT [facility] [address] [place] [address] Deshaun Yates MD Intermediate coronary syndrome (HCC); Undiagnosed cardiac murmurs; Essential hypertension, benign Discharge Disposition: Home or Self Care 01/25/2011 10:10 AM EDT - 01/25/2011 1:31 PM EDT Hospital Encounter [facility] [address] [place] [address] Deshaun Yates MD Intermediate coronary syndrome (HCC); [...] MULTI-VITAMIN ORAL Take by mouth daily. Active Austin-3 Fatty Acids-Vitamin E (FISH OIL) 1,000 mg [...] Cancer Father attributed to w orking in [employer] [place] and working in a [employer] Heart Disease Mother Hypertension Mother Heart Disease Sister Anesth Problems Neg Hx Relation Name Status Comments Brother Alive Father Mother Sister Social History Smoking Status as of 07/22/2025 Tobacco Use Types Packs/Day Years Used Date [...] on file Medical Devices Implanted Type Area Fire Operations Forester Device Identifier Shelf Expiration Date Model / Serial / Lot Stent Contour 6 X 24 #[id number] - [id number] Implanted:Qty: 1 on 09/23/2012 by Solo Ng MD at [facility] Stent Right: Ureter [employer]:MICROVASIVE: UROLOGY 06/03/2015 180-222 / / [id number] Bioprosthesis Valve Aortic Porcine Irma Lomeli 21mm - [id number] Implanted:Qty: 1 on 02/23/2011 at [facility] Explanted:at [facility] (Quantity not on file) Heart LOMELI LIF[employer]CI 01/01/2013 2650-21 / [id number] / Description:Jamie villanueva LLucasC. 21 mm IRMA Aortic Valve 2650-21, PO#[id number] Lens Intraocular Preloaded 22.0 Diopter - [id number] Implanted:Qty: 1 on 11/22/2015 by Jamie Villalobos MD at [facility] Right: Eye AUGUST LAB:SURG 08/02/2018 AU00T0.22 0 / [id number] / Stent Bypass Micro Trabecular Istent Left - [id number] Implanted:Qty: 1 on 11/22/2015 by Jamie Villalobos MD at [facility] Right: Eye GLAUKOS MILIND 04/03/2018 GTS-100-L / [id number] / [id number] Lens Intraocular Preloaded 22.0 Diopter - [id number] Implanted:Qty: 1 on 12/13/2015 by Jamie Villalobos MD at [facility] Left: Eye AUGUST LAB:SURG 08/02/2018 AU00T0.22 0 / [id number] / Procedures Procedure Name Priority Date/Time [...] - TELEMETRY Routine 12/12/2018 7:00 AM EDT ALBUMIN/CREATININE RATIO, RANDOM URINE Routine 12/12/2018 7:00 AM EDT GLUCOSE [...] aortic valve stenosis Coronary artery disease involving ekuk coronary artery of ekuk heart without angina pectoris PERIPHERAL BLOCK Routine [...] EDT Essential hypertension, benign Coronary atherosclerosis of ekuk coronary artery Aortic valve disorders SCANNED LABS [...] EDT SAME PRE OP Special Needs SAUL CPT;[id number] AORTIC VALVE REPAIR OR REPLACEMENT 02/23/2011 8:12 AM EDT SAME PRE OP Special Needs SAUL CPT;21121 [phone] [id number] STAPHYLOCOCCUS AUREUS SCREEN Routine 02/23/2011 7:30 AM [...] Pre-Op 02/21/2011 1:00 PM EDT SCANNED CARDIAC HELPER ELECTRICAL 011 12:00 AM EDT SCANNED CARDIAC HELPER ELECTRICAL 011 12:00 AM EDT CARDIAC PROCEDURE-HELPER ELECTRICAL ONLY 01/31/2011 2:02 PM EDT ABN ECHO [...] HIGH SENSITIVITY 2HR (12/23/2019 6:03 PM EDT) bz-iFfffvovy-J 2HR 9 <22 ng/L 12/23/2019 6:50 PM EDT [facility] Comment:See the website valerio steven for rule out [place] care pathway, conditions other than AMI that can cause elevated hs cTnT, and comparison of values from the 4th and 5th generation Song tests. https://askmayoexpert.[email or web address].org/topic/clinical-answers/gnt-15405997/cpm-203 88042 hs-cTnT 2Hr Delta from Baseline -1 <4 [...] Patel MD CHEMISTRY ORDERABLES Final Re sult [facility] [address] [facility] [place] [address] * XR CHEST PA AND [...] the chest. IMPRESSION: No acute finding. - Deshaun Patel MD IMG DIAGNOSTIC IMAGING ORDERA BLES Final Result * TROPONIN-T HIGH SENSITIVITY BASELINE W/ REFLEX (12/23/2019 4:48 PM EDT) Only the most recent of3 resultswithin the time period is included. nb-nVlhnqtrn-Y 10 <22 ng/L 12/23/2019 5:18 PM EDT [facility] Comment:See the website Live [employer] ThinkLink for rule out [place] care pathway, conditions other than AMI that can cause elevated hs cTnT, and comparison of values from the 4th and 5th generation Song tests. https://askmayoexpert.[email or web address].org/topic/clinical-answers/[email or web address]/cpm-203 40423 Blood VENOUS BLOOD / Unknown Venipuncture / Unknown 12/23/2019 4:48 PM EDT 12/23/2019 4:50 PM EDT Narrative [facility] - 12/23/2019 5:18 PM EDT Ingestion of arnulfo doses of biotin (>5 mg/day) taken within 8 hours of drawing blood sample can interfere with this immunoassay test. us Deshaun Patel MD CHEMISTRY ORDERABLES Final Re sult [facility] [address] [place] [address] * (ABNORMAL) BASIC METABOLIC PANEL (12/23/2019 4:48 PM EDT) Only the most recent of13 resultswithin the time period is included. Sodium 135(L) 136 - 145 mmol/L 12/23/2019 5:18 PM EDT [facility] Potassium 4.8 3.5 - 5.0 mmol/L 12/23/2019 5:18 PM EDT [facility] Chloride 96(L) 98 - 107 mmol/L 12/23/2019 5:18 PM EDT [facility] Total CO2 28 22 - 29 mmol/L 12/23/2019 5:18 PM EDT [facility] Anion Gap 11 7 - 16 mmol/L 12/23/2019 5:18 PM EDT [facility] Calcium 9.9 8.8 - 10.4 mg/dL 12/23/2019 5:18 PM EDT [facility] Glucose Lvl 101(H) 82 - 100 mg/dL 12/23/2019 5:18 PM EDT [facility] BUN 14 8 - 23 mg/dL 12/23/2019 5:18 PM EDT [facility] Creatinine 0.93 0.67 - 1.30 mg/dL 12/23/2019 5:18 PM EDT [facility] GFR Afr Am 92 >=60 mL/min/1.7 3 m2 12/23/2019 5:18 PM EDT [facility] GFR Non Afr Am 79 >=60 mL/min/1.7 3 m2 12/23/2019 5:18 PM EDT [facility] Comment: This estimated GFR was [...] Patel MD CHEMISTRY ORDERABLES Final Re sult [facility] [address] [place] [address] * (ABNORMAL) CBC (12/23/2019 4:31 PM EDT) Only the most recent of5 resultswithin the time period is included. WBC 7.3 4.0 - 11.0 x10(3)/mcL 12/23/2019 4:38 PM EDT [facility] RBC 4.25(L) 4.30 - 5.81 x10(6)/mcL 12/23/2019 4:38 PM EDT [facility] Hgb 12.3(L) 13.5 - 17.1 g/dL 12/23/2019 4:38 PM EDT [facility] Hct 38.4(L) 38.9 - 51.6 % 12/23/2019 4:38 PM EDT [facility] MCV 90.3 82.5 - 99.8 fL 12/23/2019 4:38 PM EDT [facility] MCH 28.8 27.0 - 34.3 pg 12/23/2019 4:38 PM EDT [facility] MCHC 31.9(L) 32.1 - 35.3 g/dL 12/23/2019 4:38 PM EDT [facility] RDW 15.3(H) 11.5 - 15.0 % 12/23/2019 4:38 PM EDT [facility] Platelet 203 144 - 423 x10(3)/mcL 12/23/2019 4:38 PM EDT [facility] MPV 9.1 6.8 - 10.8 fL 12/23/2019 4:38 PM EDT [facility] Blood VENOUS BLOOD / Unknown Venipuncture / Unknown 12/23/2019 4:31 PM EDT 12/23/2019 4:36 PM EDT us Deshaun Patel MD HEMATOLOGY ORDERABLES Final R esult [place] [id number] * EK EKG 12 LEAD (12/23/2019 4:00 PM EDT) Only the most recent of8 resultswithin the time period is included. 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 Glucose Meter POC 105(H) 70 - 100 mg/dL 12/12/2018 1:25 PM EDT [facility] Sample Type Capillary 12/12/2018 1:25 PM EDT [facility] Patient Status Non-Critical Patient 12/12/2018 1:25 PM EDT [facility] Blood BLOOD SPECIMEN / Unknown 12/12/2018 1:24 PM EDT 12/12/2018 1:25 PM EDT Jamie Rdz MD POINT OF CARE TEST ORDERABL ES Final Result Performing Organization Address [facility] de Phone Number [facility] [address] [place] [address] * ECG AND WAVEFORMS - TELEMETRY (12/12/2018 7:00 AM EDT) Only the most recent of3 resultswithin the time period is included. [facility] ECG INTERPRET NSR [facility] BAND DIRECTOR APPROVED Yes [facility] 12/12/2018 7:00 AM EDT Narrative [facility] - 12/12/2018 7:44 AM EDT OH 0.15 QRS 0.09 QT 0.30 See Clinical Report link for waveform capture Unknown Provider POINT OF CARE CARDIOLOGY Final Result Performing Organization Address [facility] de Phone Number [facility] [address] [place], [place] [id number] * MICROALBUMIN/CREATININE RATIO URINE (12/12/2018 7:00 AM EDT) Urine Albumin 17.7 mg/L 12/12/2018 9:22 AM EDT [facility] [place] Urine Creatinine 135.3 mg/dL 12/12/2018 9:22 AM EDT [facility] [place] Ur Albumin/Creat Ratio 13 0 - 30 mg/g 12/12/2018 9:22 AM EDT [facility] [place] Urine STRUCTURE OF URINARY TRACT PROPER / Unknown 12/12/2018 7:00 AM EDT 12/12/2018 7:36 AM EDT Jamie Rdz MD URINE ORDERABLES Final Resu lt [facility] [place], [facility] [address] [facility], [place] [address] * SCANNED EKG (12/11/2018 8:38 AM EDT) Anatomical Region Laterality Modality Other 12/11/2018 8:38 AM EDT Unknown Unknown IMG ECG ORDERABLES Final Result * EXTRA MORAN URINE CX (12/11/2018 8:28 AM EDT) Urine URINE SPECIMEN COLLECTION, CLEAN CATCH / Unknown 12/11/2018 8:28 AM EDT 12/11/2018 8:45 AM EDT Liz Lorenzo MD MICROBIOLOGY - GENERAL ORDERABLE S Final Result Performing Organization Address [facility] Co de Phone Number [facility] [address] [place] [address] * (ABNORMAL) URINALYSIS (12/11/2018 8:28 AM EDT) Only the most recent of5 resultswithin the time period is included. UA Color Yellow 12/11/2018 9:00 AM EDT [facility] UA Appear Clear Clear 12/11/2018 9:00 AM EDT [facility] UA Glucose Negative Negative mg/dL 12/11/2018 9:00 AM EDT [facility] UA Ketones Negative Negative mg/dL 12/11/2018 9:00 AM EDT [facility] UA Blood Negative Negative 12/11/2018 9:00 AM EDT [facility] UA pH 6.0 5.0 - 8.0 pH 12/11/2018 9:00 AM EDT [facility] UA Protein 30(A) Negative mg/dL 12/11/2018 9:00 AM EDT [facility] UA Urobilinogen 0.2 <=1 mg/dL 9 9:00 AM EDT [facility] UA Bili Negative Negative 12/11/2018 9:00 AM EDT [facility] UA Nitrite Negative Negative 12/11/2018 9:00 AM EDT [facility] UA Leuk Est Negative Negative 12/11/2018 9:00 AM EDT [facility] UA Spec Grav >=1.030 1.001 - 1.035 no units 12/11/2018 9:00 AM EDT [facility] Comment: Reference range valid for random specimens only. UA WBC 5(H) 0 - 4 /HPF 12/11/2018 9:00 AM EDT [facility] UA Squam Epi 1+ /LPF 12/11/2018 9:00 AM EDT [facility] UA Mucus 1+ /LPF 12/11/2018 9:00 AM EDT [facility] UA Bacteria Trace(A) Negative /HPF 12/11/2018 9:00 AM EDT [facility] UA Hyal Cast 1 0 - 2 /LPF 12/11/2018 9:00 AM EDT [facility] UA WBC Cast 1(H) <=0 /LPF 12/11/2018 9:00 AM EDT [facility] Urine URINE SPECIMEN COLLECTION, CLEAN CATCH / Unknown 12/11/2018 8:28 AM EDT 12/11/2018 8:45 AM EDT us Liz Lorenzo MD URINE ORDERABLES Final Result [address] [place] [address] * BLOOD CULTURE (NO STAIN) (12/10/2018 9:39 PM EDT) Only the most recent of6 resultswithin the time period is included. Culture Result No Growth at 120 hours. BLOOD CULTURE (NO STAIN) 12/16/2018 2:00 AM EDT [facility] Blood VENOUS BLOOD / Unknown Venipuncture / Unknown 12/10/2018 9:39 PM EDT 12/10/2018 9:43 PM EDT us Liz Lorenzo MD MICROBIOLOGY - GENERAL ORDERABLE S Final Result [facility] [address] [facility] , [place] [address] * (ABNORMAL) CBC WITH DIFF (12/10/2018 9:38 PM EDT) Only the most recent of10 resultswithin the time period is included. WBC 4.7 4.0 - 11.0 x10(3)/mcL 12/10/2018 10:09 PM EDT [facility] RBC 4.47 4.30 - 5.81 x10(6)/mcL 12/10/2018 10:09 PM EDT [facility] Hgb 12.7(L) 13.5 - 17.1 g/dL 12/10/2018 10:09 PM EDT [facility] Hct 40.0 38.9 - 51.6 % 12/10/2018 10:09 PM EDT [facility] MCV 89.5 82.5 - 99.8 fL 12/10/2018 10:09 PM EDT [facility] MCH 28.4 27.0 - 34.3 pg 12/10/2018 10:09 PM EDT [facility] MCHC 31.7(L) 32.1 - 35.3 g/dL 12/10/2018 10:09 PM EDT [facility] RDW 16.0(H) 11.5 - 15.0 % 12/10/2018 10:09 PM EDT [facility] Platelet 138(L) 144 - 423 x10(3)/mcL 12/10/2018 10:09 PM EDT [facility] MPV 8.8 6.8 - 10.8 fL 12/10/2018 10:09 PM EDT [facility] Neut Percent 54.0 % 12/10/2018 10:09 PM EDT [facility] Lymph Percent 27.8 % 12/10/2018 10:09 PM EDT [facility] [place] Percent 17.3 % 12/10/2018 10:09 PM EDT [facility] Eos Percent 0.5 % 12/10/2018 10:09 PM EDT [facility] Baso Percent 0.4 % 12/10/2018 10:09 PM EDT [facility] Neut # 2.5 1.8 - 7.7 x10(3)/[facility] 12/10/2018 10:09 PM EDT [facility] Lymph # 1.3 0.6 - 4.8 x10(3)/mcL 12/10/2018 10:09 PM EDT [facility] [place] # 0.8 0.0 - 1.3 x10(3)/mcL 12/10/2018 10:09 PM EDT [facility] Eos# 0.0 0.0 - 0.5 x10(3)/mcL 12/10/2018 10:09 PM EDT [facility] Baso # 0.0 0.0 - 0.2 x10(3)/mcL 12/10/2018 10:09 PM EDT [facility] [employer] Present 12/10/2018 10:09 PM EDT [facility] Blood VENOUS BLOOD / Unknown Venipuncture / Unknown 12/10/2018 9:38 PM EDT 12/10/2018 9:42 PM EDT us Liz Lorenzo MD HEMATOLOGY ORDERABLES Final Resu lt [facility] [address] [place] [address] * (ABNORMAL) HEMOGLOBIN A1C (12/10/2018 9:38 PM EDT) Only the most recent of2 resultswithin the time period is included. Hgb A1C 6.6(H) 4.2 - 5.6 % 12/11/2018 5:31 PM EDT [facility] Est. Avg Glucose 143 mg/dL 12/11/2018 5:31 PM EDT [facility] Blood VENOUS BLOOD / Unknown Venipuncture / Unknown 12/10/2018 9:38 PM EDT 12/10/2018 9:42 PM EDT Narrative [facility] [employer] - 12/11/2018 5:31 PM EDT REFERENCE RANGE: Normal: 4.0-5.6% Pre-diabetes: 5.7-6.4% Provisional diagnosis of diabetes: >6.4% Hgb F>10% and anything which shortens red cell survival, such as hemolytic anemia, or unstable hemoglobin variants such as HbSS, HbSC, or HbCC, will lower the HbA1c value associated with a given level of glycemic control. Jamie Rdz MD CHEMISTRY ORDERABLES Final Result Performing Organization Address City/[facility]/ZIP Co de Phone Number [facility] [address] [facility], [place] [address] * LACTIC ACID (12/10/2018 8:39 PM EDT) Only the most recent of2 resultswithin the time period is included. Pathologist [facility] Lactic Acid 1.0 0.5 - 1.9 mmol/L 12/10/2018 9:03 PM EDT [facility] Blood VENOUS BLOOD / Unknown Venipuncture / Unknown 12/10/2018 8:39 PM EDT 12/10/2018 8:42 PM EDT Liz Lorenzo MD CHEMISTRY ORDERABLES Final Resul t Performing Organization Address [facility]/ZIP Co de Phone Number [facility] [address] [place] [address] * EC ECHOCARDIOGRAM COMPLETE W DOPPLER [...] Normal appearing bioprosthetic aortic valve 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 TORPEDO WORKER IMG ECHO ORDERABLES Final Res ult * CT CHEST W CONTRAST (12/11/2017 3:20 PM EDT) Anatomical Region Laterality Modality Chest Computed Tomogra phy 12/11/2017 3:20 PM EDT Impressions 12/11/2017 4:47 PM EDT No acute finding. No suspicious pulmonary nodules. All nodules have been stable since 2011. Narrative 12/11/2017 4:[address] CHEST WITH CONTRAST, 12/11/2017 3:20 PM CLINICAL HISTORY: J43.9-Emphysema, [id number] COMPARISON: 04/14/2012 PROCEDURE COMMENTS: Multi detector volumetric [...] CONTRAST, 12/11/2017 3:20 PM CLINICAL HISTORY: J43.9-Emphysema, [id number] COMPARISON: 04/14/2012 PROCEDURE COMMENTS: Multi detector volumetric [...] right lower lobe measuring 6 mm stable [id number]. IMPRESSION: No acute finding. No suspicious pulmonary nodules. All nodules have beenstable since 2011. us Devin Thibodeaux MD [facility] ORDERABLES Final Result * CREATININE ISTAT (12/11/2017 3:13 PM EDT) Creatinine-iST AT 1.0 0.6 - 1.3 mg/dL 12/11/2017 3:15 PM EDT [facility] Blood BLOOD SPECIMEN / Unknown 12/11/2017 3:13 PM EDT 12/11/2017 3:15 PM EDT us Devin Thibodeaux MD POINT OF CARE TEST ORDERABLES Fi nal Result [facility] [address] [place] [address] * SCANNED LABS (11/08/2016 1:55 PM EST) Only the most recent of7 resultswithin the time period is included. 11/08/2016 1:55 PM EST us Unknown Unknown HEMATOLOGY ORDERABLES Final Resu lt * PERIPHERAL BLOCK (12/13/2015 11:55 AM EDT) Narrative [facility] - 12/13/2015 11:55 AM EDT Latisha Marroquin CRNA 12/13/2015 11:55 AM Peripheral Block by Anesthesia Patient location during procedure: pre-op Procedure Date/Time: 12/13/2015 11:40 AM Staffing Anesthesiologist: VIKI JOSHI Resident/ORDER DISPATCHER CHIEF: LATISHA MARROQUIN Performed by: JAMILA Preanesthetic Checklist Completed: patient identified, site marked, surgical consent, pre-op evaluation, timeout performed, IV checked, risks and benefits discussed and monitors and equipment checked Peripheral Block Immediate pre anesthetic assessment completed: Yes Patient position: supine Prep: alcohol swabs Patient monitoring: heart rate, quality assurance monitor body and continuous pulse ox Block type: peribulbar Laterality: left Injection technique: single-shot Medication: lidocaine 2% (wydase) Needle Needle type: short-bevel Needle gauge: 25 G Needle length: 5/8. Needle localization: anatomical landmarks Assessment Injection assessment: negative aspiration for heme, no paresthesia on injection and incremental injection Heart rate change: no us Latisha Marroquin CRNA ANESTHESIA ORDERABLES Final Result [facility] [address] [place] [address] * PERIPHERAL BLOCK (11/22/2015 11:24 AM EDT) Narrative [facility] - 11/22/2015 11:24 AM EDEliana Heard CRNA 11/22/2015 11:24 AM Peripheral Block by Anesthesia Patient location during procedure: pre-op Procedure Date/Time: 11/22/2015 11:13 AM Reason for block: at surgeon's request Staffing Anesthesiologist: NANDO BORJA Resident/ORDER DISPATCHER CHIEF: ELIANA LOPEZ Performed by: JAMILA Preanesthetic Checklist Completed: patient identified, site marked, surgical consent, pre-op evaluation, timeout performed, IV checked, risks and benefits discussed, monitors and equipment checked and at surgeon's request Peripheral Block Immediate pre anesthetic assessment completed: Yes Patient position: sitting Prep: alcohol swabs Patient monitoring: continuous pulse ox, quality assurance monitor body and heart rate Block type: peribulbar Laterality: right Injection technique: single-shot Medication: lidocaine 2% Dose: 6 Needle Needle type: short-bevel Needle gauge: 25 G Needle localization: anatomical landmarks Assessment Injection assessment: negative aspiration for heme, no paresthesia on injection and incremental injection Paresthesia pain: none Heart rate change: no us Eliana Lopez ORDER DISPATCHER CHIEF ANESTHESIA ORDERABLES Fi nal Result Performing Organization Address City/State/[facility] [place] [address] * SCANNED PRE/POST PROCEDURES (09/25/2012 9:08 AM [...] LAB Lymph Percent 15.2 % SE LAB [place] Percent 8.4 % SE LAB Eos Percent 2.9 % SE LAB Baso Percent 0.2 % SE LAB Neut# 7.3 1.8 - 7.7 x10(3)/mcL SE LAB Lymph# 1.5 1.0 - 4.8 x10(3)/mcL [facility] [place]# 0.8 0.0 - 1.3 x10(3)/mcL [facility] Eos# 0.3 0.1 - 0.5 x10(3)/mcL [facility] Baso# 0.0 0.0 - 0.2 x10(3)/mcL [facility] Blood specimen (specimen) 09/22/2012 3:38 PM EST 09/22/2012 3:38 PM EST us Kermit Brizuela MD HEMATOLOGY ORDERABLES Final Resu lt Performing Organization Address City/[facility]/ZIP Co de Phone Number [facility] [address] [place] [address] * URINE CULTURE (09/22/2012 3:31 PM EST) Only the most recent of2 resultswithin the time period is included. Final 4,000 cfu/ml Staphylococcus species No further workup [facility] Urine specimen obtained by single catheterization of urinary bladder (specimen) STRUCTURE OF URINARY TRACT PROPER / Unknown 09/22/2012 3:31 PM EST 09/22/2012 3:40 PM EST us Kermit Brizuela MD MICROBIOLOGY - GENERAL ORDERABLE S Final Result Performing Organization Address City/[facility]/ZIP Co de Phone Number [facility] [address] [place] [address] * SCANNED OR REPORT (07/29/2012 12:00 AM [...] TO CARDIOLOGY (07/16/2012 9:39 PM EST) Narrative [facility] - 07/16/2012 9:39 PM EST Jason Patterson MD 07/16/2012 9:39 PM Cardiology Note: Rickey Rush Today's Date: 07/16/2012 Date of Admission: 07/16/2012 Primary Care Provider: Devin Thibodeaux MD [employer] Operator: Dr. Deshaun Yates Chief Complaint: Fever, chills, [...] - SCIP performed by TAY LOMBARDO at [facility] MAIN OR Cardiac catheterization 02/2011 Coronary artery [...] right MULTI-VITAMIN ORAL Take by mouth daily. Austin-3 Fatty Acids-Vitamin E (FISH OIL) 1,000 mg [...] focal abnormalities, cranial nerves 2-12 grossly intact Cottage Parent: Sinus Rhythm rate of 84 Vitals: Patient [...] with the nurse practitioner. Jason Patterson MD [facility] Procedure Note Jason Patterson MD - 07/16/2012 4:46 PM EST Cardiology Note: Rickey Rush Today's Date: 07/16/2012 Date of Admission: 07/16/2012 Primary Care Provider: Devin Thibodeaux MD [employer] Operator: Dr. Deshaun Yates Chief Complaint: Fever, chills, diaphoresis, shortness of breath History of Present Illness: Patient is a 66 y.o. male admitted through the ED with one episode offever, chills, diaphoresis and shortness of breath that began on . Stated oral temperature was 100.5. The patient [...] ECHOCARDIOGRAM - SCIPperformed by TAY LOMBARDO at [facility] MAIN OR Cardiac catheterization 02/2011 Coronary artery [...] right MULTI-VITAMIN ORAL Take by mouth daily. Austin-3 Fatty Acids-Vitamin E (FISH OIL) 1,000 mg [...] focal abnormalities, cranial nerves 2-12 grossly intact Cottage Parent: Sinus Rhythm rate of 84 Vitals: Patient [...] coordination with the nursepractitioner. Jason Patterson MD FAC us Jason Suárez MD INPATIENT CONSULT ORDERABLES Final Result Performing Organization Address City/State/[facility] Co de Phone Number [facility] [address] [place] [address] * XR CHEST AP PORTABLE (07/16/2012 11:32 [...] Sed Rate 29(H) 0 - 20 mm [facility] Blood specimen (specimen) UPPER LIMB STRUCTURE / Unknown 07/16/2012 11:09 AM EST 07/16/2012 5:19 PM EST Mirna Quesada APRN HEMATOLOGY ORDERABLES Final Result Performing Organization Address City/[facility]/ZIP Co de Phone Number [facility] [address] [place] [address] * PT / INR (04/16/2012 5:31 AM EDT) Only the most recent of9 resultswithin the time period is included. Pathologist [facility] PT 11.8 9.3 - 12.3 second(s) [facility] INR 1.09 0.86 - 1.14 [facility] Comment: Level of Therapy Indications Target INR Range Standard Dose Treatment and prophylaxis of venous 2.0 - 3.0 thrombosis, pulmonary embolism High Dose High risk patients with mechanical 2.5 - 3.5 heart valves Blood specimen (specimen) UPPER LIMB STRUCTURE / Unknown 04/16/2012 5:31 AM EDT 04/16/2012 5:54 AM EDT Jason Samaniego MD HEMATOLOGY ORDERABLES Final R esult Performing Organization Address City/[facility]/ZIP Co de Phone Number [facility] [address] [place] [address] * .C DIFF TOXIN DNA RESULTS (04/14/2012 10:15 AM EDT) Pathologist [facility] c difficile specimen Stool [facility] Comment: TEST INFORMATION: This assay is a qualitative detection test for Clostridium difficile Toxin B (TcdB) gene in liquid or soft stool suspected of having Clostridium difficile-associated disease (CDAD). This test is an amplified DNA test by [employer], validated by [facility]. This Laboratory is authorized under the Clinial Laboratory Improvement Amendments (CLIA) as qualified to perform high-complexity testing. A negative result does not rule out the presence of Clostridium difficile Toxin B gene in concentrations below the detection of the assay. c DIFFICILE TOXIN DNA Negative [facility] Stool specimen (specimen) 04/14/2012 10:15 AM EDT 04/14/2012 10:24 AM EDT us Juan Carlos Salinas DO MICROBIOLOGY - GENERAL ORDERABLE S Final Result [facility] [address] [place] [address] * CT CHEST HIGH RESOLUTION W CONTRAST [...] ANTINUCLEAR ANTIBODY SCREEN (04/14/2012 8:56 AM EDT) ENEIDA Screen Negative [facility] Comment: ENEIDA samples are screened using [...] Salinas DO IMMUNOLOGY ORDERABLES Final Resu lt [facility] [address] [place] [address] * LACTATE DEHYDROGENASE (04/14/2012 8:56 AM EDT) Pathologist [facility] LDH 434 324 - 620 IU/L [facility] Blood specimen (specimen) UPPER LIMB STRUCTURE / Unknown 04/14/2012 8:56 AM EDT 04/14/2012 9:47 AM EDT us Juan Carlos Salinas DO CHEMISTRY ORDERABLES Final Resul t Performing Organization Address [facility] Co de Phone Number [facility] [address] [place] [address] * (ABNORMAL) CREATINE KINASE (04/14/2012 8:56 AM EDT) Pathologist [facility] CK 36(L) 55 - 170 IU/L [facility] Blood specimen (specimen) UPPER LIMB STRUCTURE / Unknown 04/14/2012 8:56 AM EDT 04/14/2012 9:47 AM EDT us Juan Carlos Salinas DO CHEMISTRY ORDERABLES Final Resul t Performing Organization Address [facility] Co de Phone Number [facility] [address] [place] [address] * CORTISOL (04/14/2012 8:56 AM EDT) [facility] Cortisol 7.4 mcg/dL [facility] Comment: Normals: Morning 6.0 - 25.0 ug/dl Evening 3.0 - 14.0 ug/dl Blood specimen (specimen) UPPER LIMB STRUCTURE / Unknown 04/14/2012 8:56 AM EDT 04/14/2012 9:15 AM EDT us Juan Carlos Salinas DO CHEMISTRY ORDERABLES Final Resul t Performing Organization Address City/[facility] Co de Phone Number [facility] [address] [place] [address] * TROPONIN-I (04/13/2012 8:15 PM EDT) [facility] Troponin-I <0.01 <=0.06 ng/mL [facility] Blood specimen (specimen) UPPER LIMB STRUCTURE / Unknown 04/13/2012 8:15 PM EDT 04/13/2012 8:32 PM EDT us Pedro Cordon MD CHEMISTRY ORDERABLES Final Result Performing Organization Address City/[facility]/ZIP Co de Phone Number [facility] [address] [place] [address] * LIPASE LEVEL (04/13/2012 8:15 PM EDT) Only the most recent of2 resultswithin the time period is included. Lipase Lvl 78 36 - 250 IU/L [facility] Blood specimen (specimen) UPPER LIMB STRUCTURE / Unknown 04/13/2012 8:15 PM EDT 04/13/2012 8:32 PM EDT us Pedro Cordon MD CHEMISTRY ORDERABLES Final Result Performing Organization Address [facility] Co de Phone Number [facility] [address] [place] [address] * SCANNED RADIOLOGY REPORT (03/12/2012 12:00 AM [...] RESPIRATORY CULTURE (02/27/2011 11:52 AM EDT) Pathologist [facility] GS Group 5: >25 WBC and <10 epithelial cells/lpf Abundant Gram positive cocci [facility] Final Abundant growth of Moraxella catarrhalis Beta-lactamase positive 03/01/2011 7:25:49 AM [facility] Sputum specimen (specimen) MOUTH REGION STRUCTURE / Unknown 02/27/2011 11:52 AM EDT 02/27/2011 11:59 AM EDT us Tay Lombardo MD MICROBIOLOGY - GENERAL ORDER ELDER Final Result [facility] [address] [place] [address] * HEPATIC FUNCTION PANEL (02/26/2011 5:15 AM EDT) Total Protein 6.5 6.0 - 8.2 gm/dL [facility] Albumin 4.1 3.4 - 4.8 gm/dL [facility] Bili Direct 0.1 0.0 - 0.4 mg/dL [facility] Bili Total 0.8 0.1 - 1.4 mg/dL [facility] AST 32 16 - 55 IU/L [facility] ALT 30 6 - 72 IU/L [facility] Alk Phos 55 41 - 119 IU/L [facility] Blood specimen (specimen) UPPER LIMB STRUCTURE / Unknown 02/26/2011 5:15 AM EDT 02/26/2011 10:42 AM EDT Narrative [facility] - 02/26/2011 11:15 AM EDT Add to blood in lab or draw us Tay Lombardo MD CHEMISTRY ORDERABLES Final R esult Performing Organization Address [facility]/ZIP Co de Phone Number [facility] [address] [place] [address] * SMEAR REVIEW (02/26/2011 5:02 AM EDT) Bands 2 0 - 10 % [facility] Aniso Slight [facility] Polychrom Slight [facility] Blood specimen (specimen) 02/26/2011 5:02 AM EDT 02/26/2011 5:44 AM EDT us Tay Lombardo MD HEMATOLOGY ORDERABLES Final Result Performing Organization Address [facility] de Phone Number [facility] [address] [place] [address] * AMYLASE LEVEL (02/26/2011 5:02 AM EDT) Pathologist [facility] Amylase Lvl 35 30 - 97 IU/L [facility] Blood specimen (specimen) UPPER LIMB STRUCTURE / Unknown 02/26/2011 5:02 AM EDT 02/26/2011 10:14 AM EDT Narrative [facility] - 02/26/2011 10:49 AM EDT Add to blood in lab or draw stat us Tay Lombardo MD CHEMISTRY ORDERABLES Final R esult Performing Organization Address [facility] Co de Phone Number [facility] [address] [place] [address] * POTASSIUM WHOLE BLOOD (02/25/2011 8:25 AM EDT) Only the most recent of10 resultswithin the time period is included. K-WB 4.4 3.5 - 5.0 mEq/L [facility] Blood specimen (specimen) UPPER LIMB STRUCTURE / Unknown 02/25/2011 8:25 AM EDT 02/25/2011 8:30 AM EDT us Tay Lombardo MD CHEMISTRY ORDERABLES Final R esult Performing Organization Address [facility]/ZIP Co de Phone Number [facility] [address] [place] [address] * (ABNORMAL) BLOOD GAS ARTERIAL (02/24/2011 5:13 AM EDT) Only the most recent of8 resultswithin the time period is included. pH 7.350(L) 7.370 - 7.440 [facility] pCO2 50(H) 32 - 45 mmHg [facility] pO2 122(H) 80 - 95 mmHg [facility] HCO3 28 20 - 29 mmol/L [facility] TCO2 29 21 - 30 mmol/L [facility] Base Excess 1.2 -2.8 - 2.3 mEq/L [facility] O2 Sat 99(H) 95 - 97 % [facility] Inspired O2 3L [facility] Specimen Type Arterial [facility] Blood specimen (specimen) UPPER LIMB STRUCTURE / Unknown 02/24/2011 5:13 AM EDT 02/24/2011 5:13 AM EDT Tay Lombardo MD CHEMISTRY ORDERABLES Final R esult Performing Organization Address City/[facility]/ZIP Co de Phone Number [facility] [address] [place] [address] * (ABNORMAL) HEMOGLOBIN AND HEMATOCRIT (02/24/2011 12:26 AM EDT) Only the most recent of3 resultswithin the time period is included. Hgb 10.1(L) 13.5 - 17.1 gm/dL [facility] Hct 30.0(L) 40.0 - 50.2 % [facility] Blood specimen (specimen) UPPER LIMB STRUCTURE / Unknown 02/24/2011 12:26 AM EDT 02/24/2011 12:26 AM EDT Tay Lombardo MD HEMATOLOGY ORDERABLES Final Result Performing Organization Address City/[facility]/ZIP Co de Phone Number [facility] [address] [place] [address] * TRANSFUSE RED BLOOD CELLS (02/23/2011 11:20 PM EDT) Only the most recent of4 resultswithin the time period is included. us Tay Lombardo MD NURSING TREATMENT ORDERABLES - BLOOD ADMIN Final Result * RED BLOOD CELLS REQUEST (02/23/2011 8:58 PM EDT) Only the most recent of4 resultswithin the time period is included. Red Blood Cells Status Ready [facility] Blood specimen (specimen) 02/23/2011 8:58 PM EDT 02/23/2011 8:58 PM EDT us Tay Lombardo MD BLOOD PRODUCT ORDERS Final R [facility] Performing Organization Address [facility] de Phone Number [facility] LAB [address] [place] [address] * TRANSFUSE FRESH FROZEN PLASMA (02/23/2011 8:43 PM EDT) Only the most recent of4 resultswithin the time period is included. us Tay Lombardo MD NURSING TREATMENT ORDERABLES - BLOOD ADMIN Final Result * FFP/PLASMA REQUEST (02/23/2011 4:43 PM EDT) Pathologist [facility] FFP/Plasma Status Ready [facility] Blood specimen (specimen) 02/23/2011 4:43 PM EDT 02/23/2011 4:43 PM EDT Narrative [facility] - 02/23/2011 5:08 PM EDT Due Date(MM/DD/YYYY):02/23/11Due Time(24hour clock): now us Tay Lombardo MD BLOOD PRODUCT ORDERS [facility] Performing Organization Address [facility] de Phone Number [facility] [address] [place] [address] * O2 SAT - MIXED VENOUS (02/23/2011 3:42 PM EDT) O2 Sat - Mixed Venous 67 % [facility] Blood specimen (specimen) UPPER LIMB STRUCTURE / Unknown 02/23/2011 3:42 PM EDT 02/23/2011 3:42 PM EDT Narrative [facility] - 02/23/2011 3:49 PM EDT Mixed venous invivo SVO2 calibration 2 hrs. Post-Op and q 24hrs. prn. us Tay Lombardo MD CHEMISTRY ORDERABLES [facility] Performing Organization Address [facility]/ZIP Co de Phone Number [facility] [address] [place] [address] * (ABNORMAL) PARTIAL THROMBOPLASTIN TIME (02/23/2011 1:09 PM EDT) Only the most recent of2 resultswithin the time period is included. PTT 36.0(H) 23.6 - 35.1 second(s) [facility] Blood specimen (specimen) UPPER LIMB STRUCTURE / Unknown 02/23/2011 1:09 PM EDT 02/23/2011 1:11 PM EDT Narrative [facility] - 02/23/2011 2:55 PM EDT On admission to [facility] Tay Lombardo MD HEMATOLOGY ORDERABLES Final Result Performing Organization Address [facility] Co de Phone Number [facility] [address] [place] [address] * (ABNORMAL) FIBRINOGEN (02/23/2011 1:09 PM EDT) Fibrinogen 128(L) 196 - 447 mg/dL [facility] Blood specimen (specimen) UPPER LIMB STRUCTURE / Unknown 02/23/2011 1:09 PM EDT 02/23/2011 1:11 PM EDT Narrative [facility] - 02/23/2011 2:55 PM EDT On admission to [facility] us Tay Lombardo MD HEMATOLOGY ORDERABLES Final Result Performing Organization Address [facility] Co de Phone Number [facility] [address] [place] [address] * STAPHYLOCOCCUS AUREUS SCREEN (02/23/2011 7:30 AM EDT) Final Growth of Staphylococcus aureus identified as methicillin sensitive. [facility] Specimen from nose (specimen) NASAL STRUCTURE / Unknown 02/23/2011 7:30 AM EDT 02/23/2011 7:48 AM EDT us Tay Lombardo MD MICROBIOLOGY - GENERAL ORDER ELDER Final Result Performing Organization Address [facility] Co de Phone Number [facility] [address] [place] [address] * SURGICAL PATHOLOGY REPORT (02/23/2011 5:30 AM EDT) Surgical Pathology Report PATIENT NAME:RICKEY RUSH Surgical Pathology Report Accession Number Collected Date/Time Received Date/Time [id number] 02/23/11 05:30 EDT 02/24/11 05:29 EDT Diagnosis Aortic valve: - Nodular calcifications with stromal fibrosis (clinically with stenosis). AIDA VIZCAINO MD (Electronically signed by) Verified: 02/27/2011 [facility] Laboratory Clinical Information CAD; aortic stenosis. Gross Description Received in formalin, labeled with the patient's name and aortic valve are approximately 10 mullen-yellow calcified valve tissues ranging from 0.5 to 2.0 cm in greatest dimension. Medical Office Receptionist sections are submitted in one cassette following decalcification./B C LAVERNE/CELSO Microscopic Description Microscopic examination is performed and the findings corroborate the diagnosis. [facility] 02/23/2011 5:30 AM EDT Tay Lombardo MD PATHOLOGY ORDERABLES Final R esult [facility] [address] [place] [address] * VA US CAROTID DUPLEX BILATERAL (02/21/2011 3:46 PM EDT) Pathologist [facility] PYRAMIS LINK PYRAMIS Anatomical Region Laterality Modality Vascular, Head, Neck Vascular Im aging 02/21/2011 3:08 PM EDT aTy Lombardo MD IMG VASCULAR ORDERABLES Maite l Result * ABORH (02/21/2011 1:20 PM EDT) Pathologist [facility] Int O POS [facility] Blood specimen (specimen) 02/21/2011 1:20 PM EDT 02/21/2011 1:25 PM EDT Tay Lombardo MD BLOOD BANK ORDERABLES Final Result Performing Organization Address City/[facility]/ZIP Co de Phone Number [facility] [address] [place] [address] * ANTIBODY SCREEN IGG (02/21/2011 1:20 PM EDT) ABSC IgG Int Negative [facility] Blood specimen (specimen) 02/21/2011 1:20 PM EDT 02/21/2011 1:25 PM EDT us Tay Lombardo MD BLOOD BANK ORDERABLES Final Result [facility] [address] [place] [address] * SCANNED CARDIAC HELPER ELECTRICAL (02/02/2011 12:00 AM EDT) Only the most recent of2 resultswithin the time period is included. Narrative 02/02/2011 6:19 AM EDT Ordered by an unspecified provider. Transcriptions Unknown, Unknown - 02/02/2011 6:19 AM EDT us Unknown Unknown [facility] CARDIAC CATH ORDERABLES Maite l Result * [...] T esting Narrative 01/25/2011 4:[address] [facility] Name:Rickey Rush Date:01/25/2011 :1945 [...] Procedure Note Deshaun Yates MD - 01/25/2011 [facility] [employer] [facility] Name:Rickey Rush Date:01/25/2011 :1945 [...] Coronary atherosclerosis of unspecified type of vessel, ekuk or graft 01/31/2011 [place] Other symptoms involving cardiovascular system 02/21/2011 Aortic valve disorders 02/21/2011 Essential hypertension, benign 05/25/2011 Coronary atherosclerosis of ekuk coronary artery 05/25/2011 Aortic valve disorders 05/25/2011 DM (diabetes mellitus) ([facility]) Type II or unspecified type diabetes mellitus without mention of complication, not stated as uncontrolled 07/20/2011 COPD (chronic obstructive pulmonary disease) (HCC) Chronic airway obstruction, not elsewhere classified 07/20/2011 HTN (hypertension) Unspecified essential hypertension 07/20/2011 Hyperlipidemia Other and unspecified hyperlipidemia 07/20/2011 Aortic stenosis Aortic valve disorders 09/22/2011 CAD (coronary artery disease) Coronary atherosclerosis of unspecified type of vessel, ekuk or graft 09/22/2011 Hyperlipidemia Other and unspecified hyperlipidemia 09/22/2011 HTN (hypertension) Unspecified essential hypertension 09/22/2011 COPD (chronic obstructive pulmonary disease) (HCC) Chronic airway obstruction, not elsewhere classified 09/22/2011 DM (diabetes mellitus) ([facility]) Type II or unspecified type diabetes mellitus without mention of complication, not stated as uncontrolled 09/22/2011 CAD (coronary artery disease) Coronary atherosclerosis of unspecified type of vessel, ekuk or graft 03/12/2012 HTN (hypertension) Unspecified essential hypertension 03/12/2012 Hyperlipidemia Other and unspecified hyperlipidemia 03/12/2012 COPD (chronic obstructive pulmonary disease) (HCC) Chronic airway obstruction, not elsewhere classified 03/12/2012 S/P aortic valve replacement Heart valve 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 03/12/2012 DM (diabetes mellitus) ([facility]) Type II or unspecified type diabetes mellitus without mention of complication, not stated as uncontrolled 03/12/2012 S/P aortic valve replacement Heart valve 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 03/13/2012 Pneumonia Pneumonia, organism unspecified 04/13/2012 CAD (coronary artery disease) Coronary atherosclerosis of unspecified type of vessel, ekuk or graft 04/13/2012 Fever Fever, unspecified 04/13/2012 Aortic stenosis Aortic valve disorders 04/13/2012 COPD (chronic obstructive pulmonary disease) (HCC) Chronic airway obstruction, not elsewhere classified 04/13/2012 DM (diabetes mellitus) ([facility]) Type II or unspecified type diabetes mellitus [...] Coronary atherosclerosis of unspecified type of vessel, ekuk or graft 07/16/2012 S/P aortic valve replacement [...] essential hypertension 07/26/2012 DM (diabetes mellitus) ([facility]) Type II or unspecified type diabetes mellitus without mention of complication, not stated as uncontrolled 07/26/2012 Hyperlipidemia Other and unspecified hyperlipidemia 07/26/2012 Renal colic 09/22/2012 Hematuria Hematuria, unspecified 09/22/2012 Ureteral obstruction Other ureteric obstruction 09/22/2012 S/P AVR (aortic valve replacement) Heart valve 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 04/15/2013 CAD (coronary artery disease) Coronary atherosclerosis of unspecified type of vessel, ekuk or graft 04/15/2013 HTN (hypertension) Unspecified essential hypertension 04/15/2013 Hyperlipidemia Other and unspecified hyperlipidemia 04/15/2013 CAD (coronary artery disease) Coronary atherosclerosis of unspecified type of vessel, ekuk or graft 06/17/2013 CAD (coronary artery disease) Coronary atherosclerosis of unspecified type of vessel, ekuk or graft 10/23/2013 S/P CABG (coronary artery [...] Coronary atherosclerosis of unspecified type of vessel, ekuk or graft 07/16/2014 HTN (hypertension) Unspecified essential [...] valve disorders 04/05/2016 Coronary artery disease involving ekuk coronary artery of ekuk heart without angina pectoris 04/05/2016 Secondary hypertension, unspecified 05/25/2016 Nonrheumatic aortic valve stenosis Aortic valve disorders 05/25/2016 Coronary artery disease involving ekuk coronary artery of ekuk heart without angina pectoris 05/25/2016 S/P AVR [...] Coronary atherosclerosis of unspecified type of vessel, ekuk or graft 11/08/2016 Nonrheumatic aortic valve stenosis [...] Coronary atherosclerosis of unspecified type of vessel, ekuk or graft 12/13/2017 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 12/13/2017 Essential hypertension Unspecified essential hypertension 12/13/2017 Other hyperlipidemia 12/13/2017 Nonrheumatic aortic valve stenosis Aortic valve disorders 12/13/2017 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 01/09/2018 Nonrheumatic aortic valve stenosis Aortic valve disorders 01/09/2018 ASHD (arteriosclerotic heart disease) Coronary atherosclerosis of unspecified type of vessel, ekuk or graft 06/18/2018 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 06/18/2018 Cough due to TONA inhibitor Cough 06/18/2018 Dyslipidemia Other and unspecified hyperlipidemia 06/18/2018 Other emphysema (HCC) Other emphysema 06/18/2018 Pneumonia of left lower lobe due to infectious organism 12/10/2018 Hypoxia Hypoxemia 12/10/2018 ASHD (arteriosclerotic heart disease) Coronary atherosclerosis of unspecified type of vessel, ekuk or graft 03/18/2019 S/P AVR Heart valve [...] Unspecified essential hypertension 04/13/2012 DM (diabetes mellitus) ([facility]) Type II or unspecified type diabetes mellitus without mention of complication, not stated as uncontrolled 04/13/2012 COPD (chronic obstructive pulmonary disease) (HCC) Chronic airway obstruction, not elsewhere classified 04/13/2012 CAD (coronary artery disease) Coronary atherosclerosis of unspecified type of vessel, ekuk or graft 04/13/2012 Aortic stenosis Aortic valve disorders 04/13/2012 Malaise Other malaise and fatigue 04/13/2012 Hypotension Hypotension, unspecified 04/13/2012 COPD (chronic obstructive pulmonary disease) (HCC) Chronic airway obstruction, not elsewhere classified 07/16/2012 Hyperlipidemia Other and unspecified hyperlipidemia 07/16/2012 Aortic stenosis Aortic valve disorders 07/16/2012 CAD (coronary artery disease) Coronary atherosclerosis of unspecified type of vessel, ekuk or graft 07/16/2012 Fever Fever, unspecified 07/16/2012 [...] obstruction, not elsewhere classified 12/10/2018 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
== END 2025-07-21 23:59 ==
LOC: LAB.DROPOF 07-22 10:56
PROVIDERS: PCP Family Medicine; Visit Provider Nurse Practitioner
DX: J18.9 Pneumonia, unspecified organism (principal); E83.42 Hypomagnesemia
CPT/HCPCS: 80053; 83735; 85025

== ENCOUNTER 2025-08-03 11:54 | Outpatient (CLI) | payer MEDICARE, SELFPAY ==
--- NOTE | 2025-08-03 11:57 | XR_ITS ---
FINAL REPORT CLINICAL HISTORY: sob COMPARISON: 07/06/2025 FINDINGS: PA and lateral views of the chest are obtained. There is evidence of a prior sternotomy. Changes of emphysema are noted. The cardiac and mediastinal silhouettes are within normal limits. A right perihilar opacity is present, similar to the prior exam. The previously noted bibasilar opacities have resolved. There is no pleural effusion, pneumothorax, or acute osseous abnormality. IMPRESSION: Right perihilar opacity, similar to the prior exam. Consider CT for further evaluation. Reviewed, Interpreted and Dictated by Dorinda Santo MD Transcribed by Jyoti Lombardo Authenticated and [facility]
== END 2025-08-03 23:59 ==
LOC: RAD 11:55
PROVIDERS: PCP Family Medicine; Visit Provider Internal Medicine Pulmonary Disease
DX: J43.9 Emphysema, unspecified (principal)
CPT/HCPCS: 71046